=== PATIENT | male | born 1955 | race Caucasian/White ===

== ENCOUNTER 2017-03-03 14:55 | Inpatient (IN) | payer OTHER ==
[~2017-03-03] VITALS: Ht 170.2 cm; Wt 62.1 kg
[2017-03-03 16:30] VITALS: BP 135/85; PULSE 73; TEMP 37.5; BMI 21.8
[2017-03-03] MEDS ORDERED: DEXTROSE 50% 50 ML SYR IV PRN (17:30)
[2017-03-03] MEDS ORDERED: GLUCOSE 40% GEL 15 GM TUBE PO PRN (17:30)
[2017-03-03] MEDS ORDERED: GLUCAGON FOR INJ 1 MG VIAL SQ PRN (17:30)
[2017-03-03] MEDS ORDERED: GLUCOSE 10 TABS/TUBE PO PRN (17:30)
[2017-03-03] MEDS ORDERED: NVLG PO (17:34)
[2017-03-03] MEDS ORDERED: ALL100 PO (17:34)
[2017-03-03] MEDS ORDERED: ENTE1TAB2 PO (17:34)
[2017-03-03] MEDS ORDERED: SODI650T8 PO (17:34)
[2017-03-03] MEDS ORDERED: INSDGI SC (17:34)
[2017-03-03] MEDS ORDERED: PANT40TA PO (17:34)
[2017-03-03] MEDS ORDERED: AMIT150T PO (17:34)
[2017-03-03] MEDS ORDERED: PRAV20TA PO (17:34)
[2017-03-03] MEDS ORDERED: CHOL1TAB79 PO (17:34)
[2017-03-03] MEDS ORDERED: FRRS300 PO (17:34)
[2017-03-03] MEDS ORDERED: NVLGIPEN PO (17:34)
[2017-03-03] MEDS ORDERED: NVLGIPEN SUBD (17:34)
[2017-03-03] MEDS ORDERED: ASCO500T16 PO (17:34)
[2017-03-03] MEDS ORDERED: CLOP1TAB15 PO (17:34)
[2017-03-03] MEDS ORDERED: TACR1CAP PO (17:34)
[2017-03-03] MEDS ORDERED: CRG3125 PO (17:34)
[2017-03-03 18:22] LABS: HEMATOCRIT 27.2 % (42-52); MEAN CELL VOLUME 96.1 fL (80-100); MEAN CORPUSCULAR HEMOGLOBIN 33.2 pg (25-34); MEAN CORPUSCULAR HGB CONC 34.6 g/dl (32-36); MEAN PLATELET VOLUME 9.2 fL (7.4-10.4); PLATELET COUNT 204 K/uL (130-400); RED BLOOD COUNT 2.83 M/uL (4.7-6.1); WHITE BLOOD COUNT 6.74 K/uL (4.8-10.8)
[2017-03-03 18:35] LABS: INR 1.1 (0.9-1.1); PROTHROMBIN TIME (PATIENT) 11.2 SECONDS (9.0-12.0)
[2017-03-03 18:56] LABS: ALB/GLOB RATIO 0.8 (0.9-2); BUN/CREATININE RATIO 12.2 (10-20); CALCIUM 6.4 mg/dl (8.5-10.1); CREATININE 5.77 mg/dl (0.60-1.40); PHOSPHORUS 5.9 mg/dl (2.5-4.9); POTASSIUM 4.7 mmol/L (3.5-5.1)
[2017-03-03 19:07] LABS: BETA-HYDROXYBUTYRATE 1.69 mg/dL (0.2-2.81)
[2017-03-03] MEDS ORDERED: PHARMACY GLYCEMIC MGMT CONSULT PRN (19:11)
[2017-03-03 19:28] LABS: BASO % 0.3 %; BASO ABS # 0.02 K/uL (0-0.2); COMPLETE YES; EOS % 1.6 %; IG% 0.6 %; LYMPH % 21.5 %; LYMPH ABS # 1.45 K/uL (1.2-3.4); MONO % 7.9 %; NEUT % 68.1 %
--- NOTE | 2017-03-03 19:28 | Pharmacy Progress Note ---
Glycemic Control Intl Consult Date of Service Mar 03, 2017. Scope Glycemic Pharmacist consulted by Dr Whitfield on 03/03/17 for glycemic control and to write orders per [facility] inpatient glycemic control protocol Objective Weight (Kilograms): 63.100 Accuchecks BSG (last 24hrs): Test 03/03/17 18:08 Random Glucose 496 mg/dl (70-99) Laboratory Data (last 24hrs) Test 03/03/17 18:08 Anion Gap 9.0 mmol/L BUN/Creatinine Ratio 12.2 Blood Urea Nitrogen 71 mg/dl Creatinine 5.77 mg/dl Potassium Level 4.7 mmol/L Sodium Level 134 mmol/L White Blood Count 6.74 K/uL Red Blood Count 2.83 M/uL Hemoglobin 9.4 g/dL Hematocrit 27.2 % Mean Corpuscular Volume 96.1 fL Mean Corpuscular Hemoglobin 33.2 pg Mean Corpuscular Hemoglobin Concent 34.6 g/dl Platelet Count 204 K/uL Mean Platelet Volume 9.2 fL Recent Pertinent Medications Outpatient Anti-diabetic Regimen: * Lantus 30 units HS * Novolog 10/23/11 units with meals * A1c = 9.6 % 10/2016 per MD Assessment & Plan ASSESSMENT: * 61 yo M admitted with CKD 5 - per MD going to be new to HD starting tomorrow * Insulin sensitivity likely changing with initiation of dialysis - would be more comfortable with insulin drip and BSG on admission ~500 mg/dL * Spoke with MD, GERARDO to start drip and hold IV fluids given renal disease * Would be beneficial to speak with patient about outpatient glycemic control in the AM PLAN FOR INPATIENT GLYCEMIC CONTROL: * Start IV insulin infusion per moderate stress protocol * Goal Range 100 - 180 mg/dl * In the critical care setting, continuous IV insulin infusion has been shown to be the best method for achieving glycemic targets. * Hold off on Lantus has patient may be made NPO at midnight and receive HD for first time tomorrow * Order updated A1c tomorrow * Please note that the plan above was derived based on current level of insulin resistance and hospital stress. These recommendations are appropriate for inpatient admission only. Plan of care upon discharge will need to be reassessed to avoid potential outpatient hypo/hyperglycemia. Thank you.
[2017-03-03 19:30] VITALS: BP 142/82; PULSE 71; TEMP 37.7; O2SAT 100
[2017-03-03] MEDS ORDERED: INSULIN IV INFUSION PROTOCOL SCH (19:30)
[2017-03-03] MEDS ORDERED: INSULIN HUMAN REGULAR IV BOLUS 1.5 UNIT in SYRINGE 0 ML IV SCH (20:30)
[2017-03-03] MEDS: INSULIN REGULAR 250 UNITS in SODIUM CHLORIDE 0.9% 250ML 250 ML IV SCH ×2 (20:36→22:14)
[2017-03-03] MEDS ORDERED: SODIUM BICARBONATE 650 MG TAB PO SCH (21:00)
[2017-03-03] MEDS: INSULIN ASPART 100 UNITS/ML 3 ML PEN SC SCH (21:00)
[2017-03-03] MEDS: TACROLIMUS 1 MG CAP PO SCH (21:12)
[2017-03-03] MEDS: CARVEDILOL 3.125 MG TAB PO SCH (21:12)
[2017-03-03] MEDS: AMITRIPTYLINE HCL 50 MG TAB PO SCH (21:12)
--- NOTE | 2017-03-03 21:15 | Progress Note ---
Internal Med Progress Note Date of Service: Mar 03, 2017. Provider Documentation: SUBJECTIVE: Patient is a 61 yr male with PMH of DM II, End Stage Renal Disease, Cerebral Palsy, S/P Liver transplant and other problems was a direct admit on referral from his Tal[employer] Operations Manager for an elective Tunneled catheter placement and initiation of dialysis. Patient is a poor historian. Denies any history of chest pain, SOB, dizziness, cough, fever, chills, nausea, vomiting, abdominal pain, diarrhea, dysuria. Please refer to H&P for complete details. OBJECTIVE: Vital Signs-as noted below Physical Exam: General Appearance:Moderately built and nourished, no apparent distress Head: normocephalic, Atraumatic Eyes: normal inspection, EOMI, PERRL Neck: supple, Trachea midline Respiratory/Chest: Normal breath sounds, CTA Cardiovascular: S1, S2, No murmur Abdomen/GI:Soft, Non tender, Bowel sounds present Extremities/Musculoskelatal:normal inspection, no edema Neurologic/Psych:AAOX3, grossly no focal neurological deficits Skin: normal color, warm Lab data as noted below. ASSESSMENT & PLAN: End stage Renal Disease: Cr:5.7 Vascular surgery consulted for Tunneled Catheter placement Nephrology consulted for management of Hemodialysis Monitor renal function Uncontrolled DM II: Last A1C:9.6 in Feb, 2017 Blood glucose levels in 400s Will start on Insulin drip Pharmacy Glycemic control consulted Pharmacy to manage Insulin Anemia of Chronic Disease: No acute bleeding issues Monitor Hb Please review H&P for further details and management Vital Signs: Date Time Temp Pulse Resp B/P (MAP) Pulse Ox O2 Delivery O2 Flow Rate FiO2 03/03/17 19:30 37.7 71 20 142/82 (102) 100 Room Air 03/03/17 16:30 37.5 73 22 135/85 Room Air Lab Results: Results Past 24 Hours Test 03/03/17 18:08 03/03/17 19:31 Range/Units White Blood Count 6.74 4.8-10.8 K/uL Red Blood Count 2.83 4.7-6.1 M/uL Hemoglobin 9.4 14.0-18.0 g/dL Hematocrit 27.2 42-52 % Mean Corpuscular Volume 96.1 80-100 fL Mean Corpuscular Hemoglobin 33.2 25-34 pg Mean Corpuscular Hemoglobin Concent 34.6 32-36 g/dl Platelet Count 204 130-400 K/uL Mean Platelet Volume 9.2 7.4-10.4 fL Neutrophils (%) (Auto) 68.1 % Lymphocytes (%) (Auto) 21.5 % Monocytes (%) (Auto) 7.9 % Eosinophils (%) (Auto) 1.6 % Basophils (%) (Auto) 0.3 % Neutrophils # (Auto) 4.59 1.4-6.5 K/uL Lymphocytes # (Auto) 1.45 1.2-3.4 K/uL Monocytes # (Auto) 0.53 0.11-0.59 K/uL Eosinophils # (Auto) 0.11 0-0.5 K/uL Basophils # (Auto) 0.02 0-0.2 K/uL RDW Standard Deviation 46.3 36.4-46.3 fL RDW Coefficient of Variation 13.3 11.5-14.5 % Immature Granulocyte % (Auto) 0.6 % Immature Granulocyte # (Auto) 0.04 0.00-0.02 K/uL Red Blood Cell Morphology Unremarkable Prothrombin Time 11.2 9.0-12.0 SECONDS Prothromb Time International Ratio 1.1 0.9-1.1 Activated Partial Thromboplast Time 26.1 21.0-31.0 SECONDS Partial Thromboplastin Ratio 1.0 Sodium Level 134 136-145 mmol/L Potassium Level 4.7 3.5-5.1 mmol/L Chloride Level 107 98-107 mmol/L Carbon Dioxide Level 18 21-32 mmol/L Anion Gap 9.0 3-11 mmol/L Blood Urea Nitrogen 71 7-18 mg/dl Creatinine 5.77 0.60-1.40 mg/dl Est Creatinine Clear Calc Drug Dose 11.7 ml/min Estimated GFR () 11.1 Estimated GFR (Non- 9.6 BUN/Creatinine Ratio 12.2 10-20 Random Glucose 496 70-99 mg/dl Calcium Level 6.4 8.5-10.1 mg/dl Phosphorus Level 5.9 2.5-4.9 mg/dl Total Bilirubin 0.3 0.2-1 mg/dl Aspartate Amino Transf (AST/SGOT) 22 15-37 U/L Alanine Aminotransferase (ALT/SGPT) 41 12-78 U/L Alkaline Phosphatase 100 45-117 U/L Total Protein 6.6 6.4-8.2 gm/dl Albumin 2.9 3.4-5.0 gm/dl Globulin 3.7 2.5-4.0 gm/dl Albumin/Globulin Ratio 0.8 0.9-2 Beta-Hydroxybutyric Acid 1.69 0.2-2.81 mg/dL Bedside Glucose 478 70-99 mg/dl
[2017-03-03 23:29] VITALS: BP 108/72; PULSE 72; TEMP 37; O2SAT 97
--- NOTE | 2017-03-03 23:40 | History and Physical ---
History & Physical Date & Time of Service: Mar 03, 2017 at 17:00 Chief Complaint: Hypocalcemia, Urimea, Ckd Stage 5 Primary Care Physician: Carlton Lee D.O. History of Present Illness Source: patient, hospital records This is a 61yo M with a PMH of end stage renal disease, poorly controlled DM II , cerebral palsy, CAD (s/p stents in 2010) and s/p liver transplant (1997) who was admitted directly from Dr. Landon's nephrology clinic. Per patient, he has been in discussion with Dr. Landon about the initiation of dialysis for awhile but has opted to continue monitoring labwork. Patient is a poor historian, but per chart review, he was admitted at [facility] in [facility] for uncontrolled diabetes from 02/17-02/23. During this time, his creatinine was >5. Followed up with after hospitalization for repeat labwork. Based on abnormal labs, unintentional weight loss and decreased ability to make urine, the decision was made to initiate dialysis. Initially presented to [facility] yesterday but for unclear reasons, patient left. Was then directly admitted to [facility]. Has agreed to the elective tunnel catheter placement dialysis access by vascular surgery. Endorses decreased urinary output. Denies fever, chills, confusion, CP, SOB, abd pain, nausea, vomiting, constipation, fatigue. Has cerebral palsy and ambulates with a walker. Is more symptomatic on R side. Past Medical/Surgical History Medical Problems: (1) Cerebral palsy Status: Chronic (2) Diabetes mellitus type II, uncontrolled Status: Chronic (3) End stage chronic kidney disease Status: Chronic (4) Hepatitis B Status: Chronic (5) Presence of stent in coronary artery in patient with coronary artery disease Status: Chronic Surgical Problems: (1) S/P liver transplant Status: Chronic Family History Patient is adopted and unaware of biological family history. Social History Smoking Status: Former Smoker (Quit in ) Alcohol Use: none Marital Status: single Housing status: lives alone Allergies Coded Allergies: No Known Allergies (Unverified , 03/03/17) Home Medications Scheduled Allopurinol (Allopurinol), 1 TAB PO DAILY Amitriptyline Hcl (Amitriptyline Hcl), 1 TAB PO HS Ascorbic Acid (Ascorbic Acid), 500 MG PO TIDM Carvedilol (Carvedilol), 1 TAB PO BID Cholecalciferol (D3 2000), 1 TAB PO DAILY Clopidogrel (Plavix), 75 MG PO DAILY Entecavir (Entecavir), 1 TAB PO DAILY Ferrous Sulfate (Ferrous Sulfate), 1 TAB PO TIDM Insulin Aspart (Novolog Flexpen), 10 UNITS PO with lunch Insulin Aspart (Novolog), 12 PO with dinner Insulin Aspart (Novolog Flexpen), 8 UNITS SUBD with breakfast Insulin Glargine (Lantus), 30 SC QPM Pantoprazole (Protonix), 40 MG PO DAILY Pravastatin (Pravachol ), 20 MG PO DAILY Sodium Bicarbonate (Antacid) (Sodium Bicarbonate), 1 TAB PO TID Tacrolimus (Prograf), 4 CAP PO BID Review of Systems Ten systems reviewed and negative except as noted in the HPI. Physical Exam Vital Signs Date Time Temp Pulse Resp B/P (MAP) Pulse Ox O2 Delivery O2 Flow Rate FiO2 03/03/17 20:00 Room Air 03/03/17 19:30 37.7 71 20 142/82 (102) 100 Room Air 03/03/17 16:30 37.5 73 22 135/85 Room Air General Appearance: WD/WN, no apparent distress Head: normocephalic, atraumatic Eyes: normal inspection, PERRL, sclerae normal ENT: normal ENT inspection, hearing grossly normal, pharynx normal (moist mucous membranes) Neck: supple, no JVD, trachea midline Respiratory/Chest: chest non-tender, lungs clear, normal breath sounds, no respiratory distress, no accessory muscle use Cardiovascular: regular rate, rhythm, no murmur, normal peripheral pulses Abdomen/GI: non tender, soft, no organomegaly Extremities/Musculoskelatal: no calf tenderness, no pedal edema, non-tender Neurologic/Psych: alert, normal mood/affect, oriented x 3, + pertinent finding (Chronic gait abnormality 2/2 cerebral palsy ) Skin: normal color, warm/dry, no rash Diagnostics Laboratory Results Results Past 24 Hours Test 03/03/17 18:08 03/03/17 19:31 03/03/17 21:30 Range/Units White Blood Count 6.74 4.8-10.8 K/uL Red Blood Count 2.83 4.7-6.1 M/uL Hemoglobin 9.4 14.0-18.0 g/dL Hematocrit 27.2 42-52 % Mean Corpuscular Volume 96.1 80-100 fL Mean Corpuscular Hemoglobin 33.2 25-34 pg Mean Corpuscular Hemoglobin Concent 34.6 32-36 g/dl Platelet Count 204 130-400 K/uL Mean Platelet Volume 9.2 7.4-10.4 fL Neutrophils (%) (Auto) 68.1 % Lymphocytes (%) (Auto) 21.5 % Monocytes (%) (Auto) 7.9 % Eosinophils (%) (Auto) 1.6 % Basophils (%) (Auto) 0.3 % Neutrophils # (Auto) 4.59 1.4-6.5 K/uL Lymphocytes # (Auto) 1.45 1.2-3.4 K/uL Monocytes # (Auto) 0.53 0.11-0.59 K/uL Eosinophils # (Auto) 0.11 0-0.5 K/uL Basophils # (Auto) 0.02 0-0.2 K/uL RDW Standard Deviation 46.3 36.4-46.3 fL RDW Coefficient of Variation 13.3 11.5-14.5 % Immature Granulocyte % (Auto) 0.6 % Immature Granulocyte # (Auto) 0.04 0.00-0.02 K/uL Red Blood Cell Morphology Unremarkable Prothrombin Time 11.2 9.0-12.0 SECONDS Prothromb Time International Ratio 1.1 0.9-1.1 Activated Partial Thromboplast Time 26.1 21.0-31.0 SECONDS Partial Thromboplastin Ratio 1.0 Sodium Level 134 136-145 mmol/L Potassium Level 4.7 3.5-5.1 mmol/L Chloride Level 107 98-107 mmol/L Carbon Dioxide Level 18 21-32 mmol/L Anion Gap 9.0 3-11 mmol/L Blood Urea Nitrogen 71 7-18 mg/dl Creatinine 5.77 0.60-1.40 mg/dl Est Creatinine Clear Calc Drug Dose 11.7 ml/min Estimated GFR () 11.1 Estimated GFR (Non- 9.6 BUN/Creatinine Ratio 12.2 10-20 Random Glucose 496 70-99 mg/dl Calcium Level 6.4 8.5-10.1 mg/dl Phosphorus Level 5.9 2.5-4.9 mg/dl Total Bilirubin 0.3 0.2-1 mg/dl Aspartate Amino Transf (AST/SGOT) 22 15-37 U/L Alanine Aminotransferase (ALT/SGPT) 41 12-78 U/L Alkaline Phosphatase 100 45-117 U/L Total Protein 6.6 6.4-8.2 gm/dl Albumin 2.9 3.4-5.0 gm/dl Globulin 3.7 2.5-4.0 gm/dl Albumin/Globulin Ratio 0.8 0.9-2 Beta-Hydroxybutyric Acid 1.69 0.2-2.81 mg/dL Bedside Glucose 478 382 70-99 mg/dl EKG Sinus rhythm with occasional Premature ventricular complexes Impression Assessment and Plan This is a 61yo M with a PMH of end stage renal disease, poorly controlled DM II , cerebral palsy, CAD (s/p stents in 2010) and s/p liver transplant (1997) who was admitted directly from 's nephrology clinic for initiation of dialysis. End stage renal disease: -Cr elevated to 5.7 since 02/17 hospital admission -Cr 2.7 previously -Nephrology consulted -Vascular consulted -Tunnel catheter placement scheduled for tomorrow -NPO afrer midnight -Monitor CMP DM II: uncontrolled -Last hgb a1c of 9.6 in October 2016 -Recheck hgb a1c -BG in 400s when admitted -Glycemic consult placed -Insulin drip initiated CAD (s/p stents): -H/o MIs in 2008 and 2010 -No CP, EKG without ischemia -Cont home dose coreg, statin -Plavix held until after procedure S/p liver transplant: -H/o Hepatitic B -Continue Prograf, Entecavir Anemia: -2/2 chronic disease -No acute bleeding -Monitor CBC DVT Ppx: SCDs Code status: FULL PCP: Rosa Dispo: Admitted to telemetry. Discharge planning ordered. Patient seen in collaboration with Dr. Whitfield. Please see addendum. Level of Care Telemetry Advanced Directives Existing Living Will: No Existing Power of Glove Stitcher: No Resuscitation Status FULL RESUSCITATION VTE Prophylaxis VTE Risk Assessment Done? Y/N: Yes Risk Level: Moderate Given or contraindicated: SCD's Social Service Consult Receiving Home Health
[2017-03-04] VITALS (19 sets, daily range): BP systolic 107–168; BP diastolic 65–95; PULSE 60–83; TEMP 36.1–37.2; O2SAT 97–100; Ht 170.2 cm; Wt 62.1 kg
[2017-03-04] MEDS ORDERED: CALCIUM GLUCONATE 10% 2,000 MG in SODIUM CHLORIDE 0.9% 50ML 50 ML IV STA (06:05)
[2017-03-04 06:21] LABS: HEMATOCRIT 25.2 % (42-52); MEAN CELL VOLUME 96.2 fL (80-100); MEAN CORPUSCULAR HEMOGLOBIN 33.2 pg (25-34); MEAN CORPUSCULAR HGB CONC 34.5 g/dl (32-36); MEAN PLATELET VOLUME 9.3 fL (7.4-10.4); PLATELET COUNT 181 K/uL (130-400); RED BLOOD COUNT 2.62 M/uL (4.7-6.1); WHITE BLOOD COUNT 7.11 K/uL (4.8-10.8)
[2017-03-04 07:11] LABS: BUN/CREATININE RATIO 12.4 (10-20); CALCIUM 6.3 mg/dl (8.5-10.1); CREATININE 5.62 mg/dl (0.60-1.40); ESTIMATED AVERAGE GLUCOSE 209 mg/dl; HA1C FLAG Normal (Normal); MAGNESIUM 1.7 mg/dl (1.8-2.4); PHOSPHORUS 6.6 mg/dl (2.5-4.9)
[2017-03-04] MEDS ORDERED: FERROUS SULFATE 325 MG TAB PO SCH (07:30)
[2017-03-04] MEDS: ASCORBIC ACID 500 MG TAB PO SCH ×3 (07:30→17:11)
[2017-03-04] MEDS: CALCIUM ACETATE 667MG GELCAP PO SCH ×3 (07:30→17:11)
[2017-03-04] MEDS: INSULIN ASPART 100 UNITS/ML 3 ML PEN SC SCH ×3 (08:00→18:00)
[2017-03-04] MEDS: CARVEDILOL 3.125 MG TAB PO SCH ×2 (09:00→21:15)
[2017-03-04] MEDS: PRAVASTATIN SOD 20 MG TAB PO SCH (09:00)
[2017-03-04] MEDS: ALLOPURINOL 100 MG TAB PO SCH (09:00)
[2017-03-04] MEDS: TACROLIMUS 1 MG CAP PO SCH ×2 (09:00→21:15)
[2017-03-04] MEDS: CHOLECALCIFEROL 1000 INTER.UNIT TAB PO SCH (09:00)
--- NOTE | 2017-03-04 09:09 | Clinical Documentation Query ---
Dr. OMER, [facility] : CLINICAL DOCUMENTATION QUERY As able, please specify the type of CP in your patient as this affects severity of illness and risk of mortality. Thank you. In your clinical opinion is this patient being managed for: ( x ) other cerebral palsy ( ) Not Agree ( ) Other explanation of clinical findings (Please Explain) ( ) Unable to determine (Please Define) ( ) Need to Discuss The medical record reflects the following clinical findings, treatment, and risk factors. Clinical Indicators: Ambulates with walker, more symptomatic on right side Treatment: Walker Risk Factors: Idiopathic Please clarify and document your clinical opinion in the progress notes and discharge summary. Terms such as "probable", "suspected", "likely", "questionable", "possible", or "still to be ruled out" are acceptable. IF IN AGREEMENT, YOU MUST DOCUMENT ABOVE DIAGNOSTIC STATEMENT IN DAILY PROGRESS NOTES AND DISCHARGE SUMMARY. This document is not part of the patient's record. Thank You, Ramon Mack, RN [phone]
--- NOTE | 2017-03-04 10:30 | Progress Note ---
Internal Med Progress Note Date of Service: Mar 04, 2017. Provider Documentation: SUBJECTIVE: Seen and examined at bedside Feels well No complaints Planned for Tunneled Catheter placement and dialysis today OBJECTIVE: Vital Signs-as noted below Physical Exam: General Appearance:Moderately built and nourished, no apparent distress Head: normocephalic, Atraumatic Eyes: normal inspection, EOMI, PERRL Neck: supple, Trachea midline Respiratory/Chest: Normal breath sounds, CTA Cardiovascular: S1, S2, No murmur Abdomen/GI:Soft, Non tender, Bowel sounds present Extremities/Musculoskelatal:normal inspection, no edema Neurologic/Psych:AAOX3, grossly no focal neurological deficits Skin: normal color, warm Lab data as noted below. ASSESSMENT & PLAN: Patient is a 61yr male with PMH of ESRD, poorly controlled DM II, cerebral palsy , CAD (s/p stents in 2010) and s/p liver transplant (1997) who was admitted directly from 's nephrology clinic for initiation of dialysis. End stage Renal Disease: Cr:5.62 Vascular surgery consulted for Tunneled Catheter placement today Nephrology consulted for management of Hemodialysis Monitor renal function Uncontrolled DM II: Last A1C:9.6 in Feb, 2017 A1C:8.9 Blood glucose levels in 400s on presentation Blood sugar levels improved DC Insulin drip Start [facility] Pharm[facility] Glycemic control consulted Pharmacy to manage Insulin Anemia of Chronic Disease: No acute bleeding issues Monitor Hb Hb:8.7 today CAD S/P stents H/o MIs in 2008 and 2010 No acute issues Continue coreg, statin Plavix held for procedure S/p liver transplant: H/o Hepatitic B Continue Prograf, Entecavir DVT Px: SCDs Code status: FULL PCP: Rosa Disposition: Plan to discharge home when stable Vital Signs: Date Time Temp Pulse Resp B/P (MAP) Pulse Ox O2 Delivery O2 Flow Rate FiO2 03/04/17 08:22 36.7 65 16 107/65 (79) 99 Room Air 03/04/17 08:00 Room Air 03/04/17 04:00 Room Air 03/04/17 03:49 36.5 66 16 109/68 (82) 99 Room Air 03/03/17 23:59 Room Air 03/03/17 23:29 37.0 72 20 108/72 (84) 97 Room Air 03/03/17 20:00 Room Air 03/03/17 19:30 37.7 71 20 142/82 (102) 100 Room Air 03/03/17 16:30 37.5 73 22 135/85 Room Air Lab Results: Results Past 24 Hours Test 03/03/17 18:08 03/03/17 19:31 03/03/17 21:30 03/03/17 23:28 Range/Units White Blood Count 6.74 4.8-10.8 K/uL Red Blood Count 2.83 4.7-6.1 M/uL Hemoglobin 9.4 14.0-18.0 g/dL Hematocrit 27.2 42-52 % Mean Corpuscular Volume 96.1 80-100 fL Mean Corpuscular Hemoglobin 33.2 25-34 pg Mean Corpuscular Hemoglobin Concent 34.6 32-36 g/dl Platelet Count 204 130-400 K/uL Mean Platelet Volume 9.2 7.4-10.4 fL Neutrophils (%) (Auto) 68.1 % Lymphocytes (%) (Auto) 21.5 % Monocytes (%) (Auto) 7.9 % Eosinophils (%) (Auto) 1.6 % Basophils (%) (Auto) 0.3 % Neutrophils # (Auto) 4.59 1.4-6.5 K/uL Lymphocytes # (Auto) 1.45 1.2-3.4 K/uL Monocytes # (Auto) 0.53 0.11-0.59 K/uL Eosinophils # (Auto) 0.11 0-0.5 K/uL Basophils # (Auto) 0.02 0-0.2 K/uL RDW Standard Deviation 46.3 36.4-46.3 fL RDW Coefficient of Variation 13.3 11.5-14.5 % Immature Granulocyte % (Auto) 0.6 % Immature Granulocyte # (Auto) 0.04 0.00-0.02 K/uL Red Blood Cell Morphology Unremarkable Prothrombin Time 11.2 9.0-12.0 SECONDS Prothromb Time International Ratio 1.1 0.9-1.1 Activated Partial Thromboplast Time 26.1 21.0-31.0 SECONDS Partial Thromboplastin Ratio 1.0 Sodium Level 134 136-145 mmol/L Potassium Level 4.7 3.5-5.1 mmol/L Chloride Level 107 98-107 mmol/L Carbon Dioxide Level 18 21-32 mmol/L Anion Gap 9.0 3-11 mmol/L Blood Urea Nitrogen 71 7-18 mg/dl Creatinine 5.77 0.60-1.40 mg/dl Est Creatinine Clear Calc Drug Dose 11.7 ml/min Estimated GFR () 11.1 Estimated GFR (Non- 9.6 BUN/Creatinine Ratio 12.2 10-20 Random Glucose 496 70-99 mg/dl Calcium Level 6.4 8.5-10.1 mg/dl Phosphorus Level 5.9 2.5-4.9 mg/dl Total Bilirubin 0.3 0.2-1 mg/dl Aspartate Amino Transf (AST/SGOT) 22 15-37 U/L Alanine Aminotransferase (ALT/SGPT) 41 12-78 U/L Alkaline Phosphatase 100 45-117 U/L Total Protein 6.6 6.4-8.2 gm/dl Albumin 2.9 3.4-5.0 gm/dl Globulin 3.7 2.5-4.0 gm/dl Albumin/Globulin Ratio 0.8 0.9-2 Beta-Hydroxybutyric Acid 1.69 0.2-2.81 mg/dL Bedside Glucose 478 382 352 70-99 mg/dl Test 03/04/17 00:31 03/04/17 01:31 03/04/17 02:30 03/04/17 04:34 Range/Units Bedside Glucose 230 181 164 101 70-99 mg/dl Test 03/04/17 05:36 03/04/17 06:31 03/04/17 06:57 03/04/17 08:12 Range/Units White Blood Count 7.11 4.8-10.8 K/uL Red Blood Count 2.62 4.7-6.1 M/uL Hemoglobin 8.7 14.0-18.0 g/dL Hematocrit 25.2 42-52 % Mean Corpuscular Volume 96.2 80-100 fL Mean Corpuscular Hemoglobin 33.2 25-34 pg Mean Corpuscular Hemoglobin Concent 34.5 32-36 g/dl RDW Standard Deviation 45.9 36.4-46.3 fL RDW Coefficient of Variation 13.3 11.5-14.5 % Platelet Count 181 130-400 K/uL Mean Platelet Volume 9.3 7.4-10.4 fL Sodium Level 141 136-145 mmol/L Potassium Level 4.0 3.5-5.1 mmol/L Chloride Level 115 98-107 mmol/L Carbon Dioxide Level 17 21-32 mmol/L Anion Gap 9.0 3-11 mmol/L Blood Urea Nitrogen 69 7-18 mg/dl Creatinine 5.62 0.60-1.40 mg/dl Est Creatinine Clear Calc Drug Dose 11.9 ml/min Estimated GFR () 11.5 Estimated GFR (Non- 9.9 BUN/Creatinine Ratio 12.4 10-20 Random Glucose 85 70-99 mg/dl Estimated Average Glucose 209 mg/dl Hemoglobin A1c 8.9 4.5-5.6 % Calcium Level 6.3 8.5-10.1 mg/dl Phosphorus Level 6.6 2.5-4.9 mg/dl Magnesium Level 1.7 1.8-2.4 mg/dl Bedside Glucose 74 133 86 70-99 mg/dl
--- NOTE | 2017-03-04 11:28 | NEPHROLOGY CONSULTATION ---
DATE OF CONSULTATION: 03/04/2017 ATTENDING OF RECORD: Jacoby Whitfield MD REASON FOR CONSULTATION: End-stage renal disease. HISTORY OF PRESENT ILLNESS: This is a 61-year-old male who follows with me in the outpatient clinic, who at a previous visit over this summer had CKD stage IV with no proteinuria with creatinine of about 3 with the right kidney of 10.5 cm and the left kidney of 10.6 cm with echogenicity consistent with medical renal disease from underlying diabetes and chronic allograft nephropathy. The patient has been a diabetic since 1997 after liver transplant. Hemoglobin A1c is consistently in the 9-10 range and he has difficult time in controlling his blood sugars. 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 b.i.d. The patient also has underlying heart disease with MO in 2009 and 2010 with 2 stents, has underlying sleep apnea as well as cerebral palsy, which affects his right side. The patient was doing well and then since giving started to lose weight, had decreased appetite and went in to [facility] from February 17 to February 23 with hyperglycemia and creatinine was up to 5.15. I saw him in followup and creatinine was not improving and was having poor urinary flow with just small dribbles out and sent to [facility] who decided labs were stable and did not warrant admission. So, I decided to subsequently directly admit the patient to [facility] [address] [facility] for a tunneled dialysis catheter placement, insulin drip to help control blood sugars and IV calcium to help raise the calcium levels, which were dropping in the setting of elevated phosphorus levels. The patient has noticed more itching of his skin, likely a consequence of the hyperphosphatemia. PAST MEDICAL HISTORY: As above with diabetes, liver transplant, hep B cirrhosis, heart disease with MO x2 with 2 stents, sleep apnea, cerebral palsy, and hypertension. PAST SURGICAL HISTORY: Two stents, liver transplant, and total hip replacement. SOCIAL HISTORY: No alcohol. No drugs. Former smoker, quit in 1996. FAMILY HISTORY: no renal disease in family CURRENT MEDICATIONS: Allopurinol 100 mg a day, Plavix 75 mg a day, Protonix 40 mg a day, Pravachol 20 mg daily, vitamin D 2000 units daily, vitamin C 500 mg p.o. t.i.d. with meals, iron 325 p.o. t.i.d. with meals, Coreg 3.125 p.o. b.i.d., sodium bicarbonate 650 mg p.o. t.i.d., Prograf 4 mg p.o. b.i.d., Elavil 150 mg at night, and sliding scale insulin with an insulin drip. REVIEW OF SYSTEMS: Positive fatigue. Positive decreased appetite. No nausea or vomiting. No chest pain. Positive shortness of breath with overexertion. Positive decreased urination. Positive pruritus. No fevers or chills. No blurry vision. Positive ambulatory dysfunction secondary to cerebral palsy. All other review of systems otherwise negative. PHYSICAL EXAMINATION: VITAL SIGNS: Temperature 36.5, pulse 66, respiratory rate 16, blood pressure 109/68, and satting 99% on room air. GENERAL: Awake, alert, and oriented x3. EYES: No scleral icterus. ENT: Moist mucous membranes. NECK: Supple. PULMONARY: Clear to auscultation. CARDIAC: Regular rate and rhythm. ABDOMEN: Bowel sounds positive. Soft, nontender, and nondistended. EXTREMITIES: No significant clubbing, cyanosis or edema. NEUROLOGICALLY: Right-sided weakness with underlying cerebral palsy. DERMATOLOGIC: No rash or ulcers noted. LABORATORY DATA: Sodium level is 134, potassium 4.7, chloride is 107, bicarb is 18, BUN is 71, creatinine is 5.77, glucose was 496, calcium 6.4, and phosphorus 5.9. Albumin 2.9. White count 6, H&H 9 and 27, and platelet count is 204. INR is 1.1. IMPRESSION AND PLAN: 1. Chronic kidney disease stage V with progression of chronic kidney disease to the point now that the patient requires dialysis, currently n.p.o. for a tunneled dialysis catheter today, which will be subsequently followed by 2 hours of dialysis treatment to help with clearance of toxins. 2. Anemia. Hemoglobin level 9.4. We will check iron sats and ferritin levels, may benefit from initiation of Procrit. 3. Renal osteodystrophy. Phosphorus levels are quite elevated. We will start the patient on PhosLo 1 p.o. t.i.d. with meals. Calcium levels are low at 6.4 and appear to be dropping in the setting of chronic hyperphosphatemia and I have given the patient 2 grams of calcium gluconate. Calcium levels should start to improve as phosphorus levels improve. 4. Metabolic acidosis. The patient is on sodium bicarbonate, which will be stopped secondary to initiation of dialysis. 5. Case management. The patient needs set up at the [facility] and we will touch base with case management to help have the patient get approved to that unit. I appreciate the consultation. JOS
[2017-03-04] MEDS: PANTOprazole SOD 40 MG TAB PO SCH (12:04)
--- NOTE | 2017-03-04 13:11 | Surgery Consultation ---
Consultation Date of Service Mar 04, 2017. Chief Complaint Acute renal failure History of Present Illness The patient is a 61 year old male with acute renal failure. Recommended permcath for dialysis at this time. Vitals Vital Signs Past 12 Hours Date Time Temp Pulse Resp B/P (MAP) Pulse Ox O2 Delivery O2 Flow Rate FiO2 03/04/17 12:08 Room Air 03/04/17 12:01 36.5 68 16 127/81 (96) 100 03/04/17 08:22 36.7 65 16 107/65 (79) 99 Room Air 03/04/17 08:00 Room Air 03/04/17 04:00 Room Air 03/04/17 03:49 36.5 66 16 109/68 (82) 99 Room Air Allergies Coded Allergies: No Known Allergies (Unverified , 03/03/17) Home Medications Scheduled Allopurinol (Allopurinol), 1 TAB PO DAILY Amitriptyline Hcl (Amitriptyline Hcl), 1 TAB PO HS Ascorbic Acid (Ascorbic Acid), 500 MG PO TIDM Carvedilol (Carvedilol), 1 TAB PO BID Cholecalciferol (D3 2000), 1 TAB PO DAILY Clopidogrel (Plavix), 75 MG PO DAILY Entecavir (Entecavir), 1 TAB PO DAILY Ferrous Sulfate (Ferrous Sulfate), 1 TAB PO TIDM Insulin Aspart (Novolog Flexpen), 10 UNITS PO with lunch Insulin Aspart (Novolog), 12 PO with dinner Insulin Aspart (Novolog Flexpen), 8 UNITS SUBD with breakfast Insulin Glargine (Lantus), 30 SC QPM Pantoprazole (Protonix), 40 MG PO DAILY Pravastatin (Pravachol ), 20 MG PO DAILY Sodium Bicarbonate (Antacid) (Sodium Bicarbonate), 1 TAB PO TID Tacrolimus (Prograf), 4 CAP PO BID Problem List Medical Problems: (1) Cerebral palsy (2) Diabetes mellitus type II, uncontrolled (3) End stage chronic kidney disease (4) Hepatitis B (5) Presence of stent in coronary artery in patient with coronary artery disease Surgical Problems: (1) S/P liver transplant Surgical / Medical History Past Medical/Surgical History: Diabetes, Kidney Disease Social History Smoking Status: Former Smoker (Quit in ) Review of Systems Constitutional: No chills, No diaphoresis, No fever, No malaise, No weakness, No weight gain, No weight loss, No sweats, No fatigue, No problem reported Respiratory: No cough, No cyanosis, No CLARKE, No hemoptysis, No orthopnea, No PND , No short of breath, No sputum production, No stridor, No wheezing, No dyspnea , No problem reported Cardiovascular: No chest pain, No chest tightness, No chest pressure, No palpitations, No syncope, No diaphoresis, No edema, No intermittent claudication , No orthopnea, No cyanosis, No mumur, No lightheadedness, No paroxysmal nocturnal dyspnea, No problem reported Gastrointestinal: No abdominal pain, No constipation, No diarrhea, No nausea, No vomiting, No anorexia, No appetite changes, No belching, No flatulence, No food intolerance, No hematemesis, No hemorrhoids, No hematochezia, No stool changes, No heartburn, No indigestion, No dysphagia, No rectal bleeding, No problem reported Neurologic: No dizziness, No weakness, No headache, No lethargy, No numbness, No paresthesia, No pre-existing deficit, No seizures, No tics, No tingling, No tremors, No vertigo, No memory loss, No LOC, No problem reported Physical Exam Constitutional: General Apperance: heathly-appearing, well-nourished, well-developed Level of Distress: NAD Ambulation: ambulating normally Psychiatric: Mental Status: active & alert, normal mood, normal affect Orientation: oriented except where noted Memory: recent memory normal, remote memory normal Head: normocephalic Lungs: Auscultation: breath sounds normal, CTA except as noted, no wheezing, no rales/crackles, no rhonchi Cardiovascular: Heart Auscultation: RRR Peripheral Pulses: Radial Pulse: normal on the left, normal on the right Femoral Pulse: normal on the left, normal on the right Abdomen: Inspection & Palpation: soft Musculoskeletal: normal Extremities: Upper Right: no cyanosis, no edema, no varicosities, no palpable cord, no clubbing, no ulcers, no mottling Upper Left: no cyanosis, no edema, no palpable cord, no clubbing, no ulcers , no mottling Lower Right: no cyanosis, no edema, no varicosities, no palpable cord, no clubbing, no ulcers, no mottling Lower Left: no cyanosis, no edema, no varicosities, no palpable cord, no clubbing, no ulcers, no mottling Assessment and Plan Imp: Acute renal failure Plan: Recommend insertion of permcath I have discussed the risks options and benefits of the procedure with the patient. The patient understands the risks options and benefits and agrees to the procedure.
[2017-03-04] MEDS ORDERED: ATROPINE SULFATE 0.1 MG/ML 5ML SYR IV PRN (14:15)
[2017-03-04] MEDS ORDERED: FENTANYL CITRATE INJ 50 MCG/1 ML 2 ML VIAL IV PRN (14:15)
[2017-03-04] MEDS ORDERED: ONDANSETRON INJ 2 MG/ML 2 ML VIAL IV PRN (14:15)
[2017-03-04] MEDS ORDERED: EpHEDrine SULFATE INJ 50 MG/ML AMP IV PRN (14:15)
[2017-03-04] MEDS ORDERED: FENTANYL CITRATE INJ 50 MCG/1 ML 2 ML VIAL ONE (14:29)
[2017-03-04] MEDS ORDERED: MIDAZOLAM HCL 1 MG/ML 2ML VIAL ONE (14:29)
[2017-03-04] MEDS ORDERED: HEPARIN SOD (PORCINE) 5000 UNIT/ML 1 ML VIAL ONE (14:30)
[2017-03-04] MEDS ORDERED: CEFAZOLIN SOD 1000MG/5 ML IV PUSH IV ONE (14:45)
[2017-03-04] MEDS ORDERED: NURSING VERBAL MED ORDER ONE (14:45)
[2017-03-04] MEDS ORDERED: LIDOCAINE HCL 1% 20 ML VIAL SQ ONE (15:15)
[2017-03-04] MEDS ORDERED: HEPARIN SOD (PORCINE) 5000 UNIT/ML 1 ML VIAL IV ONE (15:15)
--- NOTE | 2017-03-04 15:22 | [facility] Operative Report ---
Operative Report Operative Date Mar 04, 2017. Pre-Operative Diagnosis Acute Renal Failure Post-Operative Diagnosis None Procedure(s) Performed Insertion of Perm Catheter, Right Internal Jugular Approach, Ultrasound Localization of Right Internal Jugular Vein, Fluoroscopy for positioning. Surgeon Dr. Petty Inventory Manager Surgeon(s) None Estimated Blood Loss 5 Findings Tip in distal SVC Specimens None Anesthesia Local with sedation Complication(s) None Disposition Recovery Room / PACU Indications Patient is a 61 yo white male with acute renal failure in need of dialysis. Permcath insertion was recommended. I have discussed the risks options and benefits of the procedure with the patient. The patient understands the risks options and benefits and agrees to the procedure. Description of Procedure Patient was takent to the angio suite and placed in the supine position. The right side of the neck and chest wall were prepped and draped in a sterile manner. Local anesthesia was then administered to the appropriate areas of the neck and chest wall. Ultrasound was then used to locate the right internal jugular vein. The vein compressed easily, had no filing defects, and was patent. The vein was then punctured under direct ultrasound imaging. A guidewire was then passed centrally under fluoroscopic imaging. A stab wound was then made in the anterior chest wall and a 19 cm permcath was passed from the stab wound on the chest wall to the puncture site on the neck. The puncture site was then dilated till the 14Fr peel away sheath was inserted. The permcath was then inserted through the sheath to a central position in the distal superior vena cava. The peel away sheath was then removed. The catheter was then sutured in place using nylon sutures. The puncture was then closed using a 4-0 Vicryl subcuticular suture. Dermabond was used for a dressing on the puncture site. Both ports aspirated and flushed easily and were then packed with heparin. A sterile dressing was applied to the catheter. The patient left the angio suite in good condition and tolerated the procedure well. I attest to the content of the Intraoperative Record and any orders documented therein. Any exceptions are noted below.
[2017-03-04] MEDS ORDERED: INSULIN GLARGINE SOLOSTAR 100 UNITS/ML 3 ML PEN SC ONE (15:30)
--- NOTE | 2017-03-04 15:42 | Anesthesiology Progress Note ---
Anesthesia Post Op Note Date & Time Mar 04, 2017 at 15:42 Vital Signs Pain Intensity: 0 Vital Signs Past 12 Hours Date Time Temp Pulse Resp B/P (MAP) Pulse Ox O2 Delivery O2 Flow Rate FiO2 03/04/17 15:28 36.8 70 18 118/78 100 Room Air 03/04/17 12:08 Room Air 03/04/17 12:01 36.5 68 16 127/81 (96) 100 03/04/17 08:22 36.7 65 16 107/65 (79) 99 Room Air 03/04/17 08:00 Room Air 03/04/17 04:00 Room Air 03/04/17 03:49 36.5 66 16 109/68 (82) 99 Room Air Notes Mental Status: alert / awake / arousable, participated in evaluation Pt Amnestic to Procedure: Yes Nausea / Vomiting: adequately controlled Pain: adequately controlled Airway Patency, RR, SpO2: stable & adequate BP & HR: stable & adequate Hydration State: stable & adequate Anesthetic Complications: no major complications apparent
[2017-03-04] MEDS: AMITRIPTYLINE HCL 50 MG TAB PO SCH (21:15)
[2017-03-05] VITALS (18 sets, daily range): BP systolic 100–159; BP diastolic 64–95; PULSE 66–86; TEMP 36.5–37.6; O2SAT 95–100
[2017-03-05] MEDS: INSULIN ASPART 100 UNITS/ML 3 ML PEN SC SCH ×6 (00:51→21:03)
[2017-03-05 05:52] LABS: HEMATOCRIT 26.3 % (42-52); MEAN CELL VOLUME 95.3 fL (80-100); MEAN CORPUSCULAR HGB CONC 34.6 g/dl (32-36); MEAN PLATELET VOLUME 9.3 fL (7.4-10.4); PLATELET COUNT 185 K/uL (130-400); RED BLOOD COUNT 2.76 M/uL (4.7-6.1); WHITE BLOOD COUNT 7.08 K/uL (4.8-10.8)
[2017-03-05 06:27] LABS: CALCIUM 7.2 mg/dl (8.5-10.1); CREATININE 4.15 mg/dl (0.60-1.40); MAGNESIUM 1.7 mg/dl (1.8-2.4); POTASSIUM 3.8 mmol/L (3.5-5.1)
[2017-03-05 06:32] LABS: FERRITIN 136.8 ng/ml (8.0-388.0); PHOSPHORUS 4.8 mg/dl (2.5-4.9)
--- NOTE | 2017-03-05 07:58 | Anesthesiology Progress Note ---
Anesthesia Post Op Note Date & Time Mar 05, 2017 at 07:58 Vital Signs Pain Intensity: 0 Vital Signs Past 12 Hours Date Time Temp Pulse Resp B/P (MAP) Pulse Ox O2 Delivery O2 Flow Rate FiO2 03/05/17 07:55 36.9 76 20 146/82 (103) 100 Room Air 03/05/17 04:00 Room Air 03/05/17 03:36 36.6 70 18 108/67 (81) 99 Room Air 03/04/17 23:59 Room Air 03/04/17 23:48 37.2 72 16 129/77 (94) 97 Room Air 03/04/17 20:43 36.2 64 152/84 (106) 03/04/17 20:30 65 140/89 03/04/17 20:15 67 140/94 03/04/17 20:00 Room Air 03/04/17 20:00 60 132/84 Notes Mental Status: alert / awake / arousable, participated in evaluation Pt Amnestic to Procedure: Yes Nausea / Vomiting: adequately controlled Pain: adequately controlled Airway Patency, RR, SpO2: stable & adequate BP & HR: stable & adequate Hydration State: stable & adequate Anesthetic Complications: no major complications apparent
[2017-03-05] MEDS ORDERED: EPOETIN ALFA 10,000 UNITS/ML VIAL IV. ONE (08:00)
[2017-03-05] MEDS ORDERED: IRON SUCROSE INJ 100 MG in SYRINGE 0 ML IV SCH (08:00)
[2017-03-05] MEDS ORDERED: EPOETIN ALFA INJ 4,000 UNITS in SYRINGE 0 ML IV. SCH (08:00)
[2017-03-05] MEDS ORDERED: CALCIUM GLUCONATE 10% 1,000 MG in SODIUM CHLORIDE 0.9% 50ML 50 ML IV ONE (08:00)
[2017-03-05] MEDS: CARVEDILOL 3.125 MG TAB PO SCH ×2 (08:12→21:01)
[2017-03-05] MEDS: CHOLECALCIFEROL 1000 INTER.UNIT TAB PO SCH (08:26)
[2017-03-05] MEDS: PANTOprazole SOD 40 MG TAB PO SCH (08:26)
[2017-03-05] MEDS: CALCIUM ACETATE 667MG GELCAP PO SCH ×3 (08:26→17:06)
[2017-03-05] MEDS: ALLOPURINOL 100 MG TAB PO SCH (08:26)
[2017-03-05] MEDS: ASCORBIC ACID 500 MG TAB PO SCH ×3 (08:27→17:07)
[2017-03-05] MEDS: PRAVASTATIN SOD 20 MG TAB PO SCH (08:27)
[2017-03-05] MEDS: TACROLIMUS 1 MG CAP PO SCH ×2 (08:27→21:01)
[2017-03-05] MEDS: INSULIN GLARGINE SOLOSTAR 100 UNITS/ML 3 ML PEN SC SCH ×2 (09:00→21:03)
--- NOTE | 2017-03-05 09:32 | Dialysis Progress Note ---
Nephrology Dialysis Note Date of Service: Mar 05, 2017. Subjective 61 yo male seen on dialysis. tolerated short dialysis treatment yesterday. had tunneled line placed yesterday. pts appetite already improving. urination has also improved. was previously just dribbling out. no sob. Objective Date Time Temp Pulse Resp B/P (MAP) Pulse Ox O2 Delivery O2 Flow Rate FiO2 03/05/17 08:43 36.5 71 127/92 (104) 03/05/17 07:55 36.9 76 20 146/82 (103) 100 Room Air 03/05/17 04:00 Room Air 03/05/17 03:36 36.6 70 18 108/67 (81) 99 Room Air 03/04/17 23:59 Room Air 03/04/17 23:48 37.2 72 16 129/77 (94) 97 Room Air 03/04/17 20:43 36.2 64 152/84 (106) 03/04/17 20:30 65 140/89 03/04/17 20:15 67 140/94 03/04/17 20:00 Room Air 03/04/17 20:00 60 132/84 03/04/17 19:45 67 141/91 03/04/17 19:30 64 151/82 03/04/17 19:15 65 162/94 03/04/17 19:00 67 150/91 03/04/17 19:00 36.1 67 18 146/95 (112) 100 Room Air 03/04/17 18:45 60 148/78 03/04/17 18:30 64 157/91 03/04/17 18:15 36.1 62 168/92 (117) 03/04/17 17:14 83 20 158/90 (112) 100 Room Air 03/04/17 16:43 73 20 153/81 (105) 100 Room Air 03/04/17 16:28 78 16 126/83 (97) 100 Room Air 03/04/17 16:15 Room Air 03/04/17 16:15 37.0 69 16 140/90 (107) 100 Room Air 03/04/17 15:52 68 16 03/04/17 15:52 68 16 98 03/04/17 15:51 127/80 03/04/17 15:47 66 14 03/04/17 15:47 66 14 99 03/04/17 15:46 123/77 03/04/17 15:44 67 16 99 03/04/17 15:44 64 16 03/04/17 15:41 127/77 03/04/17 15:39 64 16 03/04/17 15:39 68 16 99 03/04/17 15:38 66 16 03/04/17 15:38 68 16 100 03/04/17 15:36 129/79 03/04/17 15:33 70 16 100 03/04/17 15:33 67 16 03/04/17 15:31 122/78 03/04/17 15:29 118/78 03/04/17 15:28 71 100 03/04/17 15:28 71 03/04/17 15:28 36.8 70 18 118/78 100 Room Air 03/04/17 12:08 Room Air 03/04/17 12:01 36.5 68 16 127/81 (96) 100 Physical Exam: General-aaox3 Eyes-no scleral icterus ENT-mmm Neck-supple Lungs-cta Heart-rrr Abdomen-bs+ s/nt/nd Extremities-no c/c/e Neuro-hx of cp Current Inpatient Medications Medications (Trade) Dose Ordered Sig/Jon Route Start Time Stop Time Status Last Admin Dose Admin Glucose (Glucose 40% Gel) 15-30 GRAMS 15 GRAMS... UD PRN PO 03/03/17 17:30 04/02/17 17:29 Glucose (Glucose Chew Tab) 4-8 Tablets 4 Tabl... UD PRN PO 03/03/17 17:30 04/02/17 17:29 Dextrose (Dextrose 50% 50ML Syringe) 25-50ML OF 50% DW IV FOR... UD PRN IV 03/03/17 17:30 04/02/17 17:29 03/04/17 06:43 25 ML Glucagon (Glucagon Inj) 1 mg UD PRN SQ 03/03/17 17:30 04/02/17 17:29 Allopurinol (Zyloprim Tab) 100 mg DAILY PO 03/04/17 09:00 04/03/17 08:59 03/05/17 08:26 100 MG Ascorbic Acid (Vitamin C Tab) 500 mg TIDM PO 03/04/17 07:30 04/03/17 07:29 03/05/17 08:27 500 MG Carvedilol (Coreg Tab) 3.125 mg BID PO 03/03/17 21:00 04/02/17 20:59 03/04/17 21:15 3.125 MG Clopidogrel Bisulfate (plAVix TAB) 75 mg DAILY PO 03/04/17 09:00 04/03/17 08:59 Future hold Pantoprazole Sodium (Protonix Tab) 40 mg DAILY PO 03/04/17 09:00 04/03/17 08:59 03/05/17 08:26 40 MG Pravastatin Sodium (Pravachol Tab) 20 mg DAILY PO 03/04/17 09:00 04/03/17 08:59 03/05/17 08:27 20 MG Tacrolimus (Prograf Cap) 4 mg BID PO 03/03/17 21:00 04/02/17 20:59 03/05/17 08:27 4 MG Amitriptyline HCl (Elavil Tab) 150 mg HS PO 03/03/17 21:00 04/02/17 20:59 03/04/17 21:15 150 MG Cholecalciferol (Vitamin D Tab) 2,000 inter.unit DAILY PO 03/04/17 09:00 04/03/17 08:59 03/05/17 08:26 2,000 INTER.UNIT Miscellaneous Information (Order Awaiting Action) 1 ea QS N/A 03/04/17 00:00 04/03/17 00:00 Miscellaneous Information (Consult Glycemic Management Pharmacy) 1 ea UD PRN N/A 03/03/17 19:11 04/02/17 19:10 Calcium Acetate (Phoslo Cap) 1,334 mg TIDM PO 03/04/17 07:30 04/03/17 07:29 03/05/17 08:26 1,334 MG Insulin Aspart (novoLOG ASPART) SLIDING SCALE ACHS SC 03/05/17 03:00 04/04/17 02:59 03/05/17 08:32 2 UNITS Iron Sucrose 100 mg/Syringe 5 ml @ 0 mls/min TODAY@0800 IV 03/05/17 08:00 03/05/17 18:00 03/05/17 09:05 2.5 MLS/MIN Epoetin Jc 4000 units/Syringe 0.2 ml @ 1 mls/min TODAY@0800 IV. 03/05/17 08:00 03/05/17 18:00 03/05/17 09:05 1 MLS/MIN Insulin Glargine (Lantus Solostar Pen) 10 units BID SC 03/05/17 09:00 04/04/17 08:59 Last 24 Hours Test 03/04/17 09:31 03/04/17 10:35 03/04/17 15:37 03/04/17 16:23 Bedside Glucose 124 mg/dl 158 mg/dl 176 mg/dl 163 mg/dl Test 03/04/17 16:39 03/04/17 20:22 03/05/17 00:25 03/05/17 03:36 Hepatitis B Surface Antigen NEG Hepatitis C Antibody NEG Bedside Glucose 198 mg/dl 265 mg/dl 222 mg/dl Test 03/05/17 05:19 White Blood Count 7.08 K/uL Red Blood Count 2.76 M/uL Hemoglobin 9.1 g/dL Hematocrit 26.3 % Mean Corpuscular Volume 95.3 fL Mean Corpuscular Hemoglobin 33.0 pg Mean Corpuscular Hemoglobin Concent 34.6 g/dl RDW Standard Deviation 45.0 fL RDW Coefficient of Variation 13.1 % Platelet Count 185 K/uL Mean Platelet Volume 9.3 fL Sodium Level 139 mmol/L Potassium Level 3.8 mmol/L Chloride Level 109 mmol/L Carbon Dioxide Level 20 mmol/L Anion Gap 10.0 mmol/L Blood Urea Nitrogen 42 mg/dl Creatinine 4.15 mg/dl Est Creatinine Clear Calc Drug Dose 16.1 ml/min Estimated GFR () 16.5 Estimated GFR (Non- 14.3 BUN/Creatinine Ratio 10.0 Random Glucose 199 mg/dl Calcium Level 7.2 mg/dl Phosphorus Level 4.8 mg/dl Magnesium Level 1.7 mg/dl Iron Level 45 mcg/dl Total Iron Binding Capacity 204 mcg/dl Transferrin 179 mg/dl Transferrin % Saturation 18 % Ferritin 136.8 ng/ml Assessment & Plan ESRD-doing 4k bath, 2.5 hours, 250/500, no fluid removal. seen on dialysis. anemia of renal failure-giving venofer and procrit today for goal hg of 10 to 11 BRANDI-started on phoslo. calcium levels are trending back up. giving additional gram of calcium gluconate Dialysis unit-needs accepted at the [facility] dialysis [phone], preferably m-[id number]. test case developer aware.
--- NOTE | 2017-03-05 12:17 | Progress Note ---
Internal Med Progress Note Date of Service: Mar 05, 2017. Provider Documentation: SUBJECTIVE: Seen and examined at bedside Got dialysis today Also got IV Venofer States Itchiness resolved No other complaints OBJECTIVE: Vital Signs-as noted below Physical Exam: General Appearance:Moderately built and nourished, no apparent distress Head: normocephalic, Atraumatic Eyes: normal inspection, EOMI, PERRL Neck: supple, Trachea midline Respiratory/Chest: Normal breath sounds, CTA Cardiovascular: S1, S2, No murmur Abdomen/GI:Soft, Non tender, Bowel sounds present Extremities/Musculoskelatal:normal inspection, no edema Neurologic/Psych:AAOX3, grossly no focal neurological deficits Skin: normal color, warm Lab data as noted below. ASSESSMENT & PLAN: Patient is a 61yr male with PMH of ESRD, poorly controlled DM II, cerebral palsy , CAD (s/p stents in 2010) and s/p liver transplant (1997) who was admitted directly from 's nephrology clinic for initiation of dialysis. End stage Renal Disease: Started on Dialysis Cr Improved Got Tunneled Catheter placement on 03/04/17 Appreciate Nephrology help Monitor renal function Uncontrolled DM II: Last A1C:9.6 in Feb, 2017 A1C:8.9 Blood glucose levels in 400s on presentation Blood sugar levels improved DC Insulin drip [facility] Glycemic control consulted Pharmacy to manage Insulin Anemia of Chronic Disease: No acute bleeding issues Monitor Hb Hb:9.1 today Got IV Venofer CAD S/P stents H/o MIs in 2008 and 2010 No acute issues Continue coreg, statin, Plavix S/p liver transplant: H/o Hepatitic B Continue Prograf, Entecavir DVT Px: SCDs Code status: FULL PCP: Rosa Disposition: Plan to discharge home when stable Needs outpatient dialysis setup prior to discharge Vital Signs: Date Time Temp Pulse Resp B/P (MAP) Pulse Ox O2 Delivery O2 Flow Rate FiO2 03/05/17 11:15 78 107/83 03/05/17 11:00 77 124/67 03/05/17 10:45 72 127/88 03/05/17 10:30 67 125/76 03/05/17 10:15 68 139/85 03/05/17 10:00 67 134/85 03/05/17 09:45 67 125/84 03/05/17 09:30 70 141/90 03/05/17 09:15 66 159/94 03/05/17 09:00 72 130/92 03/05/17 08:43 36.5 71 127/92 (104) 03/05/17 07:55 36.9 76 20 146/82 (103) 100 Room Air 03/05/17 04:00 Room Air 03/05/17 03:36 36.6 70 18 108/67 (81) 99 Room Air 03/04/17 23:59 Room Air 03/04/17 23:48 37.2 72 16 129/77 (94) 97 Room Air 03/04/17 20:43 36.2 64 152/84 (106) 03/04/17 20:30 65 140/89 03/04/17 20:15 67 140/94 03/04/17 20:00 Room Air 03/04/17 20:00 60 132/84 03/04/17 19:45 67 141/91 03/04/17 19:30 64 151/82 03/04/17 19:15 65 162/94 03/04/17 19:00 67 150/91 03/04/17 19:00 36.1 67 18 146/95 (112) 100 Room Air 03/04/17 18:45 60 148/78 03/04/17 18:30 64 157/91 03/04/17 18:15 36.1 62 168/92 (117) 03/04/17 17:14 83 20 158/90 (112) 100 Room Air 03/04/17 16:43 73 20 153/81 (105) 100 Room Air 03/04/17 16:28 78 16 126/83 (97) 100 Room Air 03/04/17 16:15 Room Air 03/04/17 16:15 37.0 69 16 140/90 (107) 100 Room Air 03/04/17 15:52 68 16 03/04/17 15:52 68 16 98 03/04/17 15:51 127/80 03/04/17 15:47 66 14 03/04/17 15:47 66 14 99 03/04/17 15:46 123/77 03/04/17 15:44 67 16 99 03/04/17 15:44 64 16 03/04/17 15:41 127/77 03/04/17 15:39 64 16 03/04/17 15:39 68 16 99 03/04/17 15:38 66 16 03/04/17 15:38 68 16 100 03/04/17 15:36 129/79 03/04/17 15:33 70 16 100 03/04/17 15:33 67 16 03/04/17 15:31 122/78 03/04/17 15:29 118/78 03/04/17 15:28 71 100 03/04/17 15:28 71 03/04/17 15:28 36.8 70 18 118/78 100 Room Air Lab Results: Results Past 24 Hours Test 03/04/17 15:37 03/04/17 16:23 03/04/17 16:39 03/04/17 20:22 Range/Units Bedside Glucose 176 163 198 70-99 mg/dl Hepatitis B Surface Antigen NEG NEG Hepatitis C Antibody NEG NEG Test 03/05/17 00:25 03/05/17 03:36 03/05/17 05:19 03/05/17 06:43 Range/Units Bedside Glucose 265 222 175 70-99 mg/dl White Blood Count 7.08 4.8-10.8 K/uL Red Blood Count 2.76 4.7-6.1 M/uL Hemoglobin 9.1 14.0-18.0 g/dL Hematocrit 26.3 42-52 % Mean Corpuscular Volume 95.3 80-100 fL Mean Corpuscular Hemoglobin 33.0 25-34 pg Mean Corpuscular Hemoglobin Concent 34.6 32-36 g/dl RDW Standard Deviation 45.0 36.4-46.3 fL RDW Coefficient of Variation 13.1 11.5-14.5 % Platelet Count 185 130-400 K/uL Mean Platelet Volume 9.3 7.4-10.4 fL Sodium Level 139 136-145 mmol/L Potassium Level 3.8 3.5-5.1 mmol/L Chloride Level 109 98-107 mmol/L Carbon Dioxide Level 20 21-32 mmol/L Anion Gap 10.0 3-11 mmol/L Blood Urea Nitrogen 42 7-18 mg/dl Creatinine 4.15 0.60-1.40 mg/dl Est Creatinine Clear Calc Drug Dose 16.1 ml/min Estimated GFR () 16.5 Estimated GFR (Non- 14.3 BUN/Creatinine Ratio 10.0 10-20 Random Glucose 199 70-99 mg/dl Calcium Level 7.2 8.5-10.1 mg/dl Phosphorus Level 4.8 2.5-4.9 mg/dl Magnesium Level 1.7 1.8-2.4 mg/dl Iron Level 45 35-175 mcg/dl Total Iron Binding Capacity 204 250-450 mcg/dl Transferrin 179 200-360 mg/dl Transferrin % Saturation 18 20-50 % Ferritin 136.8 8.0-388.0 ng/ml Test 03/05/17 10:22 Range/Units Hepatitis B Surface Antibody NEG
[2017-03-05] MEDS: CLOPIDOGREL BISULFATE 75 MG TAB PO SCH (12:52)
--- NOTE | 2017-03-05 13:56 | Pharmacy Progress Note ---
Pharmacy Glycemic Short Note 2 Date of Service Mar 05, 2017. OUTPATIENT ANTIDIABETIC REGIMEN: * Lantus 30 units SQ qPM * Novolog TID with meals * 8 units with breakfast * 10 units with lunch * 12 units with supper ASSESSMENT: * Mr Nicole is a 61yo diabetic male admitted with CKD stage 5, to initiate dialysis. * Patient is POD #1 s/p dialysis cath placement. * Patient was transitioned from IV to SQ insulin yesterday. BSGs have been somewhat elevated, but hesitate to be too aggressive with his regimen, as he is starting dialysis for the first time. * Pt is ordered a Type 2 diabetic/Renal diet. PLAN FOR INPATIENT GLYCEMIC CONTROL: * Basal insulin * Lantus 10 units SQ BID * Bolus insulin * NovoLog per scale ACHS or Q6hrs while NPO * Goal Range: Low 140 mg/dL - High 180 mg/dL * Correction Factor: 20 mg/dL/unit * Nutritional / Prandial insulin per carb ratio of 1 unit per 10 grams CHO consumed PLAN FOR DISCHARGE: * It's possible that patient's regimen will require adjustment once they are receiving regular dialysis. * Will follow-up closer to discharge.
[2017-03-05] MEDS: AMITRIPTYLINE HCL 50 MG TAB PO SCH (21:01)
[2017-03-06] VITALS (20 sets, daily range): BP systolic 96–146; BP diastolic 60–86; PULSE 50–80; TEMP 36.6–36.7; O2SAT 95–99
[2017-03-06] MEDS ORDERED: TRAMADOL HCL 50 MG TAB PO PRN (00:30)
[2017-03-06 06:22] LABS: HEMATOCRIT 27.1 % (42-52)
[2017-03-06 06:56] LABS: BUN/CREATININE RATIO 7.6 (10-20); CALCIUM 7.7 mg/dl (8.5-10.1); CREATININE 4.02 mg/dl (0.60-1.40)
[2017-03-06 06:57] LABS: MAGNESIUM 1.8 mg/dl (1.8-2.4)
[2017-03-06 06:59] LABS: PHOSPHORUS 3.3 mg/dl (2.5-4.9)
[2017-03-06] MEDS: ASCORBIC ACID 500 MG TAB PO SCH ×4 (07:50→17:58)
[2017-03-06] MEDS: PRAVASTATIN SOD 20 MG TAB PO SCH (07:50)
[2017-03-06] MEDS: ALLOPURINOL 100 MG TAB PO SCH (07:50)
[2017-03-06] MEDS: TACROLIMUS 1 MG CAP PO SCH ×2 (07:50→20:43)
[2017-03-06] MEDS: CALCIUM ACETATE 667MG GELCAP PO SCH ×4 (07:51→17:59)
[2017-03-06] MEDS: PANTOprazole SOD 40 MG TAB PO SCH (07:51)
[2017-03-06] MEDS: CHOLECALCIFEROL 1000 INTER.UNIT TAB PO SCH (07:51)
[2017-03-06] MEDS: INSULIN ASPART 100 UNITS/ML 3 ML PEN SC SCH ×5 (07:55→21:00)
[2017-03-06] MEDS: INSULIN GLARGINE SOLOSTAR 100 UNITS/ML 3 ML PEN SC SCH ×2 (07:56→21:04)
[2017-03-06] MEDS: CLOPIDOGREL BISULFATE 75 MG TAB PO SCH ×2 (09:00→17:55)
[2017-03-06] MEDS: CARVEDILOL 3.125 MG TAB PO SCH ×2 (09:00→20:45)
--- NOTE | 2017-03-06 10:02 | Progress Note ---
Internal Med Progress Note Date of Service: Mar 06, 2017. Provider Documentation: SUBJECTIVE: Seen and examined at bedside Planned for dialysis today got IV Venofer yesterday Feels well Denies chest pain, SOB Mild soreness at site of catheter improving No other complaints OBJECTIVE: Vital Signs-as noted below Physical Exam: General Appearance:Moderately built and nourished, no apparent distress Head: normocephalic, Atraumatic Eyes: normal inspection, EOMI, PERRL Neck: supple, Trachea midline Respiratory/Chest: Normal breath sounds, CTA Cardiovascular: S1, S2, No murmur Abdomen/GI:Soft, Non tender, Bowel sounds present Extremities/Musculoskelatal:normal inspection, no edema Neurologic/Psych:AAOX3, grossly no focal neurological deficits Skin: normal color, warm Lab data as noted below. ASSESSMENT & PLAN: Patient is a 61yr male with PMH of ESRD, poorly controlled DM II, cerebral palsy , CAD (s/p stents in 2010) and s/p liver transplant (1997) who was admitted directly from 's nephrology clinic for initiation of dialysis. End stage Renal Disease: Continue Dialysis per Nephrology Cr levels Improved Got Tunneled Catheter placement on 03/04/17 Appreciate Nephrology help Monitor renal function Plan to be discharged once outpatient dialysis is set up Uncontrolled DM II: Last A1C:9.6 in Feb, 2017 A1C:8.9 Blood glucose levels in 400s on presentation Blood sugar levels improved DC Insulin drip ISS, lantus Pharmacy Glycemic control consulted Pharmacy to manage Insulin Anemia of Chronic Disease: No acute bleeding issues Monitor Hb Hb stable Procrit and Venofer per Nephrology CAD S/P stents H/o MIs in 2008 and 2010 No acute issues Continue coreg, statin, Plavix S/p liver transplant: H/o Hepatitic B Continue Prograf, Entecavir DVT Px: SCDs Code status: FULL PCP: Rosa Disposition: Plan to discharge home when Outpatient dialysis is set up. Vital Signs: Date Time Temp Pulse Resp B/P (MAP) Pulse Ox O2 Delivery O2 Flow Rate FiO2 03/06/17 07:27 36.7 78 18 111/65 (80) 98 Room Air 03/06/17 04:00 Room Air 03/06/17 03:58 36.6 71 16 96/60 (72) 95 Room Air 03/06/17 00:00 Room Air 03/05/17 23:56 36.9 80 18 100/64 (76) 95 Room Air 03/05/17 20:00 Room Air 03/05/17 19:06 37.6 78 16 114/86 (95) 96 Room Air 03/05/17 16:08 36.9 68 18 139/84 (102) 97 Room Air 03/05/17 16:00 Room Air 03/05/17 12:30 37.0 86 20 128/75 (92) 96 Room Air 03/05/17 12:00 Room Air 03/05/17 11:33 36.5 67 152/95 (114) 03/05/17 11:15 78 107/83 03/05/17 11:00 77 124/67 03/05/17 10:45 72 127/88 03/05/17 10:30 67 125/76 03/05/17 10:15 68 139/85 03/05/17 10:00 67 134/85 Lab Results: Results Past 24 Hours Test 03/05/17 10:22 03/05/17 16:32 03/05/17 20:27 03/06/17 05:44 Range/Units Hepatitis B Surface Antibody NEG Bedside Glucose 343 189 70-99 mg/dl Hemoglobin 9.2 14.0-18.0 g/dL Hematocrit 27.1 42-52 % Sodium Level 137 136-145 mmol/L Potassium Level 4.0 3.5-5.1 mmol/L Chloride Level 106 98-107 mmol/L Carbon Dioxide Level 23 21-32 mmol/L Anion Gap 8.0 3-11 mmol/L Blood Urea Nitrogen 30 7-18 mg/dl Creatinine 4.02 0.60-1.40 mg/dl Est Creatinine Clear Calc Drug Dose 17.0 ml/min Estimated GFR () 17.2 Estimated GFR (Non- 14.8 BUN/Creatinine Ratio 7.6 10-20 Random Glucose 176 70-99 mg/dl Calcium Level 7.7 8.5-10.1 mg/dl Phosphorus Level 3.3 2.5-4.9 mg/dl Magnesium Level 1.8 1.8-2.4 mg/dl Test 03/06/17 06:42 Range/Units Bedside Glucose 176 70-99 mg/dl
--- NOTE | 2017-03-06 10:26 | Pharmacy Progress Note ---
Glycemic Control Progress Note Date of Service Mar 06, 2017. Scope Glycemic Pharmacist consulted for glycemic control to write orders per [facility] inpatient glycemic control protocol. Objective Accuchecks BSG (last 24hrs): Test 03/05/17 16:32 03/05/17 20:27 03/06/17 05:44 03/06/17 06:42 Bedside Glucose 343 mg/dl (70-99) 189 mg/dl (70-99) 176 mg/dl (70-99) Random Glucose 176 mg/dl (70-99) HbA1c: Test 03/04/17 05:36 Hemoglobin A1c 8.9 % (4.5-5.6) H Recent Pertinent Medications The patient is currently receiving: * Basal insulin: Lantus 10 units every 12 hours * Correctional Insulin: Novolog Correction per scale ACHS Goal Range: Low 140 mg/dL - High 180 mg/dL Correction Factor: 20 mg/dL/unit * Prandial insulin: Per carb ratio of 1 unit per 10 grams CHO consumed * Oral Agents: None currently Outpatient Anti-Diabetic Meds * Lantus 30 units SQ qPM * Novolog TID with meals * 8 units with breakfast * 10 units with lunch * 12 units with supper Assessment & Plan ASSESSMENT: 03/06/17 * Glycemic control was less than ideal yesterday, however patient's insulin was not administered as prescribed * BSGs ranged 176-343 over the last 24 hours * Fasting BSG 176 this AM with only 10 units of Lantus on board, he was not given the AM 10 unit dose of Lantus yesterday AM because he was at HD * Pre-dinner BSG climbed to 373 yesterday likely due to missing his AM Lantus + not being given Novolog with his Lunch yesterday * Would like to trial the current insulin orders another day as they really have not been given according to schedule. * He is ordered HD again today, which typically leads to improved insulin sensitivity. PLAN FOR INPATIENT GLYCEMIC CONTROL: * Continuing Lantus 10 units SQ BID * Continuing correction factor of 20 mg/dl/unit * Continuing carb ratio of 1 unit per 10 grams CHO consumed * Changing goal range Low 120 mg/dL - High 160 mg/dL * Please note that the plan above was derived based on current level of insulin resistance and hospital stress. These recommendations are appropriate for inpatient admission only. Plan of care upon discharge will need to be reassessed to avoid potential outpatient hypo/hyperglycemia. Thank you.
--- NOTE | 2017-03-06 16:32 | Nephrology Progress Note ---
Nephrology Progress Note Date of Service: Mar 06, 2017. Subjective tolerted HD ttodayy; no n/v/d/sob/conffusion Objective Date Time Temp Pulse Resp B/P (MAP) Pulse Ox O2 Delivery O2 Flow Rate FiO2 03/06/17 15:30 66 112/76 03/06/17 15:15 67 125/78 03/06/17 15:00 69 129/84 03/06/17 14:45 67 125/83 03/06/17 14:30 72 134/82 03/06/17 14:18 36.7 71 126/77 (93) 03/06/17 12:00 99 Room Air 03/06/17 11:58 36.7 80 20 105/62 (76) 99 Room Air 03/06/17 11:16 36.7 78 18 98 03/06/17 08:05 Room Air 03/06/17 07:27 36.7 78 18 111/65 (80) 98 Room Air 03/06/17 04:00 Room Air 03/06/17 03:58 36.6 71 16 96/60 (72) 95 Room Air 03/06/17 00:00 Room Air 03/05/17 23:56 36.9 80 18 100/64 (76) 95 Room Air 03/05/17 20:00 Room Air 03/05/17 19:06 37.6 78 16 114/86 (95) 96 Room Air Physical Exam: General-aaox3, cachectic, lying flat in bed on ra Eyes-no scleral icterus ENT-mmm Neck-supple Lungs-cta Heart-rrr Abdomen-bs+ s/nt/nd Extremities-no c/c/e Neuro-hx of cp Current Inpatient Medications Medications (Trade) Dose Ordered Sig/Jon Route Start Time Stop Time Status Last Admin Dose Admin Glucose (Glucose 40% Gel) 15-30 GRAMS 15 GRAMS... UD PRN PO 03/03/17 17:30 04/02/17 17:29 Glucose (Glucose Chew Tab) 4-8 Tablets 4 Tabl... UD PRN PO 03/03/17 17:30 04/02/17 17:29 Dextrose (Dextrose 50% 50ML Syringe) 25-50ML OF 50% DW IV FOR... UD PRN IV 03/03/17 17:30 04/02/17 17:29 03/04/17 06:43 25 ML Glucagon (Glucagon Inj) 1 mg UD PRN SQ 03/03/17 17:30 04/02/17 17:29 Allopurinol (Zyloprim Tab) 100 mg DAILY PO 03/04/17 09:00 04/03/17 08:59 03/06/17 07:50 100 MG Ascorbic Acid (Vitamin C Tab) 500 mg TIDM PO 03/04/17 07:30 04/03/17 07:29 03/06/17 11:47 500 MG Carvedilol (Coreg Tab) 3.125 mg BID PO 03/03/17 21:00 04/02/17 20:59 03/05/17 21:01 3.125 MG Clopidogrel Bisulfate (plAVix TAB) 75 mg DAILY PO 03/04/17 09:00 04/03/17 08:59 Future hold 03/05/17 12:52 75 MG Pantoprazole Sodium (Protonix Tab) 40 mg DAILY PO 03/04/17 09:00 04/03/17 08:59 03/06/17 07:51 40 MG Pravastatin Sodium (Pravachol Tab) 20 mg DAILY PO 03/04/17 09:00 04/03/17 08:59 03/06/17 07:50 20 MG Tacrolimus (Prograf Cap) 4 mg BID PO 03/03/17 21:00 04/02/17 20:59 03/06/17 07:50 4 MG Amitriptyline HCl (Elavil Tab) 150 mg HS PO 03/03/17 21:00 04/02/17 20:59 03/05/17 21:01 150 MG Cholecalciferol (Vitamin D Tab) 2,000 inter.unit DAILY PO 03/04/17 09:00 04/03/17 08:59 03/06/17 07:51 2,000 INTER.UNIT Miscellaneous Information (Order Awaiting Action) 1 ea QS N/A 03/04/17 00:00 04/03/17 00:00 Miscellaneous Information (Consult Glycemic Management Pharmacy) 1 ea UD PRN N/A 03/03/17 19:11 04/02/17 19:10 Calcium Acetate (Phoslo Cap) 1,334 mg TIDM PO 03/04/17 07:30 04/03/17 07:29 03/06/17 11:47 1,334 MG Insulin Aspart (novoLOG ASPART) SLIDING SCALE ACHS SC 03/05/17 03:00 04/04/17 02:59 03/06/17 11:49 10 UNITS Insulin Glargine (Lantus Solostar Pen) 10 units BID SC 03/05/17 09:00 04/04/17 08:59 03/06/17 07:56 10 UNITS Tramadol HCl (Ultram Tab) 50 mg Q6H PRN PO 03/06/17 00:30 04/05/17 00:29 03/06/17 00:45 50 MG Last 24 Hours Test 03/05/17 16:32 03/05/17 20:27 03/06/17 05:44 03/06/17 06:42 Bedside Glucose 343 mg/dl 189 mg/dl 176 mg/dl Hemoglobin 9.2 g/dL Hematocrit 27.1 % Sodium Level 137 mmol/L Potassium Level 4.0 mmol/L Chloride Level 106 mmol/L Carbon Dioxide Level 23 mmol/L Anion Gap 8.0 mmol/L Blood Urea Nitrogen 30 mg/dl Creatinine 4.02 mg/dl Est Creatinine Clear Calc Drug Dose 17.0 ml/min Estimated GFR () 17.2 Estimated GFR (Non- 14.8 BUN/Creatinine Ratio 7.6 Random Glucose 176 mg/dl Calcium Level 7.7 mg/dl Phosphorus Level 3.3 mg/dl Magnesium Level 1.8 mg/dl Test 03/06/17 11:31 Bedside Glucose 231 mg/dl Assessment & Plan 61 yo male who had tdc 03/04 along w/ first HD tx same date has improved clinical status; awaiting final acceptance at Dialysis unit; acceptance already in process; 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 anemia of renal failure-giving venofer and procrit for goal hg of 10 to 11 BRANDI- cont current phoslo. calcium levels are trending back up. has needed supplemental calcium gluconate this admission but none needed today Dialysis unit-needs to be finalized as accepted at the [facility] dialysis unit- [phone], preferably m-w-f. 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 Care coordinated w/ Dr. Whitfield.
[2017-03-06] MEDS: AMITRIPTYLINE HCL 50 MG TAB PO SCH (20:49)
[2017-03-07 01:40] VITALS: BP 106/71; PULSE 83; TEMP 36.8; O2SAT 95
[2017-03-07 06:46] LABS: BUN/CREATININE RATIO 6.7 (10-20); CALCIUM 8.1 mg/dl (8.5-10.1); CREATININE 3.05 mg/dl (0.60-1.40); MAGNESIUM 1.8 mg/dl (1.8-2.4); POTASSIUM 4.1 mmol/L (3.5-5.1)
[2017-03-07 06:49] LABS: PHOSPHORUS 2.6 mg/dl (2.5-4.9)
[2017-03-07 07:45] VITALS: BP 117/76; PULSE 64; TEMP 36.7; O2SAT 95
[2017-03-07 08:15] VITALS: O2SAT 95
[2017-03-07] MEDS: CARVEDILOL 3.125 MG TAB PO SCH ×2 (08:43→20:58)
[2017-03-07] MEDS: CALCIUM ACETATE 667MG GELCAP PO SCH ×3 (08:44→17:39)
[2017-03-07] MEDS: PRAVASTATIN SOD 20 MG TAB PO SCH (08:46)
[2017-03-07] MEDS: TACROLIMUS 1 MG CAP PO SCH ×2 (08:47→20:59)
[2017-03-07] MEDS: PANTOprazole SOD 40 MG TAB PO SCH (08:47)
[2017-03-07] MEDS: CHOLECALCIFEROL 1000 INTER.UNIT TAB PO SCH (08:48)
[2017-03-07] MEDS: ASCORBIC ACID 500 MG TAB PO SCH ×3 (08:48→17:40)
[2017-03-07] MEDS: ALLOPURINOL 100 MG TAB PO SCH (08:49)
[2017-03-07] MEDS: CLOPIDOGREL BISULFATE 75 MG TAB PO SCH (08:51)
[2017-03-07] MEDS: INSULIN ASPART 100 UNITS/ML 3 ML PEN SC SCH ×4 (08:54→21:05)
[2017-03-07] MEDS: INSULIN GLARGINE SOLOSTAR 100 UNITS/ML 3 ML PEN SC SCH ×2 (08:55→21:06)
--- NOTE | 2017-03-07 10:48 | Pharmacy Progress Note ---
Glycemic Control Progress Note Date of Service Mar 07, 2017. Scope Glycemic Pharmacist consulted for glycemic control to write orders per [facility] inpatient glycemic control protocol. Objective Accuchecks BSG (last 24hrs): Test 03/06/17 11:31 03/06/17 16:45 03/06/17 21:01 03/07/17 06:00 Bedside Glucose 231 mg/dl (70-99) 125 mg/dl (70-99) 140 mg/dl (70-99) Random Glucose 149 mg/dl (70-99) Test 03/07/17 07:53 Bedside Glucose 140 mg/dl (70-99) HbA1c: Test 03/04/17 05:36 Hemoglobin A1c 8.9 % (4.5-5.6) H Recent Pertinent Medications The patient is currently receiving: * Basal insulin: Lantus 10 units every 12 hours * Correctional Insulin: Novolog Correction per scale ACHS Goal Range: Low 120 mg/dL - High 160 mg/dL Correction Factor: 20 mg/dL/unit * Prandial insulin: Per carb ratio of 1 unit per 10 grams CHO consumed * Oral Agents: None currently Outpatient Anti-Diabetic Meds * Lantus 30 units SQ qPM * Novolog TID with meals * 8 units with breakfast * 10 units with lunch * 12 units with supper Assessment & Plan ASSESSMENT: 03/06/17 * Glycemic control was less than ideal yesterday, however patient's insulin was not administered as prescribed * BSGs ranged 176-343 over the last 24 hours * Fasting BSG 176 this AM with only 10 units of Lantus on board, he was not given the AM 10 unit dose of Lantus yesterday AM because he was at HD * Pre-dinner BSG climbed to 373 yesterday likely due to missing his AM Lantus + not being given Novolog with his Lunch yesterday * Would like to trial the current insulin orders another day as they really have not been given according to schedule. * He is ordered HD again today, which typically leads to improved insulin sensitivity. 03/07/17 * Glycemic control was much improved yesterday * All insulin doses had been administered per schedule * BSGs have ranged 125-231 over the last 24 hrs, only 1 BSG above 180 * Fasting BSG at goal this AM, FBS 140, w/ 20 units of Lantus on board -will continue the same * 2 of 3 post-prandial BSGs controlled using current CR. Pre-lunch BSG was elevated yesterday, if this trend continues he may require a larger prandial insulin dose w/ breakfast. * No HD is ordered for today as of yet. PLAN FOR INPATIENT GLYCEMIC CONTROL: * Continuing Lantus 10 units SQ BID * Continuing correction factor of 20 mg/dl/unit * Continuing carb ratio of 1 unit per 10 grams CHO consumed * Change goal range to Low 110 mg/dL - High 140 mg/dL * Please note that the plan above was derived based on current level of insulin resistance and hospital stress. These recommendations are appropriate for inpatient admission only. Plan of care upon discharge will need to be reassessed to avoid potential outpatient hypo/hyperglycemia. Thank you.
--- NOTE | 2017-03-07 13:19 | Progress Note ---
Internal Med Progress Note Date of Service: Mar 07, 2017. Provider Documentation: SUBJECTIVE: Seen and examined at bedside Feels tired Got dialysis yesterday Denies chest pain, SOB Mild soreness at site of catheter improving No other complaints Awaiting for Outpatient HD setup OBJECTIVE: Vital Signs-as noted below Physical Exam: General Appearance:Moderately built and nourished, no apparent distress Head: normocephalic, Atraumatic Eyes: normal inspection, EOMI, PERRL Neck: supple, Trachea midline Respiratory/Chest: Normal breath sounds, CTA Cardiovascular: S1, S2, No murmur Abdomen/GI:Soft, Non tender, Bowel sounds present Extremities/Musculoskelatal:normal inspection, no edema Neurologic/Psych:AAOX3, grossly no focal neurological deficits Skin: normal color, warm Lab data as noted below. ASSESSMENT & PLAN: Patient is a 61yr male with PMH of ESRD, poorly controlled DM II, cerebral palsy , CAD (s/p stents in 2010) and s/p liver transplant (1997) who was admitted directly from 's nephrology clinic for initiation of dialysis. End stage Renal Disease: Continue Dialysis per Nephrology Cr levels Improved Got Tunneled Catheter placement on 03/04/17 Appreciate Nephrology help Awaiting for outpatient dialysis set up Monitor renal function, electrolytes Uncontrolled DM II: Last A1C:9.6 in Feb, 2017 A1C:8.9 Blood glucose levels in 400s on presentation Blood sugar levels improved DC Insulin drip ISS, lantus Pharmacy Glycemic control consulted Pharmacy to manage Insulin Anemia of Chronic Disease: No acute bleeding issues Monitor Hb Hb stable Procrit and Venofer per Nephrology CAD S/P stents H/o MIs in 2008 and 2010 No acute issues Continue coreg, statin, Plavix S/p liver transplant: H/o Hepatitic B Continue Prograf, Entecavir DVT Px: SCDs Code status: FULL PCP: Rosa Disposition: Plan to discharge home when Outpatient dialysis is set up. Vital Signs: Date Time Temp Pulse Resp B/P (MAP) Pulse Ox O2 Delivery O2 Flow Rate FiO2 03/07/17 08:15 95 Room Air 03/07/17 07:45 36.7 64 18 117/76 (90) 95 Room Air 03/07/17 01:40 36.8 83 18 106/71 (83) 95 Room Air 03/07/17 00:00 Room Air 03/06/17 20:00 Room Air 03/06/17 18:02 36.7 73 146/86 (106) 03/06/17 18:00 99 Room Air 03/06/17 17:15 76 126/82 03/06/17 17:00 50 118/74 03/06/17 16:45 68 125/83 03/06/17 16:30 72 117/72 03/06/17 16:15 71 124/79 03/06/17 16:00 74 115/76 03/06/17 15:45 69 119/77 03/06/17 15:30 66 112/76 03/06/17 15:15 67 125/78 03/06/17 15:00 69 129/84 03/06/17 14:45 67 125/83 03/06/17 14:30 72 134/82 03/06/17 14:18 36.7 71 126/77 (93) Lab Results: Results Past 24 Hours Test 03/06/17 16:45 03/06/17 21:01 03/07/17 06:00 03/07/17 07:53 Range/Units Bedside Glucose 125 140 140 70-99 mg/dl Sodium Level 137 136-145 mmol/L Potassium Level 4.1 3.5-5.1 mmol/L Chloride Level 105 98-107 mmol/L Carbon Dioxide Level 27 21-32 mmol/L Anion Gap 5.0 3-11 mmol/L Blood Urea Nitrogen 20 7-18 mg/dl Creatinine 3.05 0.60-1.40 mg/dl Est Creatinine Clear Calc Drug Dose 21.2 ml/min Estimated GFR () 24.0 Estimated GFR (Non- 20.7 BUN/Creatinine Ratio 6.7 10-20 Random Glucose 149 70-99 mg/dl Calcium Level 8.1 8.5-10.1 mg/dl Phosphorus Level 2.6 2.5-4.9 mg/dl Magnesium Level 1.8 1.8-2.4 mg/dl Test 03/07/17 11:49 Range/Units Bedside Glucose 247 70-99 mg/dl
[2017-03-07 16:14] VITALS: BP 117/74; PULSE 66; TEMP 36.8; O2SAT 97
[2017-03-07] MEDS: AMITRIPTYLINE HCL 50 MG TAB PO SCH (21:00)
[2017-03-08] VITALS (9 sets, daily range): BP systolic 102–144; BP diastolic 65–88; PULSE 59–90; TEMP 36.5–36.7; O2SAT 95–100
[2017-03-08 06:44] LABS: BUN/CREATININE RATIO 6.8 (10-20); CALCIUM 8.4 mg/dl (8.5-10.1); CREATININE 4.98 mg/dl (0.60-1.40)
[2017-03-08] MEDS: CARVEDILOL 3.125 MG TAB PO SCH ×2 (08:08→19:42)
[2017-03-08] MEDS: CALCIUM ACETATE 667MG GELCAP PO SCH ×3 (08:09→16:59)
[2017-03-08] MEDS: CLOPIDOGREL BISULFATE 75 MG TAB PO SCH (08:09)
[2017-03-08] MEDS: TACROLIMUS 1 MG CAP PO SCH ×2 (08:10→19:43)
[2017-03-08] MEDS: PRAVASTATIN SOD 20 MG TAB PO SCH (08:10)
[2017-03-08] MEDS: ASCORBIC ACID 500 MG TAB PO SCH ×3 (08:11→16:59)
[2017-03-08] MEDS: PANTOprazole SOD 40 MG TAB PO SCH (08:11)
[2017-03-08] MEDS: CHOLECALCIFEROL 1000 INTER.UNIT TAB PO SCH (08:12)
[2017-03-08] MEDS: ALLOPURINOL 100 MG TAB PO SCH (08:12)
[2017-03-08] MEDS: INSULIN ASPART 100 UNITS/ML 3 ML PEN SC SCH ×4 (09:12→20:52)
[2017-03-08] MEDS: INSULIN GLARGINE SOLOSTAR 100 UNITS/ML 3 ML PEN SC SCH ×2 (09:13→20:51)
--- NOTE | 2017-03-08 12:29 | Progress Note ---
Internal Med Progress Note Date of Service: Mar 08, 2017. Provider Documentation: SUBJECTIVE: Seen and examined at bedside Feels well Denies chest pain, SOB No other complaints Awaiting for Outpatient dialysis setup OBJECTIVE: Vital Signs-as noted below Physical Exam: General Appearance:Moderately built and nourished, no apparent distress Head: normocephalic, Atraumatic Eyes: normal inspection, EOMI, PERRL Neck: supple, Trachea midline Respiratory/Chest: Normal breath sounds, CTA Cardiovascular: S1, S2, No murmur Abdomen/GI:Soft, Non tender, Bowel sounds present Extremities/Musculoskelatal:normal inspection, no edema Neurologic/Psych:AAOX3, grossly no focal neurological deficits Skin: normal color, warm Lab data as noted below. ASSESSMENT & PLAN: Patient is a 61yr male with PMH of ESRD, poorly controlled DM II, cerebral palsy , CAD (s/p stents in 2010) and s/p liver transplant (1997) who was admitted directly from 's nephrology clinic for initiation of dialysis. End stage Renal Disease: Continue Dialysis per Nephrology Got Tunneled Catheter placement on 03/04/17 Appreciate Nephrology help Awaiting for outpatient dialysis set up Monitor renal function, electrolytes continue current management Uncontrolled DM II: Last A1C:9.6 in Feb, 2017 A1C:8.9 Blood glucose levels in 400s on presentation Blood sugar levels improved DC Insulin drip [facility] Glycemic control consulted Pharmacy to manage Insulin Anemia of Chronic Disease: No acute bleeding issues Monitor Hb Hb stable Procrit and Venofer per Nephrology CAD S/P stents H/o MIs in 2008 and 2010 No acute issues Continue coreg, statin, Plavix S/p liver transplant: H/o Hepatitic B Continue Prograf, Entecavir DVT Px: SCDs Code status: FULL PCP: Rosa Disposition: Plan to discharge home when Outpatient dialysis is set up, likely tomorrow. Vital Signs: Date Time Temp Pulse Resp B/P (MAP) Pulse Ox O2 Delivery O2 Flow Rate FiO2 03/08/17 09:51 100 Room Air 03/08/17 08:04 60 144/87 (106) 03/08/17 07:24 36.6 59 16 126/84 (98) 100 Room Air 03/08/17 00:46 36.7 70 18 125/75 (92) 95 Room Air 03/08/17 00:00 Room Air 03/07/17 20:00 Room Air 03/07/17 18:07 Room Air 03/07/17 16:14 36.8 66 18 117/74 (88) 97 Room Air Lab Results: Results Past 24 Hours Test 03/07/17 16:42 03/07/17 20:19 03/08/17 05:32 03/08/17 08:00 Range/Units Bedside Glucose 170 211 157 70-99 mg/dl Sodium Level 138 136-145 mmol/L Potassium Level 4.0 3.5-5.1 mmol/L Chloride Level 106 98-107 mmol/L Carbon Dioxide Level 25 21-32 mmol/L Anion Gap 7.0 3-11 mmol/L Blood Urea Nitrogen 34 7-18 mg/dl Creatinine 4.98 0.60-1.40 mg/dl Est Creatinine Clear Calc Drug Dose 13.0 ml/min Estimated GFR () 13.3 Estimated GFR (Non- 11.4 BUN/Creatinine Ratio 6.8 10-20 Random Glucose 123 70-99 mg/dl Calcium Level 8.4 8.5-10.1 mg/dl Magnesium Level 2.0 1.8-2.4 mg/dl Test 03/08/17 11:13 Range/Units Bedside Glucose 195 70-99 mg/dl
[2017-03-08] MEDS: AMITRIPTYLINE HCL 50 MG TAB PO SCH (20:47)
[2017-03-09] VITALS (18 sets, daily range): BP systolic 94–145; BP diastolic 67–95; PULSE 47–72; TEMP 36.6–36.8; O2SAT 100
[2017-03-09 06:33] LABS: HEMATOCRIT 29.3 % (42-52)
[2017-03-09 07:15] LABS: BUN/CREATININE RATIO 8.6 (10-20); CALCIUM 8.5 mg/dl (8.5-10.1); CREATININE 5.64 mg/dl (0.60-1.40); POTASSIUM 4.2 mmol/L (3.5-5.1)
[2017-03-09] MEDS: ASCORBIC ACID 500 MG TAB PO SCH ×2 (08:00→13:45)
[2017-03-09] MEDS: TACROLIMUS 1 MG CAP PO SCH (08:26)
[2017-03-09] MEDS: CALCIUM ACETATE 667MG GELCAP PO SCH ×2 (08:27→13:41)
[2017-03-09] MEDS: INSULIN ASPART 100 UNITS/ML 3 ML PEN SC SCH ×2 (08:30→13:40)
[2017-03-09] MEDS: INSULIN GLARGINE SOLOSTAR 100 UNITS/ML 3 ML PEN SC SCH (08:32)
[2017-03-09] MEDS ORDERED: EPOETIN ALFA 10,000 UNITS/ML VIAL IV. SCH (09:00)
[2017-03-09] MEDS ORDERED: IRON SUCROSE INJ 100 MG in SYRINGE 0 ML IV SCH (09:00)
[2017-03-09] MEDS ORDERED: HEPARIN SOD (PORCINE) 1000 UNIT/ML 10 ML VIAL IV SCH (09:00)
--- NOTE | 2017-03-09 09:47 | Progress Note ---
Internal Med Progress Note Date of Service: Mar 09, 2017. Provider Documentation: SUBJECTIVE: Seen and examined at bedside Currently getting dialysis Doing well. Denies chest pain, SOB No other complaints Awaiting for Outpatient dialysis setup Discussed with Nephrology today OBJECTIVE: Vital Signs-as noted below Physical Exam: General Appearance:Moderately built and nourished, no apparent distress Head: normocephalic, Atraumatic Eyes: normal inspection, EOMI, PERRL Neck: supple, Trachea midline Respiratory/Chest: Normal breath sounds, CTA Cardiovascular: S1, S2, No murmur Abdomen/GI:Soft, Non tender, Bowel sounds present Extremities/Musculoskelatal:normal inspection, no edema Neurologic/Psych:AAOX3, grossly no focal neurological deficits Skin: normal color, warm Lab data as noted below. ASSESSMENT & PLAN: Patient is a 61yr male with PMH of ESRD, poorly controlled DM II, cerebral palsy , CAD (s/p stents in 2010) and s/p liver transplant (1997) who was admitted directly from 's nephrology clinic for initiation of dialysis. End stage Renal Disease: Continue Dialysis per Nephrology Got Tunneled Catheter placement on 03/04/17 Appreciate Nephrology help Awaiting for outpatient dialysis set up Monitor renal function, electrolytes continue current management Can be discharged once outpatient dialysis is set up Uncontrolled DM II: Last A1C:9.6 in Feb, 2017 A1C:8.9 Blood glucose levels in 400s on presentation Blood sugar levels improved DC Insulin drip ISS, lantus Pharmacy Glycemic control consulted Pharmacy to manage Insulin Anemia of Chronic Disease: No acute bleeding issues Monitor Hb Hb stable Procrit and Venofer per Nephrology CAD S/P stents H/o MIs in 2008 and 2010 No acute issues Continue coreg, statin, Plavix S/p liver transplant: H/o Hepatitic B Continue Prograf, Entecavir DVT Px: SCDs Code status: FULL Disposition: Medically stable for discharge. Plan to DC once outpatient dialysis is set up. Follow up with on Mar 11, 2017 at 11:45am Follow up with your [employer] in 2-4 weeks as advised Get dialysis as per the recommendations from your [employer] Administrator Seek immediate medical attention if your symptoms reoccur or worsen Vital Signs: Date Time Temp Pulse Resp B/P (MAP) Pulse Ox O2 Delivery O2 Flow Rate FiO2 03/09/17 09:09 36.6 64 139/95 (110) 03/09/17 07:15 36.8 67 18 115/83 (94) 100 Room Air 03/08/17 23:00 Room Air 03/08/17 22:59 36.7 68 15 113/65 (81) 98 Room Air 03/08/17 19:44 80 109/72 (84) 03/08/17 19:16 36.6 90 18 102/67 (79) 99 Room Air 03/08/17 16:00 98 Room Air 03/08/17 15:44 36.5 61 16 143/88 (106) 98 Room Air 03/08/17 09:51 100 Room Air Lab Results: Results Past 24 Hours Test 03/08/17 11:13 03/08/17 16:25 03/08/17 19:43 03/09/17 06:03 Range/Units Bedside Glucose 195 167 153 70-99 mg/dl Hemoglobin 9.9 14.0-18.0 g/dL Hematocrit 29.3 42-52 % Sodium Level 139 136-145 mmol/L Potassium Level 4.2 3.5-5.1 mmol/L Chloride Level 106 98-107 mmol/L Carbon Dioxide Level 24 21-32 mmol/L Anion Gap 9.0 3-11 mmol/L Blood Urea Nitrogen 49 7-18 mg/dl Creatinine 5.64 0.60-1.40 mg/dl Est Creatinine Clear Calc Drug Dose 11.5 ml/min Estimated GFR () 11.4 Estimated GFR (Non- 9.8 BUN/Creatinine Ratio 8.6 10-20 Random Glucose 134 70-99 mg/dl Calcium Level 8.5 8.5-10.1 mg/dl Magnesium Level 2.0 1.8-2.4 mg/dl Test 03/09/17 07:23 Range/Units Bedside Glucose 203 70-99 mg/dl
--- NOTE | 2017-03-09 09:57 | Discharge Instructions ---
Discharge Instructions Date of Service Mar 09, 2017. Admission Reason for Admission: Hypocalcemia, Urimea, Ckd Stage 5 Discharge Discharge Diagnosis / Problem: ESRD Discharge Goals Goal(s): Decrease discomfort, Improve function Activity Recommendations Activity Limitations: resume your previous activity Exercise/Sports Limitations: as tolerated . Instructions / Follow-Up Instructions / Follow-Up Follow up with on Mar 11, 2017 at 11:45am Follow up with your Doubling Machine Operator in 2-4 weeks as advised Get dialysis as per the recommendations from your Doubling Machine Operator Seek immediate medical attention if your symptoms reoccur or worsen Current Hospital Diet Patient's current hospital diet: Renal Diet, Diabetes Type 2 Diet Discharge Diet Recommended Diet: Diabetes Type 2 Diet, Renal Diet Procedures Procedures Performed: Insertion of Perm Catheter, Right Internal Jugular Approach, Ultrasound Localization of Right Internal Jugular Vein, Fluoroscopy for positioning. Pending Studies Studies pending at discharge: no Laboratory Results Hemoglobin A1c Test 03/04/17 05:36 Range/Units Estimated Average Glucose 209 mg/dl Hemoglobin A1c 8.9 H 4.5-5.6 % Medical Emergencies . Who to Call and When: Medical Emergencies: If at any time you feel your situation is an emergency, please call 911 immediately. . Non-Emergent Contact Non-Emergency issues call your: Primary Care Provider, Doubling Machine Operator Call Non-Emergent contact if: you have a fever, your pain is not controlled, your pain is worsening, your pain is unusual for you, your pain is concerning you, you have any medication questions Seek immediate medical attention if your symptoms reoccur or worsen . . "Provider Documentation" section prepared by Jacoby Whitfield. . VTE Core Measure Inpt VTE Proph given/why not?: SCD's
[2017-03-09] MEDS ORDERED: PHS667 PO (10:00)
--- NOTE | 2017-03-09 10:01 | Discharge Summary ---
Discharge Summary Date of Service Mar 09, 2017. Discharge Summary Admission Date: Mar 03, 2017 at 16:01 Discharge Date: Mar 09, 2017 Discharge Disposition: Home Principal Diagnosis: ESRD, Hypocalcemia Procedures: Insertion of Perm Catheter, Right Internal Jugular Approach, Ultrasound Localization of Right Internal Jugular Vein, Fluoroscopy for positioning. Dialysis Consultations: Vascular surgery, Nephrology Pending Studies/Follow-Up: Follow up with on Mar 11, 2017 at 11:45am Follow up with your Leather Worker in 2-4 weeks as advised Get dialysis as per the recommendations from your Leather Worker Seek immediate medical attention if your symptoms reoccur or worsen Medication Reconciliation New Medications: Calcium Acetate (Phoslo 667 Mg) 667 Mg Cap 667 MG PO TIDM for 30 Days, #90 CAP Continued Medications: Allopurinol (Allopurinol) 100 Mg Tab 1 TAB PO DAILY Amitriptyline Hcl (Amitriptyline Hcl) 150 Mg Tab 1 TAB PO HS for 30 Days, #30 TAB 1 Refill Ascorbic Acid (Ascorbic Acid) 500 Mg Tab 500 MG PO TIDM, TAB Carvedilol (Carvedilol) 3.125 Mg Tab 1 TAB PO BID Cholecalciferol (D3 2000) 2,000 Unit Tab 1 TAB PO DAILY Clopidogrel (Plavix) 75 Mg Tab 75 MG PO DAILY, TAB Entecavir (Entecavir) 0.5 Mg Tab 1 TAB PO DAILY Ferrous Sulfate (Ferrous Sulfate) 325 Mg Tab 1 TAB PO TIDM Insulin Aspart (Novolog Flexpen) 100 Units/Ml Inj 10 UNITS PO with lunch Insulin Aspart (Novolog) 100 Units/Ml Inj 12 PO with dinner Insulin Aspart (Novolog Flexpen) 100 Units/Ml Inj 8 UNITS SUBD with breakfast Insulin Glargine (Lantus) 100 Unit/Ml Inj 30 SC QPM, VIAL Pantoprazole (Protonix) 40 Mg Tab 40 MG PO DAILY, #30 TAB Pravastatin (Pravachol ) 20 Mg Tab 20 MG PO DAILY, TAB Sodium Bicarbonate (Antacid) (Sodium Bicarbonate) 650 Mg Tab 1 TAB PO TID for 30 Days, #90 TAB 5 Refills Tacrolimus (Prograf) 1 Mg Cap 4 CAP PO BID for 30 Days, #240 CAP 11 Refills Admission Information HPI (per Admitting provider): This is a 61yo M with a PMH of end stage renal disease, poorly controlled DM II , cerebral palsy, CAD (s/p stents in 2010) and s/p liver transplant (1997) who was admitted directly from Dr. Landon's nephrology clinic. Per patient, he has been in discussion with Dr. Landon about the initiation of dialysis for awhile but has opted to continue monitoring labwork. Patient is a poor historian, but per chart review, he was admitted at [facility] in [facility] for uncontrolled diabetes from 02/17-02/23. During this time, his creatinine was >5. Followed up with after hospitalization for repeat labwork. Based on abnormal labs, unintentional weight loss and decreased ability to make urine, the decision was made to initiate dialysis. Initially presented to [facility] yesterday but for unclear reasons, patient left. Was then directly admitted to [facility]. Has agreed to the elective tunnel catheter placement dialysis access by vascular surgery. Endorses decreased urinary output. Denies fever, chills, confusion, CP, SOB, abd pain, nausea, vomiting, constipation, fatigue. Has cerebral palsy and ambulates with a walker. Is more symptomatic on R side. Physical Exam (per Admitting): General Appearance: WD/WN, no apparent distress Head: normocephalic, atraumatic Eyes: normal inspection, PERRL, sclerae normal ENT: normal ENT inspection, hearing grossly normal, pharynx normal (moist mucous membranes) Neck: supple, no JVD, trachea midline Respiratory/Chest: chest non-tender, lungs clear, normal breath sounds, no respiratory distress, no accessory muscle use Cardiovascular: regular rate, rhythm, no murmur, normal peripheral pulses Abdomen/GI: non tender, soft, no organomegaly Extremities/Musculoskelatal: no calf tenderness, no pedal edema, non-tender Neurologic/Psych: alert, normal mood/affect, oriented x 3, + pertinent finding (Chronic gait abnormality 2/2 cerebral palsy ) Skin: normal color, warm/dry, no rash Hospital Course Patient is a 61yr male with PMH of ESRD, poorly controlled DM II, cerebral palsy , CAD (s/p stents in 2010) and s/p liver transplant (1997) who was admitted directly from 's nephrology clinic for initiation of dialysis. End stage Renal Disease: Continue Dialysis per Nephrology Got Tunneled Catheter placement on 03/04/17 Appreciate Nephrology help Awaiting for outpatient dialysis set up Monitor renal function, electrolytes continue current management Can be discharged once outpatient dialysis is set up Uncontrolled DM II: Last A1C:9.6 in Feb, 2017 A1C:8.9 Blood glucose levels in 400s on presentation Blood sugar levels improved DC Insulin drip ISS, lantus Pharmacy Glycemic control consulted Pharmacy to manage Insulin Anemia of Chronic Disease: No acute bleeding issues Monitor Hb Hb stable Procrit and Venofer per Nephrology CAD S/P stents H/o MIs in 2008 and 2010 No acute issues Continue coreg, statin, Plavix S/p liver transplant: H/o Hepatitic B Continue Prograf, Entecavir DVT Px: SCDs Code status: FULL Disposition: Medically stable for discharge. Plan to DC once outpatient dialysis is set up. Follow up with on Mar 11, 2017 at 11:45am Follow up with your Leather Worker in 2-4 weeks as advised Get dialysis as per the recommendations from your Leather Worker Seek immediate medical attention if your symptoms reoccur or worsen Total time spent on discharge = 35 minutes This includes examination of the patient, discharge planning, medication reconciliation, and communication with other providers. Discharge Instructions Discharge Instructions Date of Service Mar 09, 2017. Admission Reason for Admission: Hypocalcemia, Urimea, Ckd Stage 5 Discharge Discharge Diagnosis / Problem: ESRD, Hypocalcemia Discharge Goals Goal(s): Decrease discomfort, Improve function Activity Recommendations Activity Limitations: resume your previous activity Exercise/Sports Limitations: as tolerated . Instructions / Follow-Up Instructions / Follow-Up Follow up with on Mar 11, 2017 at 11:45am Follow up with your Leather Worker in 2-4 weeks as advised Get dialysis as per the recommendations from your Leather Worker Seek immediate medical attention if your symptoms reoccur or worsen Current Hospital Diet Patient's current hospital diet: Renal Diet, Diabetes Type 2 Diet Discharge Diet Recommended Diet: Diabetes Type 2 Diet, Renal Diet Procedures Procedures Performed: Insertion of Perm Catheter, Right Internal Jugular Approach, Ultrasound Localization of Right Internal Jugular Vein, Fluoroscopy for positioning. Pending Studies Studies pending at discharge: no Laboratory Results Hemoglobin A1c Test 03/04/17 05:36 Range/Units Estimated Average Glucose 209 mg/dl Hemoglobin A1c 8.9 H 4.5-5.6 % Medical Emergencies . Who to Call and When: Medical Emergencies: If at any time you feel your situation is an emergency, please call 911 immediately. . Non-Emergent Contact Non-Emergency issues call your: Primary Care Provider, Leather Worker Call Non-Emergent contact if: you have a fever, your pain is not controlled, your pain is worsening, your pain is unusual for you, your pain is concerning you, you have any medication questions Seek immediate medical attention if your symptoms reoccur or worsen . . "Provider Documentation" section prepared by Jacoby Whitfield. . VTE Core Measure Inpt VTE Proph given/why not?: SCD's <Electronically signed by Jacoby Whitfield MD> Signed: 03/09/17 0957 Signed: The status of this report is Signed * If report status is Draft, the document has not been finalized by the responsible provider.
[2017-03-09] MEDS: HEPARIN SOD (PORCINE) 1000 UNIT/ML 10 ML VIAL IV SCH ×2 (10:30→11:30)
--- NOTE | 2017-03-09 10:40 | Dialysis Progress Note ---
Nephrology Dialysis Note Date of Service: Mar 09, 2017. Subjective seen on HD; waiting for outpt HD unit formal acceptance; no n/v/d/sob/confusion Objective Date Time Temp Pulse Resp B/P (MAP) Pulse Ox O2 Delivery O2 Flow Rate FiO2 03/09/17 10:00 70 117/86 03/09/17 09:45 71 120/82 03/09/17 09:30 68 125/87 03/09/17 09:09 36.6 64 139/95 (110) 03/09/17 07:15 36.8 67 18 115/83 (94) 100 Room Air 03/08/17 23:00 Room Air 03/08/17 22:59 36.7 68 15 113/65 (81) 98 Room Air 03/08/17 19:44 80 109/72 (84) 03/08/17 19:16 36.6 90 18 102/67 (79) 99 Room Air 03/08/17 16:00 98 Room Air 03/08/17 15:44 36.5 61 16 143/88 (106) 98 Room Air Physical Exam: General-aaox3, cachectic, lying flat in bed on ra Eyes-no scleral icterus ENT-mmm Neck-supple Lungs-cta Heart-rrr Abdomen-bs+ s/nt/nd Extremities-no c/c/e Neuro-hx of cp Current Inpatient Medications Medications (Trade) Dose Ordered Sig/Jon Route Start Time Stop Time Status Last Admin Dose Admin Glucose (Glucose 40% Gel) 15-30 GRAMS 15 GRAMS... UD PRN PO 03/03/17 17:30 04/02/17 17:29 Glucose (Glucose Chew Tab) 4-8 Tablets 4 Tabl... UD PRN PO 03/03/17 17:30 04/02/17 17:29 Dextrose (Dextrose 50% 50ML Syringe) 25-50ML OF 50% DW IV FOR... UD PRN IV 03/03/17 17:30 04/02/17 17:29 03/04/17 06:43 25 ML Glucagon (Glucagon Inj) 1 mg UD PRN SQ 03/03/17 17:30 04/02/17 17:29 Allopurinol (Zyloprim Tab) 100 mg DAILY PO 03/04/17 09:00 04/03/17 08:59 03/08/17 08:12 100 MG Ascorbic Acid (Vitamin C Tab) 500 mg TIDM PO 03/04/17 07:30 04/03/17 07:29 03/08/17 16:59 500 MG Carvedilol (Coreg Tab) 3.125 mg BID PO 03/03/17 21:00 04/02/17 20:59 03/08/17 19:42 3.125 MG Clopidogrel Bisulfate (plAVix TAB) 75 mg DAILY PO 03/04/17 09:00 04/03/17 08:59 Future hold 03/08/17 08:09 75 MG Pantoprazole Sodium (Protonix Tab) 40 mg DAILY PO 03/04/17 09:00 04/03/17 08:59 03/08/17 08:11 40 MG Pravastatin Sodium (Pravachol Tab) 20 mg DAILY PO 03/04/17 09:00 04/03/17 08:59 03/08/17 08:10 20 MG Tacrolimus (Prograf Cap) 4 mg BID PO 03/03/17 21:00 04/02/17 20:59 03/09/17 08:26 4 MG Amitriptyline HCl (Elavil Tab) 150 mg HS PO 03/03/17 21:00 04/02/17 20:59 03/08/17 20:47 150 MG Cholecalciferol (Vitamin D Tab) 2,000 inter.unit DAILY PO 03/04/17 09:00 04/03/17 08:59 03/08/17 08:12 2,000 INTER.UNIT Miscellaneous Information (Order Awaiting Action) 1 ea QS N/A 03/04/17 00:00 04/03/17 00:00 Miscellaneous Information (Consult Glycemic Management Pharmacy) 1 ea UD PRN N/A 03/03/17 19:11 04/02/17 19:10 Calcium Acetate (Phoslo Cap) 1,334 mg TIDM PO 03/04/17 07:30 04/03/17 07:29 03/09/17 08:27 1,334 MG Insulin Glargine (Lantus Solostar Pen) 10 units BID SC 03/05/17 09:00 04/04/17 08:59 03/09/17 08:32 10 UNITS Tramadol HCl (Ultram Tab) 50 mg Q6H PRN PO 03/06/17 00:30 04/05/17 00:29 03/06/17 00:45 50 MG Insulin Aspart (novoLOG ASPART) SLIDING SCALE ACHS@1100,1630,2100 MT 03/08/17 11:00 04/07/17 10:59 03/08/17 20:52 2 UNITS Insulin Aspart (novoLOG ASPART) SLIDING SCALE AC@0630 MT 03/08/17 06:30 04/07/17 06:29 03/09/17 08:30 10 UNITS Heparin Sodium (Porcine) (Heparin Iv Bolus) 1,000 unit TODAY@0900 IV 03/09/17 09:00 03/09/17 23:59 Heparin Sodium (Porcine) (Heparin Iv Bolus) 400 unit TODAY@0900,1000,1100 IV 03/09/17 09:00 03/09/17 23:59 Epoetin Jc (Procrit Inj) 10,000 units TODAY@0900 IV. 03/09/17 09:00 03/09/17 23:59 03/09/17 09:46 10,000 UNITS Iron Sucrose 100 mg/Syringe 5 ml @ 1 mls/min TODAY@0900 IV 03/09/17 09:00 03/09/17 23:59 03/09/17 09:44 1 MLS/MIN Last 24 Hours Test 03/08/17 11:13 03/08/17 16:25 03/08/17 19:43 03/09/17 06:03 Bedside Glucose 195 mg/dl 167 mg/dl 153 mg/dl Hemoglobin 9.9 g/dL Hematocrit 29.3 % Sodium Level 139 mmol/L Potassium Level 4.2 mmol/L Chloride Level 106 mmol/L Carbon Dioxide Level 24 mmol/L Anion Gap 9.0 mmol/L Blood Urea Nitrogen 49 mg/dl Creatinine 5.64 mg/dl Est Creatinine Clear Calc Drug Dose 11.5 ml/min Estimated GFR () 11.4 Estimated GFR (Non- 9.8 BUN/Creatinine Ratio 8.6 Random Glucose 134 mg/dl Calcium Level 8.5 mg/dl Magnesium Level 2.0 mg/dl Test 03/09/17 07:23 Bedside Glucose 203 mg/dl Assessment & Plan 61 yo male who had tdc 03/04 along w/ first HD tx same date has improved clinical status; awaiting final acceptance at Dialysis unit; acceptance already in process; Dr Landon will continue as 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 anemia of renal failure-giving venofer and procrit for goal hg of 10 to 11 BRANDI- cont current phoslo. calcium levels are trending back up. has not needed further supplemental calcium gluconate Dialysis unit-needs to be finalized as accepted at the [facility] dialysis unit- [phone], preferably m-w-f. caser up aware/application in process Appreciate consult; will follow with you. Care coordinated w/ Dr. Whitfield.
[2017-03-09] MEDS: CLOPIDOGREL BISULFATE 75 MG TAB PO SCH (13:41)
[2017-03-09] MEDS: CHOLECALCIFEROL 1000 INTER.UNIT TAB PO SCH (13:41)
[2017-03-09] MEDS: PRAVASTATIN SOD 20 MG TAB PO SCH (13:44)
[2017-03-09] MEDS: ALLOPURINOL 100 MG TAB PO SCH (13:44)
[2017-03-09] MEDS: CARVEDILOL 3.125 MG TAB PO SCH (13:45)
[2017-03-09] MEDS: PANTOprazole SOD 40 MG TAB PO SCH (13:45)
== END 2017-03-09 15:06 | disposition home or self-care (01) | DRG 683 ==
LOC: C.2E 16:01 → ENRESERV 03-06 10:53 → C.4E 03-06 11:34
PROVIDERS: ADMIT Family Medicine; ATTEND Internal Medicine
PROC: 05HM33Z Insertion of Infusion Device into Right Internal Jugular Vein, Percutaneous Approach (ICD-10-PCS; principal; 2017-03-04 08:00)
DX: N18.6 End stage renal disease (principal); E87.2 Acidosis; B19.10 Unspecified viral hepatitis B without hepatic coma; Z94.4 Liver transplant status; E83.51 Hypocalcemia; G80.9 Cerebral palsy, unspecified; E11.9 Type 2 diabetes mellitus without complications; D63.8 Anemia in other chronic diseases classified elsewhere; Z96.643 Presence of artificial hip joint, bilateral; N25.0 Renal osteodystrophy; N17.9 Acute kidney failure, unspecified; Z79.4 Long term (current) use of insulin; I25.2 Old myocardial infarction; Z87.891 Personal history of nicotine dependence

== ENCOUNTER 2017-06-07 11:40 | Inpatient (IN) | payer OTHER ==
[~2017-06-07] VITALS: Ht 170.2 cm; Wt 61.3 kg
[~2017-06-07 11:40] MED LIST: ALL100 PO; AMIT150T PO; ASCO500T16 PO; CHOL1TAB79 PO; CLOP1TAB15 PO; CRG3125 PO; ENTE1TAB2 PO; FRRS300 PO; INSDGI SC; NVLG SQ; NVLGIPEN SQ; PANT40TA PO; PHS667 PO; PRAV20TA PO; SODI650T8 PO; TACR1CAP PO
--- NOTE | 2017-06-07 12:35 | DIAGNOSTIC IMAGING REPORT ---
CHEST ONE VIEW PORTABLE CLINICAL HISTORY: Sepsis COMPARISON STUDY: No previous studies for comparison. FINDINGS: A dual lumen right internal jugular central venous catheter is in place. There is no pneumothorax or pleural effusion. There are old left rib fractures. There is no consolidation or evidence for pulmonary edema. Cardiomediastinal silhouette is unremarkable. IMPRESSION: No acute cardiopulmonary findings. Electronically signed by: Anuel Robertson M.D. 06/07/2017 12:33 PM Dictated Date/Time: 06/07/2017 12:33 PM
[2017-06-07 13:08] LABS: HEMATOCRIT 42.3 % (42-52); HEMOGLOBIN 13.5 g/dL (14.0-18.0); INR 1.1 (0.9-1.1); MEAN CELL VOLUME 99.1 fL (80-100); MEAN CORPUSCULAR HEMOGLOBIN 31.6 pg (25-34); MEAN CORPUSCULAR HGB CONC 31.9 g/dl (32-36); RED CELL DISTRIBUTION WIDTH CV 13.4 % (11.5-14.5); RED CELL DISTRIBUTION WIDTH SD 48.1 fL (36.4-46.3); WHITE BLOOD COUNT 10.47 K/uL (4.8-10.8)
[2017-06-07 13:26] LABS: PLATELET COUNT 67 K/uL (130-400)
[2017-06-07 13:27] LABS: BASO % 0.2 %; BASO ABS # 0.02 K/uL (0-0.2); EOS % 0.8 %; EOS ABS # 0.08 K/uL (0-0.5); IG# 0.06 K/uL (0.00-0.02); LYMPH % 14.7 %; LYMPH ABS # 1.54 K/uL (1.2-3.4); MONO ABS # 0.63 K/uL (0.11-0.59); NEUT % 77.7 %; NEUT ABS # 8.14 K/uL (1.4-6.5)
[2017-06-07 13:33] LABS: ALBUMIN 2.5 gm/dl (3.4-5.0); CALCIUM 7.5 mg/dl (8.5-10.1); CREATININE 6.99 mg/dl (0.60-1.40); TOTAL PROTEIN 6.8 gm/dl (6.4-8.2)
[2017-06-07] MEDS ORDERED: VANCOMYCIN 1GM ED/ASU OMNICELL IV STA (13:48)
--- NOTE | 2017-06-07 14:27 | EMERGENCY ROOM VISIT NOTE ---
History Report prepared by David: Sherly Tang Under the Supervision of: Dr. Gm Worley M.D. First contact with patient: 12:13 Chief Complaint: INFECTION Stated Complaint: BLOOD INFECTION Nursing Triage Summary: had blood work done wednesday was called from dialysis and they told me I had a blood infection. We just got the phone call to bring him here to the er. "I am a liver transplant patient and I need certian meds." patient has fistula in right arm gets dialysis [id number] was to have dialysis today at 1130 History of Present Illness The patient is a 62 year old male who presents to the Emergency Room with complaints of persistent blood infection starting 3 days ago. The patient receives dialysis on Wednesday, Wednesday, and Wednesday. He had blood work 3 days ago that found that he has a blood fungus. He was told to come to the ED. He does make urine. He has been feeling weak. Source of History: patient, family Onset: 3 days ago Position: other (blood) Quality: other (infection) Timing: other (persistent) Associated Symptoms: + weakness Review of Systems See HPI for pertinent positives & negatives. A total of 10 systems reviewed and were otherwise negative. Past Medical & Surgical Medical Problems: (1) Bacteremia (2) Cerebral palsy (3) Diabetes mellitus type II, uncontrolled (4) End stage chronic kidney disease (5) Hepatitis B (6) Presence of stent in coronary artery in patient with coronary artery disease Surgical Problems: (1) S/P liver transplant Family History No pertinent family history stated. Social History Smoking Status: Never Smoker Marital Status: single Occupation Status: unemployed Current/Historical Medications Scheduled Allopurinol (Allopurinol), 1 TAB PO DAILY Amitriptyline Hcl (Amitriptyline Hcl), 1 TAB PO HS Calcium Acetate (Phoslo 667 Mg), 667 MG PO TIDM Cholecalciferol (D3 2000), 1 TAB PO DAILY Clopidogrel (Plavix), 75 MG PO DAILY Entecavir (Entecavir), 1 TAB PO DAILY Ferrous Sulfate (Ferrous Sulfate), 1 TAB PO TIDM Insulin Aspart (Novolog Flexpen), 14 UNITS SQ lunch Insulin Aspart (Novolog), 12 UNITS SQ breakfast Insulin Aspart (Novolog Flexpen), 16 UNITS SQ dinner Insulin Glargine (Lantus), 35 SC QPM Pantoprazole (Protonix), 40 MG PO DAILY Pravastatin (Pravachol ), 20 MG PO DAILY Tacrolimus (Prograf), 4 CAP PO BID Allergies Coded Allergies: No Known Allergies (Unverified , 06/07/17) Physical Exam Vital Signs Date Time Temp Pulse Resp B/P (MAP) Pulse Ox O2 Delivery O2 Flow Rate FiO2 06/07/17 13:55 79 20 91/64 94 Room Air 06/07/17 12:36 82 06/07/17 12:35 97 Room Air 06/07/17 11:56 36.5 92 18 91/61 97 Room Air Physical Exam GENERAL: Awake, alert, well-appearing, in no acute distress HENT: Normocephalic, atraumatic. Oropharynx unremarkable. EYES: Normal conjunctiva. Sclera non-icteric. NECK: Supple. No nuchal rigidity. FROM. No JVD. RESPIRATORY: Clear to auscultation. CARDIAC: Regular rate, normal rhythm. Extremities warm and well perfused. Pulses equal. ABDOMEN: Soft, non-distended. No tenderness to palpation. No rebound or guarding. No masses. RECTAL: Deferred. MUSCULOSKELETAL: Chest examination reveals no tenderness. Port in place in chest wall. The back is symmetrical on inspection without obvious abnormality. There is no CVA tenderness to palpation. No joint edema. LOWER EXTREMITIES: Calves are equal size bilaterally and non-tender. No edema. No discoloration. NEURO: Normal sensorium. No sensory or motor deficits noted. SKIN: No rash or jaundice noted. Medical Decision & Procedures ER Provider Diagnostic Interpretation: X-ray results as stated below per interpretation by me and the radiologist: CHEST ONE VIEW PORTABLE CLINICAL HISTORY: Sepsis COMPARISON STUDY: No previous studies for comparison. FINDINGS: A dual lumen right internal jugular central venous catheter is in place. There is no pneumothorax or pleural effusion. There are old left rib fractures. There is no consolidation or evidence for pulmonary edema. Cardiomediastinal silhouette is unremarkable. IMPRESSION: No acute cardiopulmonary findings. Electronically signed by: Anuel Robertson M.D. 06/07/2017 12:33 PM Dictated Date/Time: 06/07/2017 12:33 PM Laboratory Results 06/07/17 12:32 Red Blood Count 4.27, Mean Corpuscular Volume 99.1, Mean Corpuscular Hemoglobin 31.6, Mean Corpuscular Hemoglobin Concent 31.9, Mean Platelet Volume 10.0, Neutrophils (%) (Auto) 77.7, Lymphocytes (%) (Auto) 14.7, Monocytes (%) (Auto) 6.0, Eosinophils (%) (Auto) 0.8, Basophils (%) (Auto) 0.2, Neutrophils # (Auto) 8.14, Lymphocytes # (Auto) 1.54, Monocytes # (Auto) 0.63, Eosinophils # (Auto) 0.08, Basophils # (Auto) 0.02 06/07/17 12:32 Test 06/07/17 12:32 06/07/17 12:35 White Blood Count 10.47 K/uL (4.8-10.8) Red Blood Count 4.27 M/uL (4.7-6.1) Hemoglobin 13.5 g/dL (14.0-18.0) Hematocrit 42.3 % (42-52) Mean Corpuscular Volume 99.1 fL (80-100) Mean Corpuscular Hemoglobin 31.6 pg (25-34) Mean Corpuscular Hemoglobin Concent 31.9 g/dl (32-36) Platelet Count 67 K/uL (130-400) Mean Platelet Volume 10.0 fL (7.4-10.4) Neutrophils (%) (Auto) 77.7 % Lymphocytes (%) (Auto) 14.7 % Monocytes (%) (Auto) 6.0 % Eosinophils (%) (Auto) 0.8 % Basophils (%) (Auto) 0.2 % Neutrophils # (Auto) 8.14 K/uL (1.4-6.5) Lymphocytes # (Auto) 1.54 K/uL (1.2-3.4) Monocytes # (Auto) 0.63 K/uL (0.11-0.59) Eosinophils # (Auto) 0.08 K/uL (0-0.5) Basophils # (Auto) 0.02 K/uL (0-0.2) RDW Standard Deviation 48.1 fL (36.4-46.3) RDW Coefficient of Variation 13.4 % (11.5-14.5) Immature Granulocyte % (Auto) 0.6 % Immature Granulocyte # (Auto) 0.06 K/uL (0.00-0.02) Platelet Estimate DECREASED Prothrombin Time 12.0 SECONDS (9.0-12.0) Prothromb Time International Ratio 1.1 (0.9-1.1) Activated Partial Thromboplast Time 30.0 SECONDS (21.0-31.0) Partial Thromboplastin Ratio 1.2 Anion Gap 10.0 mmol/L (3-11) Est Creatinine Clear Calc Drug Dose 9.5 ml/min Estimated GFR () 8.7 Estimated GFR (Non- 7.5 BUN/Creatinine Ratio 8.5 (10-20) Calcium Level 7.5 mg/dl (8.5-10.1) Total Bilirubin 0.5 mg/dl (0.2-1) Aspartate Amino Transf (AST/SGOT) 19 U/L (15-37) Alanine Aminotransferase (ALT/SGPT) 28 U/L (12-78) Alkaline Phosphatase 125 U/L (45-117) Total Protein 6.8 gm/dl (6.4-8.2) Albumin 2.5 gm/dl (3.4-5.0) Globulin 4.3 gm/dl (2.5-4.0) Albumin/Globulin Ratio 0.6 (0.9-2) Bedside Lactic Acid Venous 0.71 mmol/L (0.90-1.70) Labs reviewed by ED physician. Medications Administered Medications (Trade) Dose Ordered Sig/Jon Route Start Time Stop Time Status Last Admin Dose Admin Vancomycin HCl (Vancomycin 1gm/ 270ml Nss) 1 gm NOW STAT IV 06/07/17 13:48 06/07/17 13:49 DC 06/07/17 13:57 1 GM ECG Per My Interpretation Indication: weakness Rate (beats per minute): 83 Rhythm: other (accelerated junctional rhythm) Findings: prolonged QT, other (no ST elevation or depression) ED Course 1214: Past medical records reviewed. The patient was evaluated in room A10. A complete history and physical examination was performed. 1345: I discussed the patient's case with Curtis Pagan internal medicine for Dr. Landon. She is in agreement with the plan. 1348: Vancomycin HCl 1 gm IV. 1349: Upon reexamination the patient is stable. I discussed results and treatment plan with the patient. He verbalizes agreement and understanding. The patient will be evaluated for further management. 1352: I discussed the patient's case with Kamini SÁNCHEZ Anand hospitalist, she has agreed to evaluate the patient for further management and care. Medical Decision Differential diagnosis: Etiologies such as metabolic, infection, hypo/hyperglycemia, electrolyte abnormalities, cardiac sources, intracerebral event, toxicologic, neurologic, as well as others were entertained. This is a 62-year-old male who presents the emergency department over concerns the patient blew grew out strep out of his blood cultures. The patient has no other complaints. He does not have an elevation in his white blood cell count. He has not had his dialysis today. I did discuss his case with his welding estimator who asked that the patient be admitted. I did discuss the case with the patient's hospitalist group who also admitted the patient. Patient was in agreement with the treatment plan. Medication Reconcilliation Current Medication List: was personally reviewed by me Blood Pressure Screening Patient's blood pressure: Normal blood pressure Blood pressure disposition: Did not require urgent referral Consults Time Called: [phone] Consulting Physician: [facility] Returned Call: 1345 I discussed the patient's case with her for Dr. Landon. She is in agreement with the plan. Additional Consults: Time Called: 1350 Consulted Physician: SÁNCHEZ Green hospitalist Returned Call: 1352 Additional Comments: I discussed the patient's case with her, she has agreed to evaluate the patient for further management and care. Impression Primary Impression: Weakness Scribe Attestation The scribe's documentation has been prepared under my direction and personally reviewed by me in its entirety. I confirm that the note above accurately reflects all work, treatment, procedures, and medical decision making performed by me. Departure Information Dispostion Being Evaluated By Hospitalist Referrals Carlton Lee D.O. (PCP) Patient Instructions My [facility]
[2017-06-07] MEDS ORDERED: ACETAMINOPHEN 325 MG TAB PO PRN (14:30)
[2017-06-07] MEDS ORDERED: DEXTROSE 50% 50 ML SYR IV PRN (15:15)
[2017-06-07] MEDS ORDERED: GLUCOSE 40% GEL 15 GM TUBE PO PRN (15:15)
[2017-06-07] MEDS ORDERED: GLUCAGON FOR INJ 1 MG VIAL SQ PRN (15:15)
[2017-06-07] MEDS ORDERED: PHARMACY GLYCEMIC MGMT CONSULT PRN (15:22)
--- NOTE | 2017-06-07 15:29 | Pharmacy Progress Note ---
Glycemic Control Intl Consult Date of Service Jun 07, 2017. Scope Glycemic Pharmacist consulted by SÁNCHEZ Green on 06/07/17 for glycemic control and to write orders per [facility] inpatient glycemic control protocol Objective Weight (Kilograms): 62.800 Accuchecks BSG (last 24hrs): Test 06/07/17 12:32 Random Glucose 103 mg/dl (70-99) Laboratory Data (last 24hrs) Test 06/07/17 12:32 Anion Gap 10.0 mmol/L BUN/Creatinine Ratio 8.5 Blood Urea Nitrogen 60 mg/dl Creatinine 6.99 mg/dl Potassium Level 4.0 mmol/L Sodium Level 139 mmol/L White Blood Count 10.47 K/uL Red Blood Count 4.27 M/uL Hemoglobin 13.5 g/dL Hematocrit 42.3 % Mean Corpuscular Volume 99.1 fL Mean Corpuscular Hemoglobin 31.6 pg Mean Corpuscular Hemoglobin Concent 31.9 g/dl Platelet Count 67 K/uL Mean Platelet Volume 10.0 fL Neutrophils (%) (Auto) 77.7 % Lymphocytes (%) (Auto) 14.7 % Monocytes (%) (Auto) 6.0 % Eosinophils (%) (Auto) 0.8 % Basophils (%) (Auto) 0.2 % Neutrophils # (Auto) 8.14 K/uL Lymphocytes # (Auto) 1.54 K/uL Monocytes # (Auto) 0.63 K/uL Eosinophils # (Auto) 0.08 K/uL Basophils # (Auto) 0.02 K/uL Recent Pertinent Medications Outpatient Anti-diabetic Regimen: * Lantus 35 units qPM plus Novolog 12 units with breakfast, 14 units with lunch , and 16 units with supper Risk Factors for Insulin Resistance: * Diet: AHA/Renal diet * Infection: GP bacteremia on vancomycin Assessment & Plan ASSESSMENT: * Mr Nicole is a 62 y/o M with a PMH of liver transplant, hepatitis B, hemodialysis MWF, and unknown control of type 2 diabetes (HbA1C is not reliable in this patient as he undergoes hemodialysis which can effect the results). He presented after a phone call from his dialysis center indicating that he has bacteremia of fungemia. * During a previous hospitalization in February of last year, the patient consistently required 10 units of Lantus BID plus around 20-27 units of correctional insulin. In order to create an easier transition to outpatient therapy, will start Lantus 20 units tonight. Will mimic similar Novolog dosing as previously utilizing. That hospitalization is very similar to today's with the exception that the patient currently has an infection. This indicates that he may require more insulin, most likely not less. Blood sugar at lunch was 103 mg/dL which is reasonable. PLAN FOR INPATIENT GLYCEMIC CONTROL: * Basal insulin with LANTUS 20 units SQ HS * Correctional Insulin with NOVOLOG per scale ACHS or Q6hrs while NPO * Goal Range: Low 110 mg/dL - High 140 mg/dL * Correction Factor: 20 mg/dL/unit * Nutritional / Prandial insulin per carb ratio of 1 unit per 8 grams CHO consumed with breakfast and 10 units with all other meals * Please note that the plan above was derived based on current level of insulin resistance and hospital stress. These recommendations are appropriate for inpatient admission only. Plan of care upon discharge will need to be reassessed to avoid potential outpatient hypo/hyperglycemia. Thank you.
[2017-06-07] MEDS ORDERED: VANCOMYCIN CONSULT ACTIVE PRN (15:30)
[2017-06-07 16:28] VITALS: BP 115/72; PULSE 70; TEMP 36.7; O2SAT 95
[2017-06-07] MEDS: INSULIN ASPART 100 UNITS/ML 3 ML PEN SC SCH ×2 (16:30→21:30)
--- NOTE | 2017-06-07 16:56 | History and Physical ---
History & Physical Date & Time of Service: Jun 07, 2017 ~ 14:00 Chief Complaint: Referred by nephrology for positive blood cultures Primary Care Physician: Carlton Lee D.O. History of Present Illness 62-year-old male who presents to the ER by referral of nephrology after outpatient blood cultures were noted to be positive. Patient is currently on dialysis Wednesday and have blood cultures drawn on 06/04/17. Patient reports he had been feeling chilled and more fatigued than normal so therefore blood cultures were drawn. Patient currently has a tunneled catheter in place to his right chest. Patient did undergo fistula placement at the beginning of April however has not been cleared by vascular surgery to use the fistula yet. Patient denies any drainage or surrounding redness from the tunnel catheter site. He has a wound on his right heel that he is currently following with wound care for. There is some mild surrounding erythema however he reports this is chronic. He has not noted any drainage from the wound. Patient reports chills however did not take his temperature at home. He reports he did not have a fever at dialysis on Wednesday. He denies chest pain and shortness of breath. No lightheadedness, dizziness, diaphoresis, or syncopal events. He denies abdominal pain, nausea, vomiting, diarrhea. Patient does continue to make urine despite being on dialysis. He denies any urinary symptoms. Of note, patient reports he was instructed to stop his carvedilol about 1 week ago due to hypotension noted at dialysis. In the ED, patient is hemodynamically stable. Labs unremarkable. Patient was given a dose of vancomycin. Past Medical/Surgical History Medical Problems: (1) Cerebral palsy Status: Chronic (2) Diabetes mellitus type II, uncontrolled Status: Chronic (3) End stage chronic kidney disease Status: Chronic (4) ESRD (end stage renal disease) on dialysis Status: Chronic (5) Hepatitis B Status: Chronic (6) Presence of stent in coronary artery in patient with coronary artery disease Status: Chronic Surgical Problems: (1) History of right hip replacement Status: Chronic (2) S/P liver transplant Status: Chronic Family History Patient reports unknown family history Social History Smoking Status: Former Smoker Alcohol Use: none Immunizations History of Influenza Vaccine: Yes Influenza Vaccine Date: Oct 30, 2016 History of Tetanus Vaccine?: Yes Tetanus Immunization Date: July 22, 2015 History of Pneumococcal: Yes Pneumococcal Date: Jan 20, 2016 Allergies Coded Allergies: No Known Allergies (Unverified , 06/07/17) Home Medications Scheduled Allopurinol (Allopurinol), 1 TAB PO DAILY Amitriptyline Hcl (Amitriptyline Hcl), 1 TAB PO HS Calcium Acetate (Phoslo 667 Mg), 667 MG PO TIDM Cholecalciferol (D3 2000), 1 TAB PO DAILY Clopidogrel (Plavix), 75 MG PO DAILY Entecavir (Entecavir), 1 TAB PO DAILY Ferrous Sulfate (Ferrous Sulfate), 1 TAB PO TIDM Insulin Aspart (Novolog Flexpen), 14 UNITS SQ lunch Insulin Aspart (Novolog), 12 UNITS SQ breakfast Insulin Aspart (Novolog Flexpen), 16 UNITS SQ dinner Insulin Glargine (Lantus), 35 SC QPM Pantoprazole (Protonix), 40 MG PO DAILY Pravastatin (Pravachol ), 20 MG PO DAILY Tacrolimus (Prograf), 4 CAP PO BID Review of Systems ROS per HPI, all other systems reviewed and negative Physical Exam Vital Signs Date Time Temp Pulse Resp B/P (MAP) Pulse Ox O2 Delivery O2 Flow Rate FiO2 06/07/17 16:28 36.7 70 20 115/72 (86) 95 Room Air 06/07/17 15:42 76 18 94/65 94 06/07/17 13:55 79 20 91/64 94 Room Air 06/07/17 12:36 82 06/07/17 12:35 97 Room Air 06/07/17 11:56 36.5 92 18 91/61 97 Room Air General Appearance: WD/WN, no apparent distress Head: normocephalic, atraumatic Eyes: normal inspection, EOMI, sclerae normal ENT: hearing grossly normal, + pertinent finding (Mucous membranes moist) Neck: supple, no JVD, trachea midline Respiratory/Chest: lungs clear, normal breath sounds, no respiratory distress, + pertinent finding (Tunnel catheter in place to right chest, no surrounding erythema or drainage) Cardiovascular: regular rate, rhythm, normal peripheral pulses, + pertinent finding (+1 ankle edema) Abdomen/GI: normal bowel sounds, non tender, soft, no organomegaly Extremities/Musculoskelatal: no calf tenderness, normal capillary refill, + pertinent finding (BLLE atrophied, right foot drop) Neurologic/Psych: no motor/sensory deficits, alert, normal mood/affect, oriented x 3 Skin: normal color, warm/dry Diagnostics Laboratory Results Results Past 24 Hours Test 06/07/17 12:32 06/07/17 12:35 Range/Units White Blood Count 10.47 4.8-10.8 K/uL Red Blood Count 4.27 4.7-6.1 M/uL Hemoglobin 13.5 14.0-18.0 g/dL Hematocrit 42.3 42-52 % Mean Corpuscular Volume 99.1 80-100 fL Mean Corpuscular Hemoglobin 31.6 25-34 pg Mean Corpuscular Hemoglobin Concent 31.9 32-36 g/dl Platelet Count 67 130-400 K/uL Mean Platelet Volume 10.0 7.4-10.4 fL Neutrophils (%) (Auto) 77.7 % Lymphocytes (%) (Auto) 14.7 % Monocytes (%) (Auto) 6.0 % Eosinophils (%) (Auto) 0.8 % Basophils (%) (Auto) 0.2 % Neutrophils # (Auto) 8.14 1.4-6.5 K/uL Lymphocytes # (Auto) 1.54 1.2-3.4 K/uL Monocytes # (Auto) 0.63 0.11-0.59 K/uL Eosinophils # (Auto) 0.08 0-0.5 K/uL Basophils # (Auto) 0.02 0-0.2 K/uL RDW Standard Deviation 48.1 36.4-46.3 fL RDW Coefficient of Variation 13.4 11.5-14.5 % Immature Granulocyte % (Auto) 0.6 % Immature Granulocyte # (Auto) 0.06 0.00-0.02 K/uL Platelet Estimate DECREASED Prothrombin Time 12.0 9.0-12.0 SECONDS Prothromb Time International Ratio 1.1 0.9-1.1 Activated Partial Thromboplast Time 30.0 21.0-31.0 SECONDS Partial Thromboplastin Ratio 1.2 Sodium Level 139 136-145 mmol/L Potassium Level 4.0 3.5-5.1 mmol/L Chloride Level 103 98-107 mmol/L Carbon Dioxide Level 26 21-32 mmol/L Anion Gap 10.0 3-11 mmol/L Blood Urea Nitrogen 60 7-18 mg/dl Creatinine 6.99 0.60-1.40 mg/dl Est Creatinine Clear Calc Drug Dose 9.5 ml/min Estimated GFR () 8.7 Estimated GFR (Non- 7.5 BUN/Creatinine Ratio 8.5 10-20 Random Glucose 103 70-99 mg/dl Calcium Level 7.5 8.5-10.1 mg/dl Total Bilirubin 0.5 0.2-1 mg/dl Aspartate Amino Transf (AST/SGOT) 19 15-37 U/L Alanine Aminotransferase (ALT/SGPT) 28 12-78 U/L Alkaline Phosphatase 125 45-117 U/L Total Protein 6.8 6.4-8.2 gm/dl Albumin 2.5 3.4-5.0 gm/dl Globulin 4.3 2.5-4.0 gm/dl Albumin/Globulin Ratio 0.6 0.9-2 Bedside Lactic Acid Venous 0.71 0.90-1.70 mmol/L Microbiology Results 06/07/17 Fungal Smear, Received Pending 06/07/17 Fungal Culture, Received Pending 06/07/17 Blood Culture, Received Pending 06/07/17 Blood Culture, Received Pending Diagnostic Radiology CXR IMPRESSION: No acute cardiopulmonary findings. Impression Assessment and Plan GRAM-POSITIVE BACTEREMIA -Admit to telemetry -Patient referred to the ED by nephrology after outpatient blood cultures that were drawn at dialysis on 06/04/17 became positive for gram-positive cocci in pairs and chains -Patient reports feeling chilled and fatigued, however is afebrile, hemodynamically stable, no leukocytosis -Does have right chest tunneled catheter in place for dialysis, currently without erythema or drainage -Has healing ulcer on right heel, does not appear to be actively infected -Had fistula placed to right upper extremity by vascular surgery at [facility] , however has not been seen in follow-up for evaluation of maturity -Preliminary culture report obtained from send out lab and placed on chart, they report that final sensitivities should be available by 06/09/17 -S/P vancomycin in the ED, will continue with -Check echocardiogram R/O endocarditis -Consult ID ESRD ON DIALYSIS -Potassium stable -Case discussed with Dr. Moss -Will evaluate fistula for maturity -Continue routine renal medications HISTORY OF CAD -Stable, no reports of chest pain -Beta-alex recently stopped due to hypotension at dialysis -Continue clopidogrel DIABETES MELLITUS -Hgb A1c 8.9 02/2017 -Continue Lantus and NovoLog DVT PROPHYLAXIS -SQ heparin DISPOSITION -In my clinical judgment this beneficiary meets acute admission criteria, established by [facility], that includes being hospitalized through two midnights. ADDENDUM: This is a 62 year old male with a recent initiation of dialysis, AV fistula on R arm, not yet fully matured; insulin dependent DM, CAD, cerebral palsy - presents with positive blood cultures as an outpatient; growing gram positive cocci x4. Was sent over by nephrology. Patient states he has no symptoms. Noted to have dialysis catheter on the R chest wall. The blood cultures were obtained from the catheter. On exam: noted to have the tunneled catheter on the R chest wall he has a healing wound ulceration on the R lateral ankle and L jett Plan: for the gram positive bacteremia - will order IV Vanco repeat blood cultures pending echo ordered ID consulted vascular surgery consulted regarding the tunneled line - culture of the cath tip ordered noted to have EKG changes; so serial troponins ordered, echo pending - denies any symptoms at this time - monitor in tele nephrology consulted for dialysis management pharmacy consulted for glycemic control - patient noted to have hypoglycemia episodes; given glucose tabs with good response Resuscitation Status VTE Prophylaxis Will order VTE Prophylaxis: Yes
[2017-06-07] MEDS: GLUCOSE 10 TABS/TUBE PO PRN ×2 (17:06→17:31)
[2017-06-07] MEDS: CALCIUM ACETATE 667MG GELCAP PO SCH (17:23)
[2017-06-07] MEDS: FERROUS SULFATE 325 MG TAB PO SCH (17:23)
--- NOTE | 2017-06-07 17:37 | Nephrology Consultation ---
Nephrology Consultation Date of Consultation: Jun 07, 2017. Attending Physician: Dr Jesus Requesting Physician: Dr Jesus Reason for Consultation: bacteremia History of Present Illness 62 year old male who had chills at his [facility] dialysis unit on 06/04 w/o F or hypotension and had blood cultures drawn which came back 48 hrs later + for GPC in pairs/ chains. I was online services manager for that unit over the weekend and tried to reach him by phone yesterday w/o success. PMH includes liver txplt, in center HD via TDC, longstanding dm, JACQUE, cerebral plasy affecting R, CAD s/p setnt x 2. He dialyzes under Dr Landon's care. He had no antibiotics after cxs drawn as he had no F. He has not had his treatment today. He is afebrile and on RA. HE has no c/o chills, f, sob or other concerning sx today. He is having low BG and is getting repeated therapy for that. Past Medical/Surgical History -liver transplant for hep B cirrhosis 1997 follows at [facility] [place] -diabetes since 1997 -ESRD on HD only in 2018 -CAD s/p stent x 2 -sleep apnea -cerebral palsy w/ R sided weakness -s/p hip replacement Family History no ckd/esrd Social History Smoking Status: Former Smoker (quit 1996) Alcohol Use: none Drug Use: none Marital Status: single Occupation Status: unemployed Allergies Coded Allergies: No Known Allergies (Unverified , 06/07/17) Medications Current Inpatient Medications Medications (Trade) Dose Ordered Sig/Jon Route Start Time Stop Time Status Last Admin Dose Admin Heparin Sodium (Porcine) (Heparin Sq 5000 Unit/0.5ml) 5,000 unit Q8 SQ 06/07/17 22:00 07/07/17 21:59 Acetaminophen (Tylenol Tab) 650 mg Q4H PRN PO 06/07/17 14:30 07/07/17 14:29 Insulin Glargine (Lantus Solostar Pen) 20 units HS SC 06/07/17 21:00 07/07/17 20:59 Insulin Aspart (novoLOG ASPART) SLIDING SCALE If C... TID@1100,1630,2100 SC 06/07/17 16:30 07/07/17 16:29 Glucose (Glucose 40% Gel) 15-30 GRAMS 15 GRAMS... UD PRN PO 06/07/17 15:15 07/07/17 15:14 Glucose (Glucose Chew Tab) 4-8 Tablets 4 Tabl... UD PRN PO 06/07/17 15:15 07/07/17 15:14 Dextrose (Dextrose 50% 50ML Syringe) 25-50ML OF 50% DW IV FOR... UD PRN IV 06/07/17 15:15 07/07/17 15:14 Glucagon (Glucagon Inj) 1 mg UD PRN SQ 06/07/17 15:15 07/07/17 15:14 Miscellaneous Information (Consult Glycemic Management Pharmacy) 1 ea UD PRN N/A 06/07/17 15:22 07/07/17 15:21 Miscellaneous Information (Consult) 1 ea UD PRN N/A 06/07/17 15:30 07/07/17 15:29 Allopurinol (Zyloprim Tab) 100 mg DAILY PO 06/08/17 09:00 07/08/17 08:59 Calcium Acetate (Phoslo Cap) 667 mg TIDM PO 06/07/17 17:00 07/07/17 17:59 Clopidogrel Bisulfate (plAVix TAB) 75 mg DAILY PO 06/08/17 09:00 07/08/17 08:59 Ferrous Sulfate (Feosol Tab) 325 mg TIDM PO 06/07/17 17:00 07/07/17 17:59 Pantoprazole Sodium (Protonix Tab) 40 mg DAILY PO 06/08/17 09:00 07/08/17 08:59 Pravastatin Sodium (Pravachol Tab) 20 mg DAILY PO 06/08/17 09:00 07/08/17 08:59 Tacrolimus (Prograf Cap) 4 mg BID PO 06/07/17 21:00 07/07/17 20:59 Amitriptyline HCl (Elavil Tab) 150 mg HS PO 06/07/17 21:00 07/07/17 20:59 Cholecalciferol (Vitamin D Tab) 2,000 inter.unit DAILY PO 06/08/17 09:00 07/08/17 08:59 Miscellaneous Information (Order Awaiting Action) 1 ea QS N/A 06/07/17 16:00 07/07/17 15:59 Insulin Aspart (novoLOG ASPART) SLIDING SCALE If C... QDB SC 06/08/17 08:00 07/08/17 07:59 Home Meds and Scripts Medications Dose Route/Sig Max Daily Dose Days Date Category Phoslo 667 Mg (Calcium Acetate) 667 Mg Cap 667 Mg PO TIDM 30 03/09/17 Rx Ferrous Sulfate 325 Mg Tab 1 Tab PO TIDM 03/03/17 Reported Lantus (Insulin Glargine) 100 Unit/Ml Inj 35 SC QPM 03/03/17 Reported Novolog Flexpen (Insulin Aspart) 100 Units/Ml Inj 16 Units SQ DINNER 03/03/17 Reported Novolog (Insulin Aspart) 100 Units/Ml Inj 12 Units SQ BREAKFAST 03/03/17 Reported Novolog Flexpen (Insulin Aspart) 100 Units/Ml Inj 14 Units SQ LUNCH 03/03/17 Reported Allopurinol 100 Mg Tab 1 Tab PO DAILY 03/03/17 Reported Entecavir 0.5 Mg Tab 1 Tab PO DAILY 03/03/17 Reported Plavix (Clopidogrel Bisulfate) 75 Mg Tab 75 Mg PO DAILY 03/03/17 Reported Prograf (Tacrolimus) 1 Mg Cap 4 Cap PO BID 30 03/03/17 Reported Pravachol (Pravastatin Sodium) 20 Mg Tab 20 Mg PO DAILY 03/03/17 Reported Protonix (Pantoprazole Sodium) 40 Mg Tab 40 Mg PO DAILY 03/03/17 Reported D3 2000 (Cholecalciferol) 2,000 Unit Tab 1 Tab PO DAILY 03/03/17 Reported Amitriptyline Hcl 150 Mg Tab 1 Tab PO HS 30 03/03/17 Reported Review of Systems Constitutional: + see HPI, + chills, No fever, No weakness Eyes: No worsening of vision ENT: No hearing loss Respiratory: No shortness of breath Cardiac: No chest pain, No edema Abdomen: No pain, No nausea, No vomiting, No diarrhea, No constipation Musculoskeletal: No joint pain, No muscle pain Male : + problem reported (no change in chronic voiding habits) Neuro: No memory loss, No weakness Psych: No depression symptoms, No anxiety Heme: No abnormal bleeding/bruising Endo: + fatigue Skin: No rash, No itch Physical Exam Date Time Temp Pulse Resp B/P (MAP) Pulse Ox O2 Delivery O2 Flow Rate FiO2 06/07/17 16:28 36.7 70 20 115/72 (86) 95 Room Air 06/07/17 15:42 76 18 94/65 94 06/07/17 13:55 79 20 91/64 94 Room Air 06/07/17 12:36 82 06/07/17 12:35 97 Room Air 06/07/17 11:56 36.5 92 18 91/61 97 Room Air 24-Hour Column 06/08/17 08:00 Intake Total 270 ml Balance 270 ml General Appearance: no apparent distress, + cachetic (on ra eating supper) Eyes: EOMI ENT: hearing grossly normal, + nasal congestion Respiratory/Chest: no respiratory distress, + decreased breath sounds Cardiovascular: regular rate, rhythm, no edema Abdomen: normal bowel sounds, non tender, soft, + pertinent finding (no padilla) Extremities: no pedal edema, + pertinent finding (avf + t/b) Neurologic/Psych: alert, normal mood/affect, oriented x 3 (but some limits w/ history details >> thinks has fungal infection, states avf placed 06/13/17) Skin: no jaundice, warm/dry, no rash Diagnostics Last 24 Hours Test 06/07/17 12:32 06/07/17 12:35 White Blood Count 10.47 K/uL Red Blood Count 4.27 M/uL Hemoglobin 13.5 g/dL Hematocrit 42.3 % Mean Corpuscular Volume 99.1 fL Mean Corpuscular Hemoglobin 31.6 pg Mean Corpuscular Hemoglobin Concent 31.9 g/dl Platelet Count 67 K/uL Mean Platelet Volume 10.0 fL Neutrophils (%) (Auto) 77.7 % Lymphocytes (%) (Auto) 14.7 % Monocytes (%) (Auto) 6.0 % Eosinophils (%) (Auto) 0.8 % Basophils (%) (Auto) 0.2 % Neutrophils # (Auto) 8.14 K/uL Lymphocytes # (Auto) 1.54 K/uL Monocytes # (Auto) 0.63 K/uL Eosinophils # (Auto) 0.08 K/uL Basophils # (Auto) 0.02 K/uL RDW Standard Deviation 48.1 fL RDW Coefficient of Variation 13.4 % Immature Granulocyte % (Auto) 0.6 % Immature Granulocyte # (Auto) 0.06 K/uL Platelet Estimate DECREASED Prothrombin Time 12.0 SECONDS Prothromb Time International Ratio 1.1 Activated Partial Thromboplast Time 30.0 SECONDS Partial Thromboplastin Ratio 1.2 Sodium Level 139 mmol/L Potassium Level 4.0 mmol/L Chloride Level 103 mmol/L Carbon Dioxide Level 26 mmol/L Anion Gap 10.0 mmol/L Blood Urea Nitrogen 60 mg/dl Creatinine 6.99 mg/dl Est Creatinine Clear Calc Drug Dose 9.5 ml/min Estimated GFR () 8.7 Estimated GFR (Non- 7.5 BUN/Creatinine Ratio 8.5 Random Glucose 103 mg/dl Calcium Level 7.5 mg/dl Total Bilirubin 0.5 mg/dl Aspartate Amino Transf (AST/SGOT) 19 U/L Alanine Aminotransferase (ALT/SGPT) 28 U/L Alkaline Phosphatase 125 U/L Total Protein 6.8 gm/dl Albumin 2.5 gm/dl Globulin 4.3 gm/dl Albumin/Globulin Ratio 0.6 Bedside Lactic Acid Venous 0.71 mmol/L Diagnostic Radiology: cxr > no acute CP findings EKG: prolonged QT, junctional rhythm which is new; ? inf infarct per confirmed reading Assessment & Plan 62 y/o M w/ ESRD on MWF HD via tunnelled line and hx of liver txplt, new onset diabetes after txplt, htn sent to ER d/t bacteremia w/ 06/16 blood culture bottles from 06/04 w/ GPC in chains and pairs. Also w/ heel wound. ESRD on HD volume ly he is on RA w/ acceptable blood pressures. chemistries, hgb are also acceptable -have renal nurse evaluate for possible use of avf -repeat cultures have been drawn; had a dose of vancomycin in ER -given liver txplt hx/ immunosuppressed status, lower threshold than usual to remove tdc > consult vascular to get it pulled, culture tip (though he has already had abtx) Bacteremia -remove tdc as above <> consult placed -NPO at [facility] -f/u pending cxs including those from outside system -vanco acceptable for now S/p Liver txplt -continue routine tacro -states he needs to be set up w/ liver txplt at d/c again; will facilitate ECG changes -d/w hospitalist and admitting team; pt w/o sx Appreciate consultation; will follow with you.
[2017-06-07 19:00] VITALS: BP 115/72; PULSE 70; TEMP 36.7; O2SAT 95; BMI 22.2
[2017-06-07 19:55] VITALS: BP 110/68; PULSE 68; TEMP 36.6; O2SAT 94
[2017-06-07] MEDS ORDERED: INSULIN GLARGINE SOLOSTAR 100 UNITS/ML 3 ML PEN SC SCH (21:00)
[2017-06-07] MEDS: AMITRIPTYLINE HCL 50 MG TAB PO SCH (21:28)
[2017-06-07] MEDS: TACROLIMUS 1 MG CAP PO SCH (21:29)
[2017-06-07] MEDS: HEPARIN SOD 5000 UNIT/0.5 ML CARP SQ SCH (21:31)
[2017-06-08] VITALS (13 sets, daily range): BP systolic 91–125; BP diastolic 52–74; PULSE 60–73; TEMP 36.3–36.9; O2SAT 91–95; Ht 170.2 cm; Wt 61.3 kg
[2017-06-08] MEDS: HEPARIN SOD 5000 UNIT/0.5 ML CARP SQ SCH ×3 (06:01→22:06)
[2017-06-08 06:12] LABS: HEMATOCRIT 37.1 % (42-52); HEMOGLOBIN 11.9 g/dL (14.0-18.0); MEAN CELL VOLUME 97.9 fL (80-100); MEAN CORPUSCULAR HEMOGLOBIN 31.4 pg (25-34); MEAN CORPUSCULAR HGB CONC 32.1 g/dl (32-36); RED CELL DISTRIBUTION WIDTH CV 13.5 % (11.5-14.5); RED CELL DISTRIBUTION WIDTH SD 48.6 fL (36.4-46.3)
[2017-06-08 06:22] LABS: MEAN PLATELET VOLUME 9.5 fL (7.4-10.4); PLATELET COUNT 70 K/uL (130-400)
[2017-06-08 07:06] LABS: BLOOD UREA NITROGEN 63 mg/dl (7-18); CALCIUM 7.3 mg/dl (8.5-10.1); CARBON DIOXIDE 23 mmol/L (21-32); CREATININE 7.09 mg/dl (0.60-1.40); GLUCOSE 54 mg/dl (70-99); POTASSIUM 4.4 mmol/L (3.5-5.1); SODIUM 140 mmol/L (136-145)
[2017-06-08] MEDS: INSULIN ASPART 100 UNITS/ML 3 ML PEN SC SCH ×4 (08:41→22:06)
[2017-06-08] MEDS ORDERED: LIDOCAINE HCL 1% 20 ML VIAL ONE (08:42)
[2017-06-08] MEDS: FERROUS SULFATE 325 MG TAB PO SCH ×3 (08:44→17:27)
[2017-06-08] MEDS: CALCIUM ACETATE 667MG GELCAP PO SCH ×3 (08:44→17:27)
--- NOTE | 2017-06-08 08:48 | Medical Consult ---
Consultation Note Date of Service Jun 08, 2017. (Jacy Abdul, JOE) Consultation Note Chief Complaint bacteremia, ESRD History of Present Illness The patient is a 62 YO M with multiple medical problems, including ESRD on HD, admitted for bacteremia, seen in consultation today for removal of TDC d/t likely source of infection. Pt states he was told by HD unit that he had bacteria in his blood and to come to [facility] for eval. Denies fever, chills, chest pain, SOB, abd pain, N/V, rest pain, claudication, other complaints. Had R wrist AVF created at [facility] approx 2 months ago per pt. States he was to see them today at [place] to determine whether his AVF was ready to use for HD. Blood cx + for gram positive cocci Allergies Coded Allergies: No Known Allergies (Unverified , 03/03/17) Home Medications Scheduled Allopurinol (Allopurinol), 1 TAB PO DAILY Amitriptyline Hcl (Amitriptyline Hcl), 1 TAB PO HS Ascorbic Acid (Ascorbic Acid), 500 MG PO TIDM Carvedilol (Carvedilol), 1 TAB PO BID Cholecalciferol (D3 2000), 1 TAB PO DAILY Clopidogrel (Plavix), 75 MG PO DAILY Entecavir (Entecavir), 1 TAB PO DAILY Ferrous Sulfate (Ferrous Sulfate), 1 TAB PO TIDM Insulin Aspart (Novolog Flexpen), 10 UNITS PO with lunch Insulin Aspart (Novolog), 12 PO with dinner Insulin Aspart (Novolog Flexpen), 8 UNITS SUBD with breakfast Insulin Glargine (Lantus), 30 SC QPM Pantoprazole (Protonix), 40 MG PO DAILY Pravastatin (Pravachol ), 20 MG PO DAILY Sodium Bicarbonate (Antacid) (Sodium Bicarbonate), 1 TAB PO TID Tacrolimus (Prograf), 4 CAP PO BID Problem List Medical Problems: (1) Cerebral palsy (2) Diabetes mellitus type II, uncontrolled (3) End stage chronic kidney disease (4) Hepatitis B (5) Presence of stent in coronary artery in patient with coronary artery disease Surgical Problems: (1) S/P liver transplant Surgical / Medical History Past Medical/Surgical History: Diabetes, Kidney Disease Social History Smoking Status: Former Smoker (Quit in ) ROS: Vascular Con v2 Review of Systems Constitutional: No chills, No diaphoresis, No fever, No malaise, No weakness, No weight gain, No weight loss, No sweats, No fatigue, No problem reported Respiratory: No cough, No cyanosis, No CLARKE, No hemoptysis, No orthopnea, No PND , No short of breath, No sputum production, No stridor, No wheezing, No dyspnea , No problem reported Cardiovascular: No chest pain, No chest tightness, No chest pressure, No palpitations, No syncope, No diaphoresis, No edema, No intermittent claudication , No orthopnea, No cyanosis, No mumur, No lightheadedness, No paroxysmal nocturnal dyspnea, No problem reported Gastrointestinal: No abdominal pain, No constipation, No diarrhea, No nausea, No vomiting, No anorexia, No appetite changes, No belching, No flatulence, No food intolerance, No hematemesis, No hemorrhoids, No hematochezia, No stool changes, No heartburn, No indigestion, No dysphagia, No rectal bleeding, No problem reported Neurologic: No dizziness, No weakness, No headache, No lethargy, No numbness, No paresthesia, No pre-existing deficit, No seizures, No tics, No tingling, No tremors, No vertigo, No memory loss, No LOC, No problem reported Exam: Vascular Con v2 Physical Exam Constitutional: General Apperance: mildly chronically ill appearing male. well-nourished, well-developed Level of Distress: NAD Ambulation: ambulating normally Psychiatric: Mental Status: active & alert, normal mood, normal affect Orientation: oriented except where noted Memory: recent memory normal, remote memory normal Head: normocephalic Lungs: Auscultation: breath sounds normal, CTA except as noted, no wheezing, no rales/crackles, no rhonchi Cardiovascular: Heart Auscultation: RRR CHEST: permcath site nontender. No erythema or edema or discharge noted. Peripheral Pulses: Radial Pulse: normal on the left, normal on the right. R wrist AVF with excellent, uniform thrill/bruit extending to shoulder Femoral Pulse: normal on the left, normal on the right Abdomen: Inspection & Palpation: soft Musculoskeletal: normal Extremities: Upper Right: no cyanosis, no edema, no varicosities, no palpable cord, no clubbing, no ulcers, no mottling Upper Left: no cyanosis, no edema, no palpable cord, no clubbing, no ulcers , no mottling Lower Right: no cyanosis, no edema, no varicosities, no palpable cord, no clubbing, no ulcers, no mottling Lower Left: no cyanosis, no edema, no varicosities, no palpable cord, no clubbing, no ulcers, no mottling A&P: Vascular Con v2 Assessment and Plan Imp: bacteremia ESRD on HD Matured RUE AVF Plan: Recommend removal of permcath d/t likely source of infection. May use AVF for HD. If unable to use AVF, please call and we can place temporary catheter if needed. (Jacy Abdul, PA-C) Patient was seen, examined, and chart reviewed. Agree with exam and treatment plan of the Vascular PA. Patient for removal of permcath. I have discussed the risks options and benefits of the procedure with the patient. The patient understands the risks options and benefits and agrees to the procedure. (Doyle Petty M.D.)
--- NOTE | 2017-06-08 09:27 | Medical Consult ---
Consultation Date of Consultation: Jun 08, 2017. Attending Physician: Devika Jesus M.D. Reason for Consultation: Bacteremia History of Present Illness 62-year-old male with end-stage renal disease on hemodialysis, with tunneled catheter in right chest, who was in usual state of health until 1 day prior to admission when he felt somewhat more fatigued with occasional chills. Denies any significant fever. He had dialysis the next day and blood cultures were drawn, and I have now returned positive for gram-positive cocci in pairs and chains. Patient was called and admitted to the hospital for further management he was started empirically on vancomycin. Repeat blood cultures are also growing gram-positive cocci. Patient states that he is feeling somewhat better , less fatigue, no fever. Has plans for removal of his tunneled catheter later today. Denies any cough, gastrointestinal complaints, or other symptoms. Past Medical/Surgical History Medical Problems: (1) Cerebral palsy (2) Diabetes mellitus type II, uncontrolled (3) End stage chronic kidney disease (4) ESRD (end stage renal disease) on dialysis (5) Hepatitis B (6) Presence of stent in coronary artery in patient with coronary artery disease Surgical Problems: (1) History of right hip replacement (2) S/P liver transplant Social History Smoking Status: Former Smoker Alcohol Use: none Drug Use: none Marital Status: single Occupation Status: unemployed Allergies Coded Allergies: No Known Allergies (Unverified , 06/07/17) Current Inpatient Medications Current Inpatient Medications Medications (Trade) Dose Ordered Sig/Jon Route Start Time Stop Time Status Last Admin Dose Admin Heparin Sodium (Porcine) (Heparin Sq 5000 Unit/0.5ml) 5,000 unit Q8 SQ 06/07/17 22:00 07/07/17 21:59 06/08/17 06:01 5,000 UNIT Acetaminophen (Tylenol Tab) 650 mg Q4H PRN PO 06/07/17 14:30 07/07/17 14:29 Insulin Aspart (novoLOG ASPART) SLIDING SCALE If C... TID@1100,1630,2100 SC 06/07/17 16:30 07/07/17 16:29 06/07/17 21:30 6 UNITS Glucose (Glucose 40% Gel) 15-30 GRAMS 15 GRAMS... UD PRN PO 06/07/17 15:15 07/07/17 15:14 Glucose (Glucose Chew Tab) 4-8 Tablets 4 Tabl... UD PRN PO 06/07/17 15:15 07/07/17 15:14 06/07/17 17:31 4 TABS Dextrose (Dextrose 50% 50ML Syringe) 25-50ML OF 50% DW IV FOR... UD PRN IV 06/07/17 15:15 07/07/17 15:14 06/08/17 07:57 50 ML Glucagon (Glucagon Inj) 1 mg UD PRN SQ 06/07/17 15:15 07/07/17 15:14 Miscellaneous Information (Consult Glycemic Management Pharmacy) 1 ea UD PRN N/A 06/07/17 15:22 07/07/17 15:21 Miscellaneous Information (Consult) 1 ea UD PRN N/A 06/07/17 15:30 07/07/17 15:29 Allopurinol (Zyloprim Tab) 100 mg DAILY PO 06/08/17 09:00 07/08/17 08:59 Calcium Acetate (Phoslo Cap) 667 mg TIDM PO 06/07/17 17:00 07/07/17 17:59 06/07/17 17:23 667 MG Clopidogrel Bisulfate (plAVix TAB) 75 mg DAILY PO 06/08/17 09:00 07/08/17 08:59 Ferrous Sulfate (Feosol Tab) 325 mg TIDM PO 06/07/17 17:00 07/07/17 17:59 06/07/17 17:23 325 MG Pantoprazole Sodium (Protonix Tab) 40 mg DAILY PO 06/08/17 09:00 07/08/17 08:59 Pravastatin Sodium (Pravachol Tab) 20 mg DAILY PO 06/08/17 09:00 07/08/17 08:59 Tacrolimus (Prograf Cap) 4 mg BID PO 06/07/17 21:00 07/07/17 20:59 06/07/17 21:29 4 MG Amitriptyline HCl (Elavil Tab) 150 mg HS PO 06/07/17 21:00 07/07/17 20:59 06/07/17 21:28 150 MG Cholecalciferol (Vitamin D Tab) 2,000 inter.unit DAILY PO 06/08/17 09:00 07/08/17 08:59 Insulin Aspart (novoLOG ASPART) SLIDING SCALE If C... QDB SC 06/08/17 08:00 07/08/17 07:59 Non-Formulary Medication (Non-Formulary Patient'S Own Med) 1 ea DAILY PO 06/08/17 09:00 07/08/17 08:59 Insulin Glargine (Lantus Solostar Pen) 15 units HS SC 06/08/17 21:00 07/08/17 20:59 Review of Systems All systems were reviewed and are negative except as per HPI Physical Exam Date Time Temp Pulse Resp B/P (MAP) Pulse Ox O2 Delivery O2 Flow Rate FiO2 06/08/17 09:24 36.5 64 18 110/68 (82) 93 Room Air 06/08/17 08:04 36.3 65 16 104/66 (79) 93 Room Air 06/08/17 04:00 Room Air 06/08/17 04:00 36.3 60 18 91/52 (65) 95 Room Air 06/08/17 00:00 36.7 61 20 102/68 (79) 91 Room Air 06/08/17 00:00 Room Air 06/07/17 20:00 Room Air 06/07/17 19:55 36.6 68 16 110/68 (82) 94 Room Air 06/07/17 19:00 95 Room Air 06/07/17 19:00 36.7 70 20 115/72 06/07/17 16:28 36.7 70 20 115/72 (86) 95 Room Air 06/07/17 15:42 76 18 94/65 94 06/07/17 13:55 79 20 91/64 94 Room Air 06/07/17 12:36 82 06/07/17 12:35 97 Room Air 06/07/17 11:56 36.5 92 18 91/61 97 Room Air General Appearance: WD/WN, no apparent distress Head: normocephalic, atraumatic Eyes: normal inspection, EOMI, sclerae normal ENT: normal ENT inspection, hearing grossly normal, pharynx normal Neck: supple, no adenopathy, thyroid normal, trachea midline Respiratory/Chest: chest non-tender, lungs clear, normal breath sounds, no respiratory distress Cardiovascular: regular rate, rhythm, no gallop, no murmur Abdomen/GI: normal bowel sounds, non tender, soft, no organomegaly Back: normal inspection, no CVA tenderness Extremities/Musculoskelatal: no calf tenderness, non-tender Neurologic/Psych: alert, normal mood/affect, oriented x 3 Skin: normal color, warm/dry, no rash, + pertinent finding (Right chest catheter site without evidence of infection) Lymphatic: no adenopathy Laboratory Results Date/Time Source Procedure Growth Status 06/07/17 13:52 Blood Fungal Smear Pending Received 06/07/17 13:52 Blood Fungal Culture Pending Received 06/07/17 12:45 Blood Blood Culture - Preliminary Gram Positive Cocci Resulted 06/07/17 12:32 Blood Blood Culture - Preliminary Gram Positive Cocci Resulted 06/07/17 20:20 Nasal MRSA DNA Surveillance Screen - Final Specimen Negative for MRSA by DNA Probe Complete Last 24 Hours Test 06/07/17 12:32 06/07/17 12:35 06/07/17 16:58 06/07/17 17:24 White Blood Count 10.47 K/uL Red Blood Count 4.27 M/uL Hemoglobin 13.5 g/dL Hematocrit 42.3 % Mean Corpuscular Volume 99.1 fL Mean Corpuscular Hemoglobin 31.6 pg Mean Corpuscular Hemoglobin Concent 31.9 g/dl Platelet Count 67 K/uL Mean Platelet Volume 10.0 fL Neutrophils (%) (Auto) 77.7 % Lymphocytes (%) (Auto) 14.7 % Monocytes (%) (Auto) 6.0 % Eosinophils (%) (Auto) 0.8 % Basophils (%) (Auto) 0.2 % Neutrophils # (Auto) 8.14 K/uL Lymphocytes # (Auto) 1.54 K/uL Monocytes # (Auto) 0.63 K/uL Eosinophils # (Auto) 0.08 K/uL Basophils # (Auto) 0.02 K/uL RDW Standard Deviation 48.1 fL RDW Coefficient of Variation 13.4 % Immature Granulocyte % (Auto) 0.6 % Immature Granulocyte # (Auto) 0.06 K/uL Platelet Estimate DECREASED Prothrombin Time 12.0 SECONDS Prothromb Time International Ratio 1.1 Activated Partial Thromboplast Time 30.0 SECONDS Partial Thromboplastin Ratio 1.2 Sodium Level 139 mmol/L Potassium Level 4.0 mmol/L Chloride Level 103 mmol/L Carbon Dioxide Level 26 mmol/L Anion Gap 10.0 mmol/L Blood Urea Nitrogen 60 mg/dl Creatinine 6.99 mg/dl Est Creatinine Clear Calc Drug Dose 9.5 ml/min Estimated GFR () 8.7 Estimated GFR (Non- 7.5 BUN/Creatinine Ratio 8.5 Random Glucose 103 mg/dl Calcium Level 7.5 mg/dl Total Bilirubin 0.5 mg/dl Aspartate Amino Transf (AST/SGOT) 19 U/L Alanine Aminotransferase (ALT/SGPT) 28 U/L Alkaline Phosphatase 125 U/L Total Protein 6.8 gm/dl Albumin 2.5 gm/dl Globulin 4.3 gm/dl Albumin/Globulin Ratio 0.6 Bedside Lactic Acid Venous 0.71 mmol/L Bedside Glucose 53 mg/dl 56 mg/dl Test 06/07/17 17:43 06/07/17 18:02 06/07/17 20:28 06/07/17 23:30 Bedside Glucose 91 mg/dl 244 mg/dl Magnesium Level 2.1 mg/dl Troponin I < 0.015 ng/ml < 0.015 ng/ml Test 06/08/17 05:55 06/08/17 08:13 White Blood Count 8.00 K/uL Red Blood Count 3.79 M/uL Hemoglobin 11.9 g/dL Hematocrit 37.1 % Mean Corpuscular Volume 97.9 fL Mean Corpuscular Hemoglobin 31.4 pg Mean Corpuscular Hemoglobin Concent 32.1 g/dl RDW Standard Deviation 48.6 fL RDW Coefficient of Variation 13.5 % Platelet Count 70 K/uL Mean Platelet Volume 9.5 fL Sodium Level 140 mmol/L Potassium Level 4.4 mmol/L Chloride Level 105 mmol/L Carbon Dioxide Level 23 mmol/L Anion Gap 12.0 mmol/L Blood Urea Nitrogen 63 mg/dl Creatinine 7.09 mg/dl Est Creatinine Clear Calc Drug Dose 9.6 ml/min Estimated GFR () 8.6 Estimated GFR (Non- 7.4 BUN/Creatinine Ratio 8.9 Random Glucose 54 mg/dl Calcium Level 7.3 mg/dl Troponin I < 0.015 ng/ml Random Vancomycin Level 15.0 mcg/ml Bedside Glucose 122 mg/dl Patient Name: ISABEL REYES Unit Number: [id number] Dictated: 06/07/17 1233 Transcribed: 06/07/17 1233 JA Printed Date/Time: [~ rep prt dt]/[~ rep prt tm] [~ rep ct labl] - [~ rep ct ivnm] [facility] [place] [address] Dictated: 06/07/171232 Transcribed: 06/07/171232 JA Printed Date/Time: [~ rep prt dt]/[~ rep prt tm] [~ rep ct labl] - [~ rep ct ivnm] [~ rep ct add3]] CHEST ONE VIEW PORTABLE CLINICAL HISTORY: Sepsis COMPARISON STUDY: No previous studies for comparison. FINDINGS: A dual lumen right internal jugular central venous catheter is in place. There is no pneumothorax or pleural effusion. There are old left rib fractures. There is no consolidation or evidence for pulmonary edema. Cardiomediastinal silhouette is unremarkable. IMPRESSION: No acute cardiopulmonary findings. Electronically signed by: Anuel Robertson M.D. 06/07/2017 12:33 PM Dictated Date/Time: 06/07/2017 12:33 PM The status of this report is Signed. Draft = Not yet reviewed or approved by Radiologist. Signed = Reviewed and approved by Radiologist. <AttendingPhy></AttendingPhy> <FamilyPhy>Carlton Lee D.O.</FamilyPhy> < PrimaryPhy>Carlton Lee D.O.</PrimaryPhy> <UnitNumber>[id number]</ UnitNumber> <VisitNumber>[id number]</VisitNumber> <PatientName>ISABEL REYES</ PatientName> <DateOfBirth>1955</DateOfBirth> <Location>[facility]</Location> < ServiceDate>06/07/17</ServiceDate> <MNE>ESINDI</MNE> <OrderingPhy>Gm Worley MD</OrderingPhy> <OrderingPhyMNE>f rep ord dr brown</OrderingPhyMNE> < DictatingPhyMNE>f rep dict dr brown</DictatingPhyMNE> <CCListMNE>f rep ct mne</ CCListMNE> <AdmittingPhyMNE>f pt admit dr brown</AdmittingPhyMNE> <AttendingPhyMNE >f pt attend dr brown</AttendingPhyMNE> <ConsultingPhyMNE>f pt consult dr brown</ConsultingPhyMNE> <FamilyPhyMNE>f pt fam dr brown</FamilyPhyMNE> <OtherPhyMNE>f pt other dr brown</OtherPhyMNE> < PrimaryPhyMNE>f pt prim care dr brown</PrimaryPhyMNE> <ReferringPhyMNE>f pt referring dr brown</ReferringPhyMNE> Assessment & Plan 62-year-old male with end-stage renal disease on dialysis now with Gram- positive bacteremia likely from infected dialysis catheter. Patient to have catheter removed later today. Would continue patient on vancomycin pending final identification and sensitivities. Will contact [facility] to see if final culture results available. Will follow.
[2017-06-08] MEDS ORDERED: MIDAZOLAM HCL 1 MG/ML 2ML VIAL ONE (09:49)
[2017-06-08] MEDS ORDERED: FENTANYL CITRATE INJ 50 MCG/1 ML 2 ML VIAL ONE (09:49)
--- NOTE | 2017-06-08 10:22 | Pre Sedation Assessment ---
Pre Sedation Assessment General Date of Sedation: Jun 08, 2017. Vital Signs Past 12 Hours Date Time Temp Pulse Resp B/P (MAP) Pulse Ox O2 Delivery O2 Flow Rate FiO2 06/08/17 09:24 36.5 64 18 110/68 (82) 93 Room Air 06/08/17 08:04 36.3 65 16 104/66 (79) 93 Room Air 06/08/17 08:00 95 Room Air 06/08/17 04:00 Room Air 06/08/17 04:00 36.3 60 18 91/52 (65) 95 Room Air 06/08/17 00:00 36.7 61 20 102/68 (79) 91 Room Air 06/08/17 00:00 Room Air Review Cardiovascular: regular rate, rhythm Lungs: lungs clear Pre-Sedation Airway Assessment Smoking Status: Former Smoker Hx of Sleep Apnea: No Short Thick Neck: No Thyro-mental Distance: > 3 Finger Breadths Oral Cavity: Dentures Mallampati Classification: Class III ASA Classification: Class III NPO Status Date of Last Intake of Fluids: Jun 07, 2017 Time of Last Intake of Fluids: 0000 Date of Last Intake of Solids: Jun 07, 2017 Time of Last Intake of Solids: 0000 Procedure Planning Contraindications for Sedation: None Current Medications Reviewed: Yes Notes The planned sedation has been discussed with the patient. Informed Consent was obtained. I have identified the patient, determined the appropriateness of sedation and have assessed the patient immediately prior to the procedure. All medicine(s) and interventions are by my order.
--- NOTE | 2017-06-08 10:26 | ECHOCARDIOGRAM REPORT ---
*NOTICE TO RECEIVING DEMOCRAT AGENCY This information is strictly Confidential and protected under [place] law. [place] law prohibits you from making any further disclosure of this information unless further disclosure is expressly permitted by the written consent of the person to whom it pertains or is authorized by law. A general authorization for the release of medical or other information is not sufficient for this purpose. Hospital accepts no responsibility if the information is made available to any other person, INCLUDING THE PATIENT. Interpretation Summary * Name: ISABEL REYES Study Date: 06/08/2017 07:04 AM BP: 110/68 mmHg * Patient Location: [facility]\S\N277\S\2 HR: 67 * : 1955 (M/d/yyyy) Gender: Male Height: 68 in * Age: 62 yrs Ethnicity: CA Weight: 138 lb * Ordering Physician: Kamini Anand * Referring Physician: Flor Landon I. * Performed By: Sheri Hadley RCS * * Reason For Study: ENDOCARDITIS * BSA: 1.7 m2 * -- Conclusions -- * Normal LV chamber size and wall thickness. * Normal LV systolic function, EF 55-60%. * No segmental left ventricular wall motion abnormalities are noted. * Mild aortic valve sclerosis without stenosis. * Focal thickening with slight calcification of the anterior mitral valve leaflet. Cannot exclude healed vegetation. * Mild left atrial enlargement. * No valvular lesions diagnostic for endocarditis identified within the scope of this imaging modality. Procedure Details * A complete two-dimensional transthoracic echocardiogram was performed (2D, M-mode, Doppler and color flow Doppler). Left Ventricle * The left ventricle is normal in size. * There is normal left ventricular wall thickness. * Left ventricular systolic function is normal. * No segmental left ventricular wall motion abnormalities are noted. * Ejection Fraction = 55-60%. * The left ventricular wall motion is normal. Right Ventricle * The right ventricular cavity size is normal (basal dimension <4.2 cm in right ventricular apical 4-chamber view). * The right ventricular systolic function is normal as assessed by tricuspid annular plane systolic excursion (TAPSE) (normal >1.5 cm). Atria * The left atrium is mildly dilated. * Right atrial size is normal. * No ASD detected; PFO is not assessed. Mitral Valve * Focal thickening with slight calcification of the anterior mitral valve leaflet. Cannot exclude healed vegetation. * There is no mitral valve stenosis. * There is moderate mitral regurgitation. Tricuspid Valve * The tricuspid valve is normal in structure and function. Aortic Valve * The aortic valve is trileaflet. * Aortic valve sclerosis mild, without significant aortic valvular stenosis. * Mild aortic regurgitation. Pulmonic Valve * The pulmonary valve is not well seen, but the Doppler examination is normal without significant regurgitation or stenosis. Great Vessels * The aortic root is normal size. Pericardium/Pleural * There is no pericardial effusion. MMode 2D Measurements and Calculations IVSd 1.1 cm IVSs 1.4 cm LVIDd 4.0 cm LVIDs 2.5 cm LVPWd 0.95 cm LVPWs 1.0 cm IVS/LVPW 1.2 FS 38.2 % EDV(Teich) 71.2 ml ESV(Teich) 22.1 ml EF(Teich) 68.9 % EDV(cubed) 65.3 ml ESV(cubed) 15.4 ml EF(cubed) 76.4 % % IVS thick 20.3 % % LVPW thick 8.0 % LV mass(C)d 136.0 grams LV mass(C)dI 77.9 grams/m\S\2 LV mass(C)s 84.4 grams LV mass(C)sI 48.3 grams/m\S\2 SV(Teich) 49.1 ml SI(Teich) 28.1 ml/m\S\2 SV(cubed) 49.9 ml SI(cubed) 28.6 ml/m\S\2 Ao root diam 3.8 cm Ao root area 11.3 cm\S\2 ACS 2.2 cm LA dimension 4.4 cm LA/Ao 1.2 LVOT diam 1.9 cm LVOT area 3.0 cm\S\2 LVAd ap4 36.2 cm\S\2 LVLd ap4 9.3 cm EDV(MOD-sp4) 113.4 ml EDV(sp4-el) 120.3 ml LVAs ap4 23.8 cm\S\2 LVLs ap4 8.0 cm ESV(MOD-sp4) 57.0 ml ESV(sp4-el) 60.1 ml EF(MOD-sp4) 49.8 % EF(sp4-el) 50.0 % LVAd ap2 28.0 cm\S\2 LVLd ap2 7.4 cm EDV(MOD-sp2) 84.1 ml EDV(sp2-el) 89.3 ml LVAs ap2 19.7 cm\S\2 LVLs ap2 6.8 cm ESV(MOD-sp2) 46.6 ml ESV(sp2-el) 48.4 ml EF(MOD-sp2) 44.6 % EF(sp2-el) 45.8 % LVLd %diff -24.49 % EDV(MOD-bp) 109.4 ml LVLs %diff -17.65 % ESV(MOD-bp) 56.1 ml EF(MOD-bp) 48.7 % SV(MOD-sp4) 56.5 ml SI(MOD-sp4) 32.4 ml/m\S\2 SV(MOD-sp2) 37.5 ml SI(MOD-sp2) 21.5 ml/m\S\2 SV(MOD-bp) 53.3 ml SI(MOD-bp) 30.6 ml/m\S\2 SV(sp4-el) 60.2 ml SI(sp4-el) 34.5 ml/m\S\2 SV(sp2-el) 40.9 ml SI(sp2-el) 23.4 ml/m\S\2 Doppler Measurements and Calculations MV E max lili 119.2 cm/sec MV A max lili 41.5 cm/sec MV E/A 2.9 MV P1/2t max lili 112.2 cm/sec MV P1/2t 99.8 msec MVA(P1/2t) 2.2 cm\S\2 MV dec slope 329.3 cm/sec\S\2 MV dec time 0.23 sec Ao V2 max 124.2 cm/sec Ao max PG 6.2 mmHg Ao max PG (full) 1.9 mmHg LOLITA(V,A) 2.5 cm\S\2 LOLITA(V,D) 2.5 cm\S\2 AI max lili 350.7 cm/sec AI max PG 49.2 mmHg AI dec slope 176.9 cm/sec\S\2 AI P1/2t 580.8 msec LV V1 max PG 4.3 mmHg LV V1 max 103.3 cm/sec MR max lili 433.5 cm/sec MR max PG 75.6 mmHg PA V2 max 63.0 cm/sec PA max PG 1.6 mmHg TR max lili 265.9 cm/sec
--- NOTE | 2017-06-08 10:53 | [facility] Post Operative Brief Note ---
Immediate Operative Summary Operative Date Jun 08, 2017. Pre-Operative Diagnosis Bacteremia Post-Operative Diagnosis Bacteremia Procedure(s) Performed Removal Of Perm Catheter. Surgeon Dr. Petty [employer] Surgeon(s) Dr. Sands Estimated Blood Loss 3 Findings Consistent with Post-Op Diagnosis Specimens a: Tip of perm catheter for culture b: Explant perm cath Drains None Anesthesia Type None Complication(s) none Disposition Accompanied Pt To Recover: no Disposition:
--- NOTE | 2017-06-08 10:56 | [facility] Operative Report ---
Operative Report Operative Date Jun 08, 2017. Pre-Operative Diagnosis Bacteremia Post-Operative Diagnosis Bacteremia Procedure(s) Performed Removal Of Perm Catheter. Surgeon Dr. Petty [facility] Surgeon(s) Dr. Sands Estimated Blood Loss 3 Specimens a: Tip of perm catheter for culture b: Explant perm cath Drains None Anesthesia Type None Complication(s) none Disposition no Indications 62 y/o male with ESRD on HD who presented to hospital with bacteremia. He white recommended to have his tunnelled hemodialysis line removed. HE agreed to the above procedure Description of Procedure The patient was taken to the angio suite and placed in the supine position. The right side of the neck, chest wall and catheter were prepped and draped in a sterile manner. Local anesthesia was then accomplished. Using sharp and blunt dissection, the cuff of the permcath was freed up from the surrounding fibrous tissue. The permcath and cuff were completely removed. Pressure was then applied and adequate hemostasis was obtained. The tip of the catheter was sent for culture. A sterile dressing was then applied. The patient left the angio suite in good condition and tolerated the procedure well. I, Dr. Petty was present and scrubbed for the entire procedure. I attest to the content of the Intraoperative Record and any orders documented therein. Any exceptions are noted below.
[2017-06-08] MEDS ORDERED: LIDOCAINE HCL 1% 20 ML VIAL SQ ONE (10:57)
[2017-06-08] MEDS: ENTECAVIR 0.5 MG PO SCH (12:48)
[2017-06-08] MEDS: ALLOPURINOL 100 MG TAB PO SCH (13:37)
[2017-06-08] MEDS: CHOLECALCIFEROL 1000 INTER.UNIT TAB PO SCH (13:38)
[2017-06-08] MEDS: PRAVASTATIN SOD 20 MG TAB PO SCH (13:38)
[2017-06-08] MEDS: TACROLIMUS 1 MG CAP PO SCH ×2 (13:39→22:07)
[2017-06-08] MEDS: CLOPIDOGREL BISULFATE 75 MG TAB PO SCH (13:40)
[2017-06-08] MEDS: PANTOprazole SOD 40 MG TAB PO SCH (13:40)
--- NOTE | 2017-06-08 15:08 | Pharmacy Progress Note ---
Pharmacy Glycemic Short Note 2 Date of Service Jun 08, 2017. OUTPATIENT ANTIDIABETIC REGIMEN: * Lantus 35 units in the evening plus Novolog 12 with breakfast, 14 with lunch, and 16 with dinner ASSESSMENT: * Mr Nicole is a 62 y/o M with a PMH of liver transplant, hepatitis B, hemodialysis MWF, and unknown control of type 2 diabetes (HbA1C is not reliable in this patient as he undergoes hemodialysis which can effect the results). He currently has 2 of 2 blood cultures positive for Gram positive cocci. * During a previous hospitalization in February of last year, the patient consistently required 10 units of Lantus BID plus around 20-27 units of correctional insulin. In order to create an easier transition to outpatient therapy, started Lantus 20 units last night with similar Novolog dosing. The patient was 53 before dinner then 244 mg/dL at bedtime. Unfortunately, the patient's blood sugar was 54 mg/dL this morning. He is NPO for removal of catheter. * Reduced Lantus to 15 units tonight (25% reduction) secondary to low blood sugar this morning with the caveat that a higher blood sugar could give her 18 units. This low blood sugar was not due to the patient's NPO status (NPO started after low blood sugar) and was odd considering that the patient stabilized on 10 units BID during his previous hospitalization. Loosened Novolog for today secondary to NPO status. PLAN FOR INPATIENT GLYCEMIC CONTROL: * Basal insulin * Lantus 15 units SQ qHS (18 units if blood sugar greater than 180 mg/dL) * Bolus insulin * NovoLog per scale ACHS or Q6hrs while NPO * Goal Range: Low 110 mg/dL - High 140 mg/dL * Correction Factor: 35 mg/dL/unit * Nutritional / Prandial insulin per carb ratio of 1 unit per 15 grams CHO consumed PLAN FOR DISCHARGE: * The patient is a dialysis patient and therefore HbA1C is not an adequate indicator of glycemic control. Recommend checking blood sugars and making a log for outpatient adjustment of insulin.
[2017-06-08] MEDS ORDERED: VANCOMYCIN IV 500 MG in SODIUM CHLORIDE 0.9% 100ML 100 ML IV SCH (15:15)
--- NOTE | 2017-06-08 16:12 | Pharmacy Progress Note ---
Pharmacy Abx Initial Consult Date of Service Jun 08, 2017. Pharmacy Dosing Scope Date of Consult: 06/07/17 Consultation requested by: Kamini POZO Pharmacy is consulted to initiate IV Vancomycin dosing therapy, order appropriate labs and adjust drug dose/frequency. Subjective The patient is a 62 year old male admitted on Jun 07, 2017 at 14:33 with blood infection. He is a dialysis patient (M-W-F) Blood cultures both resulted positive with GPC. It was/is suspected that the source is his dialysis catheter. He was taken to the OR to replace this today and will then re-start his dialysis tomorrow. In the meantime pharmacy was consulted to dose Vancomycin going forward. Objective Height (Feet): 5 Height (Inches): 7.00 Weight (Kilograms): 64.700 Vital Signs (Past 12Hrs) Vital Signs Past 12 Hours Date Time Temp Pulse Resp B/P (MAP) Pulse Ox O2 Delivery O2 Flow Rate FiO2 06/08/17 15:59 36.3 65 18 111/71 (84) 92 Room Air 06/08/17 14:00 36.4 71 18 109/69 (82) 93 Room Air 06/08/17 12:00 Room Air 06/08/17 12:00 36.6 73 18 110/73 (85) 93 Room Air 06/08/17 11:45 36.6 63 18 104/63 (77) 94 Room Air 06/08/17 11:30 36.5 64 18 112/72 (85) 95 Room Air 06/08/17 11:15 36.3 65 16 110/69 (83) 95 Room Air 06/08/17 10:53 64 18 98 Room Air 06/08/17 10:48 64 18 98 Room Air 06/08/17 10:43 64 18 101/72 98 Room Air 06/08/17 09:24 36.5 64 18 110/68 (82) 93 Room Air 06/08/17 08:04 36.3 65 16 104/66 (79) 93 Room Air 06/08/17 08:00 95 Room Air Lab Results (24Hrs) Laboratory Tests (24 Hours) Test 06/08/17 05:55 White Blood Count 8.00 K/uL (4.8-10.8) Micro Results Date/Time Source Procedure Growth Status 06/07/17 13:52 Blood Fungal Smear - Final Resulted 06/07/17 13:52 Blood Fungal Culture Pending Resulted 06/07/17 12:45 Blood Blood Culture - Preliminary Gram Positive Cocci Resulted 06/07/17 12:32 Blood Blood Culture - Preliminary Gram Positive Cocci Resulted 06/07/17 20:20 Nasal MRSA DNA Surveillance Screen - Final Specimen Negative for MRSA by DNA Probe Complete 06/08/17 15:06 Catheter Tip Perm. Catheter Catheter Tip Culture Pending Ordered 06/08/17 10:50 Catheter Tip Perm. Catheter Catheter Tip Culture Pending Received Risk Factors for Resistance * Chronic dialysis within the past 30 days Assessment & Plan Assessment 62 year old male with confirmed bacteremia Plan Vancomycin IV * Loading dose: 1000mg (16 mg/kg) * Maintenance dose: dosed supplementally per levels * Goal trough level 15-20 mcg/mL * after dialysis was cancelled for 06/08/17 due to OR replacement of dialysis catheter, I gave him a supplemental 500mg dose at around 1500 today. His random with am labs had returned at 15mcg/ml. Pharmacy will continue to follow and will adjust dose/frequency as necessary. Thank you.
--- NOTE | 2017-06-08 18:13 | Progress Note ---
Subjective Date of Service: Jun 08, 2017. Subjective Pt evaluation today including: conversation w/ patient, physical exam, lab review, review of studies, review of inpatient medication list Saw/examined the patient in room 277 perm cath removed earlier He is doing well No problems/issues to note at this time Review of Systems Constitutional: No fever, No chills Respiratory: No shortness of breath Cardiac: No chest pain Abdomen: No pain, No nausea, No vomiting, No diarrhea Medications Current Inpatient Medications Medications (Trade) Dose Ordered Sig/Jon Route Start Time Stop Time Status Last Admin Dose Admin Heparin Sodium (Porcine) (Heparin Sq 5000 Unit/0.5ml) 5,000 unit Q8 SQ 06/07/17 22:00 07/07/17 21:59 06/08/17 06:01 5,000 UNIT Acetaminophen (Tylenol Tab) 650 mg Q4H PRN PO 06/07/17 14:30 07/07/17 14:29 Insulin Aspart (novoLOG ASPART) SLIDING SCALE If C... TID@1100,1630,2100 SC 06/07/17 16:30 07/07/17 16:29 06/08/17 17:29 4 UNITS Glucose (Glucose 40% Gel) 15-30 GRAMS 15 GRAMS... UD PRN PO 06/07/17 15:15 07/07/17 15:14 Glucose (Glucose Chew Tab) 4-8 Tablets 4 Tabl... UD PRN PO 06/07/17 15:15 07/07/17 15:14 06/07/17 17:31 4 TABS Dextrose (Dextrose 50% 50ML Syringe) 25-50ML OF 50% DW IV FOR... UD PRN IV 06/07/17 15:15 07/07/17 15:14 06/08/17 07:57 50 ML Glucagon (Glucagon Inj) 1 mg UD PRN SQ 06/07/17 15:15 07/07/17 15:14 Miscellaneous Information (Consult Glycemic Management Pharmacy) 1 ea UD PRN N/A 06/07/17 15:22 07/07/17 15:21 Miscellaneous Information (Consult) 1 ea UD PRN N/A 06/07/17 15:30 07/07/17 15:29 Allopurinol (Zyloprim Tab) 100 mg DAILY PO 06/08/17 09:00 07/08/17 08:59 06/08/17 13:37 100 MG Calcium Acetate (Phoslo Cap) 667 mg TIDM PO 06/07/17 17:00 07/07/17 17:59 06/08/17 17:27 667 MG Clopidogrel Bisulfate (plAVix TAB) 75 mg DAILY PO 06/08/17 09:00 07/08/17 08:59 06/08/17 13:40 75 MG Ferrous Sulfate (Feosol Tab) 325 mg TIDM PO 06/07/17 17:00 07/07/17 17:59 06/08/17 17:27 325 MG Pantoprazole Sodium (Protonix Tab) 40 mg DAILY PO 06/08/17 09:00 07/08/17 08:59 06/08/17 13:40 40 MG Pravastatin Sodium (Pravachol Tab) 20 mg DAILY PO 06/08/17 09:00 07/08/17 08:59 06/08/17 13:38 20 MG Tacrolimus (Prograf Cap) 4 mg BID PO 06/07/17 21:00 07/07/17 20:59 06/08/17 13:39 4 MG Amitriptyline HCl (Elavil Tab) 150 mg HS PO 06/07/17 21:00 07/07/17 20:59 06/07/17 21:28 150 MG Cholecalciferol (Vitamin D Tab) 2,000 inter.unit DAILY PO 06/08/17 09:00 07/08/17 08:59 06/08/17 13:38 2,000 INTER.UNIT Insulin Aspart (novoLOG ASPART) SLIDING SCALE If C... QDB SC 06/08/17 08:00 07/08/17 07:59 Non-Formulary Medication (Non-Formulary Patient'S Own Med) 1 ea DAILY PO 06/08/17 09:00 07/08/17 08:59 06/08/17 12:48 1 EA Insulin Glargine (Lantus Solostar Pen) SEE PROTOCOL HS SC 06/08/17 21:00 07/08/17 20:59 Objective Vital Signs Date Time Temp Pulse Resp B/P (MAP) Pulse Ox O2 Delivery O2 Flow Rate FiO2 06/08/17 15:59 36.3 65 18 111/71 (84) 92 Room Air 3/27/18 14:00 36.4 71 18 109/69 (82) 93 Room Air 06/08/17 12:00 Room Air 06/08/17 12:00 36.6 73 18 110/73 (85) 93 Room Air 06/08/17 11:45 36.6 63 18 104/63 (77) 94 Room Air 06/08/17 11:30 36.5 64 18 112/72 (85) 95 Room Air 06/08/17 11:15 36.3 65 16 110/69 (83) 95 Room Air 06/08/17 10:53 64 18 98 Room Air 06/08/17 10:48 64 18 98 Room Air 06/08/17 10:43 64 18 101/72 98 Room Air 06/08/17 09:24 36.5 64 18 110/68 (82) 93 Room Air 06/08/17 08:04 36.3 65 16 104/66 (79) 93 Room Air 06/08/17 08:00 95 Room Air 06/08/17 04:00 Room Air 06/08/17 04:00 36.3 60 18 91/52 (65) 95 Room Air 06/08/17 00:00 36.7 61 20 102/68 (79) 91 Room Air 06/08/17 00:00 Room Air 06/07/17 20:00 Room Air 06/07/17 19:55 36.6 68 16 110/68 (82) 94 Room Air 06/07/17 19:00 95 Room Air 06/07/17 19:00 36.7 70 20 115/72 Physical Exam General Appearance: no apparent distress Respiratory/Chest: lungs clear, normal breath sounds, no respiratory distress, no accessory muscle use Cardiovascular: regular rate, rhythm, no edema, no murmur Abdomen: normal bowel sounds, non tender, soft Laboratory Results Last 24 Hours Test 06/07/17 20:28 06/07/17 23:30 06/08/17 05:55 06/08/17 07:47 Bedside Glucose 244 mg/dl 51 mg/dl Troponin I < 0.015 ng/ml < 0.015 ng/ml White Blood Count 8.00 K/uL Red Blood Count 3.79 M/uL Hemoglobin 11.9 g/dL Hematocrit 37.1 % Mean Corpuscular Volume 97.9 fL Mean Corpuscular Hemoglobin 31.4 pg Mean Corpuscular Hemoglobin Concent 32.1 g/dl RDW Standard Deviation 48.6 fL RDW Coefficient of Variation 13.5 % Platelet Count 70 K/uL Mean Platelet Volume 9.5 fL Sodium Level 140 mmol/L Potassium Level 4.4 mmol/L Chloride Level 105 mmol/L Carbon Dioxide Level 23 mmol/L Anion Gap 12.0 mmol/L Blood Urea Nitrogen 63 mg/dl Creatinine 7.09 mg/dl Est Creatinine Clear Calc Drug Dose 9.6 ml/min Estimated GFR () 8.6 Estimated GFR (Non- 7.4 BUN/Creatinine Ratio 8.9 Random Glucose 54 mg/dl Calcium Level 7.3 mg/dl Random Vancomycin Level 15.0 mcg/ml Test 06/08/17 08:13 06/08/17 09:37 06/08/17 11:49 06/08/17 16:30 Bedside Glucose 122 mg/dl 121 mg/dl 82 mg/dl 137 mg/dl Troponin I < 0.015 ng/ml Test 06/08/17 17:48 Assessment and Plan This is a 62 year old male with a recent initiation of dialysis, AV fistula on R arm, not yet fully matured; insulin dependent DM, CAD, cerebral palsy Gram Positive Bacteremia - patient admitted due to outpatient blood cultures being positive - given IV Vanco - tunneled dialysis catheter removed - blood cultures here are also positive x2 - echo with no evidence of endocarditis - further input as per ID ESRD on HD - appreciate vascular surgery input - catheter removed, tip cultured - can use mature AV fistula - dialysis as per nephrology Hx. of CAD - troponins negative x3 - unlikely acute issue - continue home medications Uncontrolled DM2 - continue insulin - appreciate pharmacy glycemic control DVT ppx - subq heparin FULL CODE
--- NOTE | 2017-06-08 20:40 | Nephrology Progress Note ---
Nephrology Progress Note Date of Service: Jun 08, 2017. Subjective seen on rounds this am 0800; still w/ hypoglycemia issues; no pain; no f; bld cxs already + Objective Date Time Temp Pulse Resp B/P (MAP) Pulse Ox O2 Delivery O2 Flow Rate FiO2 06/08/17 04:00 Room Air 06/08/17 04:00 36.3 60 18 91/52 (65) 95 Room Air 06/08/17 00:00 36.7 61 20 102/68 (79) 91 Room Air 06/08/17 00:00 Room Air 06/07/17 20:00 Room Air 06/07/17 19:55 36.6 68 16 110/68 (82) 94 Room Air 06/07/17 19:00 95 Room Air 06/07/17 19:00 36.7 70 20 115/72 06/07/17 16:28 36.7 70 20 115/72 (86) 95 Room Air 06/07/17 15:42 76 18 94/65 94 06/07/17 13:55 79 20 91/64 94 Room Air 06/07/17 12:36 82 06/07/17 12:35 97 Room Air 06/07/17 11:56 36.5 92 18 91/61 97 Room Air Physical Exam: General Appearance: no apparent distress, + cachetic (on ra lying flat) Eyes: EOMI ENT: hearing grossly normal, + nasal congestion Respiratory/Chest: no respiratory distress, + decreased breath sounds Cardiovascular: regular rate, rhythm, no edema Abdomen: normal bowel sounds, non tender, soft, + pertinent finding (no padilla) Extremities: no pedal edema, + pertinent finding (avf + t/b) Neurologic/Psych: alert, normal mood/affect, oriented x 3 (but some limits w/ history details) Skin: no jaundice, warm/dry, no rash Current Inpatient Medications Medications (Trade) Dose Ordered Sig/Jon Route Start Time Stop Time Status Last Admin Dose Admin Heparin Sodium (Porcine) (Heparin Sq 5000 Unit/0.5ml) 5,000 unit Q8 SQ 06/07/17 22:00 07/07/17 21:59 06/08/17 06:01 5,000 UNIT Acetaminophen (Tylenol Tab) 650 mg Q4H PRN PO 06/07/17 14:30 07/07/17 14:29 Insulin Glargine (Lantus Solostar Pen) 20 units HS SC 06/07/17 21:00 07/07/17 20:59 06/07/17 21:31 20 UNITS Insulin Aspart (novoLOG ASPART) SLIDING SCALE If C... TID@1100,1630,2100 SC 06/07/17 16:30 07/07/17 16:29 06/07/17 21:30 6 UNITS Glucose (Glucose 40% Gel) 15-30 GRAMS 15 GRAMS... UD PRN PO 06/07/17 15:15 07/07/17 15:14 Glucose (Glucose Chew Tab) 4-8 Tablets 4 Tabl... UD PRN PO 06/07/17 15:15 07/07/17 15:14 06/07/17 17:31 4 TABS Dextrose (Dextrose 50% 50ML Syringe) 25-50ML OF 50% DW IV FOR... UD PRN IV 06/07/17 15:15 07/07/17 15:14 Glucagon (Glucagon Inj) 1 mg UD PRN SQ 06/07/17 15:15 07/07/17 15:14 Miscellaneous Information (Consult Glycemic Management Pharmacy) 1 ea UD PRN N/A 06/07/17 15:22 07/07/17 15:21 Miscellaneous Information (Consult) 1 ea UD PRN N/A 06/07/17 15:30 07/07/17 15:29 Allopurinol (Zyloprim Tab) 100 mg DAILY PO 06/08/17 09:00 07/08/17 08:59 Calcium Acetate (Phoslo Cap) 667 mg TIDM PO 06/07/17 17:00 07/07/17 17:59 06/07/17 17:23 667 MG Clopidogrel Bisulfate (plAVix TAB) 75 mg DAILY PO 06/08/17 09:00 07/08/17 08:59 Ferrous Sulfate (Feosol Tab) 325 mg TIDM PO 06/07/17 17:00 07/07/17 17:59 06/07/17 17:23 325 MG Pantoprazole Sodium (Protonix Tab) 40 mg DAILY PO 06/08/17 09:00 07/08/17 08:59 Pravastatin Sodium (Pravachol Tab) 20 mg DAILY PO 06/08/17 09:00 07/08/17 08:59 Tacrolimus (Prograf Cap) 4 mg BID PO 06/07/17 21:00 07/07/17 20:59 06/07/17 21:29 4 MG Amitriptyline HCl (Elavil Tab) 150 mg HS PO 06/07/17 21:00 07/07/17 20:59 06/07/17 21:28 150 MG Cholecalciferol (Vitamin D Tab) 2,000 inter.unit DAILY PO 06/08/17 09:00 07/08/17 08:59 Insulin Aspart (novoLOG ASPART) SLIDING SCALE If C... QDB SC 06/08/17 08:00 07/08/17 07:59 Non-Formulary Medication (Non-Formulary Patient'S Own Med) 1 ea DAILY PO 06/08/17 09:00 07/08/17 08:59 Last 24 Hours Test 06/07/17 12:32 06/07/17 12:35 06/07/17 16:58 06/07/17 17:24 White Blood Count 10.47 K/uL Red Blood Count 4.27 M/uL Hemoglobin 13.5 g/dL Hematocrit 42.3 % Mean Corpuscular Volume 99.1 fL Mean Corpuscular Hemoglobin 31.6 pg Mean Corpuscular Hemoglobin Concent 31.9 g/dl Platelet Count 67 K/uL Mean Platelet Volume 10.0 fL Neutrophils (%) (Auto) 77.7 % Lymphocytes (%) (Auto) 14.7 % Monocytes (%) (Auto) 6.0 % Eosinophils (%) (Auto) 0.8 % Basophils (%) (Auto) 0.2 % Neutrophils # (Auto) 8.14 K/uL Lymphocytes # (Auto) 1.54 K/uL Monocytes # (Auto) 0.63 K/uL Eosinophils # (Auto) 0.08 K/uL Basophils # (Auto) 0.02 K/uL RDW Standard Deviation 48.1 fL RDW Coefficient of Variation 13.4 % Immature Granulocyte % (Auto) 0.6 % Immature Granulocyte # (Auto) 0.06 K/uL Platelet Estimate DECREASED Prothrombin Time 12.0 SECONDS Prothromb Time International Ratio 1.1 Activated Partial Thromboplast Time 30.0 SECONDS Partial Thromboplastin Ratio 1.2 Sodium Level 139 mmol/L Potassium Level 4.0 mmol/L Chloride Level 103 mmol/L Carbon Dioxide Level 26 mmol/L Anion Gap 10.0 mmol/L Blood Urea Nitrogen 60 mg/dl Creatinine 6.99 mg/dl Est Creatinine Clear Calc Drug Dose 9.5 ml/min Estimated GFR () 8.7 Estimated GFR (Non- 7.5 BUN/Creatinine Ratio 8.5 Random Glucose 103 mg/dl Calcium Level 7.5 mg/dl Total Bilirubin 0.5 mg/dl Aspartate Amino Transf (AST/SGOT) 19 U/L Alanine Aminotransferase (ALT/SGPT) 28 U/L Alkaline Phosphatase 125 U/L Total Protein 6.8 gm/dl Albumin 2.5 gm/dl Globulin 4.3 gm/dl Albumin/Globulin Ratio 0.6 Bedside Lactic Acid Venous 0.71 mmol/L Bedside Glucose 53 mg/dl 56 mg/dl Test 06/07/17 17:43 06/07/17 18:02 06/07/17 20:28 06/07/17 23:30 Bedside Glucose 91 mg/dl 244 mg/dl Magnesium Level 2.1 mg/dl Troponin I < 0.015 ng/ml < 0.015 ng/ml Test 06/08/17 05:55 White Blood Count 8.00 K/uL Red Blood Count 3.79 M/uL Hemoglobin 11.9 g/dL Hematocrit 37.1 % Mean Corpuscular Volume 97.9 fL Mean Corpuscular Hemoglobin 31.4 pg Mean Corpuscular Hemoglobin Concent 32.1 g/dl RDW Standard Deviation 48.6 fL RDW Coefficient of Variation 13.5 % Platelet Count 70 K/uL Mean Platelet Volume 9.5 fL Sodium Level 140 mmol/L Potassium Level 4.4 mmol/L Chloride Level 105 mmol/L Carbon Dioxide Level 23 mmol/L Anion Gap 12.0 mmol/L Blood Urea Nitrogen 63 mg/dl Creatinine 7.09 mg/dl Est Creatinine Clear Calc Drug Dose 9.6 ml/min Estimated GFR () 8.6 Estimated GFR (Non- 7.4 BUN/Creatinine Ratio 8.9 Random Glucose 54 mg/dl Calcium Level 7.3 mg/dl Troponin I < 0.015 ng/ml Random Vancomycin Level 15.0 mcg/ml Date/Time Source Procedure Growth Status 06/07/17 13:52 Blood Fungal Smear Pending Received 06/07/17 13:52 Blood Fungal Culture Pending Received 06/07/17 12:45 Blood Blood Culture - Preliminary Gram Positive Cocci Resulted 06/07/17 12:32 Blood Blood Culture - Preliminary Gram Positive Cocci Resulted 06/07/17 20:20 Nasal MRSA DNA Surveillance Screen - Final Specimen Negative for MRSA by DNA Probe Complete Assessment & Plan 62 y/o M w/ ESRD on MWF HD via tunnelled line and hx of liver txplt, new onset diabetes after txplt, htn sent to ER d/t bacteremia w/ 06/16 blood culture bottles from 06/04 w/ GPC in chains and pairs. Also w/ heel wound. ESRD on HD volume ly he is on RA w/ acceptable blood pressures. chemistries, hgb are also acceptable -will attempt gentle dialysis today using avf << this had been the plan but the pt was bumped to tomorrow d/t urgent case -repeat cultures have been drawn and are in less than 24 hrs positive; had a dose of vancomycin in ER -given liver txplt hx/ immunosuppressed status, lower threshold than usual to remove tdc > consult vascular pending , culture tip of cath ordered (though he has already had abtx) Bacteremia -remove tdc as above <> consult placed; d/w vascular; removed today -NPO for procedure -f/u pending cxs including those from outside system -vanco acceptable for now S/p Liver txplt -continue routine tacro -states he needs to be set up w/ liver txplt at d/c again; will facilitate ECG changes -d/w hospitalist and admitting team; pt w/o sx; f/u TTE Appreciate consultation; will follow with you.
[2017-06-08] MEDS ORDERED: INSULIN GLARGINE SOLOSTAR 100 UNITS/ML 3 ML PEN SC SCH ×2 (21:00)
[2017-06-08] MEDS: AMITRIPTYLINE HCL 50 MG TAB PO SCH (22:07)
[2017-06-09] VITALS (21 sets, daily range): BP systolic 108–121; BP diastolic 66–73; PULSE 62–73; TEMP 36.3–36.6; O2SAT 92–93
[2017-06-09 05:52] LABS: HEMATOCRIT 37.1 % (42-52); HEMOGLOBIN 12.1 g/dL (14.0-18.0); MEAN CELL VOLUME 96.9 fL (80-100); MEAN CORPUSCULAR HEMOGLOBIN 31.6 pg (25-34); MEAN CORPUSCULAR HGB CONC 32.6 g/dl (32-36); MEAN PLATELET VOLUME 9.5 fL (7.4-10.4); PLATELET COUNT 81 K/uL (130-400); RED CELL DISTRIBUTION WIDTH CV 13.5 % (11.5-14.5); RED CELL DISTRIBUTION WIDTH SD 47.6 fL (36.4-46.3); WHITE BLOOD COUNT 7.46 K/uL (4.8-10.8)
[2017-06-09] MEDS: HEPARIN SOD 5000 UNIT/0.5 ML CARP SQ SCH ×3 (06:00→22:39)
[2017-06-09 06:37] LABS: CALCIUM 7.7 mg/dl (8.5-10.1); CREATININE 7.4 mg/dl (0.60-1.40); POTASSIUM 4.7 mmol/L (3.5-5.1)
[2017-06-09] MEDS: INSULIN ASPART 100 UNITS/ML 3 ML PEN SC SCH ×4 (07:59→22:39)
[2017-06-09] MEDS: CHOLECALCIFEROL 1000 INTER.UNIT TAB PO SCH (08:27)
[2017-06-09] MEDS: FERROUS SULFATE 325 MG TAB PO SCH ×3 (08:28→17:14)
[2017-06-09] MEDS: ALLOPURINOL 100 MG TAB PO SCH (08:28)
[2017-06-09] MEDS: CALCIUM ACETATE 667MG GELCAP PO SCH ×3 (08:28→17:14)
[2017-06-09] MEDS: TACROLIMUS 1 MG CAP PO SCH ×2 (08:28→22:35)
[2017-06-09] MEDS: PANTOprazole SOD 40 MG TAB PO SCH (08:30)
[2017-06-09] MEDS: ENTECAVIR 0.5 MG PO SCH (08:30)
[2017-06-09] MEDS: PRAVASTATIN SOD 20 MG TAB PO SCH (08:30)
--- NOTE | 2017-06-09 09:12 | Pharmacy Progress Note ---
Pharmacy Glycemic Short Note 2 Date of Service Jun 09, 2017. OUTPATIENT ANTIDIABETIC REGIMEN: * Lantus 35 units in the evening plus Novolog 12 with breakfast, 14 with lunch, and 16 with dinner ASSESSMENT: * Mr Nicole is a 62 y/o M with a PMH of liver transplant, hepatitis B, hemodialysis MWF, and unknown control of type 2 diabetes (HbA1C is not reliable in this patient as he undergoes hemodialysis which can effect the results). He currently has 2 of 2 blood cultures positive for Gram positive cocci. * During a previous hospitalization in February of last year, the patient consistently required 10 units of Lantus BID plus around 20-27 units of correctional insulin. * The patient's blood sugar yesterday was [phone]. He received 27 units of insulin (18 units of Lantus) ... the patient's fasting blood sugar was 65 mg/dL. Loosened Lantus again for tonight to 15 units. Tightened Novolog today as carbohydrates were clearly not covered well yesterday. PLAN FOR INPATIENT GLYCEMIC CONTROL: * Basal insulin * Lantus 15 units SQ qHS * Bolus insulin * NovoLog per scale ACHS or Q6hrs while NPO * Goal Range: Low 110 mg/dL - High 140 mg/dL * Correction Factor: 20 mg/dL/unit * Nutritional / Prandial insulin per carb ratio of 1 unit per 10 grams CHO consumed PLAN FOR DISCHARGE: * The patient is a dialysis patient and therefore HbA1C is not an adequate indicator of glycemic control. Recommend checking blood sugars and making a log for outpatient adjustment of insulin.
--- NOTE | 2017-06-09 13:00 | Dialysis Progress Note ---
Nephrology Dialysis Note Date of Service: Jun 09, 2017. Subjective seen on dialysis about 1020; no f/c; bg better. no pain or sob; cxs w/ e faecalis; id following Objective Date Time Temp Pulse Resp B/P (MAP) Pulse Ox O2 Delivery O2 Flow Rate FiO2 06/09/17 12:15 73 112/71 06/09/17 12:00 71 114/67 06/09/17 11:45 67 112/73 06/09/17 11:30 65 114/72 06/09/17 11:15 66 115/73 06/09/17 11:00 66 113/73 06/09/17 10:45 36.6 66 117/73 (88) 06/09/17 08:00 92 Room Air 06/09/17 07:19 36.3 68 16 111/67 (82) 92 Room Air 06/09/17 04:51 Room Air 06/09/17 04:01 36.5 64 18 111/70 (84) 93 Room Air 06/09/17 00:00 Room Air 06/08/17 23:50 36.9 68 18 108/62 (77) 92 Room Air 06/08/17 20:00 Room Air 06/08/17 19:41 36.7 70 18 125/74 (91) 93 Room Air 06/08/17 16:00 Room Air 06/08/17 15:59 36.3 65 18 111/71 (84) 92 Room Air 06/08/17 14:00 36.4 71 18 109/69 (82) 93 Room Air Physical Exam: General Appearance: no apparent distress, + cachetic (on ra lying flat) Eyes: EOMI ENT: hearing grossly normal, + nasal congestion Respiratory/Chest: no respiratory distress, + decreased breath sounds Cardiovascular: regular rate, rhythm, no edema Abdomen: normal bowel sounds, non tender, soft, + pertinent finding (no padilla) Extremities: no pedal edema, + pertinent finding (avf + t/b) Neurologic/Psych: alert, normal mood/affect, oriented x 3 (but some limits w/ history details) Skin: no jaundice, warm/dry, no rash Current Inpatient Medications Medications (Trade) Dose Ordered Sig/Jon Route Start Time Stop Time Status Last Admin Dose Admin Heparin Sodium (Porcine) (Heparin Sq 5000 Unit/0.5ml) 5,000 unit Q8 SQ 06/07/17 22:00 07/07/17 21:59 06/08/17 22:06 5,000 UNIT Acetaminophen (Tylenol Tab) 650 mg Q4H PRN PO 06/07/17 14:30 07/07/17 14:29 Insulin Aspart (novoLOG ASPART) SLIDING SCALE If C... TID@1100,1630,2100 SC 06/07/17 16:30 07/07/17 16:29 06/08/17 22:06 3 UNITS Glucose (Glucose 40% Gel) 15-30 GRAMS 15 GRAMS... UD PRN PO 06/07/17 15:15 07/07/17 15:14 Glucose (Glucose Chew Tab) 4-8 Tablets 4 Tabl... UD PRN PO 06/07/17 15:15 07/07/17 15:14 06/07/17 17:31 4 TABS Dextrose (Dextrose 50% 50ML Syringe) 25-50ML OF 50% DW IV FOR... UD PRN IV 06/07/17 15:15 07/07/17 15:14 06/08/17 07:57 50 ML Glucagon (Glucagon Inj) 1 mg UD PRN SQ 06/07/17 15:15 07/07/17 15:14 Miscellaneous Information (Consult Glycemic Management Pharmacy) 1 ea UD PRN N/A 06/07/17 15:22 07/07/17 15:21 Miscellaneous Information (Consult) 1 ea UD PRN N/A 06/07/17 15:30 07/07/17 15:29 Allopurinol (Zyloprim Tab) 100 mg DAILY PO 06/08/17 09:00 07/08/17 08:59 06/09/17 08:28 100 MG Calcium Acetate (Phoslo Cap) 667 mg TIDM PO 06/07/17 17:00 07/07/17 17:59 06/09/17 08:28 667 MG Clopidogrel Bisulfate (plAVix TAB) 75 mg DAILY PO 06/08/17 09:00 07/08/17 08:59 06/08/17 13:40 75 MG Ferrous Sulfate (Feosol Tab) 325 mg TIDM PO 06/07/17 17:00 07/07/17 17:59 06/09/17 08:28 325 MG Pantoprazole Sodium (Protonix Tab) 40 mg DAILY PO 06/08/17 09:00 07/08/17 08:59 06/09/17 08:30 40 MG Pravastatin Sodium (Pravachol Tab) 20 mg DAILY PO 06/08/17 09:00 07/08/17 08:59 06/09/17 08:30 20 MG Tacrolimus (Prograf Cap) 4 mg BID PO 06/07/17 21:00 07/07/17 20:59 06/09/17 08:28 4 MG Amitriptyline HCl (Elavil Tab) 150 mg HS PO 06/07/17 21:00 07/07/17 20:59 06/08/17 22:07 150 MG Cholecalciferol (Vitamin D Tab) 2,000 inter.unit DAILY PO 06/08/17 09:00 07/08/17 08:59 06/09/17 08:27 2,000 INTER.UNIT Insulin Aspart (novoLOG ASPART) SLIDING SCALE If C... QDB SC 06/08/17 08:00 07/08/17 07:59 Non-Formulary Medication (Non-Formulary Patient'S Own Med) 1 ea DAILY PO 06/08/17 09:00 07/08/17 08:59 06/09/17 08:30 1 EA Insulin Glargine (Lantus Solostar Pen) 15 units HS NH 06/09/17 21:00 07/09/17 20:59 Last 24 Hours Test 06/08/17 16:30 06/08/17 17:48 06/08/17 20:13 06/09/17 05:24 Bedside Glucose 137 mg/dl 216 mg/dl Troponin I < 0.015 ng/ml White Blood Count 7.46 K/uL Red Blood Count 3.83 M/uL Hemoglobin 12.1 g/dL Hematocrit 37.1 % Mean Corpuscular Volume 96.9 fL Mean Corpuscular Hemoglobin 31.6 pg Mean Corpuscular Hemoglobin Concent 32.6 g/dl RDW Standard Deviation 47.6 fL RDW Coefficient of Variation 13.5 % Platelet Count 81 K/uL Mean Platelet Volume 9.5 fL Sodium Level 140 mmol/L Potassium Level 4.7 mmol/L Chloride Level 107 mmol/L Carbon Dioxide Level 21 mmol/L Anion Gap 11.0 mmol/L Blood Urea Nitrogen 73 mg/dl Creatinine 7.40 mg/dl Est Creatinine Clear Calc Drug Dose 9.2 ml/min Estimated GFR () 8.2 Estimated GFR (Non- 7.0 BUN/Creatinine Ratio 9.8 Random Glucose 65 mg/dl Calcium Level 7.7 mg/dl Test 06/09/17 07:34 06/09/17 07:58 06/09/17 09:40 06/09/17 10:49 Bedside Glucose 60 mg/dl 141 mg/dl 225 mg/dl Urine Color YELLOW Urine Appearance CLEAR Urine pH 8.0 Urine Specific [place] 1.015 Urine Protein 2+ Urine Glucose (UA) 2+ Urine Ketones NEG Urine Occult Blood NEG Urine Nitrite NEG Urine Bilirubin NEG Urine Urobilinogen NEG Urine Leukocyte Esterase NEG Urine WBC (Auto) 1-5 /hpf Urine RBC (Auto) 0-4 /hpf Urine Hyaline Casts (Auto) 1-5 /lpf Urine Epithelial Cells (Auto) 5-10 /lpf Urine Bacteria (Auto) NEG Assessment & Plan 62 y/o M w/ ESRD on MWF HD via tunnelled line and hx of liver txplt, new onset diabetes after txplt, htn sent to ER d/t bacteremia w/ 06/16 blood culture bottles from 06/04 w/ e fecalis. Also w/ heel wound. ESRD on HD volume ly he is on RA w/ acceptable blood pressures. chemistries, hgb are also acceptable -will attempt gentle dialysis today using avf (first use of that access) -given liver txplt hx/ immunosuppressed status, lower threshold than usual to remove tdc > culture tip of cath ordered (though he has already had abtx) E faecalis bacteremia -TDC out; using AVF for now (running ok so far but early in tx/use) -inf dzs following >> sensis from outside cultures and cx results on paper chart -on vanco currently S/p Liver txplt -continue routine tacro -states he needs to be set up w/ liver txplt at d/c again; will facilitate ECG changes -d/w hospitalist and admitting team; pt w/o sx; f/u TTE Appreciate consultation; will follow with you.
--- NOTE | 2017-06-09 14:33 | Pharmacy Progress Note ---
Pharmacy Abx Dose Short Note Date of Service Jun 09, 2017. Assessment & Plan 06/10/17 Last nights post-HD random lvl came back at 13.1 mcg/mL. An appropriate one time dose of Vanco 750mg (~12mg/kg) was given at 2100. Resulting in an estimated peak of 30mcg/mL and slowly trending down from there. Given his low UO I expect him to not require a dose until 06/11/17. Will order a random pre-HD lvl for 06/11/17, I recommend ordering a post-HD lvl going into the weekend. 06/09/17 Mr. Nicole's pre-HD lvl resulted at 15mcg/mL. I spoke with his nurse today and confirmed that HD was scheduled for this AM. Post HD lvl ordered for 1929. I surmise that he's currently sitting around 26mcg/mL. I suspect his post- HD lvl to be around 14mcg/mL; however, this is predicated on dialysis membrane/ length of HD. He is growing GPC in 2/2 blood cx. Further, enterococcus sp found growing on perm cath. Hopefully can de-escalate to an amino-pcn in the future. If lvl: * <15 recommend 750mg IV X1 * 15.1-20 recommend 500mg IV x1 * >20 No Vanco Pharmacy will continue to follow and will adjust dose/frequency as necessary. Thank you.
[2017-06-09] MEDS: CLOPIDOGREL BISULFATE 75 MG TAB PO SCH (16:31)
--- NOTE | 2017-06-09 17:00 | Progress Note ---
Subjective Date of Service: Jun 09, 2017. Subjective Pt evaluation today including: conversation w/ patient, physical exam, lab review, review of studies, review of inpatient medication list Saw/examined the patient in room 277 No problems with dialysis Used the AV fistula, states that it felt different, but he had no issues with it Denies chest pain/shortness of breath Review of Systems Respiratory: No cough, No sputum, No shortness of breath Cardiac: No chest pain, No palpitations Abdomen: No pain, No nausea, No vomiting, No diarrhea Heme: No abnormal bleeding/bruising Medications Current Inpatient Medications Medications (Trade) Dose Ordered Sig/Jon Route Start Time Stop Time Status Last Admin Dose Admin Heparin Sodium (Porcine) (Heparin Sq 5000 Unit/0.5ml) 5,000 unit Q8 SQ 06/07/17 22:00 07/07/17 21:59 06/08/17 22:06 5,000 UNIT Acetaminophen (Tylenol Tab) 650 mg Q4H PRN PO 06/07/17 14:30 07/07/17 14:29 Insulin Aspart (novoLOG ASPART) SLIDING SCALE If C... TID@1100,1630,2100 SC 06/07/17 16:30 07/07/17 16:29 06/08/17 22:06 3 UNITS Glucose (Glucose 40% Gel) 15-30 GRAMS 15 GRAMS... UD PRN PO 06/07/17 15:15 07/07/17 15:14 Glucose (Glucose Chew Tab) 4-8 Tablets 4 Tabl... UD PRN PO 06/07/17 15:15 07/07/17 15:14 06/07/17 17:31 4 TABS Dextrose (Dextrose 50% 50ML Syringe) 25-50ML OF 50% DW IV FOR... UD PRN IV 06/07/17 15:15 07/07/17 15:14 06/08/17 07:57 50 ML Glucagon (Glucagon Inj) 1 mg UD PRN SQ 06/07/17 15:15 07/07/17 15:14 Miscellaneous Information (Consult Glycemic Management Pharmacy) 1 ea UD PRN N/A 06/07/17 15:22 07/07/17 15:21 Miscellaneous Information (Consult) 1 ea UD PRN N/A 06/07/17 15:30 07/07/17 15:29 Allopurinol (Zyloprim Tab) 100 mg DAILY PO 06/08/17 09:00 07/08/17 08:59 06/09/17 08:28 100 MG Calcium Acetate (Phoslo Cap) 667 mg TIDM PO 06/07/17 17:00 07/07/17 17:59 06/09/17 08:28 667 MG Clopidogrel Bisulfate (plAVix TAB) 75 mg DAILY PO 06/08/17 09:00 07/08/17 08:59 06/09/17 16:31 75 MG Ferrous Sulfate (Feosol Tab) 325 mg TIDM PO 06/07/17 17:00 07/07/17 17:59 06/09/17 08:28 325 MG Pantoprazole Sodium (Protonix Tab) 40 mg DAILY PO 06/08/17 09:00 07/08/17 08:59 06/09/17 08:30 40 MG Pravastatin Sodium (Pravachol Tab) 20 mg DAILY PO 06/08/17 09:00 07/08/17 08:59 06/09/17 08:30 20 MG Tacrolimus (Prograf Cap) 4 mg BID PO 06/07/17 21:00 07/07/17 20:59 06/09/17 08:28 4 MG Amitriptyline HCl (Elavil Tab) 150 mg HS PO 06/07/17 21:00 07/07/17 20:59 06/08/17 22:07 150 MG Cholecalciferol (Vitamin D Tab) 2,000 inter.unit DAILY PO 06/08/17 09:00 07/08/17 08:59 06/09/17 08:27 2,000 INTER.UNIT Insulin Aspart (novoLOG ASPART) SLIDING SCALE If C... QDB SC 06/08/17 08:00 07/08/17 07:59 Non-Formulary Medication (Non-Formulary Patient'S Own Med) 1 ea DAILY PO 06/08/17 09:00 07/08/17 08:59 06/09/17 08:30 1 EA Insulin Glargine (Lantus Solostar Pen) 15 units HS SC 06/09/17 21:00 07/09/17 20:59 Objective Vital Signs Date Time Temp Pulse Resp B/P (MAP) Pulse Ox O2 Delivery O2 Flow Rate FiO2 3/28/18 14:34 36.6 69 121/66 (84) 06/09/17 14:30 68 116/68 06/09/17 14:15 64 118/70 06/09/17 14:00 63 113/70 06/09/17 13:45 62 116/69 06/09/17 13:30 71 112/70 06/09/17 13:15 71 112/72 06/09/17 13:00 67 108/68 06/09/17 12:45 71 116/68 06/09/17 12:30 69 119/72 06/09/17 12:15 73 112/71 06/09/17 12:00 71 114/67 06/09/17 11:45 67 112/73 06/09/17 11:30 65 114/72 06/09/17 11:15 66 115/73 06/09/17 11:00 66 113/73 06/09/17 10:45 36.6 66 117/73 (88) 06/09/17 08:00 92 Room Air 06/09/17 07:19 36.3 68 16 111/67 (82) 92 Room Air 06/09/17 04:51 Room Air 06/09/17 04:01 36.5 64 18 111/70 (84) 93 Room Air 06/09/17 00:00 Room Air 06/08/17 23:50 36.9 68 18 108/62 (77) 92 Room Air 06/08/17 20:00 Room Air 06/08/17 19:41 36.7 70 18 125/74 (91) 93 Room Air Physical Exam General Appearance: no apparent distress, + thin Respiratory/Chest: no respiratory distress, no accessory muscle use Cardiovascular: regular rate, rhythm, no edema, no murmur Laboratory Results Last 24 Hours Test 06/08/17 17:48 06/08/17 20:13 06/09/17 05:24 06/09/17 07:34 Troponin I < 0.015 ng/ml Bedside Glucose 216 mg/dl 60 mg/dl White Blood Count 7.46 K/uL Red Blood Count 3.83 M/uL Hemoglobin 12.1 g/dL Hematocrit 37.1 % Mean Corpuscular Volume 96.9 fL Mean Corpuscular Hemoglobin 31.6 pg Mean Corpuscular Hemoglobin Concent 32.6 g/dl RDW Standard Deviation 47.6 fL RDW Coefficient of Variation 13.5 % Platelet Count 81 K/uL Mean Platelet Volume 9.5 fL Sodium Level 140 mmol/L Potassium Level 4.7 mmol/L Chloride Level 107 mmol/L Carbon Dioxide Level 21 mmol/L Anion Gap 11.0 mmol/L Blood Urea Nitrogen 73 mg/dl Creatinine 7.40 mg/dl Est Creatinine Clear Calc Drug Dose 9.2 ml/min Estimated GFR () 8.2 Estimated GFR (Non- 7.0 BUN/Creatinine Ratio 9.8 Random Glucose 65 mg/dl Calcium Level 7.7 mg/dl Test 06/09/17 07:58 06/09/17 09:40 06/09/17 10:49 06/09/17 16:22 Bedside Glucose 141 mg/dl 225 mg/dl 121 mg/dl Urine Color YELLOW Urine Appearance CLEAR Urine pH 8.0 Urine Specific [place] 1.015 Urine Protein 2+ Urine Glucose (UA) 2+ Urine Ketones NEG Urine Occult Blood NEG Urine Nitrite NEG Urine Bilirubin NEG Urine Urobilinogen NEG Urine Leukocyte Esterase NEG Urine WBC (Auto) 1-5 /hpf Urine RBC (Auto) 0-4 /hpf Urine Hyaline Casts (Auto) 1-5 /lpf Urine Epithelial Cells (Auto) 5-10 /lpf Urine Bacteria (Auto) NEG Assessment and Plan This is a 62 year old male with a recent initiation of dialysis, AV fistula on R arm, not yet fully matured; insulin dependent DM, CAD, cerebral palsy Gram Positive Bacteremia 06/09 - streptococcal species on blood cultures x2 - enterococcus species growing on the tip of the catheter; sensitivities pending - continue Vanco for now 06/08 - patient admitted due to outpatient blood cultures being positive - given IV Vanco - tunneled dialysis catheter removed - blood cultures here are also positive x2 - echo with no evidence of endocarditis - further input as per ID ESRD on HD 06/09 - s/p dialysis today - AV fistula functioning 06/08 - appreciate vascular surgery input - catheter removed, tip cultured - can use mature AV fistula - dialysis as per nephrology Hx. of CAD - troponins negative x3 - unlikely acute issue - continue home medications Uncontrolled DM2 - continue insulin - appreciate pharmacy glycemic control DVT ppx - subq heparin FULL CODE
[2017-06-09] MEDS ORDERED: INSULIN GLARGINE SOLOSTAR 100 UNITS/ML 3 ML PEN SC SCH (21:00)
[2017-06-09] MEDS ORDERED: VANCOMYCIN IV 750 MG in SODIUM CHLORIDE 0.9% 250ML 250 ML IV SCH (21:00)
[2017-06-09] MEDS: AMITRIPTYLINE HCL 50 MG TAB PO SCH (22:35)
[2017-06-10 04:09] VITALS: BP 117/68; PULSE 65; TEMP 36.6; O2SAT 96
[2017-06-10] MEDS: HEPARIN SOD 5000 UNIT/0.5 ML CARP SQ SCH ×3 (06:01→21:40)
[2017-06-10 07:01] LABS: HEMOGLOBIN 12.8 g/dL (14.0-18.0); MEAN CELL VOLUME 96.8 fL (80-100); MEAN CORPUSCULAR HEMOGLOBIN 31.8 pg (25-34); MEAN CORPUSCULAR HGB CONC 32.8 g/dl (32-36); RED CELL DISTRIBUTION WIDTH CV 13.2 % (11.5-14.5); RED CELL DISTRIBUTION WIDTH SD 45.9 fL (36.4-46.3)
[2017-06-10 07:23] VITALS: BP 130/77; PULSE 68; TEMP 36.5; O2SAT 96
[2017-06-10 07:27] LABS: MEAN PLATELET VOLUME 9.4 fL (7.4-10.4); PLATELET COUNT 66 K/uL (130-400)
[2017-06-10 07:41] LABS: CREATININE 5.33 mg/dl (0.60-1.40); POTASSIUM 4.6 mmol/L (3.5-5.1)
[2017-06-10] MEDS: FERROUS SULFATE 325 MG TAB PO SCH ×3 (07:53→17:44)
[2017-06-10] MEDS: CALCIUM ACETATE 667MG GELCAP PO SCH ×3 (07:53→17:44)
[2017-06-10] MEDS: ENTECAVIR 0.5 MG PO SCH (07:53)
[2017-06-10] MEDS: CHOLECALCIFEROL 1000 INTER.UNIT TAB PO SCH (07:53)
[2017-06-10] MEDS: TACROLIMUS 1 MG CAP PO SCH ×2 (07:54→21:37)
[2017-06-10] MEDS: ALLOPURINOL 100 MG TAB PO SCH (07:54)
[2017-06-10] MEDS: CLOPIDOGREL BISULFATE 75 MG TAB PO SCH (07:54)
[2017-06-10] MEDS: PANTOprazole SOD 40 MG TAB PO SCH (07:54)
[2017-06-10] MEDS: PRAVASTATIN SOD 20 MG TAB PO SCH (07:54)
[2017-06-10] MEDS: INSULIN ASPART 100 UNITS/ML 3 ML PEN SC SCH ×4 (08:02→21:00)
[2017-06-10 11:40] VITALS: BP 139/83; PULSE 66; TEMP 36.4; O2SAT 95
--- NOTE | 2017-06-10 14:36 | Progress Note ---
Subjective Date of Service: Jun 10, 2017. Subjective Pt evaluation today including: conversation w/ patient, physical exam, lab review, review of studies, conversation w/ strategic sourcing consultant, review of inpatient medication list Saw/examined the patient in room 277 He's doing fine, no complaints at this time Review of Systems Constitutional: No fever, No chills Respiratory: No cough, No shortness of breath Cardiac: No chest pain, No edema, No palpitations Medications Current Inpatient Medications Medications (Trade) Dose Ordered Sig/Jon Route Start Time Stop Time Status Last Admin Dose Admin Heparin Sodium (Porcine) (Heparin Sq 5000 Unit/0.5ml) 5,000 unit Q8 SQ 06/07/17 22:00 07/07/17 21:59 06/10/17 14:10 5,000 UNIT Acetaminophen (Tylenol Tab) 650 mg Q4H PRN PO 06/07/17 14:30 07/07/17 14:29 Insulin Aspart (novoLOG ASPART) SLIDING SCALE If C... TID@1100,1630,2100 SC 06/07/17 16:30 07/07/17 16:29 06/10/17 12:32 6 UNITS Glucose (Glucose 40% Gel) 15-30 GRAMS 15 GRAMS... UD PRN PO 06/07/17 15:15 07/07/17 15:14 Glucose (Glucose Chew Tab) 4-8 Tablets 4 Tabl... UD PRN PO 06/07/17 15:15 07/07/17 15:14 06/07/17 17:31 4 TABS Dextrose (Dextrose 50% 50ML Syringe) 25-50ML OF 50% DW IV FOR... UD PRN IV 06/07/17 15:15 07/07/17 15:14 06/08/17 07:57 50 ML Glucagon (Glucagon Inj) 1 mg UD PRN SQ 06/07/17 15:15 07/07/17 15:14 Miscellaneous Information (Consult Glycemic Management Pharmacy) 1 ea UD PRN N/A 06/07/17 15:22 07/07/17 15:21 Miscellaneous Information (Consult) 1 ea UD PRN N/A 06/07/17 15:30 07/07/17 15:29 Allopurinol (Zyloprim Tab) 100 mg DAILY PO 06/08/17 09:00 07/08/17 08:59 06/10/17 07:54 100 MG Calcium Acetate (Phoslo Cap) 667 mg TIDM PO 06/07/17 17:00 07/07/17 17:59 06/10/17 12:24 667 MG Clopidogrel Bisulfate (plAVix TAB) 75 mg DAILY PO 06/08/17 09:00 07/08/17 08:59 06/10/17 07:54 75 MG Ferrous Sulfate (Feosol Tab) 325 mg TIDM PO 06/07/17 17:00 07/07/17 17:59 06/10/17 12:24 325 MG Pantoprazole Sodium (Protonix Tab) 40 mg DAILY PO 06/08/17 09:00 07/08/17 08:59 06/10/17 07:54 40 MG Pravastatin Sodium (Pravachol Tab) 20 mg DAILY PO 06/08/17 09:00 07/08/17 08:59 06/10/17 07:54 20 MG Tacrolimus (Prograf Cap) 4 mg BID PO 06/07/17 21:00 07/07/17 20:59 06/10/17 07:54 4 MG Amitriptyline HCl (Elavil Tab) 150 mg HS PO 06/07/17 21:00 07/07/17 20:59 06/09/17 22:35 150 MG Cholecalciferol (Vitamin D Tab) 2,000 inter.unit DAILY PO 06/08/17 09:00 07/08/17 08:59 06/10/17 07:53 2,000 INTER.UNIT Insulin Aspart (novoLOG ASPART) SLIDING SCALE If C... QDB SC 06/08/17 08:00 07/08/17 07:59 06/10/17 08:02 3 UNITS Non-Formulary Medication (Non-Formulary Patient'S Own Med) 1 ea DAILY PO 06/08/17 09:00 07/08/17 08:59 06/10/17 07:53 1 EA Insulin Glargine (Lantus Solostar Pen) 12 units HS SC 06/10/17 21:00 07/10/17 20:59 Objective Vital Signs Date Time Temp Pulse Resp B/P (MAP) Pulse Ox O2 Delivery O2 Flow Rate FiO2 06/10/17 12:00 Room Air 06/10/17 11:40 36.4 66 16 139/83 (101) 95 06/10/17 08:00 Room Air 06/10/17 07:23 36.5 68 16 130/77 (94) 96 06/10/17 04:09 36.6 65 18 117/68 (84) 96 Room Air 06/10/17 04:00 Room Air 06/09/17 23:44 Room Air 06/09/17 23:20 36.5 67 18 118/67 (84) 93 Room Air 06/09/17 20:00 Room Air 06/09/17 16:00 Room Air 06/09/17 14:34 36.6 69 121/66 (84) Physical Exam General Appearance: no apparent distress, + thin Respiratory/Chest: lungs clear, normal breath sounds, no respiratory distress, no accessory muscle use Cardiovascular: regular rate, rhythm, no edema, no murmur Extremities: + pertinent finding (AV fistula on the R arm) Neurologic/Psychiatric: no motor/sensory deficits, alert, normal mood/affect Laboratory Results Last 24 Hours Test 06/09/17 16:22 06/09/17 19:25 06/09/17 20:16 06/10/17 06:35 Bedside Glucose 121 mg/dl 194 mg/dl Random Vancomycin Level 13.1 mcg/ml White Blood Count 6.70 K/uL Red Blood Count 4.03 M/uL Hemoglobin 12.8 g/dL Hematocrit 39.0 % Mean Corpuscular Volume 96.8 fL Mean Corpuscular Hemoglobin 31.8 pg Mean Corpuscular Hemoglobin Concent 32.8 g/dl RDW Standard Deviation 45.9 fL RDW Coefficient of Variation 13.2 % Platelet Count 66 K/uL Mean Platelet Volume 9.4 fL Sodium Level 138 mmol/L Potassium Level 4.6 mmol/L Chloride Level 108 mmol/L Carbon Dioxide Level 21 mmol/L Anion Gap 10.0 mmol/L Blood Urea Nitrogen 41 mg/dl Creatinine 5.33 mg/dl Est Creatinine Clear Calc Drug Dose 12.6 ml/min Estimated GFR () 12.1 Estimated GFR (Non- 10.5 BUN/Creatinine Ratio 7.7 Random Glucose 98 mg/dl Calcium Level 8.0 mg/dl Test 06/10/17 07:32 06/10/17 11:33 Bedside Glucose 81 mg/dl 114 mg/dl Assessment and Plan This is a 62 year old male with a recent initiation of dialysis, AV fistula on R arm, not yet fully matured; insulin dependent DM, CAD, cerebral palsy Enterococcal Bacteremia 06/10 - blood cultures positive x2 for streptococcal species and tip culture positive for enterococcus - spoke with ID, vanco with dialysis x2 weeks - repeat blood cultures ordered and pending, once negative, can d/c home 06/09 - streptococcal species on blood cultures x2 - enterococcus species growing on the tip of the catheter; sensitivities pending - continue Vanco for now 06/08 - patient admitted due to outpatient blood cultures being positive - given IV Vanco - tunneled dialysis catheter removed - blood cultures here are also positive x2 - echo with no evidence of endocarditis - further input as per ID ESRD on HD 06/10 - dialysis on 06/11 06/09 - s/p dialysis today - AV fistula functioning 06/08 - appreciate vascular surgery input - catheter removed, tip cultured - can use mature AV fistula - dialysis as per nephrology Hx. of CAD - troponins negative x3 - unlikely acute issue - continue home medications Uncontrolled DM2 - continue insulin - appreciate pharmacy glycemic control DVT ppx - subq heparin FULL CODE
[2017-06-10 15:20] VITALS: BP 133/83; PULSE 66; TEMP 36.7; O2SAT 97
--- NOTE | 2017-06-10 17:15 | Nephrology Progress Note ---
Nephrology Progress Note Date of Service: Jun 10, 2017. Subjective no f/c; bg better. no pain or sob; cxs w/ e faecalis; id following Objective Date Time Temp Pulse Resp B/P (MAP) Pulse Ox O2 Delivery O2 Flow Rate FiO2 06/10/17 08:00 Room Air 06/10/17 07:23 36.5 68 16 130/77 (94) 96 06/10/17 04:09 36.6 65 18 117/68 (84) 96 Room Air 06/10/17 04:00 Room Air 06/09/17 23:44 Room Air 06/09/17 23:20 36.5 67 18 118/67 (84) 93 Room Air 06/09/17 20:00 Room Air 06/09/17 16:00 Room Air 06/09/17 14:34 36.6 69 121/66 (84) 06/09/17 14:30 68 116/68 06/09/17 14:15 64 118/70 06/09/17 14:00 63 113/70 06/09/17 13:45 62 116/69 06/09/17 13:30 71 112/70 06/09/17 13:15 71 112/72 06/09/17 13:00 67 108/68 06/09/17 12:45 71 116/68 06/09/17 12:30 69 119/72 06/09/17 12:15 73 112/71 06/09/17 12:00 71 114/67 06/09/17 11:45 67 112/73 06/09/17 11:30 65 114/72 06/09/17 11:15 66 115/73 06/09/17 11:00 66 113/73 06/09/17 10:45 36.6 66 117/73 (88) Physical Exam: General Appearance: no apparent distress, + cachetic (on ra lying flat) Eyes: EOMI ENT: hearing grossly normal, + nasal congestion Respiratory/Chest: no respiratory distress, + decreased breath sounds Cardiovascular: regular rate, rhythm, no edema Abdomen: normal bowel sounds, non tender, soft, + pertinent finding (no padilla) Extremities: no pedal edema, + pertinent finding (avf + t/b) Neurologic/Psych: alert, normal mood/affect, oriented x 3 Skin: no jaundice, warm/dry, no rash Current Inpatient Medications Medications (Trade) Dose Ordered Sig/Jon Route Start Time Stop Time Status Last Admin Dose Admin Heparin Sodium (Porcine) (Heparin Sq 5000 Unit/0.5ml) 5,000 unit Q8 SQ 06/07/17 22:00 07/07/17 21:59 06/10/17 06:01 5,000 UNIT Acetaminophen (Tylenol Tab) 650 mg Q4H PRN PO 06/07/17 14:30 07/07/17 14:29 Insulin Aspart (novoLOG ASPART) SLIDING SCALE If C... TID@1100,1630,2100 SC 06/07/17 16:30 07/07/17 16:29 06/09/17 22:39 4 UNITS Glucose (Glucose 40% Gel) 15-30 GRAMS 15 GRAMS... UD PRN PO 06/07/17 15:15 07/07/17 15:14 Glucose (Glucose Chew Tab) 4-8 Tablets 4 Tabl... UD PRN PO 06/07/17 15:15 07/07/17 15:14 06/07/17 17:31 4 TABS Dextrose (Dextrose 50% 50ML Syringe) 25-50ML OF 50% DW IV FOR... UD PRN IV 06/07/17 15:15 07/07/17 15:14 06/08/17 07:57 50 ML Glucagon (Glucagon Inj) 1 mg UD PRN SQ 06/07/17 15:15 07/07/17 15:14 Miscellaneous Information (Consult Glycemic Management Pharmacy) 1 ea UD PRN N/A 06/07/17 15:22 07/07/17 15:21 Miscellaneous Information (Consult) 1 ea UD PRN N/A 06/07/17 15:30 07/07/17 15:29 Allopurinol (Zyloprim Tab) 100 mg DAILY PO 06/08/17 09:00 07/08/17 08:59 06/10/17 07:54 100 MG Calcium Acetate (Phoslo Cap) 667 mg TIDM PO 06/07/17 17:00 07/07/17 17:59 06/10/17 07:53 667 MG Clopidogrel Bisulfate (plAVix TAB) 75 mg DAILY PO 06/08/17 09:00 07/08/17 08:59 3/29/18 07:54 75 MG Ferrous Sulfate (Feosol Tab) 325 mg TIDM PO 06/07/17 17:00 07/07/17 17:59 06/10/17 07:53 325 MG Pantoprazole Sodium (Protonix Tab) 40 mg DAILY PO 06/08/17 09:00 07/08/17 08:59 06/10/17 07:54 40 MG Pravastatin Sodium (Pravachol Tab) 20 mg DAILY PO 06/08/17 09:00 07/08/17 08:59 06/10/17 07:54 20 MG Tacrolimus (Prograf Cap) 4 mg BID PO 06/07/17 21:00 07/07/17 20:59 06/10/17 07:54 4 MG Amitriptyline HCl (Elavil Tab) 150 mg HS PO 06/07/17 21:00 07/07/17 20:59 06/09/17 22:35 150 MG Cholecalciferol (Vitamin D Tab) 2,000 inter.unit DAILY PO 06/08/17 09:00 07/08/17 08:59 06/10/17 07:53 2,000 INTER.UNIT Insulin Aspart (novoLOG ASPART) SLIDING SCALE If C... QDB SC 06/08/17 08:00 07/08/17 07:59 06/10/17 08:02 3 UNITS Non-Formulary Medication (Non-Formulary Patient'S Own Med) 1 ea DAILY PO 06/08/17 09:00 07/08/17 08:59 06/10/17 07:53 1 EA Insulin Glargine (Lantus Solostar Pen) 15 units HS SC 06/09/17 21:00 07/09/17 20:59 06/09/17 22:38 15 UNITS Last 24 Hours Test 06/09/17 09:40 06/09/17 10:49 06/09/17 16:22 06/09/17 19:25 Urine Color YELLOW Urine Appearance CLEAR Urine pH 8.0 Urine Specific [place] 1.015 Urine Protein 2+ Urine Glucose (UA) 2+ Urine Ketones NEG Urine Occult Blood NEG Urine Nitrite NEG Urine Bilirubin NEG Urine Urobilinogen NEG Urine Leukocyte Esterase NEG Urine WBC (Auto) 1-5 /hpf Urine RBC (Auto) 0-4 /hpf Urine Hyaline Casts (Auto) 1-5 /lpf Urine Epithelial Cells (Auto) 5-10 /lpf Urine Bacteria (Auto) NEG Bedside Glucose 225 mg/dl 121 mg/dl Random Vancomycin Level 13.1 mcg/ml Test 06/09/17 20:16 06/10/17 06:35 06/10/17 07:32 Bedside Glucose 194 mg/dl 81 mg/dl White Blood Count 6.70 K/uL Red Blood Count 4.03 M/uL Hemoglobin 12.8 g/dL Hematocrit 39.0 % Mean Corpuscular Volume 96.8 fL Mean Corpuscular Hemoglobin 31.8 pg Mean Corpuscular Hemoglobin Concent 32.8 g/dl RDW Standard Deviation 45.9 fL RDW Coefficient of Variation 13.2 % Platelet Count 66 K/uL Mean Platelet Volume 9.4 fL Sodium Level 138 mmol/L Potassium Level 4.6 mmol/L Chloride Level 108 mmol/L Carbon Dioxide Level 21 mmol/L Anion Gap 10.0 mmol/L Blood Urea Nitrogen 41 mg/dl Creatinine 5.33 mg/dl Est Creatinine Clear Calc Drug Dose 12.6 ml/min Estimated GFR () 12.1 Estimated GFR (Non- 10.5 BUN/Creatinine Ratio 7.7 Random Glucose 98 mg/dl Calcium Level 8.0 mg/dl Date/Time Source Procedure Growth Status 06/10/17 08:24 Blood Blood Culture Pending Received 06/10/17 08:15 Blood Blood Culture Pending Received Assessment & Plan 62 y/o M w/ ESRD on MWF HD via tunnelled line and hx of liver txplt, new onset diabetes after txplt, htn sent to ER d/t bacteremia w/ 06/16 blood culture bottles from 06/04 w/ e fecalis. Also w/ heel wound. ESRD on HD volume ly he is on RA w/ acceptable blood pressures. chemistries, hgb are also acceptable -will attempt gentle dialysis tomorrow using avf -given liver txplt hx/ immunosuppressed status, lower threshold than usual to remove tdc > culture tip of cath ordered and + for E faecalis E faecalis bacteremia -TDC out; using AVF for now and ran well for first tx -ordered repeat cxs today to document whether we're clearing bacteria -inf dzs following >> sensis from outside cultures and cx results on paper chart -on vanco currently> level on low side today S/p Liver txplt -continue routine tacro -states he needs to be set up w/ liver txplt at d/c again; will facilitate ECG changes > resolved on f/u ecg from junctional > NSR -d/w hospitalist and admitting team; pt w/o sx; TTE reassuring as is f/u ECG Appreciate consultation; will follow with you. care coordinated w/ dr padgett
[2017-06-10 19:37] VITALS: BP 153/66; PULSE 62; TEMP 36.8; O2SAT 94
--- NOTE | 2017-06-10 20:03 | Infectious Disease Progress Nt ---
Progress Note Date of Service Jun 10, 2017. Subjective Pt evaluation today including: conversation w/ patient, physical exam, chart review, lab review, review of studies, conversation w/ education consultant, review of inpatient medication list Patient offers no new complaints today. Remains afebrile. Cultures growing Enterococcus. Tolerating vancomycin without apparent difficulty. All Other Systems: Reviewed and Negative Medications Current Inpatient Medications Medications (Trade) Dose Ordered Sig/Jon Route Start Time Stop Time Status Last Admin Dose Admin Heparin Sodium (Porcine) (Heparin Sq 5000 Unit/0.5ml) 5,000 unit Q8 SQ 06/07/17 22:00 07/07/17 21:59 06/10/17 14:10 5,000 UNIT Acetaminophen (Tylenol Tab) 650 mg Q4H PRN PO 06/07/17 14:30 07/07/17 14:29 Insulin Aspart (novoLOG ASPART) SLIDING SCALE If C... TID@1100,1630,2100 SC 06/07/17 16:30 07/07/17 16:29 06/10/17 17:46 2 UNITS Glucose (Glucose 40% Gel) 15-30 GRAMS 15 GRAMS... UD PRN PO 06/07/17 15:15 07/07/17 15:14 Glucose (Glucose Chew Tab) 4-8 Tablets 4 Tabl... UD PRN PO 06/07/17 15:15 07/07/17 15:14 06/07/17 17:31 4 TABS Dextrose (Dextrose 50% 50ML Syringe) 25-50ML OF 50% DW IV FOR... UD PRN IV 06/07/17 15:15 07/07/17 15:14 06/08/17 07:57 50 ML Glucagon (Glucagon Inj) 1 mg UD PRN SQ 06/07/17 15:15 07/07/17 15:14 Miscellaneous Information (Consult Glycemic Management Pharmacy) 1 ea UD PRN N/A 06/07/17 15:22 07/07/17 15:21 Miscellaneous Information (Consult) 1 ea UD PRN N/A 06/07/17 15:30 07/07/17 15:29 Allopurinol (Zyloprim Tab) 100 mg DAILY PO 06/08/17 09:00 07/08/17 08:59 06/10/17 07:54 100 MG Calcium Acetate (Phoslo Cap) 667 mg TIDM PO 06/07/17 17:00 07/07/17 17:59 06/10/17 17:44 667 MG Clopidogrel Bisulfate (plAVix TAB) 75 mg DAILY PO 06/08/17 09:00 07/08/17 08:59 06/10/17 07:54 75 MG Ferrous Sulfate (Feosol Tab) 325 mg TIDM PO 06/07/17 17:00 07/07/17 17:59 06/10/17 17:44 325 MG Pantoprazole Sodium (Protonix Tab) 40 mg DAILY PO 06/08/17 09:00 07/08/17 08:59 06/10/17 07:54 40 MG Pravastatin Sodium (Pravachol Tab) 20 mg DAILY PO 06/08/17 09:00 07/08/17 08:59 06/10/17 07:54 20 MG Tacrolimus (Prograf Cap) 4 mg BID PO 06/07/17 21:00 07/07/17 20:59 06/10/17 07:54 4 MG Amitriptyline HCl (Elavil Tab) 150 mg HS PO 06/07/17 21:00 07/07/17 20:59 06/09/17 22:35 150 MG Cholecalciferol (Vitamin D Tab) 2,000 inter.unit DAILY PO 06/08/17 09:00 07/08/17 08:59 06/10/17 07:53 2,000 INTER.UNIT Insulin Aspart (novoLOG ASPART) SLIDING SCALE If C... QDB SC 06/08/17 08:00 07/08/17 07:59 06/10/17 08:02 3 UNITS Non-Formulary Medication (Non-Formulary Patient'S Own Med) 1 ea DAILY PO 06/08/17 09:00 07/08/17 08:59 06/10/17 07:53 1 EA Insulin Glargine (Lantus Solostar Pen) 12 units HS SC 06/10/17 21:00 07/10/17 20:59 Heparin Sodium (Porcine) (Heparin Iv Bolus) 1,000 unit 0800 IV 06/11/17 08:00 06/11/17 12:00 Heparin Sodium (Porcine) (Heparin Iv Bolus) 400 unit Q1H IV 06/11/17 08:00 06/11/17 10:01 Objective Vital Signs Date Time Temp Pulse Resp B/P (MAP) Pulse Ox O2 Delivery O2 Flow Rate FiO2 06/10/17 19:37 36.8 62 18 153/66 (95) 94 Room Air 06/10/17 16:00 Room Air 06/10/17 15:20 36.7 66 18 133/83 (100) 97 Room Air 06/10/17 12:00 Room Air 06/10/17 11:40 36.4 66 16 139/83 (101) 95 06/10/17 08:00 Room Air 06/10/17 07:23 36.5 68 16 130/77 (94) 96 06/10/17 04:09 36.6 65 18 117/68 (84) 96 Room Air 06/10/17 04:00 Room Air 06/09/17 23:44 Room Air 06/09/17 23:20 36.5 67 18 118/67 (84) 93 Room Air Physical Exam General Appearance: WD/WN, no apparent distress Eyes: normal inspection, EOMI, sclerae normal ENT: normal ENT inspection, hearing grossly normal, pharynx normal Neck: supple, no adenopathy, thyroid normal, trachea midline Respiratory/Chest: chest non-tender, lungs clear, normal breath sounds, no respiratory distress Cardiovascular: regular rate, rhythm, no gallop, no murmur Abdomen: normal bowel sounds, non tender, soft, no organomegaly Extremities: normal inspection, no calf tenderness, normal capillary refill Neurologic/Psychiatric: alert, normal mood/affect, oriented x 3 Skin: normal color, warm/dry, no rash Lymphatic: no adenopathy Laboratory Results RUN DATE: 06/10/17 [facility] LAB PAGE 1 RUN TIME: 1534 Specimen Inquiry PATIENT: ISABEL REYES LOC: [facility] # : [id number] AGE/SX: 62/M ROOM: 77 REG : 06/07/[address]: Jose Reza DO : 1955 BED: 2 DIS : STATUS: ADM IN TLOC: SPEC #: [id number] CLARISSA: 06/07/17-1232 STATUS: COMP REQ #: [id number] RECD: 06/07/17-[address]: Gm Worley MD SOURCE: BLOOD ENTR: 06/07/17-[address]: Carlton Lee V. D.Sandy SPDESC: ORDERED: BLOOD CULTURE Procedure Result Verified Site BLD CULT Final 06/10/17-1534 Organism 1 ENTEROCOCCUS FAECALIS SENS SENSITIVITY TO FOLLOW Phoned Positive Blood Culture Gram Stain Report to REED MENARD on 06/08/17 At 0157 By NEIL. Results were verbalized back to NEIL. 1. ENTEROCOCCUS FAECALIS Target Route Dose RX AB Cost M.I.C. IQ ------ ----- ------ -- ------ -------- - ------ AMPICILLIN S <=2 GENT SYNERGY S <=500 VANCOMYCIN S 2 PENICILLIN S 2 DAPTOMYCIN S 1 STREP SYNERGY S <=1000 Streptomycin Synergy Screen S Gentamicin Synergy Screen S S = SENSITIVE I = INTERMEDIATE R = RESISTANT END OF REPORT Last 24 Hours Test 06/09/17 20:16 06/10/17 06:35 06/10/17 07:32 06/10/17 11:33 Bedside Glucose 194 mg/dl 81 mg/dl 114 mg/dl White Blood Count 6.70 K/uL Red Blood Count 4.03 M/uL Hemoglobin 12.8 g/dL Hematocrit 39.0 % Mean Corpuscular Volume 96.8 fL Mean Corpuscular Hemoglobin 31.8 pg Mean Corpuscular Hemoglobin Concent 32.8 g/dl RDW Standard Deviation 45.9 fL RDW Coefficient of Variation 13.2 % Platelet Count 66 K/uL Mean Platelet Volume 9.4 fL Sodium Level 138 mmol/L Potassium Level 4.6 mmol/L Chloride Level 108 mmol/L Carbon Dioxide Level 21 mmol/L Anion Gap 10.0 mmol/L Blood Urea Nitrogen 41 mg/dl Creatinine 5.33 mg/dl Est Creatinine Clear Calc Drug Dose 12.6 ml/min Estimated GFR () 12.1 Estimated GFR (Non- 10.5 BUN/Creatinine Ratio 7.7 Random Glucose 98 mg/dl Calcium Level 8.0 mg/dl Test 06/10/17 16:16 Bedside Glucose 105 mg/dl Assessment and Plan 62-year-old male with end-stage renal disease on dialysis now with enterococcal bacteremia from infected dialysis catheter now removed. Patient should be continued on vancomycin which hopefully can be given with dialysis. Would recommend 2 weeks of antibiotic therapy.
[2017-06-10] MEDS ORDERED: INSULIN GLARGINE SOLOSTAR 100 UNITS/ML 3 ML PEN SC SCH (21:00)
[2017-06-10] MEDS: AMITRIPTYLINE HCL 50 MG TAB PO SCH (21:37)
[2017-06-10 23:26] VITALS: BP 141/79; PULSE 62; TEMP 36.8; O2SAT 94
[2017-06-11] VITALS (22 sets, daily range): BP systolic 114–146; BP diastolic 71–87; PULSE 65–76; TEMP 35.8–37.1; O2SAT 93–96
[2017-06-11 05:21] LABS: HEMATOCRIT 37.8 % (42-52); HEMOGLOBIN 12.7 g/dL (14.0-18.0); MEAN CELL VOLUME 96.4 fL (80-100); MEAN CORPUSCULAR HEMOGLOBIN 32.4 pg (25-34); MEAN CORPUSCULAR HGB CONC 33.6 g/dl (32-36); RED CELL DISTRIBUTION WIDTH CV 13.2 % (11.5-14.5); RED CELL DISTRIBUTION WIDTH SD 45.8 fL (36.4-46.3); WHITE BLOOD COUNT 7.28 K/uL (4.8-10.8)
[2017-06-11 05:30] LABS: PLATELET COUNT 65 K/uL (130-400)
[2017-06-11] MEDS: HEPARIN SOD 5000 UNIT/0.5 ML CARP SQ SCH ×3 (05:49→21:05)
[2017-06-11 05:51] LABS: CALCIUM 8.5 mg/dl (8.5-10.1); CREATININE 6.19 mg/dl (0.60-1.40); POTASSIUM 4.7 mmol/L (3.5-5.1)
[2017-06-11] MEDS: PRAVASTATIN SOD 20 MG TAB PO SCH (07:41)
[2017-06-11] MEDS: FERROUS SULFATE 325 MG TAB PO SCH ×3 (07:42→18:17)
[2017-06-11] MEDS: CALCIUM ACETATE 667MG GELCAP PO SCH ×3 (07:43→18:16)
[2017-06-11] MEDS: PANTOprazole SOD 40 MG TAB PO SCH (07:43)
[2017-06-11] MEDS: CLOPIDOGREL BISULFATE 75 MG TAB PO SCH (07:43)
[2017-06-11] MEDS: ALLOPURINOL 100 MG TAB PO SCH (07:44)
[2017-06-11] MEDS: TACROLIMUS 1 MG CAP PO SCH ×2 (07:44→21:07)
[2017-06-11] MEDS: CHOLECALCIFEROL 1000 INTER.UNIT TAB PO SCH (07:44)
[2017-06-11] MEDS: ENTECAVIR 0.5 MG PO SCH (07:46)
[2017-06-11] MEDS: INSULIN ASPART 100 UNITS/ML 3 ML PEN SC SCH ×5 (07:50→21:03)
[2017-06-11] MEDS ORDERED: HEPARIN SOD (PORCINE) 1000 UNIT/ML 10 ML VIAL IV SCH (08:00)
--- NOTE | 2017-06-11 08:59 | Pharmacy Progress Note ---
Pharmacy Abx Dose Short Note Date of Service Jun 11, 2017. Assessment & Plan Assessment 62 year old male receiving Vancomycin for treatment of pansensitive E Faecalis bacteremia per recommendation of ID. Day # 5 of antimicrobial therapy. ID recommends 14 days of total therapy. Blood cultures from 06/10 pending Item Value Date Time Random Vancomycin Level 20.1 mcg/ml 06/11/17 0454 Plan Vancomycin * Pre-HD random level of 20.1 mcg/mL is therapeutic. * Ordered 500mg IV x 1 to be administered post HD today. * Goal trough level for bacteremia : 15 to 20 mcg/mL * Random level ordered for: 06/13 @3497 Pharmacy will continue to follow and will adjust dose/frequency as necessary. Thank you.
--- NOTE | 2017-06-11 09:01 | Pharmacy Progress Note ---
Pharmacy Glycemic Short Note 2 Date of Service Jun 11, 2017. OUTPATIENT ANTIDIABETIC REGIMEN: * Lantus 35 units in the evening plus Novolog 12 with breakfast, 14 with lunch, and 16 with dinner (total = 77 units) ASSESSMENT: * Mr Nicole is a 62 y/o M with a PMH of liver transplant, hepatitis B, hemodialysis MWF, and unknown control of type 2 diabetes (HbA1C is not reliable in this patient as he undergoes hemodialysis which can effect the results). He is currently being treated for an Enterococcus bacteremia with vancomycin. * During a previous hospitalization in February of last year, the patient consistently required 10 units of Lantus BID plus around 20-27 units of correctional insulin. * The patient's blood sugar yesterday was [phone]. He received 23 units of insulin (12 units of Lantus) ... the patient's fasting blood sugar was 81 mg/ dL this morning. Loosened Lantus again for tonight to 10 units. Loosened Novolog with lunch and dinner as patient trended downwards yesterday. Continue same parameters with breakfast as historically the patient has large spikes here. PLAN FOR INPATIENT GLYCEMIC CONTROL: * Basal insulin * Lantus 10 units SQ qHS * Bolus insulin * NovoLog per scale ACHS or Q6hrs while NPO * Goal Range: Low 110 mg/dL - High 140 mg/dL * Correction Factor: 20 mg/dL/unit with breakfast and 25 mg/dL/unit with all other meals * Nutritional / Prandial insulin per carb ratio of 1 unit per 10 grams CHO consumed with breakfast and 1 unit per 12 grams CHO consumed with all other meals PLAN FOR DISCHARGE: * The patient is a dialysis patient and therefore HbA1C is not an adequate indicator of glycemic control. Recommend checking blood sugars and making a log for outpatient adjustment of insulin.
[2017-06-11] MEDS ORDERED: NURSING VERBAL MED ORDER ONE (09:45)
[2017-06-11] MEDS ORDERED: ONDANSETRON INJ 2 MG/ML 2 ML VIAL IV PRN (10:00)
[2017-06-11] MEDS: HEPARIN SOD (PORCINE) 1000 UNIT/ML 10 ML VIAL IV SCH ×3 (10:00→13:30)
--- NOTE | 2017-06-11 12:52 | PROGRESS NOTE ---
DATE: 06/11/2017 DIALYSIS PROGRESS NOTE SUBJECTIVE: The patient was seen during dialysis and so far he is not feeling any harmful effect. No fever, no chills, no cramping. PHYSICAL EXAMINATION: VITAL SIGNS: blood pressure is good at 121/74, pulse of 74 per minute. AV fistula is working good with a smaller needle and a blood flow of 250. Dialysis catheter is out at this time. GENERAL: Awake, alert, oriented x3. HEENT: Mucous membrane is moist. NECK: Supple. No jugular venous distention. CARDIOVASCULAR: Normal speech. Moving all 4 extremities. Regular rate and rhythm, no edema. LUNGS: Clear to auscultation. EXTREMITIES: Shows no edema. SKIN: Warm and dry. LABORATORY TESTS: From this morning was reviewed. Hemoglobin 12.7, WBC count 7.28, and platelet count 65,000 but is stable at that level. BUN 52, creatinine 6.19, sodium 139, potassium 4.7. The blood culture that was done yesterday is still showing positive blood culture which is concerning as the dialysis catheter is already out. ASSESSMENT AND PLAN: The patient with end-stage renal disease and bacteremia, presumably related with the dialysis catheter, but it is concerning that even after the dialysis catheter has been removed, the blood culture from yesterday still positive. Continue to do blood culture daily until we can document that he is negative. Antibiotic treatment as per infectious disease. Fortunately, the dialysis fistula is working pretty good. The patient is immunocompromised. He did have an echocardiogram which did not show any endocarditis. [facility]
--- NOTE | 2017-06-11 15:58 | Progress Note ---
Subjective Date of Service: Jun 11, 2017. Subjective Pt evaluation today including: conversation w/ patient, physical exam, lab review, review of studies, review of inpatient medication list Saw/examined the patient in room 277 He had dialysis this morning, did well with it No problems/issues at this time Review of Systems Constitutional: No fever, No chills Respiratory: No cough, No sputum, No shortness of breath Cardiac: No chest pain Abdomen: + nausea (resolved), No pain, No vomiting, No diarrhea Heme: No abnormal bleeding/bruising Medications Current Inpatient Medications Medications (Trade) Dose Ordered Sig/Jon Route Start Time Stop Time Status Last Admin Dose Admin Heparin Sodium (Porcine) (Heparin Sq 5000 Unit/0.5ml) 5,000 unit Q8 SQ 06/07/17 22:00 07/07/17 21:59 06/11/17 14:08 5,000 UNIT Acetaminophen (Tylenol Tab) 650 mg Q4H PRN PO 06/07/17 14:30 07/07/17 14:29 Insulin Aspart (novoLOG ASPART) SLIDING SCALE If C... TID@1100,1630,2100 SC 06/07/17 16:30 07/07/17 16:29 06/10/17 17:46 2 UNITS Glucose (Glucose 40% Gel) 15-30 GRAMS 15 GRAMS... UD PRN PO 06/07/17 15:15 07/07/17 15:14 Glucose (Glucose Chew Tab) 4-8 Tablets 4 Tabl... UD PRN PO 06/07/17 15:15 07/07/17 15:14 06/07/17 17:31 4 TABS Dextrose (Dextrose 50% 50ML Syringe) 25-50ML OF 50% DW IV FOR... UD PRN IV 06/07/17 15:15 07/07/17 15:14 06/08/17 07:57 50 ML Glucagon (Glucagon Inj) 1 mg UD PRN SQ 06/07/17 15:15 07/07/17 15:14 Miscellaneous Information (Consult Glycemic Management Pharmacy) 1 ea UD PRN N/A 06/07/17 15:22 07/07/17 15:21 Miscellaneous Information (Consult) 1 ea UD PRN N/A 06/07/17 15:30 07/07/17 15:29 Allopurinol (Zyloprim Tab) 100 mg DAILY PO 06/08/17 09:00 07/08/17 08:59 06/11/17 07:44 100 MG Calcium Acetate (Phoslo Cap) 667 mg TIDM PO 06/07/17 17:00 07/07/17 17:59 06/11/17 14:05 667 MG Clopidogrel Bisulfate (plAVix TAB) 75 mg DAILY PO 06/08/17 09:00 07/08/17 08:59 06/11/17 07:43 75 MG Ferrous Sulfate (Feosol Tab) 325 mg TIDM PO 06/07/17 17:00 07/07/17 17:59 06/11/17 14:06 325 MG Pantoprazole Sodium (Protonix Tab) 40 mg DAILY PO 06/08/17 09:00 07/08/17 08:59 06/11/17 07:43 40 MG Pravastatin Sodium (Pravachol Tab) 20 mg DAILY PO 06/08/17 09:00 07/08/17 08:59 06/11/17 07:41 20 MG Tacrolimus (Prograf Cap) 4 mg BID PO 06/07/17 21:00 07/07/17 20:59 06/11/17 07:44 4 MG Amitriptyline HCl (Elavil Tab) 150 mg HS PO 06/07/17 21:00 07/07/17 20:59 06/10/17 21:37 150 MG Cholecalciferol (Vitamin D Tab) 2,000 inter.unit DAILY PO 06/08/17 09:00 07/08/17 08:59 06/11/17 07:44 2,000 INTER.UNIT Insulin Aspart (novoLOG ASPART) SLIDING SCALE If C... QDB SC 06/08/17 08:00 07/08/17 07:59 06/10/17 08:02 3 UNITS Non-Formulary Medication (Non-Formulary Patient'S Own Med) 1 ea DAILY PO 06/08/17 09:00 07/08/17 08:59 06/11/17 07:46 1 EA Insulin Glargine (Lantus Solostar Pen) 10 units HS SC 06/11/17 21:00 07/11/17 20:59 Vancomycin HCl 500 mg/Sodium Chloride 110 ml @ 110 mls/hr TODAY@2000 ONCE IV 06/11/17 20:00 06/11/17 20:59 Ondansetron HCl (Zofran Inj) 4 mg Q6H PRN IV 06/11/17 10:00 07/11/17 09:59 Objective Vital Signs Date Time Temp Pulse Resp B/P (MAP) Pulse Ox O2 Delivery O2 Flow Rate FiO2 06/11/17 15:46 35.8 70 18 130/73 (92) 95 Room Air 06/11/17 13:30 36.7 70 18 146/79 (101) 95 Room Air 06/11/17 12:50 37.1 75 135/82 (99) 06/11/17 12:30 76 121/74 06/11/17 12:15 74 114/71 06/11/17 12:00 75 125/79 06/11/17 11:45 74 129/80 06/11/17 11:30 73 125/81 06/11/17 11:15 72 129/79 06/11/17 11:00 71 125/76 06/11/17 10:45 72 122/77 06/11/17 10:30 71 125/76 06/11/17 10:15 70 133/78 06/11/17 10:00 71 131/84 06/11/17 09:45 74 131/87 06/11/17 09:30 69 130/82 06/11/17 09:00 68 132/83 06/11/17 08:41 36.6 68 123/76 (92) 06/11/17 08:00 Room Air 06/11/17 07:28 36.6 70 17 138/83 (101) 93 Room Air 06/11/17 04:00 Room Air 06/11/17 03:52 36.3 70 16 136/78 (97) 96 Room Air 06/10/17 23:59 Room Air 06/10/17 23:26 36.8 62 18 141/79 (99) 94 Room Air 06/10/17 20:00 Room Air 06/10/17 19:37 36.8 62 18 153/66 (95) 94 Room Air 06/10/17 16:00 Room Air Physical Exam General Appearance: no apparent distress, + thin Respiratory/Chest: lungs clear, normal breath sounds, no respiratory distress, no accessory muscle use Cardiovascular: regular rate, rhythm, no edema, no murmur Abdomen: normal bowel sounds, non tender, soft Extremities: normal range of motion, non-tender, normal inspection, no pedal edema, no calf tenderness Neurologic/Psychiatric: no motor/sensory deficits, alert, normal mood/affect, + motor weakness Laboratory Results Last 24 Hours Test 06/10/17 16:16 06/10/17 20:25 06/11/17 04:54 06/11/17 07:37 Bedside Glucose 105 mg/dl 88 mg/dl 81 mg/dl White Blood Count 7.28 K/uL Red Blood Count 3.92 M/uL Hemoglobin 12.7 g/dL Hematocrit 37.8 % Mean Corpuscular Volume 96.4 fL Mean Corpuscular Hemoglobin 32.4 pg Mean Corpuscular Hemoglobin Concent 33.6 g/dl RDW Standard Deviation 45.8 fL RDW Coefficient of Variation 13.2 % Platelet Count 65 K/uL Mean Platelet Volume 9.0 fL Sodium Level 139 mmol/L Potassium Level 4.7 mmol/L Chloride Level 109 mmol/L Carbon Dioxide Level 21 mmol/L Anion Gap 9.0 mmol/L Blood Urea Nitrogen 52 mg/dl Creatinine 6.19 mg/dl Est Creatinine Clear Calc Drug Dose 10.9 ml/min Estimated GFR () 10.1 Estimated GFR (Non- 8.7 BUN/Creatinine Ratio 8.6 Random Glucose 92 mg/dl Calcium Level 8.5 mg/dl Random Vancomycin Level 20.1 mcg/ml Test 06/11/17 11:38 Bedside Glucose 111 mg/dl Assessment and Plan This is a 62 year old male with a recent initiation of dialysis, AV fistula on R arm, not yet fully matured; insulin dependent DM, CAD, cerebral palsy Enterococcal Bacteremia 06/11 - persistent bacteremia in the setting of immunocompromised patient - catheter tip and blood cultures x3 so far are positive - another set drawn, may need further w/up, defer to ID - for now, continue IV Vancomycin with dialysis as per ID; will need 2 weeks of treatment at minimum 06/10 - blood cultures positive x2 for streptococcal species and tip culture positive for enterococcus - spoke with ID, vanco with dialysis x2 weeks - repeat blood cultures ordered and pending, once negative, can d/c home 06/09 - streptococcal species on blood cultures x2 - enterococcus species growing on the tip of the catheter; sensitivities pending - continue Vanco for now 06/08 - patient admitted due to outpatient blood cultures being positive - given IV Vanco - tunneled dialysis catheter removed - blood cultures here are also positive x2 - echo with no evidence of endocarditis - further input as per ID ESRD on HD 06/10 - dialysis on 06/11 06/09 - s/p dialysis today - AV fistula functioning 06/08 - appreciate vascular surgery input - catheter removed, tip cultured - can use mature AV fistula - dialysis as per nephrology Hx. of CAD - troponins negative x3 - unlikely acute issue - continue home medications Uncontrolled DM2 - continue insulin - appreciate pharmacy glycemic control DVT ppx - subq heparin FULL CODE
--- NOTE | 2017-06-11 17:28 | Infectious Disease Progress Nt ---
Progress Note Date of Service Jun 11, 2017. 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 Remains afebrile. Tolerating vancomycin without apparent difficulty. All Other Systems: Reviewed and Negative Medications Current Inpatient Medications Medications (Trade) Dose Ordered Sig/Jon Route Start Time Stop Time Status Last Admin Dose Admin Heparin Sodium (Porcine) (Heparin Sq 5000 Unit/0.5ml) 5,000 unit Q8 SQ 06/07/17 22:00 07/07/17 21:59 06/11/17 14:08 5,000 UNIT Acetaminophen (Tylenol Tab) 650 mg Q4H PRN PO 06/07/17 14:30 07/07/17 14:29 Insulin Aspart (novoLOG ASPART) SLIDING SCALE If C... TID@1100,1630,2100 SC 06/07/17 16:30 07/07/17 16:29 06/10/17 17:46 2 UNITS Glucose (Glucose 40% Gel) 15-30 GRAMS 15 GRAMS... UD PRN PO 06/07/17 15:15 07/07/17 15:14 Glucose (Glucose Chew Tab) 4-8 Tablets 4 Tabl... UD PRN PO 06/07/17 15:15 07/07/17 15:14 06/07/17 17:31 4 TABS Dextrose (Dextrose 50% 50ML Syringe) 25-50ML OF 50% DW IV FOR... UD PRN IV 06/07/17 15:15 07/07/17 15:14 06/08/17 07:57 50 ML Glucagon (Glucagon Inj) 1 mg UD PRN SQ 06/07/17 15:15 07/07/17 15:14 Miscellaneous Information (Consult Glycemic Management Pharmacy) 1 ea UD PRN N/A 06/07/17 15:22 07/07/17 15:21 Miscellaneous Information (Consult) 1 ea UD PRN N/A 06/07/17 15:30 07/07/17 15:29 Allopurinol (Zyloprim Tab) 100 mg DAILY PO 06/08/17 09:00 07/08/17 08:59 06/11/17 07:44 100 MG Calcium Acetate (Phoslo Cap) 667 mg TIDM PO 06/07/17 17:00 07/07/17 17:59 06/11/17 14:05 667 MG Clopidogrel Bisulfate (plAVix TAB) 75 mg DAILY PO 06/08/17 09:00 07/08/17 08:59 06/11/17 07:43 75 MG Ferrous Sulfate (Feosol Tab) 325 mg TIDM PO 06/07/17 17:00 07/07/17 17:59 06/11/17 14:06 325 MG Pantoprazole Sodium (Protonix Tab) 40 mg DAILY PO 06/08/17 09:00 07/08/17 08:59 06/11/17 07:43 40 MG Pravastatin Sodium (Pravachol Tab) 20 mg DAILY PO 06/08/17 09:00 07/08/17 08:59 06/11/17 07:41 20 MG Tacrolimus (Prograf Cap) 4 mg BID PO 06/07/17 21:00 07/07/17 20:59 06/11/17 07:44 4 MG Amitriptyline HCl (Elavil Tab) 150 mg HS PO 06/07/17 21:00 07/07/17 20:59 06/10/17 21:37 150 MG Cholecalciferol (Vitamin D Tab) 2,000 inter.unit DAILY PO 06/08/17 09:00 07/08/17 08:59 06/11/17 07:44 2,000 INTER.UNIT Insulin Aspart (novoLOG ASPART) SLIDING SCALE If C... QDB SC 06/08/17 08:00 07/08/17 07:59 06/10/17 08:02 3 UNITS Non-Formulary Medication (Non-Formulary Patient'S Own Med) 1 ea DAILY PO 06/08/17 09:00 07/08/17 08:59 06/11/17 07:46 1 EA Insulin Glargine (Lantus Solostar Pen) 10 units HS SC 06/11/17 21:00 07/11/17 20:59 Vancomycin HCl 500 mg/Sodium Chloride 110 ml @ 110 mls/hr TODAY@2000 ONCE IV 06/11/17 20:00 06/11/17 20:59 Ondansetron HCl (Zofran Inj) 4 mg Q6H PRN IV 06/11/17 10:00 4/29/18 09:59 Objective Vital Signs Date Time Temp Pulse Resp B/P (MAP) Pulse Ox O2 Delivery O2 Flow Rate FiO2 06/11/17 16:00 Room Air 06/11/17 15:46 35.8 70 18 130/73 (92) 95 Room Air 06/11/17 13:30 36.7 70 18 146/79 (101) 95 Room Air 06/11/17 12:50 37.1 75 135/82 (99) 06/11/17 12:30 76 121/74 06/11/17 12:15 74 114/71 06/11/17 12:00 75 125/79 06/11/17 11:45 74 129/80 06/11/17 11:30 73 125/81 06/11/17 11:15 72 129/79 06/11/17 11:00 71 125/76 06/11/17 10:45 72 122/77 06/11/17 10:30 71 125/76 06/11/17 10:15 70 133/78 06/11/17 10:00 71 131/84 06/11/17 09:45 74 131/87 06/11/17 09:30 69 130/82 06/11/17 09:00 68 132/83 06/11/17 08:41 36.6 68 123/76 (92) 06/11/17 08:00 Room Air 06/11/17 07:28 36.6 70 17 138/83 (101) 93 Room Air 06/11/17 04:00 Room Air 06/11/17 03:52 36.3 70 16 136/78 (97) 96 Room Air 06/10/17 23:59 Room Air 06/10/17 23:26 36.8 62 18 141/79 (99) 94 Room Air 06/10/17 20:00 Room Air 06/10/17 19:37 36.8 62 18 153/66 (95) 94 Room Air Physical Exam General Appearance: WD/WN, no apparent distress Eyes: normal inspection, EOMI, sclerae normal ENT: normal ENT inspection, pharynx normal Neck: supple, no adenopathy, thyroid normal, trachea midline Respiratory/Chest: chest non-tender, lungs clear, normal breath sounds, no respiratory distress Cardiovascular: regular rate, rhythm, no gallop, no murmur Abdomen: normal bowel sounds, non tender, soft, no organomegaly Extremities: non-tender, no calf tenderness, normal capillary refill Neurologic/Psychiatric: alert, oriented x 3 Skin: normal color, warm/dry, no rash Lymphatic: no adenopathy Laboratory Results RUN DATE: 06/11/17 [facility] PAGE 1 RUN TIME: 924 Specimen Inquiry PATIENT: ISABEL REYES LOC: [facility] # : [id number] AGE/SX: 62/M ROOM: [facility] REG : 06/07/[address]: Jose Reza DO : 1955 BED: 2 DIS : STATUS: ADM IN TLOC: SPEC #: [id number] CLARISSA: 06/10/17 STATUS: RES REQ #: [id number] RECD: 06/10/[address]: Ana Moss MD SOURCE: BLOOD ENTR: 06/10/17-[address]: Carlton Lee D.O. SPDESC: Jose Reza DO Love, Lauren ., Jennifer. [place] D.O. Simoni, Eugene J., M.D. ORDERED: BLOOD CULTURE Procedure Result Verified Site BLD CULT Preliminary 06/11/17-924 Organism 1 GRAM POSITIVE COCCI SENS SENSITIVITIES DEPENDENT ON FURTHER IDENTIFICATION Phoned Positive Blood Culture Gram Stain Report to BENEDICT BURNETT on 06/11/17 At 0923 By [facility]. Results were verbalized back to [facility]. Last 24 Hours Test 06/10/17 20:25 06/11/17 04:54 06/11/17 07:37 06/11/17 11:38 Bedside Glucose 88 mg/dl 81 mg/dl 111 mg/dl White Blood Count 7.28 K/uL Red Blood Count 3.92 M/uL Hemoglobin 12.7 g/dL Hematocrit 37.8 % Mean Corpuscular Volume 96.4 fL Mean Corpuscular Hemoglobin 32.4 pg Mean Corpuscular Hemoglobin Concent 33.6 g/dl RDW Standard Deviation 45.8 fL RDW Coefficient of Variation 13.2 % Platelet Count 65 K/uL Mean Platelet Volume 9.0 fL Sodium Level 139 mmol/L Potassium Level 4.7 mmol/L Chloride Level 109 mmol/L Carbon Dioxide Level 21 mmol/L Anion Gap 9.0 mmol/L Blood Urea Nitrogen 52 mg/dl Creatinine 6.19 mg/dl Est Creatinine Clear Calc Drug Dose 10.9 ml/min Estimated GFR () 10.1 Estimated GFR (Non- 8.7 BUN/Creatinine Ratio 8.6 Random Glucose 92 mg/dl Calcium Level 8.5 mg/dl Random Vancomycin Level 20.1 mcg/ml Test 06/11/17 16:28 Bedside Glucose 169 mg/dl Assessment and Plan 62-year-old male with end-stage renal disease on dialysis now with enterococcal bacteremia from infected dialysis catheter now removed. Patient should be continued on vancomycin pending results of further blood cultures. Likely will need in the range of 2 weeks of IV therapy. Will follow.
[2017-06-11] MEDS ORDERED: VANCOMYCIN IV 500 MG in SODIUM CHLORIDE 0.9% 100ML 100 ML IV ONE (20:00)
[2017-06-11] MEDS: INSULIN GLARGINE SOLOSTAR 100 UNITS/ML 3 ML PEN SC SCH (21:05)
[2017-06-11] MEDS: AMITRIPTYLINE HCL 50 MG TAB PO SCH (21:06)
[2017-06-12] VITALS (7 sets, daily range): BP systolic 125–144; BP diastolic 71–82; PULSE 66–73; TEMP 36.4–36.8; O2SAT 91–96
[2017-06-12] MEDS: HEPARIN SOD 5000 UNIT/0.5 ML CARP SQ SCH ×3 (06:12→21:11)
[2017-06-12 06:24] LABS: HEMATOCRIT 37.9 % (42-52); HEMOGLOBIN 12.4 g/dL (14.0-18.0); MEAN CELL VOLUME 96.4 fL (80-100); MEAN CORPUSCULAR HEMOGLOBIN 31.6 pg (25-34); MEAN CORPUSCULAR HGB CONC 32.7 g/dl (32-36); RED CELL DISTRIBUTION WIDTH CV 13.2 % (11.5-14.5); RED CELL DISTRIBUTION WIDTH SD 46.1 fL (36.4-46.3); WHITE BLOOD COUNT 6.68 K/uL (4.8-10.8)
[2017-06-12 06:28] LABS: MEAN PLATELET VOLUME 8.8 fL (7.4-10.4); PLATELET COUNT 57 K/uL (130-400)
[2017-06-12 07:09] LABS: CALCIUM 8.3 mg/dl (8.5-10.1); CREATININE 5.27 mg/dl (0.60-1.40); POTASSIUM 4.7 mmol/L (3.5-5.1)
[2017-06-12] MEDS: ALLOPURINOL 100 MG TAB PO SCH (09:06)
[2017-06-12] MEDS: CLOPIDOGREL BISULFATE 75 MG TAB PO SCH (09:06)
[2017-06-12] MEDS: CHOLECALCIFEROL 1000 INTER.UNIT TAB PO SCH (09:06)
[2017-06-12] MEDS: FERROUS SULFATE 325 MG TAB PO SCH ×3 (09:07→17:43)
[2017-06-12] MEDS: TACROLIMUS 1 MG CAP PO SCH ×2 (09:07→21:06)
[2017-06-12] MEDS: PANTOprazole SOD 40 MG TAB PO SCH (09:07)
[2017-06-12] MEDS: CALCIUM ACETATE 667MG GELCAP PO SCH ×3 (09:07→17:43)
[2017-06-12] MEDS: INSULIN ASPART 100 UNITS/ML 3 ML PEN SC SCH ×4 (09:08→21:00)
[2017-06-12] MEDS: ENTECAVIR 0.5 MG PO SCH (09:08)
[2017-06-12] MEDS: PRAVASTATIN SOD 20 MG TAB PO SCH (09:09)
--- NOTE | 2017-06-12 12:46 | Pharmacy Progress Note ---
Pharmacy Glycemic Short Note 2 Date of Service Jun 12, 2017. OUTPATIENT ANTIDIABETIC REGIMEN: * Lantus 35 units in the evening plus Novolog 12 with breakfast, 14 with lunch, and 16 with dinner (total = 77 units) ASSESSMENT: * Mr Nicole is a 62 y/o M with a PMH of liver transplant, hepatitis B, hemodialysis MWF, and unknown control of type 2 diabetes (HbA1C is not reliable in this patient as he undergoes hemodialysis which can effect the results). He is currently being treated for an Enterococcus bacteremia with vancomycin. * Pt has been requiring ~20 units of insulin per day with adequate control. * BSGs ranging 81-253 mg/dl * BSG spike today prior to lunch since breakfast CHO (toast) were not covered and patient snacked on a sherbert in between breakfast & lunch which was not covered. * Will not make any changes today. PLAN FOR INPATIENT GLYCEMIC CONTROL: * Basal insulin * Lantus 10 units SQ qHS * Bolus insulin * NovoLog per scale ACHS or Q6hrs while NPO * Goal Range: Low 110 mg/dL - High 140 mg/dL * Correction Factor: 20 mg/dL/unit with breakfast and 25 mg/dL/unit with all other meals * Nutritional / Prandial insulin per carb ratio of 1 unit per 10 grams CHO consumed with breakfast and 1 unit per 12 grams CHO consumed with all other meals PLAN FOR DISCHARGE: * A1c not reliable in HD/ESRD patient * Recommend continuing to titrate outpatient regimen per PCP. Patient has been requiring significantly less insulin in house as compared to outpatient dosing. If patient is experiencing hypoglycemia outpatient insulin doses may need decreased.
--- NOTE | 2017-06-12 13:12 | Progress Note ---
Subjective Date of Service: Jun 12, 2017. Subjective Pt evaluation today including: conversation w/ patient, physical exam, lab review, review of studies, review of inpatient medication list Saw/examined the patient in room 277 He's laying in bed, comfortable; no issues to note today Review of Systems Constitutional: + weakness, No fever, No chills Respiratory: No shortness of breath Cardiac: No chest pain Abdomen: No pain, No nausea, No vomiting, No diarrhea Medications Current Inpatient Medications Medications (Trade) Dose Ordered Sig/Jon Route Start Time Stop Time Status Last Admin Dose Admin Heparin Sodium (Porcine) (Heparin Sq 5000 Unit/0.5ml) 5,000 unit Q8 SQ 06/07/17 22:00 07/07/17 21:59 06/12/17 06:12 5,000 UNIT Acetaminophen (Tylenol Tab) 650 mg Q4H PRN PO 06/07/17 14:30 07/07/17 14:29 Insulin Aspart (novoLOG ASPART) SLIDING SCALE If C... TID@1100,1630,2100 SC 06/07/17 16:30 07/07/17 16:29 06/12/17 12:11 9 UNITS Glucose (Glucose 40% Gel) 15-30 GRAMS 15 GRAMS... UD PRN PO 06/07/17 15:15 07/07/17 15:14 Glucose (Glucose Chew Tab) 4-8 Tablets 4 Tabl... UD PRN PO 06/07/17 15:15 07/07/17 15:14 06/07/17 17:31 4 TABS Dextrose (Dextrose 50% 50ML Syringe) 25-50ML OF 50% DW IV FOR... UD PRN IV 06/07/17 15:15 07/07/17 15:14 06/08/17 07:57 50 ML Glucagon (Glucagon Inj) 1 mg UD PRN SQ 06/07/17 15:15 07/07/17 15:14 Miscellaneous Information (Consult Glycemic Management Pharmacy) 1 ea UD PRN N/A 06/07/17 15:22 07/07/17 15:21 Miscellaneous Information (Consult) 1 ea UD PRN N/A 06/07/17 15:30 07/07/17 15:29 Allopurinol (Zyloprim Tab) 100 mg DAILY PO 06/08/17 09:00 07/08/17 08:59 06/12/17 09:06 100 MG Calcium Acetate (Phoslo Cap) 667 mg TIDM PO 06/07/17 17:00 07/07/17 17:59 06/12/17 12:03 667 MG Clopidogrel Bisulfate (plAVix TAB) 75 mg DAILY PO 06/08/17 09:00 07/08/17 08:59 06/12/17 09:06 75 MG Ferrous Sulfate (Feosol Tab) 325 mg TIDM PO 06/07/17 17:00 07/07/17 17:59 06/12/17 09:07 325 MG Pantoprazole Sodium (Protonix Tab) 40 mg DAILY PO 06/08/17 09:00 07/08/17 08:59 06/12/17 09:07 40 MG Pravastatin Sodium (Pravachol Tab) 20 mg DAILY PO 06/08/17 09:00 07/08/17 08:59 06/12/17 09:09 20 MG Tacrolimus (Prograf Cap) 4 mg BID PO 06/07/17 21:00 07/07/17 20:59 06/12/17 09:07 4 MG Amitriptyline HCl (Elavil Tab) 150 mg HS PO 06/07/17 21:00 07/07/17 20:59 06/11/17 21:06 150 MG Cholecalciferol (Vitamin D Tab) 2,000 inter.unit DAILY PO 06/08/17 09:00 07/08/17 08:59 06/12/17 09:06 2,000 INTER.UNIT Insulin Aspart (novoLOG ASPART) SLIDING SCALE If C... QDB SC 06/08/17 08:00 07/08/17 07:59 06/10/17 08:02 3 UNITS Non-Formulary Medication (Non-Formulary Patient'S Own Med) 1 ea DAILY PO 06/08/17 09:00 07/08/17 08:59 06/12/17 09:08 1 EA Insulin Glargine (Lantus Solostar Pen) 10 units HS SC 06/11/17 21:00 07/11/17 20:59 06/11/17 21:05 10 UNITS Ondansetron HCl (Zofran Inj) 4 mg Q6H PRN IV 06/11/17 10:00 07/11/17 09:59 Objective Vital Signs Date Time Temp Pulse Resp B/P (MAP) Pulse Ox O2 Delivery O2 Flow Rate FiO2 06/12/17 11:28 36.8 71 16 135/74 (94) 96 Room Air 06/12/17 08:00 Room Air 06/12/17 07:02 36.8 69 18 140/82 (101) 94 Room Air 06/12/17 04:42 36.7 71 18 125/71 (89) 96 Room Air 06/12/17 04:28 Room Air 06/12/17 00:25 36.4 72 20 132/76 (94) 93 Room Air 06/12/17 00:12 Room Air 06/11/17 20:15 36.6 65 18 120/75 (90) 94 Room Air 06/11/17 19:45 95 Room Air 06/11/17 16:00 Room Air 06/11/17 15:46 35.8 70 18 130/73 (92) 95 Room Air 06/11/17 13:30 36.7 70 18 146/79 (101) 95 Room Air Physical Exam General Appearance: no apparent distress, + cachetic, + thin Respiratory/Chest: lungs clear, normal breath sounds, no respiratory distress, no accessory muscle use Cardiovascular: regular rate, rhythm, no edema, no murmur Neurologic/Psychiatric: alert, normal mood/affect, + motor weakness Laboratory Results Last 24 Hours Test 06/11/17 16:28 06/11/17 20:35 06/12/17 06:05 06/12/17 07:02 Bedside Glucose 169 mg/dl 142 mg/dl 100 mg/dl White Blood Count 6.68 K/uL Red Blood Count 3.93 M/uL Hemoglobin 12.4 g/dL Hematocrit 37.9 % Mean Corpuscular Volume 96.4 fL Mean Corpuscular Hemoglobin 31.6 pg Mean Corpuscular Hemoglobin Concent 32.7 g/dl RDW Standard Deviation 46.1 fL RDW Coefficient of Variation 13.2 % Platelet Count 57 K/uL Mean Platelet Volume 8.8 fL Sodium Level 138 mmol/L Potassium Level 4.7 mmol/L Chloride Level 106 mmol/L Carbon Dioxide Level 25 mmol/L Anion Gap 8.0 mmol/L Blood Urea Nitrogen 36 mg/dl Creatinine 5.27 mg/dl Est Creatinine Clear Calc Drug Dose 12.6 ml/min Estimated GFR () 12.3 Estimated GFR (Non- 10.6 BUN/Creatinine Ratio 6.9 Random Glucose 122 mg/dl Calcium Level 8.3 mg/dl Test 06/12/17 11:35 Bedside Glucose 253 mg/dl Assessment and Plan This is a 62 year old male with a recent initiation of dialysis, AV fistula on R arm, not yet fully matured; insulin dependent DM, CAD, cerebral palsy Enterococcal Bacteremia 06/12 - repeat blood cultures pending - will continue Vancomycin with dialysis - plan to d/c when blood cultures are negative 06/11 - persistent bacteremia in the setting of immunocompromised patient - catheter tip and blood cultures x3 so far are positive - another set drawn, may need further w/up, defer to ID - for now, continue IV Vancomycin with dialysis as per ID; will need 2 weeks of treatment at minimum 06/10 - blood cultures positive x2 for streptococcal species and tip culture positive for enterococcus - spoke with ID, vanco with dialysis x2 weeks - repeat blood cultures ordered and pending, once negative, can d/c home 06/09 - streptococcal species on blood cultures x2 - enterococcus species growing on the tip of the catheter; sensitivities pending - continue Vanco for now 06/08 - patient admitted due to outpatient blood cultures being positive - given IV Vanco - tunneled dialysis catheter removed - blood cultures here are also positive x2 - echo with no evidence of endocarditis - further input as per ID ESRD on HD 06/10 - dialysis on 06/11 06/09 - s/p dialysis today - AV fistula functioning 06/08 - appreciate vascular surgery input - catheter removed, tip cultured - can use mature AV fistula - dialysis as per nephrology Hx. of CAD - troponins negative x3 - unlikely acute issue - continue home medications Uncontrolled DM2 - continue insulin - appreciate pharmacy glycemic control DVT ppx - subq heparin FULL CODE
[2017-06-12] MEDS: AMITRIPTYLINE HCL 50 MG TAB PO SCH (21:06)
[2017-06-12] MEDS: INSULIN GLARGINE SOLOSTAR 100 UNITS/ML 3 ML PEN SC SCH (21:10)
[2017-06-13 03:58] VITALS: BP 129/77; PULSE 69; TEMP 36.5; O2SAT 94
[2017-06-13] MEDS: HEPARIN SOD 5000 UNIT/0.5 ML CARP SQ SCH ×3 (05:40→20:33)
[2017-06-13 07:07] VITALS: BP 125/82; PULSE 74; TEMP 36.4; O2SAT 93
[2017-06-13] MEDS: TACROLIMUS 1 MG CAP PO SCH ×2 (08:48→20:31)
[2017-06-13] MEDS: CLOPIDOGREL BISULFATE 75 MG TAB PO SCH (08:48)
[2017-06-13] MEDS: CHOLECALCIFEROL 1000 INTER.UNIT TAB PO SCH (08:48)
[2017-06-13] MEDS: PANTOprazole SOD 40 MG TAB PO SCH (08:50)
[2017-06-13] MEDS: FERROUS SULFATE 325 MG TAB PO SCH ×3 (08:50→17:11)
[2017-06-13] MEDS: PRAVASTATIN SOD 20 MG TAB PO SCH (08:51)
[2017-06-13] MEDS: ENTECAVIR 0.5 MG PO SCH (08:52)
[2017-06-13] MEDS: CALCIUM ACETATE 667MG GELCAP PO SCH ×3 (08:53→17:11)
[2017-06-13] MEDS: ALLOPURINOL 100 MG TAB PO SCH (08:55)
[2017-06-13] MEDS: INSULIN ASPART 100 UNITS/ML 3 ML PEN SC SCH ×4 (09:03→20:32)
[2017-06-13 11:35] VITALS: BP 133/75; PULSE 66; TEMP 36.8; O2SAT 94
--- NOTE | 2017-06-13 12:09 | Progress Note ---
Subjective Date of Service: Jun 13, 2017. Subjective Pt evaluation today including: conversation w/ patient, physical exam, lab review, review of studies, review of inpatient medication list Saw/examined the patient in room 277 No issues to note today Review of Systems Constitutional: No fever, No chills, No weakness Respiratory: No cough, No sputum, No shortness of breath Cardiac: No chest pain Abdomen: No pain, No nausea, No vomiting, No diarrhea Medications Current Inpatient Medications Medications (Trade) Dose Ordered Sig/Jon Route Start Time Stop Time Status Last Admin Dose Admin Heparin Sodium (Porcine) (Heparin Sq 5000 Unit/0.5ml) 5,000 unit Q8 SQ 06/07/17 22:00 07/07/17 21:59 06/13/17 05:40 5,000 UNIT Acetaminophen (Tylenol Tab) 650 mg Q4H PRN PO 06/07/17 14:30 07/07/17 14:29 Insulin Aspart (novoLOG ASPART) SLIDING SCALE If C... TID@1100,1630,2100 SC 06/07/17 16:30 07/07/17 16:29 06/12/17 17:48 5 UNITS Glucose (Glucose 40% Gel) 15-30 GRAMS 15 GRAMS... UD PRN PO 06/07/17 15:15 07/07/17 15:14 Glucose (Glucose Chew Tab) 4-8 Tablets 4 Tabl... UD PRN PO 06/07/17 15:15 07/07/17 15:14 06/07/17 17:31 4 TABS Dextrose (Dextrose 50% 50ML Syringe) 25-50ML OF 50% DW IV FOR... UD PRN IV 06/07/17 15:15 07/07/17 15:14 06/08/17 07:57 50 ML Glucagon (Glucagon Inj) 1 mg UD PRN SQ 06/07/17 15:15 07/07/17 15:14 Miscellaneous Information (Consult Glycemic Management Pharmacy) 1 ea UD PRN N/A 06/07/17 15:22 07/07/17 15:21 Miscellaneous Information (Consult) 1 ea UD PRN N/A 06/07/17 15:30 07/07/17 15:29 Allopurinol (Zyloprim Tab) 100 mg DAILY PO 06/08/17 09:00 07/08/17 08:59 06/13/17 08:55 100 MG Calcium Acetate (Phoslo Cap) 667 mg TIDM PO 06/07/17 17:00 07/07/17 17:59 06/13/17 08:53 667 MG Clopidogrel Bisulfate (plAVix TAB) 75 mg DAILY PO 06/08/17 09:00 07/08/17 08:59 06/13/17 08:48 75 MG Ferrous Sulfate (Feosol Tab) 325 mg TIDM PO 06/07/17 17:00 07/07/17 17:59 06/13/17 08:50 325 MG Pantoprazole Sodium (Protonix Tab) 40 mg DAILY PO 06/08/17 09:00 07/08/17 08:59 06/13/17 08:50 40 MG Pravastatin Sodium (Pravachol Tab) 20 mg DAILY PO 06/08/17 09:00 07/08/17 08:59 06/13/17 08:51 20 MG Tacrolimus (Prograf Cap) 4 mg BID PO 06/07/17 21:00 07/07/17 20:59 06/13/17 08:48 4 MG Amitriptyline HCl (Elavil Tab) 150 mg HS PO 06/07/17 21:00 07/07/17 20:59 06/12/17 21:06 150 MG Cholecalciferol (Vitamin D Tab) 2,000 inter.unit DAILY PO 06/08/17 09:00 07/08/17 08:59 06/13/17 08:48 2,000 INTER.UNIT Insulin Aspart (novoLOG ASPART) SLIDING SCALE If C... QDB SC 06/08/17 08:00 07/08/17 07:59 06/13/17 09:03 5 UNITS Non-Formulary Medication (Non-Formulary Patient'S Own Med) 1 ea DAILY PO 06/08/17 09:00 07/08/17 08:59 06/13/17 08:52 1 EA Insulin Glargine (Lantus Solostar Pen) 10 units HS SC 06/11/17 21:00 07/11/17 20:59 06/12/17 21:10 10 UNITS Ondansetron HCl (Zofran Inj) 4 mg Q6H PRN IV 06/11/17 10:00 07/11/17 09:59 Objective Vital Signs Date Time Temp Pulse Resp B/P (MAP) Pulse Ox O2 Delivery O2 Flow Rate FiO2 06/13/17 11:35 36.8 66 16 133/75 (94) 94 Room Air 06/13/17 08:00 Room Air 06/13/17 07:07 36.4 74 20 125/82 (96) 93 06/13/17 04:00 Room Air 06/13/17 03:58 36.5 69 18 129/77 (94) 94 Room Air 06/13/17 00:00 Room Air 06/12/17 23:17 36.6 73 20 142/82 (102) 93 Room Air 06/12/17 20:00 Room Air 06/12/17 18:44 36.7 67 20 144/82 (102) 93 06/12/17 16:00 Room Air 06/12/17 15:32 36.7 66 20 137/77 (97) 91 Physical Exam General Appearance: no apparent distress, + cachetic, + thin Respiratory/Chest: lungs clear, normal breath sounds, no respiratory distress, no accessory muscle use Cardiovascular: regular rate, rhythm, no edema, no murmur Laboratory Results Last 24 Hours Test 06/12/17 16:12 06/12/17 20:05 06/13/17 06:40 06/13/17 07:16 Bedside Glucose 195 mg/dl 108 mg/dl 147 mg/dl Random Vancomycin Level 17.7 mcg/ml Test 06/13/17 11:39 Bedside Glucose 228 mg/dl Assessment and Plan This is a 62 year old male with a recent initiation of dialysis, AV fistula on R arm, not yet fully matured; insulin dependent DM, CAD, cerebral palsy Enterococcal Bacteremia 06/13 - can likely discharge in 1-2 days - blood cultures negative thus far - will need Vanco x2 weeks with dialysis on discharge 06/12 - repeat blood cultures pending - will continue Vancomycin with dialysis - plan to d/c when blood cultures are negative 06/11 - persistent bacteremia in the setting of immunocompromised patient - catheter tip and blood cultures x3 so far are positive - another set drawn, may need further w/up, defer to ID - for now, continue IV Vancomycin with dialysis as per ID; will need 2 weeks of treatment at minimum 06/10 - blood cultures positive x2 for streptococcal species and tip culture positive for enterococcus - spoke with ID, vanco with dialysis x2 weeks - repeat blood cultures ordered and pending, once negative, can d/c home 06/09 - streptococcal species on blood cultures x2 - enterococcus species growing on the tip of the catheter; sensitivities pending - continue Vanco for now 06/08 - patient admitted due to outpatient blood cultures being positive - given IV Vanco - tunneled dialysis catheter removed - blood cultures here are also positive x2 - echo with no evidence of endocarditis - further input as per ID ESRD on HD 06/10 - dialysis on 06/11 06/09 - s/p dialysis today - AV fistula functioning 06/08 - appreciate vascular surgery input - catheter removed, tip cultured - can use mature AV fistula - dialysis as per nephrology Hx. of CAD - troponins negative x3 - unlikely acute issue - continue home medications Uncontrolled DM2 - continue insulin - appreciate pharmacy glycemic control DVT ppx - subq heparin FULL CODE
--- NOTE | 2017-06-13 14:10 | NEPHROLOGY PROGRESS NOTE ---
DATE: 06/13/2017 SUBJECTIVE: The patient was doing okay. His last dialysis was yesterday without any problem. Blood culture has finally become negative. No fever, no chills. No cramping. PHYSICAL EXAMINATION: VITAL SIGNS: Blood pressure 133/75, 94% on room air, pulse rate 66, temperature 36.8. HEENT: Mucous membranes moist. NECK: Supple. No jugular venous distention. CARDIOVASCULAR: Regular rate and rhythm, no murmur, rubs or gallop. ABDOMEN: Soft, nontender. CHEST: Bilateral clear to auscultation. NEUROLOGIC: Normal speech. Moving all 4 extremities. EXTREMITIES: No edema. SKIN: Warm and dry. LABORATORY TESTS: Labs from yesterday shows a hemoglobin 12.4, platelet count 57,000, it is low but stable. ASSESSMENT AND PLAN: The patient with end-stage renal disease, also status post liver transplant, admitted with catheter-related bacteremia. The infected catheter is out and was positive for E. faecalis, which is being appropriately treated. Blood culture has returned negative now. As per the infectious disease recommendation, he will get IV vancomycin for 2 weeks. Fortunately, arteriovenous fistula is working good. We used the arteriovenous fistula yesterday without any problem. Will continue to do dialysis through the arteriovenous fistula with a smaller size needle at a smaller blood flow. Next HD tomorrow. [facility]
--- NOTE | 2017-06-13 14:43 | Pharmacy Progress Note ---
Pharmacy Antibiotic Prog Note Date of Service Jun 13, 2017. Subjective The patient is currently receiving VANCOMYCIN IV every empirically based on levels. The patient is currently on day # 7 of VANCOMYCIN IV therapy. Objective Height (Feet): 5 Height (Inches): 7.00 Weight (Kilograms): 62.500 Levels: Item Value Date Time Random Vancomycin Level 17.7 mcg/ml 06/13/17 0640 Lab Results (24hrs): Test 06/13/17 06:40 06/13/17 07:16 06/13/17 11:39 Random Vancomycin Level 17.7 mcg/ml Bedside Glucose 147 mg/dl (70-99) 228 mg/dl (70-99) Assessment & Plan 62yo male on HD M/W/F receiving VANCOMYCIN for bacteremia. VANCOMYCIN: * Last dose of VANCOMYCIN was administered POST-HD on 06/11 (Wednesday) following a PRE-HD level of 20.1mcg/mL. * Random VANCOMYCIN level drawn this am = 17.7 mcg/mL. * This drug level is Therapeutic. * Patient is not scheduled for HD until tomorrow and may be discharged prior to HD. * Will administer VANCOMYCIN tomorrow POST-HD if patient is still admitted. * Goal random level: between 15 - 20 mcg/mL. Pharmacy will continue to follow and will adjust dose/frequency as necessary. Thank you
[2017-06-13 15:46] VITALS: BP 125/76; PULSE 57; TEMP 36.7; O2SAT 93
[2017-06-13 18:56] VITALS: BP 135/82; PULSE 78; TEMP 36.3; O2SAT 96
[2017-06-13] MEDS: AMITRIPTYLINE HCL 50 MG TAB PO SCH (20:30)
[2017-06-13] MEDS: INSULIN GLARGINE SOLOSTAR 100 UNITS/ML 3 ML PEN SC SCH (20:32)
[2017-06-13 22:56] VITALS: BP 133/86; PULSE 69; TEMP 36.8; O2SAT 97
[2017-06-14] VITALS (19 sets, daily range): BP systolic 104–138; BP diastolic 67–95; PULSE 65–80; TEMP 36.5–36.6; O2SAT 95–96
[2017-06-14] MEDS: HEPARIN SOD 5000 UNIT/0.5 ML CARP SQ SCH ×2 (06:00→13:37)
[2017-06-14] MEDS: FERROUS SULFATE 325 MG TAB PO SCH ×2 (08:15→12:00)
[2017-06-14] MEDS: PRAVASTATIN SOD 20 MG TAB PO SCH (08:15)
[2017-06-14] MEDS: CALCIUM ACETATE 667MG GELCAP PO SCH ×2 (08:15→13:36)
[2017-06-14] MEDS: CLOPIDOGREL BISULFATE 75 MG TAB PO SCH (08:15)
[2017-06-14] MEDS: PANTOprazole SOD 40 MG TAB PO SCH (08:16)
[2017-06-14] MEDS: CHOLECALCIFEROL 1000 INTER.UNIT TAB PO SCH (08:16)
[2017-06-14] MEDS: TACROLIMUS 1 MG CAP PO SCH (08:17)
[2017-06-14] MEDS: ENTECAVIR 0.5 MG PO SCH (08:17)
[2017-06-14] MEDS: INSULIN ASPART 100 UNITS/ML 3 ML PEN SC SCH ×2 (08:20→13:35)
[2017-06-14] MEDS: ALLOPURINOL 100 MG TAB PO SCH (08:21)
--- NOTE | 2017-06-14 08:30 | Nephrology Progress Note ---
Nephrology Progress Note Date of Service: Jun 14, 2017. Subjective 62 yo male with bacteremia from tunneled line infection. tunneled line removed. repeat cultures are negative. pt feels good. has very good appetite. would like to go home today if possible. Objective Date Time Temp Pulse Resp B/P (MAP) Pulse Ox O2 Delivery O2 Flow Rate FiO2 06/14/17 07:05 36.5 65 18 119/69 (86) 96 Room Air 06/14/17 04:29 36.6 65 18 138/73 (94) 95 Room Air 06/14/17 04:00 Room Air 06/14/17 00:00 Room Air 06/13/17 22:56 36.8 69 18 133/86 (102) 97 Room Air 06/13/17 20:00 Room Air 06/13/17 18:56 36.3 78 20 135/82 (99) 96 06/13/17 16:00 Room Air 06/13/17 15:46 36.7 57 18 125/76 (92) 93 Room Air 06/13/17 12:00 Room Air 06/13/17 11:35 36.8 66 16 133/75 (94) 94 Room Air Physical Exam: General-aaox3 Eyes-no scleral icterus ENT-mmm Neck-supple Lungs-cta Heart-rrr Abdomen-bs+ s/nt/nd Extremities-no edema, loss of muscle tone Neuro-chronic ambulatory dysfunction Current Inpatient Medications Medications (Trade) Dose Ordered Sig/Jon Route Start Time Stop Time Status Last Admin Dose Admin Heparin Sodium (Porcine) (Heparin Sq 5000 Unit/0.5ml) 5,000 unit Q8 SQ 06/07/17 22:00 07/07/17 21:59 06/13/17 20:33 5,000 UNIT Acetaminophen (Tylenol Tab) 650 mg Q4H PRN PO 06/07/17 14:30 07/07/17 14:29 Insulin Aspart (novoLOG ASPART) SLIDING SCALE If C... TID@1100,1630,2100 SC 06/07/17 16:30 07/07/17 16:29 06/13/17 20:32 4 UNITS Glucose (Glucose 40% Gel) 15-30 GRAMS 15 GRAMS... UD PRN PO 06/07/17 15:15 07/07/17 15:14 Glucose (Glucose Chew Tab) 4-8 Tablets 4 Tabl... UD PRN PO 06/07/17 15:15 07/07/17 15:14 06/07/17 17:31 4 TABS Dextrose (Dextrose 50% 50ML Syringe) 25-50ML OF 50% DW IV FOR... UD PRN IV 06/07/17 15:15 07/07/17 15:14 06/08/17 07:57 50 ML Glucagon (Glucagon Inj) 1 mg UD PRN SQ 06/07/17 15:15 07/07/17 15:14 Miscellaneous Information (Consult Glycemic Management Pharmacy) 1 ea UD PRN N/A 06/07/17 15:22 07/07/17 15:21 Miscellaneous Information (Consult) 1 ea UD PRN N/A 06/07/17 15:30 07/07/17 15:29 Allopurinol (Zyloprim Tab) 100 mg DAILY PO 06/08/17 09:00 07/08/17 08:59 06/14/17 08:21 100 MG Calcium Acetate (Phoslo Cap) 667 mg TIDM PO 06/07/17 17:00 07/07/17 17:59 06/14/17 08:15 667 MG Clopidogrel Bisulfate (plAVix TAB) 75 mg DAILY PO 06/08/17 09:00 07/08/17 08:59 06/14/17 08:15 75 MG Ferrous Sulfate (Feosol Tab) 325 mg TIDM PO 06/07/17 17:00 07/07/17 17:59 06/14/17 08:15 325 MG Pantoprazole Sodium (Protonix Tab) 40 mg DAILY PO 06/08/17 09:00 07/08/17 08:59 06/14/17 08:16 40 MG Pravastatin Sodium (Pravachol Tab) 20 mg DAILY PO 06/08/17 09:00 07/08/17 08:59 06/14/17 08:15 20 MG Tacrolimus (Prograf Cap) 4 mg BID PO 06/07/17 21:00 07/07/17 20:59 06/14/17 08:17 4 MG Amitriptyline HCl (Elavil Tab) 150 mg HS PO 06/07/17 21:00 07/07/17 20:59 06/13/17 20:30 150 MG Cholecalciferol (Vitamin D Tab) 2,000 inter.unit DAILY PO 06/08/17 09:00 07/08/17 08:59 06/14/17 08:16 2,000 INTER.UNIT Insulin Aspart (novoLOG ASPART) SLIDING SCALE If C... QDB SC 06/08/17 08:00 07/08/17 07:59 06/14/17 08:20 7 UNITS Non-Formulary Medication (Non-Formulary Patient'S Own Med) 1 ea DAILY PO 06/08/17 09:00 07/08/17 08:59 06/14/17 08:17 1 EA Insulin Glargine (Lantus Solostar Pen) 10 units HS SC 06/11/17 21:00 07/11/17 20:59 06/13/17 20:32 10 UNITS Ondansetron HCl (Zofran Inj) 4 mg Q6H PRN IV 06/11/17 10:00 07/11/17 09:59 Last 24 Hours Test 06/13/17 11:39 06/13/17 16:11 06/13/17 20:11 06/14/17 07:16 Bedside Glucose 228 mg/dl 172 mg/dl 231 mg/dl 74 mg/dl Assessment & Plan ESRD-for dialysis today. volume status appears appropriate. to use fistula again today. ok from renal perspective to go home today after dialysis and would plan on continuing to give vancomycin at outpt unit for next two weeks.
[2017-06-14] MEDS ORDERED: VANCOMYCIN IV 750 MG in SODIUM CHLORIDE 0.9% 250ML 250 ML IV SCH (12:00)
--- NOTE | 2017-06-14 12:44 | Progress Note ---
Subjective Date of Service: Jun 14, 2017. Subjective Pt evaluation today including: conversation w/ patient, physical exam, lab review, review of studies, review of inpatient medication list Saw/examined the patient in dialysis he's doing well no problems/issues to note eager to go home Review of Systems Constitutional: + weakness, No fever, No chills Respiratory: No shortness of breath Cardiac: No chest pain Medications Current Inpatient Medications Medications (Trade) Dose Ordered Sig/Jon Route Start Time Stop Time Status Last Admin Dose Admin Heparin Sodium (Porcine) (Heparin Sq 5000 Unit/0.5ml) 5,000 unit Q8 SQ 06/07/17 22:00 07/07/17 21:59 06/13/17 20:33 5,000 UNIT Acetaminophen (Tylenol Tab) 650 mg Q4H PRN PO 06/07/17 14:30 07/07/17 14:29 Insulin Aspart (novoLOG ASPART) SLIDING SCALE If C... TID@1100,1630,2100 SC 06/07/17 16:30 07/07/17 16:29 06/13/17 20:32 4 UNITS Glucose (Glucose 40% Gel) 15-30 GRAMS 15 GRAMS... UD PRN PO 06/07/17 15:15 07/07/17 15:14 Glucose (Glucose Chew Tab) 4-8 Tablets 4 Tabl... UD PRN PO 06/07/17 15:15 07/07/17 15:14 06/07/17 17:31 4 TABS Dextrose (Dextrose 50% 50ML Syringe) 25-50ML OF 50% DW IV FOR... UD PRN IV 06/07/17 15:15 07/07/17 15:14 06/08/17 07:57 50 ML Glucagon (Glucagon Inj) 1 mg UD PRN SQ 06/07/17 15:15 07/07/17 15:14 Miscellaneous Information (Consult Glycemic Management Pharmacy) 1 ea UD PRN N/A 06/07/17 15:22 07/07/17 15:21 Miscellaneous Information (Consult) 1 ea UD PRN N/A 06/07/17 15:30 07/07/17 15:29 Allopurinol (Zyloprim Tab) 100 mg DAILY PO 06/08/17 09:00 07/08/17 08:59 06/14/17 08:21 100 MG Calcium Acetate (Phoslo Cap) 667 mg TIDM PO 06/07/17 17:00 07/07/17 17:59 06/14/17 08:15 667 MG Clopidogrel Bisulfate (plAVix TAB) 75 mg DAILY PO 06/08/17 09:00 07/08/17 08:59 06/14/17 08:15 75 MG Ferrous Sulfate (Feosol Tab) 325 mg TIDM PO 06/07/17 17:00 07/07/17 17:59 06/14/17 08:15 325 MG Pantoprazole Sodium (Protonix Tab) 40 mg DAILY PO 06/08/17 09:00 07/08/17 08:59 06/14/17 08:16 40 MG Pravastatin Sodium (Pravachol Tab) 20 mg DAILY PO 06/08/17 09:00 07/08/17 08:59 06/14/17 08:15 20 MG Tacrolimus (Prograf Cap) 4 mg BID PO 06/07/17 21:00 07/07/17 20:59 06/14/17 08:17 4 MG Amitriptyline HCl (Elavil Tab) 150 mg HS PO 06/07/17 21:00 07/07/17 20:59 06/13/17 20:30 150 MG Cholecalciferol (Vitamin D Tab) 2,000 inter.unit DAILY PO 06/08/17 09:00 07/08/17 08:59 06/14/17 08:16 2,000 INTER.UNIT Insulin Aspart (novoLOG ASPART) SLIDING SCALE If C... QDB SC 06/08/17 08:00 07/08/17 07:59 06/14/17 08:20 7 UNITS Non-Formulary Medication (Non-Formulary Patient'S Own Med) 1 ea DAILY PO 06/08/17 09:00 07/08/17 08:59 06/14/17 08:17 1 EA Ondansetron HCl (Zofran Inj) 4 mg Q6H PRN IV 06/11/17 10:00 07/11/17 09:59 Vancomycin HCl 750 mg/Sodium Chloride 265 ml @ 200 mls/hr TODAY@1200 IV 06/14/17 12:00 06/14/17 18:00 Insulin Glargine (Lantus Solostar Pen) 8 units HS SC 06/14/17 21:00 07/14/17 20:59 Objective Vital Signs Date Time Temp Pulse Resp B/P (MAP) Pulse Ox O2 Delivery O2 Flow Rate FiO2 06/14/17 12:15 77 113/95 06/14/17 12:00 76 109/68 06/14/17 11:45 77 110/76 06/14/17 11:30 73 112/70 06/14/17 11:15 73 113/72 06/14/17 11:00 73 114/72 06/14/17 10:45 75 114/74 06/14/17 10:30 74 112/72 06/14/17 10:15 73 105/69 06/14/17 10:00 72 108/68 06/14/17 09:45 72 118/72 06/14/17 09:30 70 117/70 06/14/17 09:15 70 119/79 06/14/17 09:02 70 117/77 06/14/17 08:00 Room Air 06/14/17 07:05 36.5 65 18 119/69 (86) 96 Room Air 06/14/17 04:29 36.6 65 18 138/73 (94) 95 Room Air 06/14/17 04:00 Room Air 06/14/17 00:00 Room Air 06/13/17 22:56 36.8 69 18 133/86 (102) 97 Room Air 06/13/17 20:00 Room Air 06/13/17 18:56 36.3 78 20 135/82 (99) 96 06/13/17 16:00 Room Air 06/13/17 15:46 36.7 57 18 125/76 (92) 93 Room Air Physical Exam General Appearance: no apparent distress Cardiovascular: regular rate, rhythm, no edema, no murmur Neurologic/Psychiatric: alert, + motor weakness (chronic motor weakness) Laboratory Results Last 24 Hours Test 06/13/17 16:11 06/13/17 20:11 06/14/17 07:16 06/14/17 12:08 Bedside Glucose 172 mg/dl 231 mg/dl 74 mg/dl 125 mg/dl Assessment and Plan This is a 62 year old male with a recent initiation of dialysis, AV fistula on R arm, not yet fully matured; insulin dependent DM, CAD, cerebral palsy Enterococcal Bacteremia 06/14 - blood cultures negative - Vancomycin set up to get with dialysis x2 weeks - plan to d/c home today after dialysis 06/13 - can likely discharge in 1-2 days - blood cultures negative thus far - will need Vanco x2 weeks with dialysis on discharge 06/12 - repeat blood cultures pending - will continue Vancomycin with dialysis - plan to d/c when blood cultures are negative 06/11 - persistent bacteremia in the setting of immunocompromised patient - catheter tip and blood cultures x3 so far are positive - another set drawn, may need further w/up, defer to ID - for now, continue IV Vancomycin with dialysis as per ID; will need 2 weeks of treatment at minimum 06/10 - blood cultures positive x2 for streptococcal species and tip culture positive for enterococcus - spoke with ID, vanco with dialysis x2 weeks - repeat blood cultures ordered and pending, once negative, can d/c home 06/09 - streptococcal species on blood cultures x2 - enterococcus species growing on the tip of the catheter; sensitivities pending - continue Vanco for now 06/08 - patient admitted due to outpatient blood cultures being positive - given IV Vanco - tunneled dialysis catheter removed - blood cultures here are also positive x2 - echo with no evidence of endocarditis - further input as per ID ESRD on HD 06/10 - dialysis on 06/11 06/09 - s/p dialysis today - AV fistula functioning 06/08 - appreciate vascular surgery input - catheter removed, tip cultured - can use mature AV fistula - dialysis as per nephrology Hx. of CAD - troponins negative x3 - unlikely acute issue - continue home medications Uncontrolled DM2 - continue insulin - appreciate pharmacy glycemic control DVT ppx - subq heparin FULL CODE
[2017-06-14] MEDS ORDERED: VANC1INJ72 IV (12:50)
--- NOTE | 2017-06-14 12:55 | Discharge Instructions ---
Discharge Instructions Date of Service Jun 14, 2017. Admission Reason for Admission: Bacteremia Discharge Discharge Diagnosis / Problem: Enterococcal Bacteremia - dialysis catheter infection Discharge Goals Goal(s): Decrease discomfort, Improve function, Diagnostic testing, Therapeutic intervention Activity Recommendations Activity Limitations: resume your previous activity . Instructions / Follow-Up Instructions / Follow-Up Please follow-up with Fred Botello at [place] on June 18 on 9:15AM * You will be on Vancomycin for two weeks with dialysis on Current Hospital Diet Patient's current hospital diet: AHA Diet (Heart Healthy), Renal Diet, Diabetes Type 2 Diet Discharge Diet Recommended Diet: Diabetes Type 2 Diet, Renal Diet Procedures Procedures Performed: Removal Of Perm Catheter. Pending Studies Studies pending at discharge: no Medical Emergencies . Who to Call and When: Medical Emergencies: If at any time you feel your situation is an emergency, please call 911 immediately. . Non-Emergent Contact Non-Emergency issues call your: Primary Care Provider, [facility] . . "Provider Documentation" section prepared by Jose Reza. .
--- NOTE | 2017-06-14 12:57 | Discharge Summary ---
Discharge Summary Date of Service Jun 14, 2017. Discharge Summary Admission Date: Jun 07, 2017 at 14:33 Discharge Date: Jun 14, 2017 Discharge Disposition: Home Principal Diagnosis: Enterococcal Bacteremia ESRD on HD Hx. of CAD Uncontrolled DM2 Medication Reconciliation New Medications: Vancomycin HCl in Sodium Chlor (Vancomycin 750-0.9 mg/150Ml-%) 1 Inj Inj 750 MG IV MWF for 14 Days, ML Continued Medications: Allopurinol (Allopurinol) 100 Mg Tab 1 TAB PO DAILY Amitriptyline Hcl (Amitriptyline Hcl) 150 Mg Tab 1 TAB PO HS for 30 Days, #30 TAB 1 Refill Calcium Acetate (Phoslo 667 Mg) 667 Mg Cap 667 MG PO TIDM for 30 Days, #90 CAP Cholecalciferol (D3 2000) 2,000 Unit Tab 1 TAB PO DAILY Clopidogrel (Plavix) 75 Mg Tab 75 MG PO DAILY, TAB Entecavir (Entecavir) 0.5 Mg Tab 1 TAB PO DAILY Ferrous Sulfate (Ferrous Sulfate) 325 Mg Tab 1 TAB PO TIDM Insulin Aspart (Novolog Flexpen) 100 Units/Ml Inj 14 UNITS SQ lunch Insulin Aspart (Novolog) 100 Units/Ml Inj 12 UNITS SQ breakfast Insulin Aspart (Novolog Flexpen) 100 Units/Ml Inj 16 UNITS SQ dinner Insulin Glargine (Lantus) 100 Unit/Ml Inj 35 SC QPM, VIAL Pantoprazole (Protonix) 40 Mg Tab 40 MG PO DAILY, #30 TAB Pravastatin (Pravachol ) 20 Mg Tab 20 MG PO DAILY, TAB Tacrolimus (Prograf) 1 Mg Cap 4 CAP PO BID for 30 Days, #240 CAP 11 Refills Admission Information HPI (per Admitting provider): 62-year-old male who presents to the ER by referral of nephrology after outpatient blood cultures were noted to be positive. Patient is currently on dialysis Wednesday and have blood cultures drawn on 06/04/17. Patient reports he had been feeling chilled and more fatigued than normal so therefore blood cultures were drawn. Patient currently has a tunneled catheter in place to his right chest. Patient did undergo fistula placement at the beginning of April however has not been cleared by vascular surgery to use the fistula yet. Patient denies any drainage or surrounding redness from the tunnel catheter site. He has a wound on his right heel that he is currently following with wound care for. There is some mild surrounding erythema however he reports this is chronic. He has not noted any drainage from the wound. Patient reports chills however did not take his temperature at home. He reports he did not have a fever at dialysis on Wednesday. He denies chest pain and shortness of breath. No lightheadedness, dizziness, diaphoresis, or syncopal events. He denies abdominal pain, nausea, vomiting, diarrhea. Patient does continue to make urine despite being on dialysis. He denies any urinary symptoms. Of note, patient reports he was instructed to stop his carvedilol about 1 week ago due to hypotension noted at dialysis. In the ED, patient is hemodynamically stable. Labs unremarkable. Patient was given a dose of vancomycin. Physical Exam (per Admitting): General Appearance: WD/WN, no apparent distress Head: normocephalic, atraumatic Eyes: normal inspection, EOMI, sclerae normal ENT: hearing grossly normal, + pertinent finding (Mucous membranes moist) Neck: supple, no JVD, trachea midline Respiratory/Chest: lungs clear, normal breath sounds, no respiratory distress, + pertinent finding (Tunnel catheter in place to right chest, no surrounding erythema or drainage) Cardiovascular: regular rate, rhythm, normal peripheral pulses, + pertinent finding (+1 ankle edema) Abdomen/GI: normal bowel sounds, non tender, soft, no organomegaly Extremities/Musculoskelatal: no calf tenderness, normal capillary refill, + pertinent finding (BLLE atrophied, right foot drop) Neurologic/Psych: no motor/sensory deficits, alert, normal mood/affect, oriented x 3 Skin: normal color, warm/dry Hospital Course This is a 62 year old male with a recent initiation of dialysis, AV fistula on R arm, not yet fully matured; insulin dependent DM, CAD, cerebral palsy Enterococcal Bacteremia 4/2 - blood cultures negative - Vancomycin set up to get with dialysis x2 weeks - plan to d/c home today after dialysis 06/13 - can likely discharge in 1-2 days - blood cultures negative thus far - will need Vanco x2 weeks with dialysis on discharge 06/12 - repeat blood cultures pending - will continue Vancomycin with dialysis - plan to d/c when blood cultures are negative 06/11 - persistent bacteremia in the setting of immunocompromised patient - catheter tip and blood cultures x3 so far are positive - another set drawn, may need further w/up, defer to ID - for now, continue IV Vancomycin with dialysis as per ID; will need 2 weeks of treatment at minimum 06/10 - blood cultures positive x2 for streptococcal species and tip culture positive for enterococcus - spoke with ID, vanco with dialysis x2 weeks - repeat blood cultures ordered and pending, once negative, can d/c home 06/09 - streptococcal species on blood cultures x2 - enterococcus species growing on the tip of the catheter; sensitivities pending - continue Vanco for now 06/08 - patient admitted due to outpatient blood cultures being positive - given IV Vanco - tunneled dialysis catheter removed - blood cultures here are also positive x2 - echo with no evidence of endocarditis - further input as per ID ESRD on HD 06/10 - dialysis on 06/11 06/09 - s/p dialysis today - AV fistula functioning 06/08 - appreciate vascular surgery input - catheter removed, tip cultured - can use mature AV fistula - dialysis as per nephrology Hx. of CAD - troponins negative x3 - unlikely acute issue - continue home medications Uncontrolled DM2 - continue insulin - appreciate pharmacy glycemic control DVT ppx - subq heparin FULL CODE Total time spent on discharge = 40 minutes This includes examination of the patient, discharge planning, medication reconciliation, and communication with other providers. Discharge Instructions Please follow-up with Fred Botello at [place] on June 18 on 9:15AM * You will be on Vancomycin for two weeks with dialysis on
[2017-06-14] MEDS ORDERED: INSULIN GLARGINE SOLOSTAR 100 UNITS/ML 3 ML PEN SC SCH (21:00)
== END 2017-06-14 15:35 | disposition home or self-care (01) | DRG 314 ==
LOC: C.EDB 11:42 → C.MED 14:33 → ENRESERV 15:32
PROVIDERS: ADMIT Family Medicine; ATTEND Family Medicine
PROC: 0JPT3XZ Removal of Tunneled Vascular Access Device from Trunk Subcutaneous Tissue and Fascia, Percutaneous Approach (ICD-10-PCS; principal; 2017-06-08 08:45)
PROC: 02PAX3Z Removal of Infusion Device from Heart, External Approach (ICD-10-PCS; principal; 2017-06-08 08:45)
DX: T82.7XXA Infection and inflammatory reaction due to other cardiac and vascular devices, implants and grafts, initial encounter (principal); N18.6 End stage renal disease; Z94.4 Liver transplant status; B95.2 Enterococcus as the cause of diseases classified elsewhere; E11.649 Type 2 diabetes mellitus with hypoglycemia without coma; G80.9 Cerebral palsy, unspecified; E11.22 Type 2 diabetes mellitus with diabetic chronic kidney disease; I25.10 Atherosclerotic heart disease of native coronary artery without angina pectoris; Z51.81 Encounter for therapeutic drug level monitoring; Z79.899 Other long term (current) drug therapy; Z79.4 Long term (current) use of insulin; Z79.02 Long term (current) use of antithrombotics/antiplatelets; Z99.2 Dependence on renal dialysis; Z95.5 Presence of coronary angioplasty implant and graft; Z87.891 Personal history of nicotine dependence; Y83.8 Other surgical procedures as the cause of abnormal reaction of the patient, or of later complication, without mention of misadventure at the time of the procedure

== ENCOUNTER 2020-09-09 12:38 | Inpatient (IN) ==
[2020-09-09] MEDS ORDERED: MoRPHine SULFATE 2 MG/ML CARP IV STA (13:15)
[2020-09-09] MEDS ORDERED: ONDANSETRON INJ 2 MG/ML 2 ML VIAL IV STA (13:15)
--- NOTE | 2020-09-09 13:25 | Emergency Department Note ---
History of Present Illness General Chief complaint: Fall Time Seen by Provider: 09/09/20 13:04 History of Present Illness Maximum Pain Intensity: 6 This is a 65-year-old male with a history of CP, ESRD on dialysis x3.5 years, status post liver transplant in 1997 that presents to the emergency department via ambulance with complaints of "fell on Wednesday, need dialysis". The patient states that he fell this past Wednesday at [place] laundry [place] area where he lives. He notes that he slipped because he was wearing new diabetic shoes and believes that the soles were quite slippery. He notes that he injured his left leg during the fall. He denies striking the head or loss of consciousness. No headache. He notes that he then presented today to his dialysis clinic in [facility] but had trouble transferring from his scooter to the chair and at that point decision was made to send him via EMS to ED for evaluation of left leg injury but also noting that he did not receive dialysis today. Patient typically receives dialysis on Wednesday, Wednesday, Wednesday. Last dialysis was on Wednesday. He rates his current pain at this time in his leg as a 6/10. No numbness or tingling. Home Medications Medication Instructions Recorded Confirmed Type allopurinol 100 mg PO QAM 09/09/20 09/09/20 History amitriptyline 150 mg PO QPM 09/09/20 09/09/20 History carvedilol 3.125 mg PO QPM 09/09/20 09/09/20 History clopidogrel 75 mg PO QAM 09/09/20 09/09/20 History entecavir 0.5 mg PO QAM 09/09/20 09/09/20 History pantoprazole 40 mg PO QAM 09/09/20 09/09/20 History pravastatin 20 mg PO QAM 09/09/20 09/09/20 History sevelamer carbonate 800 mg PO DAILY 09/09/20 09/09/20 History tacrolimus 4 mg PO BID 09/09/20 09/09/20 History Allergies Allergy/AdvReac Type Severity Reaction Status Date / Time No Known Allergies Allergy Unverified 09/09/20 15:06 Past Med/Surg History Medical History Cerebral palsy Diabetes mellitus type II, uncontrolled ESRD (end stage renal disease) on dialysis Surgical History S/P liver transplant Social History Smoking Status: Never smoker Feels Safe at Home: Yes Review of Systems A total of 10 systems reviewed and were otherwise negative Physical Exam Vital Signs Vital Signs - 24 hr 09/09/20 12:40 09/09/20 15:29 Temperature 37.1 C Temperature Source Oral Pulse Rate 78 Pulse Rate [Left] 88 Respiratory Rate 20 18 Respiratory Effort / Characteristics Non-Labored Non-Labored Respiratory Depth Normal Normal Respiratory Pattern Regular Blood Pressure 172/87 H Blood Pressure [Left Arm] 148/77 H Blood Pressure Mean 115 Blood Pressure Mean [Left Arm] 100 Pulse Oximetry 100 99 Oxygen Delivery Method Room Air Room Air Sepsis Recent Fever Within 48 Hours No Sepsis New/Unexplained Change in Mental Status N/A Sepsis Action Taken by Nursing No Action Required VITAL SIGNS - Vital signs and nursing notes were reviewed. Stable and afebrile. GENERAL -65-year-old male appearing his stated age who is in no acute distress. Communicates well with provider and answers questions appropriately. SKIN - Without rashes. There is bruising noted overlying the left medial thigh region. No deformity. No step-off. HEAD - NC/AT. EYES -sclera anicteric. EARS - No deformities of external structures noted on gross examination bilaterally. No blood from the ear canals. NOSE - Midline and without cyanosis. No epistaxis or purulent drainage noted. MOUTH/OROPHARYNX - Without perioral cyanosis. NECK -no nuchal rigidity. LUNGS - Chest wall symmetric without accessory muscle use, intercostals retractions, or central cyanosis. Normal vesicular breath sounds CTA B/L. No wheezes, rales, or rhonchi appreciated. CARDIAC - RRR with S1/S2. No murmur, rubs, or gallops appreciated. ABDOMEN - Abdominal contour normal without pulsations or visible masses. BS normoactive all four quadrants. No tenderness, palpable masses, hepatosplenomegaly, or ascites noted. EXTREMITIES - No clubbing or peripheral cyanosis. Tender overlying the left anterior thigh region. No step-off. There is no tenderness distal to the left knee. No left greater trochanter tenderness. NEUROLOGIC - Cranial nerves II through XII grossly intact. Sensory intact to light touch throughout. PSYCH - A&Ox3 and cooperates fully with examiner. Pt is very pleasant and interacts well with examiner. Course Administered Medications Morphine Sulfate (Morphine Sulfate 2 Mg/Ml Carp) 2 mg IV Q30M PRN PRN Reason: pain Stop: 09/23/20 14:53 Last Admin: 09/09/20 15:20 Dose: 2 mg Documented by: [id number] Discontinued Medications Sodium Chloride (Nss 1000ml) 500 mls @ 999 mls/hr IV .Q31M ONE Stop: 09/09/20 15:16 Last Admin: 09/09/20 16:18 Dose: Not Given Documented by: [id number] Insulin Human Regular (Novolin-R Insulin Per Unit Charge) 4 units IV NOW STA Stop: 09/09/20 14:47 Last Admin: 09/09/20 15:21 Dose: 4 units Documented by: [id number] Cosigned by: [id number] Morphine Sulfate (Morphine Sulfate 2 Mg/Ml Carp) 2 mg IV NOW STA Stop: 09/09/20 13:16 Last Admin: 09/09/20 14:10 Dose: 2 mg Documented by: [id number] Ondansetron HCl (Ondansetron Inj 2 Mg/Ml 2 Ml Vial) 4 mg IV NOW STA Stop: 09/09/20 13:16 Last Admin: 09/09/20 14:10 Dose: 4 mg Documented by: [id number] Medical Decision Making Laboratory Data Result diagrams: 09/09/20 13:59 09/09/20 13:59 Lab Results 09/09/20 09/09/20 09/09/20 Range/Units 13:59 13:59 13:59 WBC 11.45 H (4.8-10.8) K/uL RBC 3.20 L (4.7-6.1) M/uL Hgb 10.7 L (14.0-18.0) g/dL Hct 32.0 L (42-52) % MCV 100.0 (80-100) fL MCH 33.4 (25-34) pg MCHC 33.4 (32-36) g/dL RDW Std Deviation 55.1 H (36.4-46.3) fL RDW Coeff of Dean 15.1 H (11.5-14.5) % Plt Count 130 (130-400) K/uL MPV 9.3 (7.4-10.4) fL Immature Gran % (Auto) 0.3 % Neut % (Auto) 85.2 % Lymph % (Auto) 5.7 % [place] % (Auto) 8.8 % Eos % (Auto) 0.0 % Baso % (Auto) 0.0 % Neut # (Auto) 9.76 H (1.4-6.5) K/uL Lymph # (Auto) 0.65 L (1.2-3.4) K/uL [place] # (Auto) 1.01 H (0.11-0.59) K/uL Eos # (Auto) 0.00 (0-0.5) K/uL Baso # (Auto) 0.00 (0-0.2) K/uL Immature Gran # (Auto) 0.03 H (0.00-0.02) K/uL PT 11.2 (9.0-12.0) Seconds INR 1.1 (0.9-1.1) APTT 26.6 (21.0-31.0) Seconds PTT Ratio 1.0 Sodium 125 L (136-145) mmol/L Potassium 6.3 H* (3.5-5.1) mmol/L Chloride 89 L (98-107) mmol/L Carbon Dioxide 26 (21-32) mmol/L Anion Gap 10.0 (3-11) BUN 57 H (7-18) mg/dl Creatinine 8.51 H* (0.6-1.4) mg/dl Est Cr Clr Drug Dosing 7.5 ml/min Est GFR ( Amer) 6.7 ml/min Est GFR (Non-Af Amer) 5.8 ml/min BUN/Creatinine Ratio 6.7 L (10-20) Glucose 508 H* (70-99) mg/dl POC Glucose (70-99) mg/dl Calcium 9.2 (8.5-10.1) mg/dl Magnesium 2.4 (1.8-2.4) mg/dl Total Bilirubin 0.5 (0.2-1) mg/dl AST 15 (15-37) U/L ALT 90 H (12-78) U/L Alkaline Phosphatase 160 H (45-117) U/L Total Protein 7.2 (6.4-8.2) gm/dl Albumin 2.9 L (3.4-5.0) gm/dl Globulin 4.3 H (2.5-4.0) gm/dl Albumin/Globulin Ratio 0.7 L (0.9-2) Beta-Hydroxybutyric Acd 5.14 H (0.2-2.81) mg/dl COVID-19 Eval Order SARS-CoV-2 (PCR) (Negative) 09/09/20 09/09/20 09/09/20 Range/Units 15:09 15:09 16:14 WBC (4.8-10.8) K/uL RBC (4.7-6.1) M/uL Hgb (14.0-18.0) g/dL Hct (42-52) % MCV (80-100) fL MCH (25-34) pg MCHC (32-36) g/dL RDW Std Deviation (36.4-46.3) fL RDW Coeff of Dean (11.5-14.5) % Plt Count (130-400) K/uL MPV (7.4-10.4) fL Immature Gran % (Auto) % Neut % (Auto) % Lymph % (Auto) % [place] % (Auto) % Eos % (Auto) % Baso % (Auto) % Neut # (Auto) (1.4-6.5) K/uL Lymph # (Auto) (1.2-3.4) K/uL [place] # (Auto) (0.11-0.59) K/uL Eos # (Auto) (0-0.5) K/uL Baso # (Auto) (0-0.2) K/uL Immature Gran # (Auto) (0.00-0.02) K/uL PT (9.0-12.0) Seconds INR (0.9-1.1) APTT (21.0-31.0) Seconds PTT Ratio Sodium (136-145) mmol/L Potassium (3.5-5.1) mmol/L Chloride (98-107) mmol/L Carbon Dioxide (21-32) mmol/L Anion Gap (3-11) BUN (7-18) mg/dl Creatinine (0.6-1.4) mg/dl Est Cr Clr Drug Dosing ml/min Est GFR ( Amer) ml/min Est GFR (Non-Af Amer) ml/min BUN/Creatinine Ratio (10-20) Glucose (70-99) mg/dl POC Glucose 560 H* (70-99) mg/dl Calcium (8.5-10.1) mg/dl Magnesium (1.8-2.4) mg/dl Total Bilirubin (0.2-1) mg/dl AST (15-37) U/L ALT (12-78) U/L Alkaline Phosphatase (45-117) U/L Total Protein (6.4-8.2) gm/dl Albumin (3.4-5.0) gm/dl Globulin (2.5-4.0) gm/dl Albumin/Globulin Ratio (0.9-2) Beta-Hydroxybutyric Acd (0.2-2.81) mg/dl COVID-19 Eval Order Covid19 at [facility] SARS-CoV-2 (PCR) NEGATIVE (Negative) Imaging Data Radiologist's Impression: Femur X-Ray 09/09/20 13:15 XR femur LT 2V routine CLINICAL HISTORY: Left thigh pain status post trauma COMPARISON: None. DISCUSSION: There is an acute intertrochanteric left hip fracture. There is no dislocation. No additional femoral fractures are visualized. Note is made of vascular calcifications. IMPRESSION: Intertrochanteric left hip fracture. ACT 112: Negative or not required by law. Electronically signed by: Jeffrey Melendez M.D. 09/09/2020 2:54 PM Pelvis X-Ray 09/09/20 13:15 XR pelvis 1-2V routine CLINICAL HISTORY: Left thigh pain status post trauma COMPARISON: None. DISCUSSION: The bones are osteopenic. There is a total right hip arthroplasty. There is a basicervical left hip fracture with trochanteric extension. IMPRESSION: Basicervical left hip fracture with intertrochanteric extension ACT 112: Negative or not required by law. Electronically signed by: Jeffrey Melendez M.D. 09/09/2020 2:56 PM Chest X-Ray 09/09/20 14:43 XR chest 1V portable CLINICAL HISTORY: Hip fracture. Preoperative chest COMPARISON STUDY: The FINDINGS: The right-sided dual-lumen central venous catheter has been removed. The cardiac and mediastinal contours remain stable. There is mild aortic tortuosity/ectasia. No pneumothorax is visualized on the supine study. There is no focal pulmonary consolidation. There are no pleural effusions. There is an old left fourth rib fracture[ IMPRESSION: No active disease in the chest. ACT 112: Negative or not required by law. Electronically signed by: Jeffrey Melendez M.D. 09/09/2020 2:56 PM MDM Narrative Patient was seen and evaluated as above in room A03. Review was performed of nursing notes and vital signs. I did review pertinent previous visits and patient history. After obtaining a thorough history and physical examination the above work up was performed. Patient presents to us today status post mechanical fall that occurred on Wednesday now with persistent left thigh discomfort. He presented today to his dialysis clinic but had trouble transferring from scooter to chair therefore sent here for eval prior to receiving his dialysis treatment. On arrival he is tender overlying the left anterior thigh. No evidence of additional trauma. Vital signs stable. Options of care were discussed with the patient. IV access established. Labs were drawn. I did order the patient IV analgesics and antiemetics. I did discuss the patient's need for dialysis today with the on-call user experience architect, Dr. Newton. She notes that she will help arrange dialysis later today for the patient. His laboratory studies here reveal mild leukocytosis 11.45 with anemia noting hemoglobin of 10.7. There is hyponatremia at 125 with sodium of 6.3. B UN 57 with creatinine of 8.51. Hyperglycemia noted with glucose of 508. Imaging of the left hip reveals hip fracture. Case discussed with the hospitalist. Patient admitted for further evaluation and management. Patient was ordered a small IV insulin dose here as well as a small IV fluid bolus. As needed pain meds were ordered. Please refer to further documentation regarding his stay. GCS: 15 In the evaluation and treatment of this patient, the following differential diagnoses were considered: Hip Fracture, Hip Dislocation, Greater Trochanteric Bursitis, Musculoskeletal Pain, Lumbar Radiculopathy. Impression & Plan Closed fracture of left hip, Acute hyperglycemia Discharge Plan Visit Data Chief Complaint: Fall ED Provider: [facility] Midlevel Provider: Dimitri Hayes Discharge Problem: Closed fracture of left hip, Acute hyperglycemia Patient Disposition: Admitted As Inpatient Condition: Good Forms Stand Alone Forms: [facility] Prescriptions Prescriptions: No Action amitriptyline 150 mg tablet 150 mg PO QPM RF: 0 clopidogrel 75 mg tablet 75 mg PO QAM RF: 0 allopurinol 100 mg tablet 100 mg PO QAM RF: 0 carvedilol 3.125 mg tablet 3.125 mg PO QPM RF: 0 pantoprazole 40 mg tablet,delayed release (DR/EC) 40 mg PO QAM RF: 0 pravastatin 20 mg tablet 20 mg PO QAM RF: 0 tacrolimus 1 mg capsule 4 mg PO BID RF: 0 entecavir 0.5 mg tablet 0.5 mg PO QAM RF: 0 sevelamer carbonate 800 mg tablet 800 mg PO DAILY RF: 0 Referrals Referrals: Carlton Lee V., [Primary Care Provider] -
[2020-09-09 14:08] LABS: Hemoglobin 10.7 g/dL (14.0-18.0); Immature Granulocytes # (auto) 0.03 K/uL (0.00-0.02); Immature Granulocytes % (auto) 0.3 %; Lymphocytes # (auto) 0.65 K/uL (1.2-3.4); Lymphocytes % (auto) 5.7 %; Mean Corpuscular Hemoglobin 33.4 pg (25-34); Mean Corpuscular Hgb Conc 33.4 g/dL (32-36); Mean Platelet Volume 9.3 fL (7.4-10.4); Monocytes # (auto) 1.01 K/uL (0.11-0.59); Monocytes % (auto) 8.8 %; Neutrophils # (auto) 9.76 K/uL (1.4-6.5); Neutrophils % (auto) 85.2 %; Platelet Count 130 K/uL (130-400); RDW Coefficient of Variation 15.1 % (11.5-14.5); RDW Standard Deviation 55.1 fL (36.4-46.3); White Blood Count 11.45 K/uL (4.8-10.8)
[2020-09-09 14:18] LABS: INR 1.1 (0.9-1.1); Partial Thromboplastin Time 26.6 Seconds (21.0-31.0); Prothrombin Time 11.2 Seconds (9.0-12.0)
[2020-09-09 14:42] LABS: Albumin Globulin Ratio 0.7 (0.9-2); Albumin Level 2.9 gm/dl (3.4-5.0); BUN Creatinine Ratio 6.7 (10-20); Bilirubin,Total 0.5 mg/dl (0.2-1); Calcium 9.2 mg/dl (8.5-10.1); Creatinine Clr Calc Pharmacy 7.5 ml/min; Est GFR (African American) 6.7 ml/min; Est GFR (Non-African American) 5.8 ml/min; Globulin 4.3 gm/dl (2.5-4.0); Magnesium 2.4 mg/dl (1.8-2.4); Potassium 6.3 mmol/L (3.5-5.1); Total Protein 7.2 gm/dl (6.4-8.2)
[2020-09-09] MEDS ORDERED: SODIUM CHLORIDE 0.9% 1000ML 500 ML IV ONE (14:46)
[2020-09-09] MEDS ORDERED: NovoLIN-R INSULIN PER UNIT CHARGE IV STA (14:46)
--- NOTE | 2020-09-09 14:56 | XRay Report ---
XR femur LT 2V routine CLINICAL HISTORY: Left thigh pain status post trauma COMPARISON: None. DISCUSSION: There is an acute intertrochanteric left hip fracture. There is no dislocation. No additi onal femoral fractures are visualized. Note is made of vascular calcifications. IMPRESSION: Intertrochanteric left hip fracture. ACT 112: Negative or not required by law. Electronically signed by: Jeffrey Melendez M.D. 09/09/2020 2:54 PM
--- NOTE | 2020-09-09 14:57 | XRay Report ---
XR pelvis 1-2V routine CLINICAL HISTORY: Left thigh pain status post trauma COMPARISON: None. DISCUSSION: The bones are osteopenic. There is a total right hip arthroplasty. There is a basicervica l left hip fracture with trochanteric extension. IMPRESSION: Basicervical left hip fracture with intertrochanteric extension ACT 112: Negative or not required by law. Electronically signed by: Jeffrey Melendez M.D. 09/09/2020 2:56 PM
--- NOTE | 2020-09-09 14:58 | XRay Report ---
XR chest 1V portable CLINICAL HISTORY: Hip fracture. Preoperative chest COMPARISON STUDY: The FINDINGS: The right-sided dual-lumen central venous catheter has been removed. The cardiac and medias tinal contours remain stable. There is mild aortic tortuosity/ectasia. No pneumothorax is visualized on the supine study. There is no focal pulmonary consolidation. There are no pleural effusions. There is an old left fourth rib fracture[ IMPRESSION: No active disease in the chest. ACT 112: Negative or not required by law. Electronically signed by: Jeffrey Melendez M.D. 09/09/2020 2:56 PM
[2020-09-09 15:05] LABS: Beta-Hydroxybutyrate 5.14 mg/dl (0.2-2.81)
[2020-09-09] MEDS: MoRPHine SULFATE 2 MG/ML CARP IV PRN ×2 (15:20→18:22)
[2020-09-09] MEDS ORDERED: PHARMACY GLYCEMIC MGMT CONSULT STA (16:58)
--- NOTE | 2020-09-09 16:58 | History & Physical Report ---
Date of Service September 09, 2020 Assessment & Plan (1) Closed fracture of left hip: Will need to medically optimize pt prior to OR - HD tonight, repeat labs in AM. Will make pt NPO after midnight for potential OR tomorrow - Consult orthopedics - Pain control with IV morphine - SCDs for DVT prophylaxis (2) End stage chronic kidney disease: Due for HD today. - Appreciate nephrology input and assistance - Continue renal diet and medications (3) Diabetes mellitus type II, uncontrolled: Pt has not taken insulin since Wednesday because he felt like his sugar was low over the weekend although he didn't check. Sugars on presentation today >500 - Consult pharm for glycemic management - spoke with pharmacist - Check BSG Q2 hrs until stabilizes (4) CAD (coronary artery disease): ECHO and stress imaging done in June as part of routine pre-transplant work-up. No evidence of ischemia. Pt remains asymptomatic from a cardiac perspective. Pt will be moderate risk for surgical intervention due to complicated medical history. - Continue aspirin but hold Plavix until after OR - Continue statin, beta-alex (5) Anemia in chronic kidney disease, on chronic dialysis: Outpatient labs reviewed - H&H appears stable at baseline of 10-10.5 - Follow labs (6) Hepatitis B: - Continue entecavir as taken outpatient (7) Essential hypertension: - Continue outpatient meds and monitor (8) Cerebral palsy: - Will need PT/OT consults after OR for hip fracture. Discussed with patient that he may need short-term rehab at discharge. Will need eventual case management consult. Pt seen and reviewed with attending physician, Dr. Guajardo. Plan of care discussed and as outlined above. Lary Monroy PA-C History of Present Illness Chief Complaint: Fall, left hip pain Primary Care Provider: Carlton Lee DO This is a 65 y/o male with a complicated PMH including chronic Hep B with cirrhosis, now s/p liver transplant in 1997, insulin-requiring DM, ESRD on HD, cerebral palsy, CAD with hx SC, s/p PCI with stent, diabetic neuropathy, anemia, GERD, dyslipidemia, and osteoporosis who presented to the ED today via EMS from dialysis after he noted left hip pain and difficulty transferring from scooter to chair after a fall two days ago. Pt reports that he was doing his laundry on Wednesday and wearing new diabetic shoes when they caught on the floor and he lost his balance and fell, landing on his left hip. He denies LOC or hitting his head. He noted ongoing pain since the fall but tried to stick it out at home without further evaluation despite his family's urging that he get evaluated. Today, when he went for his usual HD, the staff noted that he was having pain in the left hip area and trouble transferring so they called EMS to transport patient for additional work-up. In the ED, he was found to have a left hip fracture. Nephrology was also contacted by the ED for dialysis treatment today if possible. Last HD on Wednesday (usually schedule is //). Pt reports that he has not been eating well since the fall - poor appetite but no N/V. He also felt like his sugars were "running low" over the weekend so he didn't take his insulin since Wednesday night. However, he did not check his sugars so he is unsure what they were. His pain at present is a 6/10. Allergies Allergy/AdvReac Type Severity Reaction Status Date / Time No Known Allergies Allergy Unverified 09/09/20 15:06 Home Medications Medication Instructions Recorded Confirmed Type B complex with C 20-folic acid 1 cap PO DAILY 09/09/20 09/09/20 History [Triphrocaps] allopurinol 100 mg PO QAM 09/09/20 09/09/20 History amitriptyline 150 mg PO QPM 09/09/20 09/09/20 History aspirin 81 mg PO DAILY 09/09/20 09/09/20 History carvedilol 3.125 mg PO QPM 09/09/20 09/09/20 History clopidogrel 75 mg PO QAM 09/09/20 09/09/20 History entecavir 0.5 mg PO QAM 09/09/20 09/09/20 History insulin aspart U-100 [Novolog See Rx Instructions .ROUTE .COMPLEX 09/09/20 09/09/20 History Flexpen U-100 Insulin] insulin glargine [Lantus Solostar 30 unit SUBCUT HS 09/09/20 09/09/20 History U-100 Insulin] pantoprazole 40 mg PO QAM 09/09/20 09/09/20 History pravastatin 20 mg PO QAM 09/09/20 09/09/20 History sevelamer carbonate 2,400 mg PO DAILY 09/09/20 09/09/20 History tacrolimus 4 mg PO BID 09/09/20 09/09/20 History vitamin E 100 unit PO UD 09/09/20 09/09/20 History Past Med/Surg History Medical History Anemia in chronic kidney disease, on chronic dialysis CAD (coronary artery disease) Cerebral palsy ataxic Diabetes mellitus type II, uncontrolled Diastolic congestive heart failure ESRD (end stage renal disease) on dialysis Essential hypertension Foot deformity, congenital GERD (gastroesophageal reflux disease) Hepatitis B History of SC (myocardial infarction) Liver transplant recipient Osteoporosis Presence of stent in coronary artery in patient with coronary artery disease Secondary hyperparathyroidism of renal origin Surgical History History of right hip replacement S/P liver transplant Family History Other Unknown family medical history Social History Smoking Status: Never smoker Hx Alcohol Use: No Hx Substance Use: No Preferred Language: Thai Communication Ability: Effective 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: No Beliefs That Will Affect Care: None Current Living Situation: Alone Other Information That Helps Us Care for You: No Feels Safe at Home: Yes Safety Concerns: Feels Safe At This Time Assistive Devices: Denture - Upper and Denture - Lower Assistive Devices Comment: scooter Review of Systems Review of Systems: All systems reviewed & are unremarkable except as noted in HPI & below Constitutional: + fatigue; no fever and no chills Eyes: no diplopia and no worsening vision Ear, Nose, Mouth, Throat: no sore throat and no dysphagia Respiratory: no cough, no dyspnea and no wheezing Cardiovascular: + edema; no chest pain, no palpitations and no lightheadedness Gastrointestinal: no abdominal pain, no nausea, no vomiting and no diarrhea/loose stools Musculoskeletal: + joint pain (hip pain); no back pain and no neck pain Integumentary: no rash Neurologic: + falls; no headache(s) and no abnormal speech Psychiatric: no depression and no anxiety Physical Exam Constitutional: WD/WN, vitals as above no acute distress Eyes: + anicteric sclerae; no conjunctival abnormality Neck: trachea midline Respiratory: no respiratory distress and no labored breathing Auscultation: lungs clear to auscultation bilaterally; no rales, no rhonchi and no wheezes Cardiovascular: Rate/Rhythm: regular rate and regular rhythm Heart Sounds: + murmur; no gallop and no cardiac rub Vessels: dorsalis pedis pulses present and radial pulses present bilateral pedal edema Gastrointestinal (Abdomen): Inspection/Auscultation: normal bowel sounds; abdomen not distended Percussion/Palpation: abdomen soft; abdomen nontender Musculoskeletal: Head/Neck/Chest: normocephalic, head atraumatic and neck supple Skin: no rashes Psychiatric: A+Ox3, euthymic affect Results & Data Results & Data ([facility]) Vital Signs (Past 12 Hours) Vital Signs Temp Pulse Pulse Resp BP BP Pulse Ox 09/09/20 15:29 88 18 148/77 H 99 09/09/20 12:40 37.1 C 78 20 172/87 H 100 Laboratory Results Laboratory Results - last 24 hr 09/09/20 09/09/20 09/09/20 13:59 13:59 13:59 WBC 11.45 H RBC 3.20 L Hgb 10.7 L Hct 32.0 L MCV 100.0 MCH 33.4 MCHC 33.4 RDW Std Deviation 55.1 H RDW Coeff of Dean 15.1 H Plt Count 130 MPV 9.3 Immature Gran % (Auto) 0.3 Neut % (Auto) 85.2 Lymph % (Auto) 5.7 [place] % (Auto) 8.8 Eos % (Auto) 0.0 Baso % (Auto) 0.0 Neut # (Auto) 9.76 H Lymph # (Auto) 0.65 L [place] # (Auto) 1.01 H Eos # (Auto) 0.00 Baso # (Auto) 0.00 Immature Gran # (Auto) 0.03 H PT 11.2 INR 1.1 APTT 26.6 PTT Ratio 1.0 Sodium 125 L Potassium 6.3 H* Chloride 89 L Carbon Dioxide 26 Anion Gap 10.0 BUN 57 H Creatinine 8.51 H* Est Cr Clr Drug Dosing 7.5 Est GFR ( Amer) 6.7 Est GFR (Non-Af Amer) 5.8 BUN/Creatinine Ratio 6.7 L Glucose 508 H* POC Glucose Calcium 9.2 Magnesium 2.4 Total Bilirubin 0.5 AST 15 ALT 90 H Alkaline Phosphatase 160 H Total Protein 7.2 Albumin 2.9 L Globulin 4.3 H Albumin/Globulin Ratio 0.7 L Beta-Hydroxybutyric Acd 5.14 H COVID-19 Eval Order SARS-CoV-2 (PCR) 09/09/20 09/09/20 09/09/20 15:09 15:09 16:14 WBC RBC Hgb Hct MCV MCH MCHC RDW Std Deviation RDW Coeff of [place] Plt Count MPV Immature Gran % (Auto) Neut % (Auto) Lymph % (Auto) [place] % (Auto) Eos % (Auto) Baso % (Auto) Neut # (Auto) Lymph # (Auto) [place] # (Auto) Eos # (Auto) Baso # (Auto) Immature Gran # (Auto) PT INR APTT PTT Ratio Sodium Potassium Chloride Carbon Dioxide Anion Gap BUN Creatinine Est Cr Clr Drug Dosing Est GFR ( Amer) Est GFR (Non-Af Amer) BUN/Creatinine Ratio Glucose POC Glucose 560 H* Calcium Magnesium Total Bilirubin AST ALT Alkaline Phosphatase Total Protein Albumin Globulin Albumin/Globulin Ratio Beta-Hydroxybutyric Acd COVID-19 Eval Order Covid19 at [facility] SARS-CoV-2 (PCR) NEGATIVE Medications Administered Morphine Sulfate (Morphine Sulfate 2 Mg/Ml Carp) 2 mg IV Q30M PRN PRN Reason: pain Stop: 09/23/20 14:53 Last Admin: 09/09/20 15:20 Dose: 2 mg Documented by: [id number] Discontinued Medications Sodium Chloride (Nss 1000ml) 500 mls @ 999 mls/hr IV .Q31M ONE Stop: 09/09/20 15:16 Last Admin: 09/09/20 16:18 Dose: Not Given Documented by: [id number] Insulin Human Regular (Novolin-R Insulin Per Unit Charge) 4 units IV NOW STA Stop: 09/09/20 14:47 Last Admin: 09/09/20 15:21 Dose: 4 units Documented by: [id number] Cosigned by: [id number] Morphine Sulfate (Morphine Sulfate 2 Mg/Ml Carp) 2 mg IV NOW STA Stop: 09/09/20 13:16 Last Admin: 09/09/20 14:10 Dose: 2 mg Documented by: [id number] Ondansetron HCl (Ondansetron Inj 2 Mg/Ml 2 Ml Vial) 4 mg IV NOW STA Stop: 09/09/20 13:16 Last Admin: 09/09/20 14:10 Dose: 4 mg Documented by: [id number] Supervising Physician Co-Signing Physician Notes Patient was seen and examined by me, care coordinated with Marycarmen Monroy PA-C, please refer to her note above for further detail. Patient is a 65-year-old male, with history of liver transplant, diabetes mellitus, end-stage renal disease on dialysis, who had a mechanical fall, and now presents with left hip fracture. He was also found hyperglycemic in the ED, as he did not take insulin since his fall. Currently lying in bed in no acute distress, sister at the bedside. He seems extremely tired. He is able to answer most questions appropriately, but per sister his answers are slower and not as correct as usually would be. Lung sounds seems to be clear to auscultation bilaterally without any wheezing rhonchi or crackles. Heart sounds seem regular, positive murmur, abdomen is soft, nontender nondistended. Left lower extremity with positive edema since the fall. Skin is warm dry. Oral mucosa, lips very dry. Patient denies any history of fever chills, sick contacts, abdominal pain, nausea, vomiting or diarrhea prior to his fall. Reports that fall was mechanical, getting weaker due to cerebral palsy. White blood cell count was however found slightly elevated in the ED. We will obtain urine sample, will check procalcitonin. For now we will hold on antibiotics. Patient is in need of dialysis, as he missed it today. Nephrology contacted, plan for dialysis tonight. Hyperglycemia, with glucose over 500, glycemic pharmacy contacted. In the ED he received IV heparin 4 units. Continue closely monitor. Orthopedics consulted for hip fracture. Left lower extremity edematous, will obtain Doppler. Preet Guajardo MD (1) Hepatitis B Hepatic coma status: without hepatic coma Hepatitis delta agent presence: without delta-agent Viral hepatitis chronicity: chronic Qualified Code(s): B18.1 - Chronic viral hepatitis B without delta-agent (2) CAD (coronary artery disease) Associated angina: without angina Coronary Disease-Associated Artery/Lesion type: [place] artery [place] vs. transplanted heart: [place] heart Qualified Code(s): I25.10 - Atherosclerotic heart disease of [place] coronary artery without angina pectoris (3) Cerebral palsy Cerebral palsy type: ataxic Qualified Code(s): G80.4 - Ataxic cerebral palsy (4) Diabetes mellitus type II, uncontrolled Glycemic state: with hyperglycemia Qualified Code(s): E11.65 - Type 2 diabetes mellitus with hyperglycemia (5) Closed fracture of left hip Encounter type: initial encounter Qualified Code(s): S72.002A - Fracture of unspecified part of neck of left femur, initial encounter for closed fracture
[2020-09-09] MEDS ORDERED: NALOXONE HCL 0.4 MG/1 ML VIAL/CARP IV PRN (18:08)
[2020-09-09] MEDS ORDERED: SODIUM CHLORIDE 0.9% 1000ML 1,000 ML IV PRN (18:48)
[2020-09-09] MEDS ORDERED: HEPARIN SOD (PORCINE) 1000 UNIT/ML IV SCH (18:48)
--- NOTE | 2020-09-09 18:58 | Nephrology Consultation ---
Date of Consultation September 09, 2020 Assessment & Plan (1) End stage chronic kidney disease: on MWF HD; for HD today 3 hrs, goal 3L UF - monitor BG and K closely on tx; may need to back down depending on tx plans for BG -stat bmp at start of tx today > he will get that drawn after 10-15 minutes of HD -frequent BG monitoring on dialysis especially -daily bmp, cbc -running him on 3K bath, not 2K, d/t marked hyperglycemia Present on Admission?: Yes (2) Acute hyperglycemia: in ER he had 500 mL NS at 1445 and 4 units IV insulin > may well need insulin gtt to optimize for OR overnight >> did d/w primary serv ice; pharmacy c/s ordered and will be prioritized; pt will have q1hr BSG on HD at least Present on Admission?: Yes (3) Anemia in chronic kidney disease, on chronic dialysis: no indication for anemia meds on tx today; monitor daily w/ elevated BG Present on Admission?: Yes (4) Closed fracture of left hip: for OR at some point pending ortho eval and once medically optimized Present on Admission?: Yes History of Present Illness Reason for Consultation: ESRD with leg injury Requesting Physician: Dr Guajardo Attending Physician: Russ Guajardo MD History of Present Illness 65-year-old male whom I am asked to evaluate for dialysis needs after he was admitted this evening for left hip fracture. He dialyzes at [facility] in [place] under my partner Dr Loya's care on MWF. He tells me he is generally adherent with treatments and that they usually remove "6 or 7 pounds." Medical history includes liver transplant 1997 for hep B with cirrhosis, ins ulin-dependent diabetes, cerebral palsy, very artery disease with history of stenting, neuropathy, GERD, hyperlipidemia, osteoporosis. Still with a history of cerebral palsy and ambulatory dysfunction. The patient fell on September 07 without loss of consciousness or head trauma and noted left hip pain. He tripped on new shoes. He had trouble transferring from scooter to dialysis treatment chair today. He was therefore sent for further evaluation. He did not have treatment today. He also took no insulin since the evening of September 06 since he thought his sugars were running low. He endorses poor p.o. intake since then. Denies shortness of breath or chest pain. He does have ongoing hip discomfort. No nausea vomiting. He makes drops of urine daily and no change in his chronic voiding habits. His sister Gabriela is at bedside during our interview. Allergies Allergy/AdvReac Type Severity Reaction Status Date / Time No Known Allergies Allergy Unverified 09/09/20 15:06 Home Medications Medication Instructions Recorded Confirmed Type B complex with C 20-folic acid 1 cap PO DAILY 09/09/20 09/09/20 History [Triphrocaps] allopurinol 100 mg PO QAM 09/09/20 09/09/20 History amitriptyline 150 mg PO QPM 09/09/20 09/09/20 History aspirin 81 mg PO DAILY 09/09/20 09/09/20 History carvedilol 3.125 mg PO QPM 09/09/20 09/09/20 History clopidogrel 75 mg PO QAM 09/09/20 09/09/20 History entecavir 0.5 mg PO QAM 09/09/20 09/09/20 History insulin aspart U-100 [Novolog See Rx Instructions .ROUTE .COMPLEX 09/09/20 09/09/20 History Flexpen U-100 Insulin] insulin glargine [Lantus Solostar 30 unit SUBCUT HS 09/09/20 09/09/20 History U-100 Insulin] pantoprazole 40 mg PO QAM 09/09/20 09/09/20 History pravastatin 20 mg PO QAM 09/09/20 09/09/20 History sevelamer carbonate 2,400 mg PO DAILY 09/09/20 09/09/20 History tacrolimus 4 mg PO BID 09/09/20 09/09/20 History vitamin E 100 unit PO UD 09/09/20 09/09/20 History Patient History Medical History Anemia in chronic kidney disease, on chronic dialysis CAD (coronary artery disease) Cerebral palsy ataxic Diabetes mellitus type II, uncontrolled Diastolic congestive heart failure ESRD (end stage renal disease) on dialysis Essential hypertension Foot deformity, congenital GERD (gastroesophageal reflux disease) Hepatitis B History of [place] (myocardial infarction) Liver transplant recipient Osteoporosis Presence of stent in coronary artery in patient with coronary artery disease Secondary hyperparathyroidism of renal origin Surgical History History of right hip replacement S/P liver transplant Family History Other Unknown family medical history Social History Smoking Status: Never smoker Hx Alcohol Use: No Hx Substance Use: No Preferred Language: Niuean Communication Ability: Effective Cyber Security Manager Required: No Beliefs That Will Affect Care: None Current Living Situation: Alone Other Information That Helps Us Care for You: No Feels Safe at Home: Yes Safety Concerns: Feels Safe At This Time Assistive Devices: Cane, Denture - Upper, Denture - Lower and Walker Assistive Devices Comment: scooter Review of Systems Review of Systems: All systems reviewed & are unremarkable except as noted in HPI & below Physical Exam Constitutional: well developed, well nourished, + frail appearing and cooperative; no acute distress lying flat on RA Eyes: EOM intact bilaterally ENMT: Ears: no external ear abnormality Nose: no external nose abnormality Mouth: + dry oral mucous membranes (very) Neck: no nuchal rigidity Respiratory: normal respiratory effort; no labored breathing Auscultation: lungs clear to auscultation bilaterally and + diminished lung sounds Cardiovascular: Rate/Rhythm: regular rate and regular rhythm Extremities: + edema (trace LLE) and + AV fistula (RUE + t/b) Gastrointestinal (Abdomen): Inspection/Auscultation: normal bowel sounds Percussion/Palpation: abdomen soft; abdomen nontender Musculoskeletal: Extremities: + limited ROM of extremities and + abnormal strength Skin: no rashes, warm and dry Neurologic: louie, fluent speech, no tremor Psychiatric: Orientation: alert and oriented x 3 Speech: normal rate/rhythm/volume of speech Results & Data ([facility]) Vital Signs (Past 12 Hours) Vital Signs Temp Pulse Pulse Resp BP BP Pulse Ox 09/09/20 18:11 80 09/09/20 18:08 36.7 C 79 20 169/85 H 96 09/09/20 17:58 80 16 156/90 H 96 09/09/20 17:00 86 18 134/94 96 09/09/20 15:29 88 18 148/77 H 99 09/09/20 12:40 37.1 C 78 20 172/87 H 100 Laboratory Results 09/09/20 13:59 06/28/21 13:59 Diagnostic Findings cxr clear/no active/acute CP dz (1) Closed fracture of left hip Encounter type: sequela Qualified Code(s): S72.002S - Fracture of unspecified part of neck of left femur, sequela
[2020-09-09] MEDS ORDERED: MoRPHine SULFATE 2 MG/ML CARP IV PRN (19:07)
[2020-09-09] MEDS ORDERED: INSULIN GLARGINE SOLOSTAR 100 UNITS/ML 3 ML PEN SC STA (19:29)
[2020-09-09] MEDS ORDERED: PHARMACY GLYCEMIC MGMT CONSULT SCH (19:30)
[2020-09-09] MEDS ORDERED: DEXTROSE 50% 50 ML SYRINGE IV PRN (19:45)
[2020-09-09] MEDS ORDERED: CARBOHYDRATES FOR HYPOGLYCEMIA PO PRN (19:45)
[2020-09-09] MEDS ORDERED: GLUCOSE 10 TABS/TUBE PO PRN (19:45)
[2020-09-09] MEDS ORDERED: GLUCAGON FOR INJ 1 MG VIAL IM PRN (19:45)
[2020-09-09] MEDS ORDERED: GLUCOSE 40% GEL 15 GM TUBE PO PRN (19:45)
[2020-09-09] MEDS: INSULIN ASPART 100 UNITS/ML 3 ML PEN SC SCH ×2 (20:04→22:16)
[2020-09-09 20:10] LABS: BUN Creatinine Ratio 6.6 (10-20); Calcium 8.9 mg/dl (8.5-10.1); Creatinine Clr Calc Pharmacy 10.3 ml/min; Est GFR (African American) 9.4 ml/min; Est GFR (Non-African American) 8.1 ml/min
[2020-09-09 20:53] LABS: Beta-Hydroxybutyrate 5.48 mg/dl (0.2-2.81)
[2020-09-09] MEDS ORDERED: INSULIN ASPART 100 UNITS/ML 3 ML PEN SC ONE (22:30)
--- NOTE | 2020-09-09 22:32 | Orthopedic Consultation ---
Date of Service September 09, 2020 Assessment & Plan (1) Closed fracture of left hip: Left Comminuted basicervical femoral neck fracture with peritrochanteric extension. Fracture is amenable to left hip open reduction and internal fixation. I recommend an open incision to place a dynamic hip screw with sideplate. Appreciate multidisciplinary medical management and clearance for surgery. I discussed the risks and benefits of the surgery in detail with the patient in the preop holding area. The risks we discussed include but are not limited to, infection, neurovascular injury, blood loss requiring transfusion, nonunion, malunion, need for subsequent surgeries, progressive degenerative changes, symptomatic hardware, other hardware complications, venous thromboembolism, pain syndromes, and complications related to anesthesia. The patient asked appropriate questions, demonstrated good understanding, and is agreeable to proceed with fracture surgery to restore ambulation and give this proximal femur fracture is best chance to heal. He stated that he makes his own medical decisions. Informed consent was obtained and witnessed by nursing. History of Present Illness Reason for Consultation: Left hip fracture Requesting Physician: . Attending Physician: Russ Guajardo MD 65 y/o male with a complicated PMH including chronic Hep B with cirrhosis, now s/p liver transplant in 1997, insulin-requiring DM, ESRD on HD, cerebral palsy, CAD with hx MT, s/p PCI with stent, diabetic neuropathy, anemia, GERD, dyslipidemia, and osteoporosis who presented to the ED today via EMS from dialysis after he noted left hip pain and difficulty transferring from scooter to chair after a fall two days ago. He had a slip and fall on Wednesday09/07/2020. He tried to manage the pain and avoid evaluation, but his family encouraged him to be evaluated the emergency room. He denies LOC or hitting his head. He denied need for treatment of hip arthritis on that left side prior to this injury. He does have a history of right total hip arthroplasty. Pain is isolated to the left hip. His appetite has been low but has been in the usual state of health prior to the fall. He does use a walker and sometimes a cane to ambulate around the house. He is dependent on the scooter outside the house and for long distances due to cerebral palsy and balance issues. Allergies Allergy/AdvReac Type Severity Reaction Status Date / Time No Known Allergies Allergy Unverified 09/09/20 15:06 Home Medications Medication Instructions Recorded Confirmed Type B complex with C 20-folic acid 1 cap PO DAILY 09/09/20 09/09/20 History [Triphrocaps] allopurinol 100 mg PO QAM 09/09/20 09/09/20 History amitriptyline 150 mg PO QPM 09/09/20 09/09/20 History aspirin 81 mg PO DAILY 09/09/20 09/09/20 History carvedilol 3.125 mg PO QPM 09/09/20 09/09/20 History clopidogrel 75 mg PO QAM 09/09/20 09/09/20 History entecavir 0.5 mg PO QAM 09/09/20 09/09/20 History insulin aspart U-100 [Novolog See Rx Instructions .ROUTE .COMPLEX 09/09/20 09/09/20 History Flexpen U-100 Insulin] insulin glargine [Lantus Solostar 30 unit SUBCUT HS 09/09/20 09/09/20 History U-100 Insulin] pantoprazole 40 mg PO QAM 09/09/20 09/09/20 History pravastatin 20 mg PO QAM 09/09/20 09/09/20 History sevelamer carbonate 2,400 mg PO DAILY 09/09/20 09/09/20 History tacrolimus 4 mg PO BID 09/09/20 09/09/20 History vitamin E 100 unit PO UD 09/09/20 09/09/20 History Past Med/Surg History Medical History Anemia in chronic kidney disease, on chronic dialysis CAD (coronary artery disease) Cerebral palsy ataxic Diabetes mellitus type II, uncontrolled Diastolic congestive heart failure ESRD (end stage renal disease) on dialysis Essential hypertension Foot deformity, congenital GERD (gastroesophageal reflux disease) Hepatitis B History of MT (myocardial infarction) Liver transplant recipient Osteoporosis Presence of stent in coronary artery in patient with coronary artery disease Secondary hyperparathyroidism of renal origin Surgical History History of right hip replacement S/P liver transplant Family History Other Unknown family medical history Social History Smoking Status: Never smoker Hx Alcohol Use: No Hx Substance Use: No Preferred Language: Belgian Communication Ability: Effective 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 Physical Exam Today in the preop area he is more alert than the previous evening. He is oriented to person place and time. Left lower extremity: His exam is the same as the previous evening for his hip. He has discomfort with any manipulation of that lower extremity. There is no ecchymosis or skin disruption on the lateral aspect of his left hip. He has positive dorsiflexion, plantarflexion, EHL activity. He has palpable dorsalis pedis and posterior tibial pulses. Sensation is grossly intact to light touch. He is nontender down his thigh and about the knee. Otherwise, on secondary survey he is full active range of motion of his shoulders elbows wrist and digits. The right lower extremity has some mild edema but no evidence of trauma. Constitutional well developed and well nourished; no acute distress and not intoxicated appeari ng ENMT external ear and nose normal, oropharynx normal Respiratory normal respiratory effort; no respiratory distress Cardiovascular Extremities: normal capillary refill; no edema Skin no rashes, warm and dry Psychiatric A+Ox3, euthymic affect Results & Data Results & Data Laboratory Results H & H 09/09/20 09/10/20 Range/Units 13:59 07:50 Hgb 10.7 L 9.9 L (14.0-18.0) g/dL Hct 32.0 L 31.0 L (42-52) % Coagulation 09/09/20 Range/Units 13:59 INR 1.1 (0.9-1.1) Diagnostic Findings X-rays of the pelvis, femur demonstrate a peritrochanteric fracture that has a basicervical component and seems to propagate through to the lesser trochanter but not further. There is no adequate lateral so a CT scan was performed. CT scan left hip: Multiplanar CT scan with fine cuts demonstrates a fracture involving the basicervical region that extends to the peritrochanteric region. There is no subtrochanteric extension. The greater trochanter is split but minimally displaced. The basicervical component has some of the calcar attached and may represent an opportunity for open reduction internal fixation versus a more proximal femoral neck fracture. PG Care Time/CCT Total # of Minutes Spent Total Time Spent with Patient: Total time spent is greater than 50% in coordination of care (as documented) at patient's floor/unit and/or counseling patient: Coding Level of Care Code 28458 Inpt Consult Level 4 (57 - DECISION FOR SURGERY) Diagnoses Closed fracture of left hip S72.002A Encounter type: initial encounter (1) Closed fracture of left hip Encounter type: initial encounter Qualified Code(s): S72.002A - Fracture of unspecified part of neck of left femur, initial encounter for closed fracture
[2020-09-10 04:03] LABS: Appearance Urine Clear (Clear); Bacteria Urine Automated Negative (Negative); Bilirubin Urine Negative (Negative); Blood Urine Negative (Negative); Cast Urine Automated 0 /lpf (0-5); Color Urine Yellow; Epithelial Cell Urine Auto 0-5 /lpf (0-5); Glucose Urine UA 2+ (Negative); Ketones Urine Negative (Negative); Leukocyte Esterase Urine Negative (Negative); Nitrite Urine Negative (Negative); RBC Urine Automated 0-4 /hpf (0-4); Specific Gravity Urine 1.015 (1.000-1.030); Urobilinogen Urine Negative (Negative); WBC Urine Automated 0 /hpf (0-5); pH Urine >= 9.0 (4.5-7.5)
[2020-09-10] MEDS: INSULIN ASPART 100 UNITS/ML 3 ML PEN SC SCH ×5 (04:12→20:04)
[2020-09-10 04:21] LABS: Protein Urine 2+ (Negative)
[2020-09-10] MEDS ORDERED: BUPIVACAINE 0.5 % 5 MG/1 ML PF 10ML VIAL ONE ×2 (06:19→12:31)
--- NOTE | 2020-09-10 07:13 | Hospitalist Progress Note ---
Date of Service September 10, 2020 Assessment & Plan (1) Closed fracture of left hip: - Consulted orthopedics - Pain control with IV morphine - SCDs for DVT prophylaxis Pt needed to be medically optimized pt prior to OR Missed HD on day of admission therefore HD provided while inpt last night -NPO after midnight, plan for OR today (09/10, Dr. Robertson) CT of left hip ordered and reviewed by orthopedics (2) End stage chronic kidney disease: - Appreciate nephrology input and assistance - Continue renal diet and medications Missed HD on day of admission therefore HD provided while inpt last night (09/09) (3) Diabetes mellitus type II, uncontrolled: Pt has not taken insulin since Wednesday because he felt like his sugar was low over the weekend although he didn't check. Sugars on presentation today >500 - Consult pharm for glycemic management - spoke with pharmacist - Check BSG Q2 hrs until stabilizes Hyperglycemia now resolved (4) CAD (coronary artery disease): ECHO and stress imaging done in June as part of routine pre-transplant work-up. No evidence of ischemia. Pt remains asymptomatic from a cardiac perspective. Pt will be a moderate risk for surgical intervention due to complicated medical history. - Continue aspirin but hold Plavix until after OR - Continue statin, beta-alex (5) Anemia in chronic kidney disease, on chronic dialysis: Outpatient labs reviewed - H&H appears stable at baseline of 10-10.5 - Follow labs (6) Hepatitis B: - Continue entecavir as taken outpatient (7) Essential hypertension: - Continue outpatient meds and monitor (8) Cerebral palsy: - Will need PT/OT consults after OR for hip fracture. Discussed with patient that he may need short-term rehab at discharge. Will need eventual case management consult. Admission and Anticipated Discharge Date Admission Date: September 09, 2020 Subjective Patient seen in follow-up of fall, left hip fracture, end-stage renal disease on dialysis Currently lying in bed, in no acute distress, only complains of some left hip pain Underwent dialysis last night Denies fevers, chills, chest pain, shortness of breath, abdominal pain, nausea or vomiting Hyperglycemia resolved now Plan for OR today Review of Systems Review of Systems: All systems reviewed & are unremarkable except as noted in HPI & below Constitutional: no fever and no chills Respiratory: no cough and no dyspnea Cardiovascular: no chest pain and no palpitations Gastrointestinal: no abdominal pain, no nausea and no vomiting Physical Exam Physical Exam: Constitutional: WD/WN, no acute distress Eyes: + anicteric sclerae; no conjunctival abnormality Neck: trachea midline Respiratory: no respiratory distress and no labored breathing Auscultation: lungs clear to auscultation bilaterally; no rales, no rhonchi and no wheezes Cardiovascular: Rate/Rhythm: regular rate and regular rhythm Heart Sounds: + murmur; no gallop and no cardiac rub Vessels: dorsalis pedis pulses present and radial pulses present bilateral pedal edema Gastrointestinal (Abdomen): Inspection/Auscultation: normal bowel sounds; abdomen not distended Percussion/Palpation: abdomen soft; abdomen nontender Musculoskeletal: Head/Neck/Chest: normocephalic, head atraumatic and neck supple Skin: no rashes Psychiatric: A+Ox3, euthymic affect Results & Data Results & Data ([facility]) Vital Signs (Past 12 Hours) Vital Signs Temp Pulse Pulse Resp BP BP Pulse Ox 09/10/20 04:52 37.1 C 84 18 128/78 94 09/10/20 04:44 87 09/09/20 23:05 36.9 C 103 H 20 115/71 94 09/09/20 22:19 36.9 C 89 132/77 09/09/20 21:45 86 74/59 L 09/09/20 21:30 89 102/67 09/09/20 21:15 92 H 93/63 L 09/09/20 21:00 90 129/68 09/09/20 20:45 86 93/58 L 09/09/20 20:30 86 98/62 L 09/09/20 20:20 87 96/63 L 09/09/20 20:10 86 108/70 09/09/20 20:00 89 89/59 L 09/09/20 19:52 89 88/58 L 09/09/20 19:40 89 94/55 L 09/09/20 19:20 87 105/67 Laboratory Results 09/10/20 09/10/20 09/10/20 Range/Units 07:53 07:50 07:50 WBC 9.62 (4.8-10.8) K/uL RBC 3.02 L (4.7-6.1) M/uL Hgb 9.9 L (14.0-18.0) g/dL Hct 31.0 L (42-52) % MCV 102.6 H (80-100) fL MCH 32.8 (25-34) pg MCHC 31.9 L (32-36) g/dL RDW Std Deviation 57.0 H (36.4-46.3) fL RDW Coeff of Dean 15.5 H (11.5-14.5) % Plt Count 128 L (130-400) K/uL MPV 9.3 (7.4-10.4) fL Immature Gran % (Auto) 0.2 % Neut % (Auto) 72.2 % Lymph % (Auto) 16.6 % Dukes % (Auto) 10.1 % Eos % (Auto) 0.8 % Baso % (Auto) 0.1 % Neut # (Auto) 6.94 H (1.4-6.5) K/uL Lymph # (Auto) 1.60 (1.2-3.4) K/uL Dukes # (Auto) 0.97 H (0.11-0.59) K/uL Eos # (Auto) 0.08 (0-0.5) K/uL Baso # (Auto) 0.01 (0-0.2) K/uL Immature Gran # (Auto) 0.02 (0.00-0.02) K/uL PT (9.0-12.0) Seconds INR (0.9-1.1) APTT (21.0-31.0) Seconds PTT Ratio Sodium 138 D (136-145) mmol/L Potassium 4.9 (3.5-5.1) mmol/L Chloride 102 (98-107) mmol/L Carbon Dioxide 31 (21-32) mmol/L Anion Gap 5.0 (3-11) BUN 28 H (7-18) mg/dl Creatinine 5.15 H* D (0.6-1.4) mg/dl Est Cr Clr Drug Dosing 11.4 ml/min Est GFR ( Amer) 12.4 ml/min Est GFR (Non-Af Amer) 10.7 ml/min BUN/Creatinine Ratio 5.4 L (10-20) Glucose 76 (70-99) mg/dl POC Glucose 84 (70-99) mg/dl Calcium 9.1 (8.5-10.1) mg/dl Magnesium (1.8-2.4) mg/dl Total Bilirubin (0.2-1) mg/dl AST (15-37) U/L ALT (12-78) U/L Alkaline Phosphatase (45-117) U/L Total Protein (6.4-8.2) gm/dl Albumin (3.4-5.0) gm/dl Globulin (2.5-4.0) gm/dl Albumin/Globulin Ratio (0.9-2) Beta-Hydroxybutyric Acd (0.2-2.81) mg/dl Procalcitonin (0-0.5) ng/ml Urine Color Urine Appearance (Clear) Urine pH (4.5-7.5) Ur Specific [place] (1.000-1.030) Urine Protein (Negative) Urine Glucose (UA) (Negative) Urine Ketones (Negative) Urine Blood (Negative) Urine Nitrite (Negative) Urine Bilirubin (Negative) Urine Urobilinogen (Negative) Ur Leukocyte Esterase (Negative) Urine WBC (Auto) (0-5) /hpf Urine RBC (Auto) (0-4) /hpf U Hyaline Cast (Auto) (0-5) /lpf U Epithel Cells (Auto) (0-5) /lpf Urine Bacteria (Auto) (Negative) Nasal Screen MRSA (PCR) (Negative) COVID-19 Eval Order SARS-CoV-2 (PCR) (Negative) 09/10/20 09/10/20 09/10/20 Range/Units 05:37 05:05 05:03 WBC (4.8-10.8) K/uL RBC (4.7-6.1) M/uL Hgb (14.0-18.0) g/dL Hct (42-52) % MCV (80-100) fL MCH (25-34) pg MCHC (32-36) g/dL RDW Std Deviation (36.4-46.3) fL RDW Coeff of Dean (11.5-14.5) % Plt Count (130-400) K/uL MPV (7.4-10.4) fL Immature Gran % (Auto) % Neut % (Auto) % Lymph % (Auto) % Dukes % (Auto) % Eos % (Auto) % Baso % (Auto) % Neut # (Auto) (1.4-6.5) K/uL Lymph # (Auto) (1.2-3.4) K/uL Dukes # (Auto) (0.11-0.59) K/uL Eos # (Auto) (0-0.5) K/uL Baso # (Auto) (0-0.2) K/uL Immature Gran # (Auto) (0.00-0.02) K/uL PT (9.0-12.0) Seconds INR (0.9-1.1) APTT (21.0-31.0) Seconds PTT Ratio Sodium (136-145) mmol/L Potassium (3.5-5.1) mmol/L Chloride (98-107) mmol/L Carbon Dioxide (21-32) mmol/L Anion Gap (3-11) BUN (7-18) mg/dl Creatinine (0.6-1.4) mg/dl Est Cr Clr Drug Dosing ml/min Est GFR ( Amer) ml/min Est GFR (Non-Af Amer) ml/min BUN/Creatinine Ratio (10-20) Glucose (70-99) mg/dl POC Glucose 130 H 63 L* 66 L* (70-99) mg/dl Calcium (8.5-10.1) mg/dl Magnesium (1.8-2.4) mg/dl Total Bilirubin (0.2-1) mg/dl AST (15-37) U/L ALT (12-78) U/L Alkaline Phosphatase (45-117) U/L Total Protein (6.4-8.2) gm/dl Albumin (3.4-5.0) gm/dl Globulin (2.5-4.0) gm/dl Albumin/Globulin Ratio (0.9-2) Beta-Hydroxybutyric Acd (0.2-2.81) mg/dl Procalcitonin (0-0.5) ng/ml Urine Color Urine Appearance (Clear) Urine pH (4.5-7.5) Ur Specific [place] (1.000-1.030) Urine Protein (Negative) Urine Glucose (UA) (Negative) Urine Ketones (Negative) Urine Blood (Negative) Urine Nitrite (Negative) Urine Bilirubin (Negative) Urine Urobilinogen (Negative) Ur Leukocyte Esterase (Negative) Urine WBC (Auto) (0-5) /hpf Urine RBC (Auto) (0-4) /hpf U Hyaline Cast (Auto) (0-5) /lpf U Epithel Cells (Auto) (0-5) /lpf Urine Bacteria (Auto) (Negative) Nasal Screen MRSA (PCR) (Negative) COVID-19 Eval Order SARS-CoV-2 (PCR) (Negative) 09/10/20 09/10/20 09/10/20 Range/Units 04:00 03:58 03:14 WBC (4.8-10.8) K/uL RBC (4.7-6.1) M/uL Hgb (14.0-18.0) g/dL Hct (42-52) % MCV (80-100) fL MCH (25-34) pg MCHC (32-36) g/dL RDW Std Deviation (36.4-46.3) fL RDW Coeff of Dean (11.5-14.5) % Plt Count (130-400) K/uL MPV (7.4-10.4) fL Immature Gran % (Auto) % Neut % (Auto) % Lymph % (Auto) % Dukes % (Auto) % Eos % (Auto) % Baso % (Auto) % Neut # (Auto) (1.4-6.5) K/uL Lymph # (Auto) (1.2-3.4) K/uL Dukes # (Auto) (0.11-0.59) K/uL Eos # (Auto) (0-0.5) K/uL Baso # (Auto) (0-0.2) K/uL Immature Gran # (Auto) (0.00-0.02) K/uL PT (9.0-12.0) Seconds INR (0.9-1.1) APTT (21.0-31.0) Seconds PTT Ratio Sodium (136-145) mmol/L Potassium (3.5-5.1) mmol/L Chloride (98-107) mmol/L Carbon Dioxide (21-32) mmol/L Anion Gap (3-11) BUN (7-18) mg/dl Creatinine (0.6-1.4) mg/dl Est Cr Clr Drug Dosing ml/min Est GFR ( Amer) ml/min Est GFR (Non-Af Amer) ml/min BUN/Creatinine Ratio (10-20) Glucose (70-99) mg/dl POC Glucose 73 67 L* (70-99) mg/dl Calcium (8.5-10.1) mg/dl Magnesium (1.8-2.4) mg/dl Total Bilirubin (0.2-1) mg/dl AST (15-37) U/L ALT (12-78) U/L Alkaline Phosphatase (45-117) U/L Total Protein (6.4-8.2) gm/dl Albumin (3.4-5.0) gm/dl Globulin (2.5-4.0) gm/dl Albumin/Globulin Ratio (0.9-2) Beta-Hydroxybutyric Acd (0.2-2.81) mg/dl Procalcitonin (0-0.5) ng/ml Urine Color Yellow Urine Appearance Clear (Clear) Urine pH >= 9.0 H (4.5-7.5) Ur Specific [place] 1.015 (1.000-1.030) Urine Protein 2+ H (Negative) Urine Glucose (UA) 2+ H (Negative) Urine Ketones Negative (Negative) Urine Blood Negative (Negative) Urine Nitrite Negative (Negative) Urine Bilirubin Negative (Negative) Urine Urobilinogen Negative (Negative) Ur Leukocyte Esterase Negative (Negative) Urine WBC (Auto) 0 (0-5) /hpf Urine RBC (Auto) 0-4 (0-4) /hpf U Hyaline Cast (Auto) 0 (0-5) /lpf U Epithel Cells (Auto) 0-5 (0-5) /lpf Urine Bacteria (Auto) Negative (Negative) Nasal Screen MRSA (PCR) (Negative) COVID-19 Eval Order SARS-CoV-2 (PCR) (Negative) 09/09/20 09/09/20 09/09/20 Range/Units 21:58 19:56 19:17 WBC (4.8-10.8) K/uL RBC (4.7-6.1) M/uL Hgb (14.0-18.0) g/dL Hct (42-52) % MCV (80-100) fL MCH (25-34) pg MCHC (32-36) g/dL RDW Std Deviation (36.4-46.3) fL RDW Coeff of Dean (11.5-14.5) % Plt Count (130-400) K/uL MPV (7.4-10.4) fL Immature Gran % (Auto) % Neut % (Auto) % Lymph % (Auto) % Dukes % (Auto) % Eos % (Auto) % Baso % (Auto) % Neut # (Auto) (1.4-6.5) K/uL Lymph # (Auto) (1.2-3.4) K/uL Dukes # (Auto) (0.11-0.59) K/uL Eos # (Auto) (0-0.5) K/uL Baso # (Auto) (0-0.2) K/uL Immature Gran # (Auto) (0.00-0.02) K/uL PT (9.0-12.0) Seconds INR (0.9-1.1) APTT (21.0-31.0) Seconds PTT Ratio Sodium 130 L (136-145) mmol/L Potassium 5.0 D (3.5-5.1) mmol/L Chloride 95 L (98-107) mmol/L Carbon Dioxide 28 (21-32) mmol/L Anion Gap 7.0 (3-11) BUN 43 H (7-18) mg/dl Creatinine 6.47 H* D (0.6-1.4) mg/dl Est Cr Clr Drug Dosing 10.3 ml/min Est GFR ( Amer) 9.4 ml/min Est GFR (Non-Af Amer) 8.1 ml/min BUN/Creatinine Ratio 6.6 L (10-20) Glucose 337 H* (70-99) mg/dl POC Glucose 183 H 299 H (70-99) mg/dl Calcium 8.9 (8.5-10.1) mg/dl Magnesium (1.8-2.4) mg/dl Total Bilirubin (0.2-1) mg/dl AST (15-37) U/L ALT (12-78) U/L Alkaline Phosphatase (45-117) U/L Total Protein (6.4-8.2) gm/dl Albumin (3.4-5.0) gm/dl Globulin (2.5-4.0) gm/dl Albumin/Globulin Ratio (0.9-2) Beta-Hydroxybutyric Acd 5.48 H (0.2-2.81) mg/dl Procalcitonin (0-0.5) ng/ml Urine Color Urine Appearance (Clear) Urine pH (4.5-7.5) Ur Specific [place] (1.000-1.030) Urine Protein (Negative) Urine Glucose (UA) (Negative) Urine Ketones (Negative) Urine Blood (Negative) Urine Nitrite (Negative) Urine Bilirubin (Negative) Urine Urobilinogen (Negative) Ur Leukocyte Esterase (Negative) Urine WBC (Auto) (0-5) /hpf Urine RBC (Auto) (0-4) /hpf U Hyaline Cast (Auto) (0-5) /lpf U Epithel Cells (Auto) (0-5) /lpf Urine Bacteria (Auto) (Negative) Nasal Screen MRSA (PCR) (Negative) COVID-19 Eval Order SARS-CoV-2 (PCR) (Negative) 09/09/20 09/09/20 09/09/20 Range/Units 18:41 18:40 18:21 WBC (4.8-10.8) K/uL RBC (4.7-6.1) M/uL Hgb (14.0-18.0) g/dL Hct (42-52) % MCV (80-100) fL MCH (25-34) pg MCHC (32-36) g/dL RDW Std Deviation (36.4-46.3) fL RDW Coeff of Dean (11.5-14.5) % Plt Count (130-400) K/uL MPV (7.4-10.4) fL Immature Gran % (Auto) % Neut % (Auto) % Lymph % (Auto) % Dukes % (Auto) % Eos % (Auto) % Baso % (Auto) % Neut # (Auto) (1.4-6.5) K/uL Lymph # (Auto) (1.2-3.4) K/uL Dukes # (Auto) (0.11-0.59) K/uL Eos # (Auto) (0-0.5) K/uL Baso # (Auto) (0-0.2) K/uL Immature Gran # (Auto) (0.00-0.02) K/uL PT (9.0-12.0) Seconds INR (0.9-1.1) APTT (21.0-31.0) Seconds PTT Ratio Sodium (136-145) mmol/L Potassium (3.5-5.1) mmol/L Chloride (98-107) mmol/L Carbon Dioxide (21-32) mmol/L Anion Gap (3-11) BUN (7-18) mg/dl Creatinine (0.6-1.4) mg/dl Est Cr Clr Drug Dosing ml/min Est GFR ( Amer) ml/min Est GFR (Non-Af Amer) ml/min BUN/Creatinine Ratio (10-20) Glucose (70-99) mg/dl POC Glucose 401 H* (70-99) mg/dl Calcium (8.5-10.1) mg/dl Magnesium (1.8-2.4) mg/dl Total Bilirubin (0.2-1) mg/dl AST (15-37) U/L ALT (12-78) U/L Alkaline Phosphatase (45-117) U/L Total Protein (6.4-8.2) gm/dl Albumin (3.4-5.0) gm/dl Globulin (2.5-4.0) gm/dl Albumin/Globulin Ratio (0.9-2) Beta-Hydroxybutyric Acd (0.2-2.81) mg/dl Procalcitonin 1.46 H (0-0.5) ng/ml Urine Color Urine Appearance (Clear) Urine pH (4.5-7.5) Ur Specific [place] (1.000-1.030) Urine Protein (Negative) Urine Glucose (UA) (Negative) Urine Ketones (Negative) Urine Blood (Negative) Urine Nitrite (Negative) Urine Bilirubin (Negative) Urine Urobilinogen (Negative) Ur Leukocyte Esterase (Negative) Urine WBC (Auto) (0-5) /hpf Urine RBC (Auto) (0-4) /hpf U Hyaline Cast (Auto) (0-5) /lpf U Epithel Cells (Auto) (0-5) /lpf Urine Bacteria (Auto) (Negative) Nasal Screen MRSA (PCR) Negative (Negative) COVID-19 Eval Order SARS-CoV-2 (PCR) (Negative) 09/09/20 09/09/20 09/09/20 Range/Units 16:14 15:09 15:09 WBC (4.8-10.8) K/uL RBC (4.7-6.1) M/uL Hgb (14.0-18.0) g/dL Hct (42-52) % MCV (80-100) fL MCH (25-34) pg MCHC (32-36) g/dL RDW Std Deviation (36.4-46.3) fL RDW Coeff of Dean (11.5-14.5) % Plt Count (130-400) K/uL MPV (7.4-10.4) fL Immature Gran % (Auto) % Neut % (Auto) % Lymph % (Auto) % [place]ukes % (Auto) % Eos % (Auto) % Baso % (Auto) % Neut # (Auto) (1.4-6.5) K/uL Lymph # (Auto) (1.2-3.4) K/uL [place]ukes # (Auto) (0.11-0.59) K/uL Eos # (Auto) (0-0.5) K/uL Baso # (Auto) (0-0.2) K/uL Immature Gran # (Auto) (0.00-0.02) K/uL PT (9.0-12.0) Seconds INR (0.9-1.1) APTT (21.0-31.0) Seconds PTT Ratio Sodium (136-145) mmol/L Potassium (3.5-5.1) mmol/L Chloride (98-107) mmol/L Carbon Dioxide (21-32) mmol/L Anion Gap (3-11) BUN (7-18) mg/dl Creatinine (0.6-1.4) mg/dl Est Cr Clr Drug Dosing ml/min Est GFR ( Amer) ml/min Est GFR (Non-Af Amer) ml/min BUN/Creatinine Ratio (10-20) Glucose (70-99) mg/dl POC Glucose 560 H* (70-99) mg/dl Calcium (8.5-10.1) mg/dl Magnesium (1.8-2.4) mg/dl Total Bilirubin (0.2-1) mg/dl AST (15-37) U/L ALT (12-78) U/L Alkaline Phosphatase (45-117) U/L Total Protein (6.4-8.2) gm/dl Albumin (3.4-5.0) gm/dl Globulin (2.5-4.0) gm/dl Albumin/Globulin Ratio (0.9-2) Beta-Hydroxybutyric Acd (0.2-2.81) mg/dl Procalcitonin (0-0.5) ng/ml Urine Color Urine Appearance (Clear) Urine pH (4.5-7.5) Ur Specific [place] (1.000-1.030) Urine Protein (Negative) Urine Glucose (UA) (Negative) Urine Ketones (Negative) Urine Blood (Negative) Urine Nitrite (Negative) Urine Bilirubin (Negative) Urine Urobilinogen (Negative) Ur Leukocyte Esterase (Negative) Urine WBC (Auto) (0-5) /hpf Urine RBC (Auto) (0-4) /hpf U Hyaline Cast (Auto) (0-5) /lpf U Epithel Cells (Auto) (0-5) /lpf Urine Bacteria (Auto) (Negative) Nasal Screen MRSA (PCR) (Negative) COVID-19 Eval Order Covid19 at [facility] SARS-CoV-2 (PCR) NEGATIVE (Negative) 09/09/20 09/09/20 09/09/20 Range/Units 13:59 13:59 13:59 WBC 11.45 H (4.8-10.8) K/uL RBC 3.20 L (4.7-6.1) M/uL Hgb 10.7 L (14.0-18.0) g/dL Hct 32.0 L (42-52) % MCV 100.0 (80-100) fL MCH 33.4 (25-34) pg MCHC 33.4 (32-36) g/dL RDW Std Deviation 55.1 H (36.4-46.3) fL RDW Coeff of Dean 15.1 H (11.5-14.5) % Plt Count 130 (130-400) K/uL MPV 9.3 (7.4-10.4) fL Immature Gran % (Auto) 0.3 % Neut % (Auto) 85.2 % Lymph % (Auto) 5.7 % Dukes % (Auto) 8.8 % Eos % (Auto) 0.0 % Baso % (Auto) 0.0 % Neut # (Auto) 9.76 H (1.4-6.5) K/uL Lymph # (Auto) 0.65 L (1.2-3.4) K/uL [place]ukes # (Auto) 1.01 H (0.11-0.59) K/uL Eos # (Auto) 0.00 (0-0.5) K/uL Baso # (Auto) 0.00 (0-0.2) K/uL Immature Gran # (Auto) 0.03 H (0.00-0.02) K/uL PT 11.2 (9.0-12.0) Seconds INR 1.1 (0.9-1.1) APTT 26.6 (21.0-31.0) Seconds PTT Ratio 1.0 Sodium 125 L (136-145) mmol/L Potassium 6.3 H* (3.5-5.1) mmol/L Chloride 89 L (98-107) mmol/L Carbon Dioxide 26 (21-32) mmol/L Anion Gap 10.0 (3-11) BUN 57 H (7-18) mg/dl Creatinine 8.51 H* (0.6-1.4) mg/dl Est Cr Clr Drug Dosing 7.5 ml/min Est GFR ( Amer) 6.7 ml/min Est GFR (Non-Af Amer) 5.8 ml/min BUN/Creatinine Ratio 6.7 L (10-20) Glucose 508 H* (70-99) mg/dl POC Glucose (70-99) mg/dl Calcium 9.2 (8.5-10.1) mg/dl Magnesium 2.4 (1.8-2.4) mg/dl Total Bilirubin 0.5 (0.2-1) mg/dl AST 15 (15-37) U/L ALT 90 H (12-78) U/L Alkaline Phosphatase 160 H (45-117) U/L Total Protein 7.2 (6.4-8.2) gm/dl Albumin 2.9 L (3.4-5.0) gm/dl Globulin 4.3 H (2.5-4.0) gm/dl Albumin/Globulin Ratio 0.7 L (0.9-2) Beta-Hydroxybutyric Acd 5.14 H (0.2-2.81) mg/dl Procalcitonin (0-0.5) ng/ml Urine Color Urine Appearance (Clear) Urine pH (4.5-7.5) Ur Specific [place] (1.000-1.030) Urine Protein (Negative) Urine Glucose (UA) (Negative) Urine Ketones (Negative) Urine Blood (Negative) Urine Nitrite (Negative) Urine Bilirubin (Negative) Urine Urobilinogen (Negative) Ur Leukocyte Esterase (Negative) Urine WBC (Auto) (0-5) /hpf Urine RBC (Auto) (0-4) /hpf U Hyaline Cast (Auto) (0-5) /lpf U Epithel Cells (Auto) (0-5) /lpf Urine Bacteria (Auto) (Negative) Nasal Screen MRSA (PCR) (Negative) COVID-19 Eval Order SARS-CoV-2 (PCR) (Negative) Medications Administered Current Inpatient Medications Dextrose (Dextrose 50% 50 Ml Syringe) 25 - 50 ml IV UD PRN; Protocol PRN Reason: Hypoglycemia Protocol Stop: 10/09/20 19:44 Last Admin: 09/10/20 05:19 Dose: 25 ml Documented by: Glucagon (Glucagon For Inj 1 Mg Vial) 1 mg IM UD PRN; Protocol PRN Reason: Hypoglycemia Protocol Stop: 10/09/20 19:44 Glucose (Glucose 40% Gel 15 Gm Tube) 15 - 30 gm PO UD PRN; Protocol PRN Reason: Hypoglycemia Protocol Stop: 10/09/20 19:44 Glucose (Glucose 10 Tabs/Tube) 4 - 8 tabs PO UD PRN; Protocol PRN Reason: Hypoglycemia Protocol Stop: 10/09/20 19:44 Ceftriaxone Sodium 1,000 mg/ (Dextrose) 50 mls @ 100 mls/hr IV Q24H ZOEY; Protocol Stop: 09/12/20 08:59 Last Admin: 09/10/20 09:52 Dose: 100 mls/hr Documented by: Insulin Aspart (Insulin Aspart 100 Units/Ml 3 Ml Pen) 0 units SC Q4 ZOEY Stop: 10/10/20 03:59 Last Admin: 09/10/20 09:48 Dose: Not Given Documented by: Miscellaneous (Carbohydrates For Hypoglycemia ) 15 - 30 gm PO UD PRN PRN Reason: Hypoglycemia Treatment Stop: 10/09/20 19:44 Miscellaneous Information (Pharmacy Glycemic Mgmt Consult) 1 ea N/A UD ZOEY Stop: 10/09/20 19:29 Morphine Sulfate (Morphine Sulfate 2 Mg/Ml Carp) 2 mg IV Q4H PRN PRN Reason: Pain Stop: 09/23/20 19:06 Last Admin: 09/10/20 09:52 Dose: 2 mg Documented by: Naloxone HCl (Naloxone Hcl 0.4 Mg/1 Ml Vial/Carp) 0.1 mg IV UD PRN PRN Reason: Opiate Overdose Stop: 10/09/20 18:07 (1) Closed fracture of left hip Encounter type: initial encounter Qualified Code(s): S72.002A - Fracture of unspecified part of neck of left femur, initial encounter for closed fracture (2) Diabetes mellitus type II, uncontrolled Glycemic state: with hyperglycemia Qualified Code(s): E11.65 - Type 2 diabetes mellitus with hyperglycemia (3) CAD (coronary artery disease) Coronary Disease-Associated Artery/Lesion type: [place]reafski artery [place] vs. 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
--- NOTE | 2020-09-10 07:28 | Ultrasound Report ---
LEFT LOWER EXTREMITY VENOUS DOPPLER CLINICAL HISTORY: LLE edema, L hip fracture COMPARISON STUDY: No previous studies for comparison. TECHNIQUE: Sonography of the deep venous system of the left lower extremity was performed. Compressi on and augmentation were evaluated. FINDINGS: The left common femoral, superficial femoral and popliteal veins were compressible. Augmen tation was normal. Flow was shown within the deep calf vessels. IMPRESSION: No evidence of deep venous thrombus within the left lower extremity. ACT 112: Negative or not required by law. Electronically signed by: Anuel Robertson M.D. 09/10/2020 7:27 AM
--- NOTE | 2020-09-10 08:03 | CT Scan Report ---
CT hip LT wo con CLINICAL HISTORY: Surgical planning COMPARISON STUDY: Pelvis and left femur radiographs September 01, 2020. TECHNIQUE: Axial images of the left hip were obtained without IV contrast. Sagittal and coronal recon structions were viewed. Automated exposure control was utilized for the study. A dose lowering techn ique was utilized adhering to the principles of ALARA. FINDINGS: Note is made of an acute moderately comminuted moderately displaced intertrochanteric fract ure of the left femur. Mild varus angulation is noted due to the fracture. No additional acute fractu res are noted. Alignment of the left hip is anatomic. No suspicious osseous lesions are identified by CT. There is mild osteophytosis of the left hip. IMPRESSION: Acute comminuted displaced intertrochanteric fracture of the left femur, as described abo ve. ACT 112: Negative or not required by law. Electronically signed by: Anuel Robertson M.D. 09/10/2020 8:02 AM
[2020-09-10 08:08] LABS: Basophils # (auto) 0.01 K/uL (0-0.2); Basophils % (auto) 0.1 %; Eosinophils # (auto) 0.08 K/uL (0-0.5); Eosinophils % (auto) 0.8 %; Hemoglobin 9.9 g/dL (14.0-18.0); Immature Granulocytes # (auto) 0.02 K/uL (0.00-0.02); Immature Granulocytes % (auto) 0.2 %; Lymphocytes % (auto) 16.6 %; Mean Corpuscular Hemoglobin 32.8 pg (25-34); Mean Corpuscular Hgb Conc 31.9 g/dL (32-36); Mean Corpuscular Volume 102.6 fL (80-100); Mean Platelet Volume 9.3 fL (7.4-10.4); Monocytes # (auto) 0.97 K/uL (0.11-0.59); Monocytes % (auto) 10.1 %; Neutrophils # (auto) 6.94 K/uL (1.4-6.5); Neutrophils % (auto) 72.2 %; Platelet Count 128 K/uL (130-400); RDW Coefficient of Variation 15.5 % (11.5-14.5); Red Blood Count 3.02 M/uL (4.7-6.1); White Blood Count 9.62 K/uL (4.8-10.8)
[2020-09-10 08:48] LABS: BUN Creatinine Ratio 5.4 (10-20); Calcium 9.1 mg/dl (8.5-10.1); Creatinine Clr Calc Pharmacy 11.4 ml/min; Est GFR (African American) 12.4 ml/min; Est GFR (Non-African American) 10.7 ml/min; Potassium 4.9 mmol/L (3.5-5.1)
--- NOTE | 2020-09-10 08:49 | Pharmacy Report ---
Pharmacy Glycemic Short Note 2 - Date of Service September 10, 2020 - Glycemic Short BSG Results (Last 24 hours): 09/09/20 09/09/20 09/09/20 13:59 16:14 18:21 Glucose 508 H* POC Glucose 560 H* 401 H* 09/09/20 09/09/20 09/09/20 19:17 19:56 21:58 Glucose 337 H* POC Glucose 299 H 183 H 09/10/20 09/10/20 09/10/20 03:58 04:00 05:03 Glucose POC Glucose 67 L* 73 66 L* 09/10/20 09/10/20 09/10/20 05:05 05:37 07:53 Glucose POC Glucose 63 L* 130 H 84 OUTPATIENT ANTIDIABETIC REGIMEN: * Lantus 30 units SC HS * Novolog 12 units SC w/ breakfast, 14 units w/ lunch, and 16 units w/ dinner * No recent HbA1c, but unlikely to be reliable anyhow given ESRD requiring HD ASSESSMENT: * RL is a 65 year old male admitted on 09/09/20 with left hip fracture following a fall a couple of days prior * Patient has complicated past medical history, including ESRD requiring HD, CAD w/ hx of RI, cerebral palsy, chronic hepatitis B with cirrhosis, and now s/p liver transplant in 1997 * Presented with hyperglycemia in ED (508 mg/dL) - last reported Lantus dose on 09/06/20 * Given 2/3 of home Lantus dose last evening (i.e. 20 units) and 9 units of Novolog * Patient trended down overnight with a low BSG of 67 mg/dL - treated with D50W * Patient underwent HD yesterday evening * Currently NPO for possible OR today PLAN FOR INPATIENT GLYCEMIC CONTROL: * Basal insulin * Will hold for now in light of hypoglycemia and NPO status * Bolus insulin * NovoLog per scale ACHS or Q6hrs while NPO * Goal Range: Low 110 mg/dL - High 140 mg/dL * Correction Factor: 25 mg/dL/unit * Nutritional / Prandial insulin per carb ratio of 1 unit per 8 grams CHO consumed PLAN FOR DISCHARGE: * to be determined
[2020-09-10] MEDS: cefTRIAXone SODIUM 1,000 MG in DEXTROSE 5% 50 ML IV SCH (09:52)
[2020-09-10] MEDS ORDERED: fentaNYL citrate 100 MCG/2 ML VIAL ONE ×2 (10:40→13:53)
--- NOTE | 2020-09-10 12:37 | Cardiology Consultation ---
Date of Consultation September 10, 2020 Assessment & Plan (1) Preop cardiovascular exam: Patient is a 65-year-old male with complex history and medical issues as outlined underlying history of chronic stable ischemic heart disease without angina and with preserved LV systolic function. Recent ischemic work-up negative. EKG with low atrial focus and chronic right bundle branch block Patient admitted following a mechanical fall with hip fracture. Has received dialysis for volume management. Blood pressures initially hypotensive post dialysis and beta-alex held will resume. No contraindications to proceeding to needed surgery discussed with patient (2) CAD (coronary artery disease): (3) End stage chronic kidney disease: (4) Closed fracture of left hip: History of Present Illness Reason for Consultation: Preoperative evaluation, hip fracture Requesting Physician: Dr. Guajardo Attending Physician: Russ Guajardo MD History of Present Illness Patient is a 65-year-old male with complex history which includes 1. Chronic stable ischemic heart disease status post prior coronary inventions with remote CA 2010 with left anterior descending stenting, right coronary artery stenting 2018 with drug-eluting stent, (LAD stent patent). No angina pectoris, preserved LV systolic 2. End-stage renal disease on hemo-dialysis replacement 3. Status post hepatic transplant 1997 secondary to cirrhosis hepatitis B 4. Cerebral palsy 5. Type 2 diabetes mellitus Patient presents this admission having suffered a mechanical fall with hip fracture. Service anticipates surgical repair patient is referred for preoperative evaluation Patient denies any anginal symptoms or congestive heart failure. Notes no dizziness lightness syncope or near syncope. No fevers chills or unexplained infections. No bleeding difficulties. Takes medications as prescribed. Compliant with dialysis and immunosuppressives. Recent edema responsive to dialysis. Tolerated surgical hernia repair November 2018 without difficulty Allergies Allergy/AdvReac Type Severity Reaction Status Date / Time No Known Allergies Allergy Unverified 09/09/20 15:06 Home Medications Medication Instructions Recorded Confirmed Type B complex with C 20-folic acid 1 cap PO DAILY 09/09/20 09/09/20 History [Triphrocaps] allopurinol 100 mg PO QAM 09/09/20 09/09/20 History amitriptyline 150 mg PO QPM 09/09/20 09/09/20 History aspirin 81 mg PO DAILY 09/09/20 09/09/20 History carvedilol 3.125 mg PO QPM 09/09/20 09/09/20 History clopidogrel 75 mg PO QAM 09/09/20 09/09/20 History entecavir 0.5 mg PO QAM 09/09/20 09/09/20 History insulin aspart U-100 [Novolog See Rx Instructions .ROUTE .COMPLEX 09/09/20 09/09/20 History Flexpen U-100 Insulin] insulin glargine [Lantus Solostar 30 unit SUBCUT HS 09/09/20 09/09/20 History U-100 Insulin] pantoprazole 40 mg PO QAM 09/09/20 09/09/20 History pravastatin 20 mg PO QAM 09/09/20 09/09/20 History sevelamer carbonate 2,400 mg PO DAILY 09/09/20 09/09/20 History tacrolimus 4 mg PO BID 09/09/20 09/09/20 History vitamin E 100 unit PO UD 09/09/20 09/09/20 History Patient History Medical History Anemia in chronic kidney disease, on chronic dialysis CAD (coronary artery disease) Cerebral palsy ataxic Diabetes mellitus type II, uncontrolled Diastolic congestive heart failure ESRD (end stage renal disease) on dialysis Essential hypertension Foot deformity, congenital GERD (gastroesophageal reflux disease) Hepatitis B History of [place] (myocardial infarction) Liver transplant recipient Osteoporosis Presence of stent in coronary artery in patient with coronary artery disease Secondary hyperparathyroidism of renal origin Surgical History History of right hip replacement S/P liver transplant Family History Other Unknown family medical history Social History Smoking Status: Never smoker Hx Alcohol Use: No Hx Substance Use: No Preferred Language: [place] Communication Ability: Effective Strap Setter Required: No Beliefs That Will Affect Care: None Current Living Situation: Alone Other Information That Helps Us Care for You: No Feels Safe at Home: Yes Safety Concerns: Feels Safe At This Time Assistive Devices: Denture - Upper and Denture - Lower Assistive Devices Comment: scooter Physical Exam Constitutional: no acute distress In pain from left hip Eyes: + eyes dysmorphic ENMT: external ear and nose normal, oropharynx normal Neck: trachea midline, no thyromegaly Respiratory: normal respiratory effort, lungs clear to auscultation Cardiovascular: Rate/Rhythm: regular rate and regular rhythm Heart Sounds: normal S1 and normal S2; no gallop and no murmur Palpation: normal PMI Vessels: normal carotid upstroke and radial pulses present; no JVD and no carotid bruit Extremities: + edema (1+) Gastrointestinal (Abdomen): normal bowel sounds, soft, nontender, no hepatosplenomegaly Musculoskeletal: no cyanosis or clubbing, extremities motor strength 5/5 Right foot ecchymotic Skin: no rashes, warm and dry Neurologic: PERRL, EOMI, accommodation nl, no face palsy, no dysarthria Psychiatric: A+Ox3, euthymic affect Results & Data ([facility]) Vital Signs (Past 12 Hours) Vital Signs Temp Pulse Pulse Resp BP Pulse Ox 09/10/20 08:14 37.1 C 85 16 121/77 94 09/10/20 04:52 37.1 C 84 18 128/78 94 09/10/20 04:44 87 Laboratory Results Laboratory Results - last 24 hr 09/09/20 09/09/20 09/09/20 13:59 13:59 13:59 WBC 11.45 H RBC 3.20 L Hgb 10.7 L Hct 32.0 L MCV 100.0 MCH 33.4 MCHC 33.4 RDW Std Deviation 55.1 H RDW Coeff of [place] 15.1 H Plt Count 130 MPV 9.3 Immature Gran % (Auto) 0.3 Neut % (Auto) 85.2 Lymph % (Auto) 5.7 [place] % (Auto) 8.8 Eos % (Auto) 0.0 Baso % (Auto) 0.0 Neut # (Auto) 9.76 H Lymph # (Auto) 0.65 L [place] # (Auto) 1.01 H Eos # (Auto) 0.00 Baso # (Auto) 0.00 Immature Gran # (Auto) 0.03 H PT 11.2 INR 1.1 APTT 26.6 PTT Ratio 1.0 Sodium 125 L Potassium 6.3 H* Chloride 89 L Carbon Dioxide 26 Anion Gap 10.0 BUN 57 H Creatinine 8.51 H* Est Cr Clr Drug Dosing 7.5 Est GFR ( Amer) 6.7 Est GFR (Non-Af Amer) 5.8 BUN/Creatinine Ratio 6.7 L Glucose 508 H* POC Glucose Calcium 9.2 Magnesium 2.4 Total Bilirubin 0.5 AST 15 ALT 90 H Alkaline Phosphatase 160 H Total Protein 7.2 Albumin 2.9 L Globulin 4.3 H Albumin/Globulin Ratio 0.7 L Beta-Hydroxybutyric Acd 5.14 H Procalcitonin Urine Color Urine Appearance Urine pH Ur Specific [place] Urine Protein Urine Glucose (UA) Urine Ketones Urine Blood Urine Nitrite Urine Bilirubin Urine Urobilinogen Ur Leukocyte Esterase Urine WBC (Auto) Urine RBC (Auto) U Hyaline Cast (Auto) U Epithel Cells (Auto) Urine Bacteria (Auto) Nasal Screen MRSA (PCR) COVID-19 Eval Order SARS-CoV-2 (PCR) Blood Type Antibody Screen 09/09/20 09/09/20 09/09/20 15:09 15:09 16:14 WBC RBC Hgb Hct MCV MCH MCHC RDW Std Deviation RDW Coeff of [place] Plt Count MPV Immature Gran % (Auto) Neut % (Auto) Lymph % (Auto) [place] % (Auto) Eos % (Auto) Baso % (Auto) Neut # (Auto) Lymph # (Auto) [place] # (Auto) Eos # (Auto) Baso # (Auto) Immature Gran # (Auto) PT INR APTT PTT Ratio Sodium Potassium Chloride Carbon Dioxide Anion Gap BUN Creatinine Est Cr Clr Drug Dosing Est GFR ( Amer) Est GFR (Non-Af Amer) BUN/Creatinine Ratio Glucose POC Glucose 560 H* Calcium Magnesium Total Bilirubin AST ALT Alkaline Phosphatase Total Protein Albumin Globulin Albumin/Globulin Ratio Beta-Hydroxybutyric Acd Procalcitonin Urine Color Urine Appearance Urine pH Ur Specific [place] Urine Protein Urine Glucose (UA) Urine Ketones Urine Blood Urine Nitrite Urine Bilirubin Urine Urobilinogen Ur Leukocyte Esterase Urine WBC (Auto) Urine RBC (Auto) U Hyaline Cast (Auto) U Epithel Cells (Auto) Urine Bacteria (Auto) Nasal Screen MRSA (PCR) COVID-19 Eval Order Covid19 at [facility] SARS-CoV-2 (PCR) NEGATIVE Blood Type Antibody Screen 09/09/20 09/09/20 09/09/20 18:21 18:40 18:41 WBC RBC Hgb Hct MCV MCH MCHC RDW Std Deviation RDW Coeff of [place] Plt Count MPV Immature Gran % (Auto) Neut % (Auto) Lymph % (Auto) [place] % (Auto) Eos % (Auto) Baso % (Auto) Neut # (Auto) Lymph # (Auto) [place] # (Auto) Eos # (Auto) Baso # (Auto) Immature Gran # (Auto) PT INR APTT PTT Ratio Sodium Potassium Chloride Carbon Dioxide Anion Gap BUN Creatinine Est Cr Clr Drug Dosing Est GFR ( Amer) Est GFR (Non-Af Amer) BUN/Creatinine Ratio Glucose POC Glucose 401 H* Calcium Magnesium Total Bilirubin AST ALT Alkaline Phosphatase Total Protein Albumin Globulin Albumin/Globulin Ratio Beta-Hydroxybutyric Acd Procalcitonin 1.46 H Urine Color Urine Appearance Urine pH Ur Specific [place] Urine Protein Urine Glucose (UA) Urine Ketones Urine Blood Urine Nitrite Urine Bilirubin Urine Urobilinogen Ur Leukocyte Esterase Urine WBC (Auto) Urine RBC (Auto) U Hyaline Cast (Auto) U Epithel Cells (Auto) Urine Bacteria (Auto) Nasal Screen MRSA (PCR) Negative COVID-19 Eval Order SARS-CoV-2 (PCR) Blood Type Antibody Screen 09/09/20 09/09/20 09/09/20 19:17 19:56 21:58 WBC RBC Hgb Hct MCV MCH MCHC RDW Std Deviation RDW Coeff of [place] Plt Count MPV Immature Gran % (Auto) Neut % (Auto) Lymph % (Auto) [place] % (Auto) Eos % (Auto) Baso % (Auto) Neut # (Auto) Lymph # (Auto) [place] # (Auto) Eos # (Auto) Baso # (Auto) Immature Gran # (Auto) PT INR APTT PTT Ratio Sodium 130 L Potassium 5.0 D Chloride 95 L Carbon Dioxide 28 Anion Gap 7.0 BUN 43 H Creatinine 6.47 H* D Est Cr Clr Drug Dosing 10.3 Est GFR ( Amer) 9.4 Est GFR (Non-Af Amer) 8.1 BUN/Creatinine Ratio 6.6 L Glucose 337 H* POC Glucose 299 H 183 H Calcium 8.9 Magnesium Total Bilirubin AST ALT Alkaline Phosphatase Total Protein Albumin Globulin Albumin/Globulin Ratio Beta-Hydroxybutyric Acd 5.48 H Procalcitonin Urine Color Urine Appearance Urine pH Ur Specific [place] Urine Protein Urine Glucose (UA) Urine Ketones Urine Blood Urine Nitrite Urine Bilirubin Urine Urobilinogen Ur Leukocyte Esterase Urine WBC (Auto) Urine RBC (Auto) U Hyaline Cast (Auto) U Epithel Cells (Auto) Urine Bacteria (Auto) Nasal Screen MRSA (PCR) COVID-19 Eval Order SARS-CoV-2 (PCR) Blood Type Antibody Screen 09/10/20 09/10/20 09/10/20 03:14 03:58 04:00 WBC RBC Hgb Hct MCV MCH MCHC RDW Std Deviation RDW Coeff of [place] Plt Count MPV Immature Gran % (Auto) Neut % (Auto) Lymph % (Auto) [place] % (Auto) Eos % (Auto) Baso % (Auto) Neut # (Auto) Lymph # (Auto) [place] # (Auto) Eos # (Auto) Baso # (Auto) Immature Gran # (Auto) PT INR APTT PTT Ratio Sodium Potassium Chloride Carbon Dioxide Anion Gap BUN Creatinine Est Cr Clr Drug Dosing Est GFR ( Amer) Est GFR (Non-Af Amer) BUN/Creatinine Ratio Glucose POC Glucose 67 L* 73 Calcium Magnesium Total Bilirubin AST ALT Alkaline Phosphatase Total Protein Albumin Globulin Albumin/Globulin Ratio Beta-Hydroxybutyric Acd Procalcitonin Urine Color Yellow Urine Appearance Clear Urine pH >= 9.0 H Ur Specific [place] 1.015 Urine Protein 2+ H Urine Glucose (UA) 2+ H Urine Ketones Negative Urine Blood Negative Urine Nitrite Negative Urine Bilirubin Negative Urine Urobilinogen Negative Ur Leukocyte Esterase Negative Urine WBC (Auto) 0 Urine RBC (Auto) 0-4 U Hyaline Cast (Auto) 0 U Epithel Cells (Auto) 0-5 Urine Bacteria (Auto) Negative Nasal Screen MRSA (PCR) COVID-19 Eval Order SARS-CoV-2 (PCR) Blood Type Antibody Screen 09/10/20 09/10/20 09/10/20 05:03 05:05 05:37 WBC RBC Hgb Hct MCV MCH MCHC RDW Std Deviation RDW Coeff of [place] Plt Count MPV Immature Gran % (Auto) Neut % (Auto) Lymph % (Auto) [place] % (Auto) Eos % (Auto) Baso % (Auto) Neut # (Auto) Lymph # (Auto) [place] # (Auto) Eos # (Auto) Baso # (Auto) Immature Gran # (Auto) PT INR APTT PTT Ratio Sodium Potassium Chloride Carbon Dioxide Anion Gap BUN Creatinine Est Cr Clr Drug Dosing Est GFR ( Amer) Est GFR (Non-Af Amer) BUN/Creatinine Ratio Glucose POC Glucose 66 L* 63 L* 130 H Calcium Magnesium Total Bilirubin AST ALT Alkaline Phosphatase Total Protein Albumin Globulin Albumin/Globulin Ratio Beta-Hydroxybutyric Acd Procalcitonin Urine Color Urine Appearance Urine pH Ur Specific [place] Urine Protein Urine Glucose (UA) Urine Ketones Urine Blood Urine Nitrite Urine Bilirubin Urine Urobilinogen Ur Leukocyte Esterase Urine WBC (Auto) Urine RBC (Auto) U Hyaline Cast (Auto) U Epithel Cells (Auto) Urine Bacteria (Auto) Nasal Screen MRSA (PCR) COVID-19 Eval Order SARS-CoV-2 (PCR) Blood Type Antibody Screen 09/10/20 09/10/20 09/10/20 07:50 07:50 07:53 WBC 9.62 RBC 3.02 L Hgb 9.9 L Hct 31.0 L MCV 102.6 H MCH 32.8 MCHC 31.9 L RDW Std Deviation 57.0 H RDW Coeff of [place] 15.5 H Plt Count 128 L MPV 9.3 Immature Gran % (Auto) 0.2 Neut % (Auto) 72.2 Lymph % (Auto) 16.6 [place] % (Auto) 10.1 Eos % (Auto) 0.8 Baso % (Auto) 0.1 Neut # (Auto) 6.94 H Lymph # (Auto) 1.60 [place] # (Auto) 0.97 H Eos # (Auto) 0.08 Baso # (Auto) 0.01 Immature Gran # (Auto) 0.02 PT INR APTT PTT Ratio Sodium 138 D Potassium 4.9 Chloride 102 Carbon Dioxide 31 Anion Gap 5.0 BUN 28 H Creatinine 5.15 H* D Est Cr Clr Drug Dosing 11.4 Est GFR ( Amer) 12.4 Est GFR (Non-Af Amer) 10.7 BUN/Creatinine Ratio 5.4 L Glucose 76 POC Glucose 84 Calcium 9.1 Magnesium Total Bilirubin AST ALT Alkaline Phosphatase Total Protein Albumin Globulin Albumin/Globulin Ratio Beta-Hydroxybutyric Acd Procalcitonin Urine Color Urine Appearance Urine pH Ur Specific [place] Urine Protein Urine Glucose (UA) Urine Ketones Urine Blood Urine Nitrite Urine Bilirubin Urine Urobilinogen Ur Leukocyte Esterase Urine WBC (Auto) Urine RBC (Auto) U Hyaline Cast (Auto) U Epithel Cells (Auto) Urine Bacteria (Auto) Nasal Screen MRSA (PCR) COVID-19 Eval Order SARS-CoV-2 (PCR) Blood Type Antibody Screen 09/10/20 09/10/20 09/10/20 11:54 12:16 12:17 WBC RBC Hgb Hct MCV MCH MCHC RDW Std Deviation RDW Coeff of [place] Plt Count MPV Immature Gran % (Auto) Neut % (Auto) Lymph % (Auto) [place] % (Auto) Eos % (Auto) Baso % (Auto) Neut # (Auto) Lymph # (Auto) [place] # (Auto) Eos # (Auto) Baso # (Auto) Immature Gran # (Auto) PT INR APTT PTT Ratio Sodium Potassium Chloride Carbon Dioxide Anion Gap BUN Creatinine Est Cr Clr Drug Dosing Est GFR ( Amer) Est GFR (Non-Af Amer) BUN/Creatinine Ratio Glucose POC Glucose 62 L* 68 L* Calcium Magnesium Total Bilirubin AST ALT Alkaline Phosphatase Total Protein Albumin Globulin Albumin/Globulin Ratio Beta-Hydroxybutyric Acd Procalcitonin Urine Color Urine Appearance Urine pH Ur Specific [place] Urine Protein Urine Glucose (UA) Urine Ketones Urine Blood Urine Nitrite Urine Bilirubin Urine Urobilinogen Ur Leukocyte Esterase Urine WBC (Auto) Urine RBC (Auto) U Hyaline Cast (Auto) U Epithel Cells (Auto) Urine Bacteria (Auto) Nasal Screen MRSA (PCR) COVID-19 Eval Order SARS-CoV-2 (PCR) Blood Type Pending Antibody Screen Pending Diagnostic Findings Echocardiogram 06/13/2020 The left ventricular systolic function is normal. The qualitative LV ejection fraction is 50-54% (normal). The right ventricular systolic function is qualitatively normal. The left ventricular diastolic function is moderately abnormal (grade II). Mild aortic valve regurgitation is present. [id number] mitral regurgitation is present Stress nuclear imaging 07/04/2020 Small fixed apical defect without ischemia Ejection fraction 61% IMPRESSION: Likely a small apical infarct. No evidence of myocardial ischemia unchanged from 05/25/2019 (1) CAD (coronary artery disease) Coronary Disease-Associated Artery/Lesion type: [place] artery [place] vs. transplanted heart: [place] heart Associated angina: without angina Qualified Code(s): I25.10 - Atherosclerotic heart disease of [place] coronary artery without angina pectoris (2) Closed fracture of left hip Encounter type: initial encounter Qualified Code(s): S72.002A - Fracture of unspecified part of neck of left femur, initial encounter for closed fracture
[2020-09-10] MEDS ORDERED: SODIUM CHLORIDE 0.9% 1000ML 1,000 ML IV SCH (12:45)
--- NOTE | 2020-09-10 12:50 | Anesthesiology Consultation ---
Date of Service September 10, 2020 Assessment & Plan Chart Review Chart Review: Acceptable Risk for Surgery Consults Requested none History Surgery Operation Date: 09/10/20 07:55 Proposed Procedures p Left Open Reduction Internal Fixation Dynamic Hip Screw - Gm Robertson MD Height/Weight Height: 5 ft 8 in Weight: 57.7 kg Allergies Allergy/AdvReac Type Severity Reaction Status Date / Time No Known Allergies Allergy Unverified 09/09/20 15:06 Medications Home Medications Medication Instructions Recorded Confirmed Last Taken B complex with C 20-folic acid 1 cap PO DAILY 09/09/20 09/09/20 09/09/20 [Triphrocaps] allopurinol 100 mg PO QAM 09/09/20 09/09/20 09/09/20 amitriptyline 150 mg PO QPM 09/09/20 09/09/20 09/08/20 aspirin 81 mg PO DAILY 09/09/20 09/09/20 09/09/20 carvedilol 3.125 mg PO QPM 09/09/20 09/09/20 09/08/20 clopidogrel 75 mg PO QAM 09/09/20 09/09/20 09/09/20 entecavir 0.5 mg PO QAM 09/09/20 09/09/20 09/09/20 insulin aspart U-100 [Novolog See Rx Instructions .ROUTE .COMPLEX 09/09/20 09/09/20 Unknown Flexpen U-100 Insulin] insulin glargine [Lantus Solostar 30 unit SUBCUT HS 09/09/20 09/09/20 09/06/20 U-100 Insulin] pantoprazole 40 mg PO QAM 09/09/20 09/09/20 09/09/20 pravastatin 20 mg PO QAM 09/09/20 09/09/20 09/09/20 sevelamer carbonate 2,400 mg PO DAILY 09/09/20 09/09/20 09/09/20 tacrolimus 4 mg PO BID 09/09/20 09/09/20 09/09/20 vitamin E 100 unit PO UD 09/09/20 09/09/20 09/09/20 Active Medications Generic Name Dose Route Start Last Admin Trade Name Freq PRN Reason Stop Dose Admin Dextrose 25 - 50 ml 09/09/20 19:45 09/10/20 05:19 Dextrose 50% 50 Ml Syringe IV 10/09/20 19:44 25 ml UD PRN Administration Hypoglycemia Protocol Protocol Ceftriaxone Sodium 1,000 mg/ 50 mls @ 100 mls/hr 09/10/20 09:00 09/10/20 10:56 Dextrose IV 09/12/20 08:59 Infused Q24H ZOEY Infusion Protocol Insulin Aspart 0 units 09/10/20 12:00 09/10/20 12:28 Insulin Aspart 100 Units/Ml 3 Ml Pen SC 10/10/20 03:59 Not Given Q6 ZOEY Morphine Sulfate 2 mg 09/09/20 19:07 09/10/20 09:52 Morphine Sulfate 2 Mg/Ml Carp IV 09/23/20 19:06 2 mg Q4H PRN Administration Pain NPO Date Last Intake of Fluids: 09/08/20 Time Last Intake of Fluids: 18:00 Last Intake of Fluids Comment: Patient hasn't drank anything since Wednesday; in too much pain Date Last Intake of Solids: 09/07/20 Time Last Intake of Solids: 13:00 Last Intake of Solids Comment: Hasn't eaten in days; in pain; no appetite Past Medical History Medical History Anemia in chronic kidney disease, on chronic dialysis CAD (coronary artery disease) Cerebral palsy ataxic Diabetes mellitus type II, uncontrolled Diastolic congestive heart failure ESRD (end stage renal disease) on dialysis Essential hypertension Foot deformity, congenital GERD (gastroesophageal reflux disease) Hepatitis B History of [place] (myocardial infarction) Liver transplant recipient Osteoporosis Presence of stent in coronary artery in patient with coronary artery disease Secondary hyperparathyroidism of renal origin Past Family History Family History Other Unknown family medical history Past Surgical History Surgical History History of right hip replacement S/P liver transplant Social History Smoking Status: Never smoker Hx Alcohol Use: No Hx Substance Use: No Physical Exam Vital Signs Last Vital Signs Temp 37.7 C H 09/10/20 12:27 Pulse 90 09/10/20 12:27 Resp 20 09/10/20 12:27 BP 124/76 09/10/20 12:27 Pulse Ox 94 09/10/20 12:27 Testing Laboratory Results 09/10/20 07:50 09/10/20 07:50 PT 11.2 Seconds (9.0-12.0) 09/09/20 13:59 INR 1.1 (0.9-1.1) 09/09/20 13:59 APTT 26.6 Seconds (21.0-31.0) 09/09/20 13:59 Urine Color Yellow 09/10/20 03:14 Urine Appearance Clear (Clear) 09/10/20 03:14 Urine pH >= 9.0 (4.5-7.5) H 09/10/20 03:14 Ur Specific [place] 1.015 (1.000-1.030) 09/10/20 03:14 Urine Protein 2+ (Negative) H 09/10/20 03:14 Urine Glucose (UA) 2+ (Negative) H 09/10/20 03:14 Urine Ketones Negative (Negative) 09/10/20 03:14 Urine Nitrite Negative (Negative) 09/10/20 03:14 Ur Leukocyte Esterase Negative (Negative) 09/10/20 03:14 Urine WBC (Auto) 0 /hpf (0-5) 09/10/20 03:14 Urine RBC (Auto) 0-4 /hpf (0-4) 09/10/20 03:14 U Hyaline Cast (Auto) 0 /lpf (0-5) 09/10/20 03:14 U Epithel Cells (Auto) 0-5 /lpf (0-5) 09/10/20 03:14 Urine Bacteria (Auto) Negative (Negative) 09/10/20 03:14 09/10/20 09/10/20 09/10/20 12:17 12:16 07:53 POC Glucose 68 L* 62 L* 84 09/10/20 09/10/20 09/10/20 05:37 05:05 05:03 POC Glucose 130 H 63 L* 66 L* 09/10/20 09/10/20 04:00 03:58 POC Glucose 73 67 L*
[2020-09-10] MEDS ORDERED: ONDANSETRON INJ 2 MG/ML 2 ML VIAL IV PRN (12:51)
[2020-09-10] MEDS ORDERED: ATROPINE SULFATE 0.1 MG/ML 10ML SYR IV PRN (12:51)
[2020-09-10] MEDS ORDERED: METOCLOPRAMIDE HCL INJ 5 MG/ML 2 ML VIAL IV PRN (12:51)
[2020-09-10] MEDS ORDERED: PROMETHAZINE HCL 12.5 MG in SODIUM CHLORIDE 0.9% 50 ML IV PRN (12:51)
[2020-09-10] MEDS ORDERED: fentaNYL citrate 100 MCG/2 ML VIAL IV PRN (12:51)
[2020-09-10] MEDS ORDERED: HYDROmorphone INJ 2 MG/ML SYR/VIAL IV PRN (12:51)
[2020-09-10] MEDS ORDERED: ePHEDrine sulfate 50 MG/ML AMP IV PRN (12:51)
--- NOTE | 2020-09-10 12:54 | History & Physical Bridge Note ---
Date of Service September 10, 2020 History & Physical Bridge Note I have examined the patient, reviewed the History & Physical and in the interval since the performance of the History & Physical I have noted the following changes of clinical significance: no changes noted. Patient is aware of COVID-19 risks. Patient is asymptomatic for COVID-19. Patient has been tested for COVID-19 - [NEGATIVE].
[2020-09-10] MEDS ORDERED: carvediloL 3.125 MG TAB PO SCH (13:00)
[2020-09-10] MEDS ORDERED: BUPIVACAINE/EPINEPHRINE 0.5% MPF 1:200,000 30 ML VIAL ONE (13:01)
[2020-09-10] MEDS ORDERED: ROCURONIUM BROMIDE 10 MG/ML 5 ML VIAL IV ONE (13:32)
[2020-09-10] MEDS ORDERED: PROPOFOL IV EMULSION 10 MG/ML 20 ML VIAL IV ONE (13:32)
[2020-09-10] MEDS ORDERED: ONDANSETRON INJ 2 MG/ML 2 ML VIAL ONE (13:32)
[2020-09-10] MEDS ORDERED: DEXAMETHASONE SOD INJ 4 MG/ML VIAL ONE (13:32)
--- NOTE | 2020-09-10 15:12 | Fluoroscopy Report ---
FL hip LT 2-3V CLINICAL HISTORY: LT ORIF COMPARISON STUDY: Left femur radiographs and CT of the left hip August 20, 2020. FLUOROSCOPY TIME: 113 seconds. FLUOROSCOPIC IMAGES: 7. FINDINGS: Fluoroscopy was provided for reduction and internal fixation of the proximal left femoral i nternal fixation. Fracture alignment appears near anatomic. Hardware is intact. There are no unexpect ed radiopaque foreign bodies. IMPRESSION: Fluoroscopy provided during open reduction and internal fixation of the proximal left fe moral fracture. ACT 112: Negative or not required by law. Electronically signed by: Anuel Robertson M.D. 09/10/2020 3:11 PM
--- NOTE | 2020-09-10 15:24 | Operative Report ---
PG Post Operative Report Pre & Post Diagnosis Operation Date: 09/10/20 07:55 Pre-Op Diagnosis: LEFT BASICERVICAL PERITROCHANTERIC PROXIMAL FEMUR FRACTURE Post-Op Diagnosis: LEFT BASICERVICAL PERITROCHANTERIC PROXIMAL FEMUR FRACTURE I identified the patient and participated in the time-out.: Yes Procedure Operation Date: 09/10/20 07:55 Actual Procedures p Left Open Reduction Internal Fixation with Dynamic Hip Screw - Gm Robertson MD Surgeon Gm Robertson MD [employer] Marketing Analyst Ayad Negrete PA-C Estimated Blood Loss 250 Findings See Below All Synthes implants: [135] degree DHS platestandard barrel, [4 holes/78] mm. DHS/DCS lag screw, 12.7 mm thread/90 mm. 4.5 cortical screws 36, 36, 38, 38. DHS/DCS compression screw, 36 mm. Specimens none Anesthesia Type MAC Spinal Regional Complications none Disposition Accompanied Patient To Recovery: No Disposition: Surgical ICU Description of Procedure On the day of surgery should be was greeted in the preoperative holding area and the informed consent was reviewed and confirmed. The surgical site was then identified by the patient and signed by myself. The patient was taken to the operating placed by the OR table and anesthesia was induced. The patient is then positioned on the fracture table. All constanza prominences were well padded. The operative foot was placed in the fracture boot with abundant padding. The well leg was secured. We then positioned the lower extremities in a scissor fashion with a non-op leg flexed down to allow visualization with fluoroscopy which was confirmed before we prepped and draped. Surgical timeout was called and verified by all present. Antibiotics were infused, and equipment was available and functional. The procedure was initiated with a closed reduction maneuvers. Gentle in-line traction pulled the fracture out to length. The limb was then internally rotated to reduce the proximal femur. Flexion and adduction were used to adjust the reduction and allow access to the greater trochanter. We had adequate reduction prior to prepping and draping. The leg was then prepped and draped in usual sterile fashion. Surgical timeout was reconfirmed. We made an incision was made at the level of the lesser trochanter and extended distally. Bovie electrocautery was used in the subcutaneous fat for hemostasis. The IT band was approached and incised in line with the incision to expose the vastus lateralis. The vastus lateralis was then cleared away from the lateral aspect of the femur using a Ingram and Bovie electrocautery to expose the area for the plate. A bone hook was placed across the anterior aspect of the femur and an attempt to zamora in the calcar piece was made. It was firmly reduced and not moving. It had locked in pretty well with the initial reduction. A derotational pin was then placed in the anterior superior aspect of the neck and directed into the femoral head under fluoroscopic guidance. Position was confirmed with fluoroscopy in AP and lateral planes. We then used the 135 mm drill guide against the femoral shaft. The guidepin was then drilled through this guide up into the femoral neck. AP and lateral fluoroscopy was used for positioning. It did have to be repositioned more distal and projected more posterior. Once we had reasonable centercenter position of the pin in the femoral head, the overall reduction and pin position was evaluated and multiple fluoroscopic planes. The screw length was chosen by measuring off the depth guide. The opening reamer was used the lateral cortex and advanced to allow for the 38 mm barrel. The DCS/DHS screw was then placed over the guidewire and advanced under manual power towards a femoral head, crossing the fracture. Once the fracture was crossed, I removed the derotational pin somewhat to allow access with the condylar screw. The screw was then advanced to its full length until the backside it was at the lateral cortex and it was adequately placed at its center center position in the subchondral bone of the femoral head. Reduction has been maintained. The screwdriver guide was removed and the DHS plate was then placed down along the guidewire and all along the barrel of the screw to lay flat onto the lateral cortex. A tamp was used to ensure that it was firmly against the lateral cortex. A Lebruege clamp was used distally to ensure it was firmly against the bone before fixation was achieved. Cortical screws were then placed starting proximal and moving distal. All holes of the plate were filled. Screw position and length were confirmed by fluoroscopy. Fracture reduction has been maintained. Next, the compression screw was placed in the backside of the barrel to provide compression along the plate. The fracture did not seem to remove or reduce any further by applying this reduction through the device. The derotational pin had been removed prior to attempts at compression. This completed the fixation of the fracture. Fluoroscopy was used in both AP and lateral planes to evaluate the entirety of the fracture and implant. Reduction and implant positions were acceptable. The wounds were then thoroughly irrigated with bulb syringe and normal saline. The IT band layer was approximated with #1 Vicryl suture in an interrupted, followed by running/locking stitch. Subcutaneous fat and deep dermal layers were closed with 2-0 Vicryl suture. Final skin closures was with 2-0 Vicryl suture in backed up by holly. Wounds were dressed with sterile Xeroform, sterile gauze, and foam tape over ABDs. The patient tolerated procedure well, awoke from anesthesia without complication, was extubated in the operating room, and transferred to the PACU in stable condition. Disposition: The patient be weightbearing as tolerated. I recommended DVT prophylaxis consisting of continuing his Plavix. 24 hours of antibiotic prophylaxis should be continued. His hematocrit should be monitored closely. Physician family readiness support assistant attestation: Ayad Negrete PA-C was present and scrubbed for the duration of the case. He was essential to prepping/draping, patient positioning, retraction, and assistance with wound closure. I attest to the content of the Intraoperative Record and any orders documented therein. Any exceptions are noted below.
--- NOTE | 2020-09-10 16:03 | XRay Report ---
XR hip LT min 2V CLINICAL HISTORY: Post-Operative implant position COMPARISON: Left femur radiographs and CT of the left hip September 09, 2020. FINDINGS: These images demonstrate internal fixation of the intertrochanteric fracture of the left h ip with dynamic hip screw. Hardware is intact. Fracture alignment appears anatomic. There are no unex pected radiopaque foreign bodies. There are skin holly. Right hip arthroplasty is noted. IMPRESSION: Expected findings following internal fixation of the proximal left femoral fracture. ACT 112: Negative or not required by law. Electronically signed by: Anuel Robertson M.D. 09/10/2020 4:01 PM
--- NOTE | 2020-09-10 16:09 | Electrocardiogram Report ---
Test Reason : Blood Pressure : / mmHG Vent. Rate : 087 BPM Atrial Rate : 087 BPM P-R Int : 000 ms QRS Dur : 144 ms QT Int : 432 ms P-R-T Axes : 000 102 054 degrees QTc Int : 519 ms Suspect junctional rhythm Right bundle branch block Inferior infarct , age undetermined Anterolateral infarct , age undetermined Abnormal ECG When compared with ECG of 09-JUN-2017 07:23, Junctional rhythm has replaced Sinus rhythm Confirmed by Carlton Looney ([id number]) on 09/10/2020 4:09:13 PM Referred By: REFERRED SELF Confirmed By:Carlton Looney
[2020-09-10] MEDS ORDERED: ACETAMINOPHEN 500 MG TAB PO PRN (16:35)
[2020-09-10] MEDS ORDERED: HYDROmorphone INJ 0.5 MG/0.5 ML SYR IV PRN ×2 (16:35)
[2020-09-10] MEDS ORDERED: NALOXONE HCL 0.4 MG/1 ML VIAL/CARP IV PRN (16:35)
[2020-09-10] MEDS ORDERED: oxyCODONE HCL IR 5 MG TAB (IMMEDIATE RELEASE) PO PRN (16:35)
[2020-09-10] MEDS: HEPARIN SOD (PORCINE) 1000 UNIT/ML IV SCH ×3 (16:39→17:34)
--- NOTE | 2020-09-10 17:14 | Anesthesiology Progress Note ---
Date of Service September 10, 2020 Anesthesia Post Procedure Vital Signs Vital Signs: Temp Pulse Pulse Pulse Resp BP BP 09/10/20 16:20 88 16 112/71 09/10/20 16:10 36.4 C L 92 H 20 111/61 09/10/20 16:00 89 20 110/69 09/10/20 15:50 90 18 123/67 09/10/20 15:40 90 16 127/77 09/10/20 15:30 89 14 143/81 H 09/10/20 15:24 36.9 C 89 12 128/76 09/10/20 12:27 37.7 C H 90 20 124/76 09/10/20 08:14 37.1 C 85 16 121/77 09/10/20 04:52 37.1 C 84 18 128/78 09/10/20 04:44 87 09/09/20 23:05 36.9 C 103 H 20 115/71 09/09/20 22:19 36.9 C 89 132/77 09/09/20 21:45 86 74/59 L 09/09/20 21:30 89 102/67 09/09/20 21:15 92 H 93/63 L 09/09/20 21:00 90 129/68 09/09/20 20:45 86 93/58 L 09/09/20 20:30 86 98/62 L 09/09/20 20:20 87 96/63 L 09/09/20 20:10 86 108/70 09/09/20 20:00 89 89/59 L 09/09/20 19:52 89 88/58 L 09/09/20 19:40 89 94/55 L 09/09/20 19:20 87 105/67 09/09/20 19:00 81 121/72 09/09/20 18:46 36.8 C 79 09/09/20 18:11 80 09/09/20 18:08 36.7 C 79 20 169/85 H 09/09/20 18:07 80 09/09/20 17:58 80 16 156/90 H Pulse Ox 09/10/20 16:20 99 09/10/20 16:10 94 09/10/20 16:00 94 09/10/20 15:50 100 09/10/20 15:40 100 09/10/20 15:30 100 09/10/20 15:24 97 09/10/20 12:27 94 09/10/20 08:14 94 09/10/20 04:52 94 09/10/20 04:44 09/09/20 23:05 94 09/09/20 22:19 09/09/20 21:45 09/09/20 21:30 09/09/20 21:15 09/09/20 21:00 09/09/20 20:45 09/09/20 20:30 09/09/20 20:20 09/09/20 20:10 09/09/20 20:00 09/09/20 19:52 09/09/20 19:40 09/09/20 19:20 09/09/20 19:00 09/09/20 18:46 09/09/20 18:11 09/09/20 18:08 96 09/09/20 18:07 09/09/20 17:58 96 Pain Intensity Left Hip: Pain Intensity: 3 Transfer of Care Handoff Completed per policy Notes Mental Status: alert / awake / arousable and participated in evaluation Patient Amnestic to Procedure: Yes Nausea / Vomiting: adequately controlled Pain: adequately controlled Airway Patency, RR, SpO2: stable & adequate BP & HR: stable & adequate Hydration State: stable & adequate Anesthetic Complications: no major complications apparent
[2020-09-10] MEDS ORDERED: ceFAZolin 2000MG 2,000 MG/15 ML SYR IV ONE (17:15)
--- NOTE | 2020-09-10 17:28 | Nephrology Progress Note ---
Date of Service September 10, 2020 Assessment & Plan (1) End stage chronic kidney disease: on MWF HD; tolerated HD 09/09 w/ 1L UF >for HD on 09/11 -daily bmp, cbc -BG improved today Present on Admission?: Yes (2) Anemia in chronic kidney disease, on chronic dialysis: no indication for anemia meds on tx today; monitor daily w/ elevated BG Present on Admission?: Yes (3) Closed fracture of left hip: s/p OR today Present on Admission?: Yes Admission and Anticipated Discharge Date Admission Date: September 09, 2020 Subjective seen on rounds this am at 0740; not sob; pain from hip better controlled; not hungry. no sob; tolerated only 1L UF last evening; no n/v Review of Systems Review of Systems: All systems reviewed & are unremarkable except as noted in Subjective Physical Exam Constitutional: well developed, well nourished, + frail appearing and cooperative; no acute distress Eyes: EOM intact bilaterally ENMT: Ears: no external ear abnormality Nose: no external nose abnormality Mouth: + dry oral mucous membranes Neck: no nuchal rigidity Respiratory: normal respiratory effort; no labored breathing (lying flat on RA) Auscultation: lungs clear to auscultation bilaterally and + diminished lung sounds Cardiovascular: Rate/Rhythm: regular rate and regular rhythm Extremities: + edema (trace LLE) and + AV fistula (RUE + t/b) Gastrointestinal (Abdomen): Inspection/Auscultation: normal bowel sounds Percussion/Palpation: abdomen soft; abdomen nontender Musculoskeletal: Extremities: + limited ROM of extremities and + abnormal strength Skin: no rashes, warm and dry Psychiatric: Orientation: alert and oriented x 3 Speech: normal ra te/rhythm/volume of speech Results & Data ([facility]) Vital Signs (Past 12 Hours) Vital Signs Temp Pulse Pulse Resp BP Pulse Ox 09/10/20 16:20 88 16 112/71 99 09/10/20 16:10 36.4 C L 92 H 20 111/61 94 09/10/20 16:00 89 20 110/69 94 09/10/20 15:50 90 18 123/67 100 09/10/20 15:40 90 16 127/77 100 09/10/20 15:30 89 14 143/81 H 100 09/10/20 15:24 36.9 C 89 12 128/76 97 09/10/20 12:27 37.7 C H 90 20 124/76 94 09/10/20 08:14 37.1 C 85 16 121/77 94 Laboratory Results 09/10/20 07:50 09/10/20 07:50 (1) Closed fracture of left hip Encounter type: initial encounter Qualified Code(s): S72.002A - Fracture of unspecified part of neck of left femur, initial encounter for closed fracture
[2020-09-10] MEDS: SEVELAMER HCL 800 MG TABLET PO SCH (17:56)
[2020-09-10] MEDS: AMITRIPTYLINE HCL 50 MG TAB PO SCH (20:01)
[2020-09-10] MEDS: carvediloL 3.125 MG TAB PO SCH (20:01)
[2020-09-10] MEDS: oxyCODONE HCL IR 5 MG TAB (IMMEDIATE RELEASE) PO PRN (20:02)
[2020-09-10] MEDS: TACROLIMUS 1 MG CAP PO SCH (20:02)
[2020-09-10] MEDS: PRAVASTATIN SOD 20 MG TAB PO SCH (20:02)
[2020-09-10] MEDS: ENTECAVIR 0.5 MG PO SCH (20:30)
[2020-09-10] MEDS ORDERED: INSULIN GLARGINE SOLOSTAR 100 UNITS/ML 3 ML PEN SQ SCH (21:00)
[2020-09-11] MEDS ORDERED: INSULIN ASPART 100 UNITS/ML 3 ML PEN SC ONE (02:00)
[2020-09-11 07:00] LABS: Basophils # (auto) 0.01 K/uL (0-0.2); Basophils % (auto) 0.1 %; Hematocrit (blood only) 23.8 % (42-52); Hemoglobin 7.7 g/dL (14.0-18.0); Immature Granulocytes # (auto) 0.03 K/uL (0.00-0.02); Immature Granulocytes % (auto) 0.3 %; Lymphocytes # (auto) 1.25 K/uL (1.2-3.4); Lymphocytes % (auto) 10.6 %; Mean Corpuscular Hemoglobin 32.8 pg (25-34); Mean Corpuscular Hgb Conc 32.4 g/dL (32-36); Mean Corpuscular Volume 101.3 fL (80-100); Mean Platelet Volume 9.3 fL (7.4-10.4); Monocytes # (auto) 1.09 K/uL (0.11-0.59); Monocytes % (auto) 9.3 %; Neutrophils # (auto) 9.39 K/uL (1.4-6.5); Neutrophils % (auto) 79.7 %; Platelet Count 166 K/uL (130-400); RDW Coefficient of Variation 15.3 % (11.5-14.5); RDW Standard Deviation 55.5 fL (36.4-46.3); Red Blood Count 2.35 M/uL (4.7-6.1); White Blood Count 11.77 K/uL (4.8-10.8)
[2020-09-11 07:46] LABS: Anisocytosis Present; Calcium 8.7 mg/dl (8.5-10.1); Creatinine Clr Calc Pharmacy 8.9 ml/min; Est GFR (Non-African American) 7.8 ml/min; Magnesium 2.2 mg/dl (1.8-2.4); Potassium 6.5 mmol/L (3.5-5.1)
[2020-09-11] MEDS: ASPIRIN 81 MG ECTAB PO SCH (08:04)
[2020-09-11] MEDS: TOCOPHERYL, DL-ALPHA 100 UNITS CAP PO SCH ×2 (08:04→21:14)
[2020-09-11] MEDS: allopurinoL 100 MG TAB PO SCH (08:05)
[2020-09-11] MEDS: PANTOprazole 40 MG TAB PO SCH (08:05)
[2020-09-11] MEDS: TACROLIMUS 1 MG CAP PO SCH ×2 (08:05→21:12)
[2020-09-11] MEDS: SEVELAMER HCL 800 MG TABLET PO SCH ×3 (08:05→17:31)
[2020-09-11] MEDS: NEPHROCAPS PO SCH (08:05)
--- NOTE | 2020-09-11 08:23 | Orthopedic Progress Note ---
Date of Service September 11, 2020 Assessment & Plan (1) Closed fracture of left hip: Left Comminuted basicervical femoral neck fracture with peritrochanteric extension. POD1 s/p Dynamic Hip Screw. Appreciate multidisciplinary medical management. - PT/OT: WBAT - pain control -Discontinue 24-hour perioperative antibiotic prophylaxis - DVT ppx - aspirin and clopidgrel adequate - Volume and H/H mgt per primary/nephrology. Expect H/H carlee in 48-72 hours from hip fracture and surgery - Dressing change on postop day 3 Dispo: Pending evaluations with PT/OT and needs at the next level of care. Orthopedic discharge instructions placed Subjective Nikhil reports that his pain is improved but "it still hurts from surgery." He is concerned about having to do physical therapy. He thinks to be quite a challenge given his weight loss, need for dialysis and debilitation. Review of Systems All systems reviewed & are unremarkable except as noted in HPI & below. Physical Exam LLE: The dressing is clean dry and intact. He remains quite tender through the thigh but with soft compartments. He is reluctant to move through the knee. There is no knee effusion. He demonstrates active plantar flexion, dorsiflexion, EHL activity. He has 2+ DP pulse. Sensation grossly intact. No apparent complications from positioning of surgery with his left foot and right lower extremity. Results & Data Results & Data Laboratory Results . Laboratory Tests 09/10/20 09/11/20 09/11/20 07:50 06:42 06:42 WBC 9.62 11.77 H Hgb 9.9 L 7.7 L Hct 31.0 L 23.8 L Neut % (Auto) 79.7 Neut # (Auto) 9.39 H Potassium 6.5 H* D Creatinine 6.69 H* D Diagnostic Findings Radiographs: Postoperative films show adequate reduction and stable implants PG Care Time/CCT Total # of Minutes Spent Total Time Spent with Patient: Total time spent is greater than 50% in coordination of care (as documented) at patient's floor/unit and/or counseling patient: Coding Level of Care Code 85455 Post Operative Follow-Up Diagnoses Closed fracture of left hip S72.002A Encounter type: initial encounter (1) Closed fracture of left hip Encounter type: initial encounter Qualified Code(s): S72.002A - Fracture of unspecified part of neck of left femur, initial encounter for closed fracture
[2020-09-11] MEDS: INSULIN ASPART 100 UNITS/ML 3 ML PEN SC SCH ×4 (08:28→21:15)
[2020-09-11] MEDS: oxyCODONE HCL IR 5 MG TAB (IMMEDIATE RELEASE) PO PRN (08:30)
[2020-09-11] MEDS ORDERED: CLOPIDOGREL BISULFATE 75 MG TAB PO SCH (09:00)
[2020-09-11] MEDS ORDERED: INSULIN GLARGINE SOLOSTAR 100 UNITS/ML 3 ML PEN SC SCH (09:00)
[2020-09-11] MEDS: cefTRIAXone SODIUM 1,000 MG in DEXTROSE 5% 50 ML IV SCH (09:08)
[2020-09-11] MEDS ORDERED: SODIUM CHLORIDE 0.9% 250 ML IV PRN (09:23)
--- NOTE | 2020-09-11 09:55 | Pharmacy Report ---
Pharmacy Glycemic Short Note 2 - Date of Service September 11, 2020 - Glycemic Short BSG Results (Last 24 hours): 09/10/20 09/10/20 09/10/20 12:16 12:17 13:36 Glucose POC Glucose 62 L* 68 L* 44 L* 09/10/20 09/10/20 09/10/20 15:26 16:50 20:00 Glucose POC Glucose 132 H 138 H 180 H 09/11/20 09/11/20 09/11/20 01:49 06:42 07:36 Glucose 239 H POC Glucose 221 H 253 H OUTPATIENT ANTIDIABETIC REGIMEN: * Lantus 30 units SC HS * Novolog 12 units SC w/ breakfast, 14 units w/ lunch, and 16 units w/ dinner * No recent HbA1c, but unlikely to be reliable anyhow given ESRD requiring HD ASSESSMENT: 09/11 * Pt has received units of insulin over the past 24hrs * 0 units of basal with * 2 units of bolus with NovoLog * BSGs LOW majority of the day yesterday secondary to NPO + Lantus given the night before. Lantus dose given was reduced ~30% outpatient dose (20 units vs 30 units) however LOW still occurred. * BSGs now elevated this morning - up to 253mg/dl fasting. Diet advanced to T2DM. Will resume basal and titrate based on BSG trends. 09/10 * RL is a 65 year old male admitted on 09/09/20 with left hip fracture following a fall a couple of days prior * Patient has complicated past medical history, including ESRD requiring HD, CAD w/ hx of MD, cerebral palsy, chronic hepatitis B with cirrhosis, and now s/p liver transplant in 1997 * Presented with hyperglycemia in ED (508 mg/dL) - last reported Lantus dose on 09/06/20 * Given 2/3 of home Lantus dose last evening (i.e. 20 units) and 9 units of Novolog * Patient trended down overnight with a low BSG of 67 mg/dL - treated with D50W * Patient underwent HD yesterday evening * Currently NPO for possible OR today PLAN FOR INPATIENT GLYCEMIC CONTROL: * Basal insulin * Lantus 15 units SQ x 1 dose this morning. Re-evaluate daily. * Bolus insulin * NovoLog per scale ACHS or Q6hrs while NPO * Goal Range: Low 110 mg/dL - High 140 mg/dL * Correction Factor: 25 mg/dL/unit * Nutritional / Prandial insulin per carb ratio of 1 unit per 8 grams CHO consumed PLAN FOR DISCHARGE: * TBD
[2020-09-11] MEDS ORDERED: SODIUM CHLORIDE 0.9% 1000ML 1,000 ML IV PRN (10:40)
[2020-09-11] MEDS ORDERED: EPOETIN ALFA 10,000 UNITS/ML VIAL IV SCH (11:00)
[2020-09-11] MEDS ORDERED: IRON SUCROSE 100 MG in SYRINGE 0 ML IV SCH (11:00)
--- NOTE | 2020-09-11 11:21 | Hospitalist Progress Note ---
Date of Service September 11, 2020 Assessment & Plan (1) Closed fracture of left hip: CT hip showed acute comminuted displaced intertrochanteric fracture of the left femur S/P Left Open Reduction Internal Fixation with Dynamic Hip Screw on 09/10/[address] Gm Robertson MD No post op complication Hgb dropped to 7.7 today PT/OT eval (2) End stage chronic kidney disease: Missed HD on day of admission therefore HD provided while inpt last night (09/09) HD today Nephrology on board (3) Diabetes mellitus type II, uncontrolled: Pt has not taken insulin since Wednesday because he felt like his sugar was l ow over the weekend although he didn't check. Sugars on presentation today >500 Pharmacy on board for glycemic management (4) CAD (coronary artery disease): ECHO and stress imaging done in June as part of routine pre-transplant work-up. No evidence of ischemia. Pt remains asymptomatic from a cardiac perspective. Pt will be a moderate risk for surgical intervention due to complicated medical history. Case discussed with cardiology recommended to discontinue the plavix on disharge Continue statin, beta-alex (5) Anemia in chronic kidney disease, on chronic dialysis: Acute blood loss anemia Outpatient labs reviewed - H&H appears stable at baseline of 10-10.5 Hgb dropped to 7.7 Will transfuse 1 unit prbc during HD Continue monitor CBC (6) Hepatitis B: - Continue entecavir as taken outpatient (7) Essential hypertension: - Continue outpatient meds and monitor (8) Cerebral palsy: - Will need PT/OT consults after OR for hip fracture. Discussed with patient that he may need short-term rehab at discharge. Will need eventual case management consult. Admission and Anticipated Discharge Date Admission Date: September 09, 2020 Subjective Pt was seen and examined for post op follow up Lying in bed with no distress Pt said that he feels ok He is getting ready to go to dialysis Hgb only 7.7 today and plan to transfuse 1 unit PRBC during HD Denies any chest pain, palpitation, dizziness and SOB Review of Systems Review of Systems: All systems reviewed & are unremarkable except as noted in Subjective Physical Exam Physical Exam: General- No acute distress Head- atraumatic Eyes- PERRL, EOMI, ENT- oropharynx clear Neck- supple, no JVD Lungs- clear to auscultation Heart- regular rhythm; no murmur Abdomen- normal bowel sounds, soft, nontender Extremities- no calf tenderness Neuro- alert, oriented x 3; PERRL, EOMI; no facial palsy; no dysarthria Skin- warm & dry Results & Data Results & Data ([facility]) Vital Signs (Past 12 Hours) Vital Signs Temp Pulse Pulse Resp BP Pulse Ox 09/11/20 07:57 36.9 C 74 18 170/87 H 96 09/11/20 07:42 72 09/11/20 04:26 37.1 C 74 16 162/83 H 94 09/11/20 00:08 79 (1) Hepatitis B Hepatic coma status: without hepatic coma Hepatitis delta agent presence: without delta-agent Viral hepatitis chronicity: chronic Qualified Code(s): B18.1 - Chronic viral hepatitis B without delta-agent (2) CAD (coronary artery disease) Associated angina: without angina Coronary Disease-Associated Artery/Lesion type: [place] artery [place] vs. 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
--- NOTE | 2020-09-11 14:45 | Cardiology Progress Note ---
Date of Service September 11, 2020 Assessment & Plan (1) Preop cardiovascular exam: Patient is a 65-year-old male with complex history and medical issues as outlined underlying history of chronic stable ischemic heart disease without angina and with preserved LV systolic function. Recent ischemic work-up negative. EKG with low atrial focus and chronic right bundle branch block Patient admitted following a mechanical fall with hip fracture and underwent surgical repair without issue Cardiac status appears stable. Dialysis later today, potassium elevated (2) CAD (coronary artery disease): (3) End stage chronic kidney disease: (4) Closed fracture of left hip: Hip fracture likely to cause significant immobility issues "good leg" Admission and Anticipated Discharge Date Admission Date: September 09, 2020 Subjective Patient seen and examined, chart, medications, telemetry reviewed. Tolerated operative procedure yesterday without complaint. Mild lethargy secondary to pain medications today but otherwise no acute complaints. Anticipates dialysis later today. Review of Systems Review of Systems: All systems reviewed & are unremarkable except as noted in Subjective Physical Exam Constitutional: no acute distress Eyes: + eyes dysmorphic ENMT: external ear and nose normal, oropharynx normal Neck: trachea midline, no thyromegaly Respiratory: normal respiratory effort, lungs clear to auscultation Cardiovascular: Rate/Rhythm: regular rate and regular rhythm Heart Sounds: normal S1 and normal S2; no gallop and no murmur Palpation: normal PMI Vessels: normal carotid upstroke and radial pulses present; no JVD and no carotid bruit Extremities: + edema (1+) Gastrointestinal (Abdomen): normal bowel sounds, soft, nontender, no hepatosplenomegaly Musculoskeletal: Ecchymosis and edema of the right foot, surgical incision left hip dry without hematoma Skin: no rashes, warm and dry Neurologic: PERRL, EOMI, accommodation nl, no face palsy, no dysarthria Psychiatric: A+Ox3, euthymic affect Results & Data ([facility]) Vital Signs (Past 12 Hours) Vital Signs Temp Pulse Pulse Pulse Resp BP BP 09/11/20 14:00 63 99/72 L 09/11/20 13:40 76 98/58 L 09/11/20 13:20 79 136/61 09/11/20 13:00 79 102/59 L 09/11/20 12:40 36.5 C 78 16 92/80 L 09/11/20 12:31 36.5 C 84 16 102/50 L 09/11/20 12:20 84 102/50 L 09/11/20 12:00 82 112/58 L 09/11/20 11:43 36.7 C 77 19 142/78 H 09/11/20 11:40 75 142/69 H 09/11/20 11:24 36.5 C 75 09/11/20 07:57 36.9 C 74 18 170/87 H 09/11/20 07:42 72 09/11/20 04:26 37.1 C 74 16 162/83 H Pulse Ox 09/11/20 14:00 09/11/20 13:40 09/11/20 13:20 09/11/20 13:00 09/11/20 12:40 09/11/20 12:31 09/11/20 12:20 09/11/20 12:00 09/11/20 11:43 96 09/11/20 11:40 09/11/20 11:24 09/11/20 07:57 96 09/11/20 07:42 09/11/20 04:26 94 Laboratory Results Laboratory Results - last 24 hr 09/10/20 09/10/20 09/10/20 11:54 15:26 16:50 WBC RBC Hgb Hct MCV MCH MCHC RDW Std Deviation RDW Coeff of Dean Plt Count MPV Immature Gran % (Auto) Neut % (Auto) Lymph % (Auto) [place] % (Auto) Eos % (Auto) Baso % (Auto) Neut # (Auto) Lymph # (Auto) [place] # (Auto) Eos # (Auto) Baso # (Auto) Immature Gran # (Auto) Anisocytosis Sodium Potassium Chloride Carbon Dioxide Anion Gap BUN Creatinine Est Cr Clr Drug Dosing Est GFR ( Amer) Est GFR (Non-Af Amer) BUN/Creatinine Ratio Glucose POC Glucose 132 H 138 H Calcium Magnesium Blood Type O Positive Blood Type Recheck Antibody Screen NEGATIVE Crossmatch See Detail 09/10/20 09/11/20 09/11/20 20:00 01:49 06:42 WBC 11.77 H RBC 2.35 L Hgb 7.7 L Hct 23.8 L MCV 101.3 H MCH 32.8 MCHC 32.4 RDW Std Deviation 55.5 H RDW Coeff of Dean 15.3 H Plt Count 166 MPV 9.3 Immature Gran % (Auto) 0.3 Neut % (Auto) 79.7 Lymph % (Auto) 10.6 [place] % (Auto) 9.3 Eos % (Auto) 0.0 Baso % (Auto) 0.1 Neut # (Auto) 9.39 H Lymph # (Auto) 1.25 [place] # (Auto) 1.09 H Eos # (Auto) 0.00 Baso # (Auto) 0.01 Immature Gran # (Auto) 0.03 H Anisocytosis Present Sodium Potassium Chloride Carbon Dioxide Anion Gap BUN Creatinine Est Cr Clr Drug Dosing Est GFR ( Amer) Est GFR (Non-Af Amer) BUN/Creatinine Ratio Glucose POC Glucose 180 H 221 H Calcium Magnesium Blood Type Blood Type Recheck Antibody Screen Crossmatch 09/11/20 09/11/20 09/11/20 06:42 06:42 07:36 WBC RBC Hgb Hct MCV MCH MCHC RDW Std Deviation RDW Coeff of Dean Plt Count MPV Immature Gran % (Auto) Neut % (Auto) Lymph % (Auto) [place] % (Auto) Eos % (Auto) Baso % (Auto) Neut # (Auto) Lymph # (Auto) [place] # (Auto) Eos # (Auto) Baso # (Auto) Immature Gran # (Auto) Anisocytosis Sodium 132 L Potassium 6.5 H* D Chloride 97 L Carbon Dioxide 25 Anion Gap 10.0 BUN 47 H D Creatinine 6.69 H* D Est Cr Clr Drug Dosing 8.9 Est GFR ( Amer) 9.0 Est GFR (Non-Af Amer) 7.8 BUN/Creatinine Ratio 7.0 L Glucose 239 H POC Glucose 253 H Calcium 8.7 Magnesium 2.2 Blood Type Blood Type Recheck O Positive Antibody Screen Crossmatch 09/11/20 11:32 WBC RBC Hgb Hct MCV MCH MCHC RDW Std Deviation RDW Coeff of Dean Plt Count MPV Immature Gran % (Auto) Neut % (Auto) Lymph % (Auto) [place] % (Auto) Eos % (Auto) Baso % (Auto) Neut # (Auto) Lymph # (Auto) [place] # (Auto) Eos # (Auto) Baso # (Auto) Immature Gran # (Auto) Anisocytosis Sodium Potassium Chloride Carbon Dioxide Anion Gap BUN Creatinine Est Cr Clr Drug Dosing Est GFR ( Amer) Est GFR (Non-Af Amer) BUN/Creatinine Ratio Glucose POC Glucose 244 H Calcium Magnesium Blood Type Blood Type Recheck Antibody Screen Crossmatch (1) CAD (coronary artery disease) Coronary Disease-Associated Artery/Lesion type: [place] artery [place] vs. transplanted heart: [place] heart Associated angina: without angina Qualified Code(s): I25.10 - Atherosclerotic heart disease of [place] coronary artery without angina pectoris (2) Closed fracture of left hip Encounter type: initial encounter Qualified Code(s): S72.002A - Fracture of unspecified part of neck of left femur, initial encounter for closed fracture
--- NOTE | 2020-09-11 16:58 | Dialysis Progress Note ---
Date of Service September 11, 2020 Assessment & Plan (1) End stage chronic kidney disease: on MWF HD; tolerated HD 09/09 w/ 1L UF >>for HD today, 2 K bath d/t hyperkalemia (no hemolysis reported) >for HD on 09/13 or as clinical needs dictate -no heparin on tx today as he is one day post op -daily bmp, cbc -BG improved today >>doubt pruritis is uremia > ? if from pain meds (2) Anemia in chronic kidney disease, on chronic dialysis: 10.7 admission > 7.7 hgb today >for pRBC on tx today >gave 10K epo and 100 mg venofer on tx today as well (3) Closed fracture of left hip: s/p OR 09/10 Admission and Anticipated Discharge Date Admission Date: September 09, 2020 Subjective seen on dialysis at approximately 1430; c/o new generalized pruritis; no sob, no edema, no n/v or worsening weakness; hip pain 07/22 Review of Systems Review of Systems: All systems reviewed & are unremarkable except as noted in Subjective Physical Exam Constitutional: well developed, well nourished, + frail appearing and cooperative; no acute distress Eyes: EOM intact bilaterally ENMT: Ears: no external ear abnormality Nose: no external nose abnormality Mouth: + dry oral mucous membranes Neck: no nuchal rigidity Respiratory: normal respiratory effort; no labored breathing (on RA) Auscultation: lungs clear to auscultation bilaterally and + diminished lung sounds Cardiovascular: Rate/Rhythm: regular rate and regular rhythm Extremities: + edema (trace LLE) and + AV fistula (RUE + t/b) Gastrointestinal (Abdomen): Inspection/Auscultation: normal bowel sounds Percussion/Palpation: abdomen soft; abdomen nontender Musculoskeletal: Extremities: + limited ROM of extremities and + abnormal strength Skin: no rashes, warm and dry Psychiatric: Orientation: alert and oriented x 3 Speech: normal rate/rhythm/volume of speech Results & Data ([facility]) Vital Signs (Past 12 Hours) Vital Signs Temp Pulse Pulse Pulse Resp BP BP 09/11/20 15:40 36.5 C 77 80 138/71 09/11/20 15:29 76 09/11/20 15:20 83 147/82 H 09/11/20 15:00 66 117/99 09/11/20 14:40 76 143/89 H 09/11/20 14:20 76 101/78 09/11/20 14:00 63 99/72 L 09/11/20 13:40 76 98/58 L 09/11/20 13:20 79 136/61 09/11/20 13:00 79 102/59 L 09/11/20 12:40 36.5 C 78 16 92/80 L 09/11/20 12:31 36.5 C 84 16 102/50 L 09/11/20 12:20 84 102/50 L 09/11/20 12:00 82 112/58 L 09/11/20 11:43 36.7 C 77 19 142/78 H 09/11/20 11:40 75 142/69 H 09/11/20 11:24 36.5 C 75 09/11/20 07:57 36.9 C 74 18 170/87 H 09/11/20 07:42 72 Pulse Ox 09/11/20 15:40 09/11/20 15:29 09/11/20 15:20 09/11/20 15:00 09/11/20 14:40 09/11/20 14:20 09/11/20 14:00 09/11/20 13:40 09/11/20 13:20 09/11/20 13:00 09/11/20 12:40 09/11/20 12:31 09/11/20 12:20 09/11/20 12:00 09/11/20 11:43 96 09/11/20 11:40 09/11/20 11:24 09/11/20 07:57 96 09/11/20 07:42 Laboratory Results 09/11/20 06:42 09/11/20 06:42 (1) Closed fracture of left hip Encounter type: initial encounter Qualified Code(s): S72.002A - Fracture of unspecified part of neck of left femur, initial encounter for closed fracture
[2020-09-11] MEDS ORDERED: INSULIN GLARGINE SOLOSTAR 100 UNITS/ML 3 ML PEN SC ONE (21:00)
[2020-09-11] MEDS: AMITRIPTYLINE HCL 50 MG TAB PO SCH (21:11)
[2020-09-11] MEDS: carvediloL 3.125 MG TAB PO SCH (21:12)
[2020-09-11] MEDS: ENTECAVIR 0.5 MG PO SCH (21:13)
[2020-09-11] MEDS: PRAVASTATIN SOD 20 MG TAB PO SCH (21:14)
[2020-09-12] MEDS: INSULIN ASPART 100 UNITS/ML 3 ML PEN SC SCH ×6 (00:38→20:47)
[2020-09-12] MEDS: NEPHROCAPS PO SCH (07:09)
[2020-09-12] MEDS: SEVELAMER HCL 800 MG TABLET PO SCH ×3 (07:09→16:58)
[2020-09-12] MEDS: allopurinoL 100 MG TAB PO SCH (07:09)
[2020-09-12] MEDS: PANTOprazole 40 MG TAB PO SCH (07:09)
[2020-09-12] MEDS: TACROLIMUS 1 MG CAP PO SCH ×2 (07:09→20:47)
[2020-09-12] MEDS: ASPIRIN 81 MG ECTAB PO SCH (07:09)
[2020-09-12 07:39] LABS: Hematocrit (blood only) 27.5 % (42-52); Hemoglobin 8.7 g/dL (14.0-18.0); Mean Corpuscular Hemoglobin 32.3 pg (25-34); Mean Corpuscular Hgb Conc 31.6 g/dL (32-36); Mean Corpuscular Volume 102.2 fL (80-100); Mean Platelet Volume 9.1 fL (7.4-10.4); Platelet Count 167 K/uL (130-400); RDW Coefficient of Variation 16.9 % (11.5-14.5); RDW Standard Deviation 63.1 fL (36.4-46.3); Red Blood Count 2.69 M/uL (4.7-6.1); White Blood Count 7.84 K/uL (4.8-10.8)
[2020-09-12 08:06] LABS: BUN Creatinine Ratio 6.5 (10-20); Calcium 8.8 mg/dl (8.5-10.1); Est GFR (Non-African American) 14.7 ml/min; Potassium 4.3 mmol/L (3.5-5.1)
[2020-09-12] MEDS: INSULIN GLARGINE SOLOSTAR 100 UNITS/ML 3 ML PEN SC SCH (08:28)
--- NOTE | 2020-09-12 11:22 | Pharmacy Report ---
Pharmacy Glycemic Short Note 2 - Date of Service September 12, 2020 - Glycemic Short BSG Results (Last 24 hours): 09/11/20 09/11/20 09/11/20 11:32 16:35 20:09 Glucose POC Glucose 244 H 80 97 09/12/20 09/12/20 09/12/20 00:17 04:03 07:11 Glucose 92 POC Glucose 80 84 09/12/20 07:48 Glucose POC Glucose 109 H OUTPATIENT ANTIDIABETIC REGIMEN: * Lantus 30 units SC HS * Novolog 12 units SC w/ breakfast, 14 units w/ lunch, and 16 units w/ dinner * No recent HbA1c, but unlikely to be reliable anyhow given ESRD requiring HD ASSESSMENT: 09/12 * Pt has received 29 units of insulin over the past 24hrs * 15 units of basal with Lantus * 14 units of bolus with NovoLog * BSGs trended down significantly after HD * AM fasting below goal range for inpatient targets. Will lower basal and loosen CF/CR 09/11 * Pt has received units of insulin over the past 24hrs * 0 units of basal with * 2 units of bolus with NovoLog * BSGs LOW majority of the day yesterday secondary to NPO + Lantus given the night before. Lantus dose given was reduced ~30% outpatient dose (20 units vs 30 units) however LOW still occurred. * BSGs now elevated this morning - up to 253mg/dl fasting. Diet advanced to T2 DM. Will resume basal and titrate based on BSG trends. 09/10 * RL is a 65 year old male admitted on 09/09/20 with left hip fracture following a fall a couple of days prior * Patient has complicated past medical history, including ESRD requiring HD, CAD w/ hx of [place], cerebral palsy, chronic hepatitis B with cirrhosis, and now s/p liver transplant in 1997 * Presented with hyperglycemia in ED (508 mg/dL) - last reported Lantus dose on 09/06/20 * Given 2/3 of home Lantus dose last evening (i.e. 20 units) and 9 units of Novolog * Patient trended down overnight with a low BSG of 67 mg/dL - treated with D 50W * Patient underwent HD yesterday evening * Currently NPO for possible OR today PLAN FOR INPATIENT GLYCEMIC CONTROL: * Basal insulin * DECREASE Lantus 12 units SQ daily in AM. * Bolus insulin: loosen parameters * NovoLog per scale ACHS or Q6hrs while NPO * Goal Range: Low 110 mg/dL - High 140 mg/dL * Correction Factor: 30 mg/dL/unit * Nutritional / Prandial insulin per carb ratio of 1 unit per 10 grams CHO consumed PLAN FOR DISCHARGE: * TBD; pt is requiring significantly less insulin inpatient as compared to home dosing. Outpatient dosing may need reduced if patient is experiencing hypo
--- NOTE | 2020-09-12 16:27 | Hospitalist Progress Note ---
Date of Service September 12, 2020 Assessment & Plan (1) Closed fracture of left hip: CT hip showed acute comminuted displaced intertrochanteric fracture of the left femur S/P Left Open Reduction Internal Fixation with Dynamic Hip Screw on 09/10/[address] Gm Robertson MD No post op complication recieved 1 unit PRBC yesterday Hgb 8.7 today PT/OT eval (2) End stage chronic kidney disease: Missed HD on day of admission therefore HD provided while inpt last night (09/09) HD today Nephrology on board (3) Diabetes mellitus type II, uncontrolled: Pt has not taken insulin since Wednesday because he felt like his sugar was low over the weekend although he didn't check. Sugars on presentation today >500 Pharmacy on board for glycemic management (4) CAD (coronary artery disease): ECHO and stress imaging done in June as part of routine pre-transplant work-up. No evidence of ischemia. Pt remains asymptomatic from a cardiac perspective. Pt will be a moderate risk for surgical intervention due to complicated medical history. Case discussed with cardiology recommended to discontinue the plavix on disharge Continue statin, beta-alex (5) Anemia in chronic kidney disease, on chronic dialysis: Acute blood loss anemia Outpatient labs reviewed - H&H appears stable at baseline of 10-10.5 S/P transfusion with 1 unit prbc during HD yesterday Hgb 8.7 today Continue monitor CBC (6) Hepatitis B: - Continue entecavir as taken outpatient (7) Essential hypertension: - Continue outpatient meds and monitor (8) Cerebral palsy: - Will need PT/OT consults after OR for hip fracture. Discussed with patient that he may need short-term rehab at discharge. Will need eventual case management consult. Admission and Anticipated Discharge Date Admission Date: September 09, 2020 Subjective Pt was seen and examined for post op follow up Lying in bed with no distress eating his lunch He said that he has some tenderness in his hip when he sits at the edge of the bed Denies any chest pain, palpitation, dizziness and SOB Review of Systems Review of Systems: All systems reviewed & are unremarkable except as noted in Subjective Physical Exam Physical Exam: General- No acute distress Head- atraumatic Eyes- PERRL, EOMI, ENT- oropharynx clear Neck- supple, no JVD Lungs- clear to auscultation Heart- regular rhythm; no murmur Abdomen- normal bowel sounds, soft, nontender Extremities- no calf tenderness Neuro- alert, oriented x 3; PERRL, EOMI; no facial palsy; no dysarthria Skin- warm & dry Results & Data Results & Data ([facility]) Vital Signs (Past 12 Hours) Vital Signs Temp Pulse Resp BP Pulse Ox 09/12/20 14:39 36.8 C 77 18 128/76 95 09/12/20 11:10 36.8 C 77 18 135/74 97 09/12/20 07:30 36.9 C 79 18 121/71 95 (1) Hepatitis B Hepatic coma status: without hepatic coma Hepatitis delta agent presence: without delta-agent Viral hepatitis chronicity: chronic Qualified Code(s): B18.1 - Chronic viral hepatitis B without delta-agent (2) CAD (coronary artery disease) Associated angina: without angina Coronary Disease-Associated Artery/Lesion type: [place] artery [place] vs. 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
--- NOTE | 2020-09-12 16:51 | Orthopedic Progress Note ---
Date of Service September 12, 2020 Assessment & Plan (1) Closed fracture of left hip: Left Comminuted basicervical femoral neck fracture with peritrochanteric extension. POD2 s/p Dynamic Hip Screw. Appreciate multidisciplinary medical management. - Continue plan of care. - PT/OT: WBAT - pain control - DVT ppx - aspirin and clopidgrel adequate - Daily dressing changes, as needed. Please keep the wound covered while an inpatient. Dispo: From an orthopedic perspective, he is ready for next level of care. We will continue to follow his clinical progress. Please contact with any questions. Orthopedic discharge instructions placed. Subjective Reports continued pain. Nursing staff reports that it has been difficult to move him because of pain. He states that he tried to sit on the edge of the bed but was too painful to stand. Review of Systems All systems reviewed & are unremarkable except as noted in HPI & below. Physical Exam Left lower extremity: The dressing was clean dry and intact and change since surgery. He has positive dorsiflexion, plantarflexion intact sensation throughout. Thigh compartments are soft but he has exquisite tenderness along the vastus lateralis. Constitutional WD/WN, vitals as above no acute distress and not intoxicated appearing Respiratory normal respiratory effort; no labored breathing Cardiovascular Extremities: normal capillary refill Results & Data Results & Data Laboratory Results . H & H 09/09/20 09/10/20 09/11/20 Range/Units 13:59 07:50 06:42 Hgb 10.7 L 9.9 L 7.7 L (14.0-18.0) g/dL Hct 32.0 L 31.0 L 23.8 L (42-52) % 09/12/20 Range/Units 07:11 Hgb 8.7 L (14.0-18.0) g/dL Hct 27.5 L (42-52) % Coagulation 09/09/20 Range/Units 13:59 INR 1.1 (0.9-1.1) Diagnostic Findings . PG Care Time/CCT Total # of Minutes Spent Total Time Spent with Patient: Total time spent is greater than 50% in coord ination of care (as documented) at patient's floor/unit and/or counseling patient: Coding Level of Care Code 48359 Post Operative Follow-Up Diagnoses Closed fracture of left hip S72.002A Encounter type: initial encounter (1) Closed fracture of left hip Encounter type: initial encounter Qualified Code(s): S72.002A - Fracture of unspecified part of neck of left femur, initial encounter for closed fracture
[2020-09-12] MEDS: AMITRIPTYLINE HCL 50 MG TAB PO SCH (20:45)
[2020-09-12] MEDS: ENTECAVIR 0.5 MG PO SCH (20:46)
[2020-09-12] MEDS: carvediloL 3.125 MG TAB PO SCH (20:46)
[2020-09-12] MEDS: PRAVASTATIN SOD 20 MG TAB PO SCH (20:47)
[2020-09-12] MEDS: oxyCODONE HCL IR 5 MG TAB (IMMEDIATE RELEASE) PO PRN (21:04)
[2020-09-13] MEDS ORDERED: SODIUM CHLORIDE 0.9% 1000ML 1,000 ML IV PRN (07:48)
[2020-09-13] MEDS ORDERED: HEPARIN SOD (PORCINE) 1000 UNIT/ML IV ONE (07:48)
[2020-09-13] MEDS: TACROLIMUS 1 MG CAP PO SCH ×2 (09:08→21:01)
[2020-09-13] MEDS: SEVELAMER HCL 800 MG TABLET PO SCH ×3 (09:10→17:12)
[2020-09-13] MEDS: ASPIRIN 81 MG ECTAB PO SCH (09:10)
[2020-09-13] MEDS: TOCOPHERYL, DL-ALPHA 100 UNITS CAP PO SCH ×2 (09:11→21:02)
[2020-09-13] MEDS: allopurinoL 100 MG TAB PO SCH (09:12)
[2020-09-13] MEDS: PANTOprazole 40 MG TAB PO SCH (09:12)
[2020-09-13] MEDS: NEPHROCAPS PO SCH (09:12)
[2020-09-13] MEDS: INSULIN GLARGINE SOLOSTAR 100 UNITS/ML 3 ML PEN SC SCH (09:18)
[2020-09-13] MEDS: INSULIN ASPART 100 UNITS/ML 3 ML PEN SC SCH ×4 (09:19→22:13)
[2020-09-13] MEDS ORDERED: EPOETIN ALFA 20,000 UNITS/ML VIAL IV SCH (10:00)
[2020-09-13 10:12] LABS: Hemoglobin 8.5 g/dL (14.0-18.0); Mean Corpuscular Hemoglobin 32.1 pg (25-34); Mean Corpuscular Hgb Conc 31.5 g/dL (32-36); Mean Corpuscular Volume 101.9 fL (80-100); Mean Platelet Volume 9.3 fL (7.4-10.4); Platelet Count 193 K/uL (130-400); RDW Coefficient of Variation 16.1 % (11.5-14.5); RDW Standard Deviation 59.6 fL (36.4-46.3); Red Blood Count 2.65 M/uL (4.7-6.1); White Blood Count 8.43 K/uL (4.8-10.8)
[2020-09-13 10:34] LABS: BUN Creatinine Ratio 6.5 (10-20); Calcium 8.8 mg/dl (8.5-10.1); Creatinine Clr Calc Pharmacy 10.3 ml/min; Est GFR (Non-African American) 8.7 ml/min; Potassium 4.5 mmol/L (3.5-5.1)
[2020-09-13] MEDS: HEPARIN SOD (PORCINE) 1000 UNIT/ML IV SCH (12:04)
--- NOTE | 2020-09-13 17:34 | Nephrology Progress Note ---
Date of Service September 13, 2020 Assessment & Plan (1) End stage chronic kidney disease: on MWF HD; tolerated HD 09/09 w/ 1L UF; had 0.5 L UF on 09/13 >for HD on 09/16 or as clinical needs dictate -daily bmp, cbc -BG improved today >>doubt pruritis is uremia > ? if from pain meds (2) Anemia in chronic kidney disease, on chronic dialysis: 10.7 admission > 8.5 hgb today >for pRBC on tx today >gave 10K epo and 100 mg venofer on tx today as well (3) Closed fracture of left hip: s/p OR 09/10 Admission and Anticipated Discharge Date Admission Date: September 09, 2020 Subjective tolerated only 500 mL UF today; denies hip pain; no sob, no n/v; does not mention pruritis today Review of Systems Review of Systems: All systems reviewed & are unremarkable except as noted in Subjective Physical Exam Constitutional: well developed, well nourished, + frail appearing and cook helper juice perative; no acute distress Eyes: EOM intact bilaterally ENMT: Ears: no external ear abnormality Nose: no external nose abnormality Mouth: + dry oral mucous membranes Neck: no nuchal rigidity Respiratory: normal respiratory effort; no labored breathing (on RA) Au scultation: lungs clear to auscultation bilaterally and + diminished lung sounds Cardiovascular: Rate/Rhythm: regular rate and regular rhythm Extremities: + edema (trace LLE) and + AV fistula (RUE + t/b) Gastrointestinal (Abdomen): Inspection/Auscultation: normal bowel sounds Percussion/Palpation: abdomen soft; abdomen nontender Musculoskeletal: Extremities: + limited ROM of extremities and + abnormal strength Skin: no rashes, warm and dry Psychiatric: Orientation: alert and oriented x 3 Speech: normal rate/rhythm/volume of speech Results & Data ([facility]) Vital Signs (Past 12 Hours) Vital Signs Temp Pulse Pulse Resp BP BP Pulse Ox 09/13/20 14:05 36.8 C 117/72 09/13/20 13:20 70 92/54 L 09/13/20 13:00 66 106/57 L 09/13/20 12:40 69 109/59 L 09/13/20 12:20 70 112/58 L 09/13/20 12:00 78 84/57 L 09/13/20 11:40 75 110/63 09/13/20 11:27 76 110/63 09/13/20 11:20 78 84/57 L 09/13/20 11:00 80 85/56 L 09/13/20 10:40 82 81/52 L 09/13/20 10:20 83 83/49 L 09/13/20 10:00 64 109/63 09/13/20 09:43 76 116/66 09/13/20 09:36 37 C 09/13/20 08:27 36.9 C 75 17 113/71 95 Laboratory Results 09/13/20 07:49 09/13/20 07:49 (1) Closed fracture of left hip Encounter type: initial encounter Qualified Code(s): S72.002A - Fracture of unspecified part of neck of left femur, initial encounter for closed fracture
--- NOTE | 2020-09-13 18:48 | Hospitalist Progress Note ---
Date of Service September 13, 2020 Assessment & Plan (1) Closed fracture of left hip: CT hip showed acute comminuted displaced intertrochanteric fracture of the left femur S/P Left Open Reduction Internal Fixation with Dynamic Hip Screw on 09/10/[address] Gm Robertson MD No post op complication received 1 unit PRBC 09/11 Hgb 8.5 today PT/OT eval (2) End stage chronic kidney disease: Missed HD on day of admission therefore HD provided while inpt last night (09/09) HD today Nephrology on board (3) Diabetes mellitus type II, uncontrolled: Pt has not taken insulin since Wednesday because he felt like his sugar was low over the weekend although he didn't check. Sugars on presentation today >500 Pharmacy on board for glycemic management (4) CAD (coronary artery disease): ECHO and stress imaging done in June as part of routine pre-transplant work-up. No evidence of ischemia. Pt remains asymptomatic from a cardiac perspective. Pt will be a moderate risk for surgical intervention due to complicated medical history. Case discussed with cardiology recommended to discontinue the plavix on disharge Continue statin, beta-alex (5) Anemia in chronic kidney disease, on chronic dialysis: Acute blood loss anemia Outpatient labs reviewed - H&H appears stable at baseline of 10-10.5 S/P transfusion with 1 unit prbc during HD on 09/11 Hgb 8.5 today Continue monitor CBC (6) Hepatitis B: - Continue entecavir as taken outpatient (7) Essential hypertension: - Continue outpatient meds and monitor (8) Cerebral palsy: - Will need PT/OT consults after OR for hip fracture. Discussed with patient that he may need short-term rehab at discharge. Will need eventual case management consult. Admission and Anticipated Discharge Date Admission Date: September 09, 2020 Subjective Pt was seen and examined for post op follow up Lying in bed with no distress Denies any chest pain, palpitation, dizziness and SOB Review of Systems Review of Systems: All systems reviewed & are unremarkable except as noted in Subjective Physical Exam Physical Exam: General- No acute distress Head- atraumatic Eyes- PERRL, EOMI, ENT- oropharynx clear Neck- supple, no JVD Lungs- clear to auscultation Heart- regular rhythm; no murmur Abdomen- normal bowel sounds, soft, nontender Extremities- no calf tenderness Neuro- alert, oriented x 3; PERRL, EOMI; no facial palsy; no dysarthria Skin- warm & dry Results & Data Results & Data ([facility]) Vital Signs (Past 12 Hours) Vital Signs Temp Pulse Pulse Resp BP BP Pulse Ox 09/13/20 14:05 36.8 C 117/72 09/13/20 13:20 70 92/54 L 09/13/20 13:00 66 106/57 L 09/13/20 12:40 69 109/59 L 09/13/20 12:20 70 112/58 L 09/13/20 12:00 78 84/57 L 09/13/20 11:40 75 110/63 09/13/20 11:27 76 110/63 09/13/20 11:20 78 84/57 L 09/13/20 11:00 80 85/56 L 09/13/20 10:40 82 81/52 L 09/13/20 10:20 83 83/49 L 09/13/20 10:00 64 109/63 09/13/20 09:43 76 116/66 09/13/20 09:36 37 C 09/13/20 08:27 36.9 C 75 17 113/71 95 (1) Hepatitis B Hepatic coma status: without hepatic coma Hepatitis delta agent presence: without delta-agent Viral hepatitis chronicity: chronic Qualified Code(s): B18.1 - Chronic viral hepatitis B without delta-agent (2) CAD (coronary artery disease) Associated angina: without angina Coronary Disease-Associated Artery/Lesion type: [place] artery [place] vs. 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
[2020-09-13] MEDS: AMITRIPTYLINE HCL 50 MG TAB PO SCH (21:02)
[2020-09-13] MEDS: PRAVASTATIN SOD 20 MG TAB PO SCH (21:03)
[2020-09-13] MEDS: carvediloL 3.125 MG TAB PO SCH (21:03)
[2020-09-13] MEDS: ENTECAVIR 0.5 MG PO SCH (21:04)
[2020-09-13] MEDS: oxyCODONE HCL IR 5 MG TAB (IMMEDIATE RELEASE) PO PRN (21:13)
[2020-09-14 06:36] LABS: Hematocrit (blood only) 25.7 % (42-52); Hemoglobin 8.2 g/dL (14.0-18.0); Mean Corpuscular Hemoglobin 32.3 pg (25-34); Mean Corpuscular Hgb Conc 31.9 g/dL (32-36); Mean Corpuscular Volume 101.2 fL (80-100); Mean Platelet Volume 9.1 fL (7.4-10.4); Platelet Count 183 K/uL (130-400); RDW Standard Deviation 58.2 fL (36.4-46.3); Red Blood Count 2.54 M/uL (4.7-6.1); White Blood Count 7.54 K/uL (4.8-10.8)
[2020-09-14 06:55] LABS: BUN Creatinine Ratio 6.6 (10-20); Calcium 8.7 mg/dl (8.5-10.1); Creatinine Clr Calc Pharmacy 16.2 ml/min; Est GFR (African American) 16.9 ml/min; Est GFR (Non-African American) 14.6 ml/min
[2020-09-14] MEDS: allopurinoL 100 MG TAB PO SCH (09:12)
[2020-09-14] MEDS: INSULIN ASPART 100 UNITS/ML 3 ML PEN SC SCH ×4 (09:12→21:57)
[2020-09-14] MEDS: ASPIRIN 81 MG ECTAB PO SCH (09:12)
[2020-09-14] MEDS: SEVELAMER HCL 800 MG TABLET PO SCH ×3 (09:12→17:40)
[2020-09-14] MEDS: INSULIN GLARGINE SOLOSTAR 100 UNITS/ML 3 ML PEN SC SCH (09:12)
[2020-09-14] MEDS: NEPHROCAPS PO SCH (09:13)
[2020-09-14] MEDS: TACROLIMUS 1 MG CAP PO SCH ×2 (09:13→21:54)
[2020-09-14] MEDS: PANTOprazole 40 MG TAB PO SCH (09:13)
--- NOTE | 2020-09-14 19:47 | Hospitalist Progress Note ---
Date of Service September 14, 2020 Assessment & Plan (1) Closed fracture of left hip: CT hip showed acute comminuted displaced intertrochanteric fracture of the left femur S/P Left Open Reduction Internal Fixation with Dynamic Hip Screw on 09/10/[address] Gm Robertson MD No post op complication received 1 unit PRBC 09/11 Hgb 8.2 today PT/OT eval (2) End stage chronic kidney disease: Missed HD on day of admission therefore HD provided while inpt last night (09/09) HD today Nephrology on board (3) Diabetes mellitus type II, uncontrolled: Pt has not taken insulin since Wednesday because he felt like his sugar was low over the weekend although he didn't check. Sugars on presentation today >500 Pharmacy on board for glycemic management (4) CAD (coronary artery disease): ECHO and stress imaging done in June as part of routine pre-transplant work-up. No evidence of ischemia. Pt remains asymptomatic from a cardiac perspective. Pt will be a moderate risk for surgical intervention due to complicated medical history. Case discussed with cardiology recommended to discontinue the plavix on disharge Continue statin, beta-alex (5) Anemia in chronic kidney disease, on chronic dialysis: Acute blood loss anemia Outpatient labs reviewed - H&H appears stable at baseline of 10-10.5 S/P transfusion with 1 unit prbc during HD on 09/11 Hgb 8.2 today Continue monitor CBC (6) Hepatitis B: - Continue entecavir as taken outpatient (7) Essential hypertension: - Continue outpatient meds and monitor (8) Cerebral palsy: - Will need PT/OT consults after OR for hip fracture. Discussed with patient that he may need short-term rehab at discharge. Will need eventual case management consult. Admission and Anticipated Discharge Date Admission Date: September 09, 2020 Subjective Pt was seen and examined for post op follow up Lying in bed with no distress Denies any chest pain, palpitation, dizziness and SOB Review of Systems Review of Systems: All systems reviewed & are unremarkable except as noted in Subjective Physical Exam Physical Exam: General- No acute distress Head- atraumatic Eyes- PERRL, EOMI, ENT- oropharynx clear Neck- supple, no JVD Lungs- clear to auscultation Heart- regular rhythm; no murmur Abdomen- normal bowel sounds, soft, nontender Extremities- no calf tenderness Neuro- alert, oriented x 3; PERRL, EOMI; no facial palsy; no dysarthria Skin- warm & dry Results & Data Results & Data ([facility]) Vital Signs (Past 12 Hours) Vital Signs Temp Pulse Pulse Resp BP Pulse Ox 09/14/20 19:05 36.8 C 80 18 126/74 95 09/14/20 15:55 36.5 C 65 16 134/68 93 09/14/20 15:28 70 09/14/20 14:16 73 09/14/20 11:41 36.9 C 74 20 105/71 96 09/14/20 07:50 36.8 C 72 20 108/64 95 (1) Hepatitis B Hepatic coma status: without hepatic coma Hepatitis delta agent presence: without delta-agent Viral hepatitis chronicity: chronic Qualified Code(s): B18.1 - Chronic viral hepatitis B without delta-agent (2) CAD (coronary artery disease) Associated angina: without angina Coronary Disease-Associated Artery/Lesion type: [place] artery [place] vs. 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
[2020-09-14] MEDS: AMITRIPTYLINE HCL 50 MG TAB PO SCH (21:53)
[2020-09-14] MEDS: PRAVASTATIN SOD 20 MG TAB PO SCH (21:53)
[2020-09-14] MEDS: carvediloL 3.125 MG TAB PO SCH (21:53)
[2020-09-14] MEDS: ENTECAVIR 0.5 MG PO SCH (21:54)
[2020-09-15] MEDS: TACROLIMUS 1 MG CAP PO SCH ×2 (07:44→20:59)
[2020-09-15] MEDS: ASPIRIN 81 MG ECTAB PO SCH (07:44)
[2020-09-15] MEDS: PANTOprazole 40 MG TAB PO SCH (07:44)
[2020-09-15] MEDS: allopurinoL 100 MG TAB PO SCH (07:45)
[2020-09-15] MEDS: NEPHROCAPS PO SCH (07:45)
[2020-09-15] MEDS: SEVELAMER HCL 800 MG TABLET PO SCH ×3 (07:45→16:57)
[2020-09-15] MEDS: INSULIN ASPART 100 UNITS/ML 3 ML PEN SC SCH ×4 (08:05→21:09)
[2020-09-15] MEDS: INSULIN GLARGINE SOLOSTAR 100 UNITS/ML 3 ML PEN SC SCH ×2 (08:06→08:46)
[2020-09-15] MEDS: oxyCODONE HCL IR 5 MG TAB (IMMEDIATE RELEASE) PO PRN (09:05)
--- NOTE | 2020-09-15 11:20 | Pharmacy Report ---
Pharmacy Glycemic Short Note 2 - Date of Service September 15, 2020 - Glycemic Short BSG Results (Last 24 hours): 09/14/20 09/14/20 09/14/20 11:46 16:41 16:43 POC Glucose 231 H 348 H* 313 H* 09/14/20 09/15/20 20:03 07:41 POC Glucose 288 H 174 H OUTPATIENT ANTIDIABETIC REGIMEN: * Lantus 30 units SC HS * Novolog 12 units SC w/ breakfast, 14 units w/ lunch, and 16 units w/ dinner * No recent HbA1c, but unlikely to be reliable anyhow given ESRD requiring HD ASSESSMENT: 09/15: * Nikhil received a total of 43 units of insulin yesterday * 14 units basal + 29 units bolus * BSGs were uncontrolled: [phone] mg/dL * Fasting BSG continued to trend up this AM and was 174 mg/dL * Increased basal to 20 units this AM * No changes to Novolog PLAN FOR INPATIENT GLYCEMIC CONTROL: * Basal insulin - increased * Lantus 20 units SC AM * Bolus insulin * NovoLog per scale ACHS or Q6hrs while NPO * Goal Range: Low 110 mg/dL - High 140 mg/dL * Correction Factor: 25 mg/dL/unit * Nutritional / Prandial insulin per carb ratio of 1 unit per 8 grams CHO consumed PLAN FOR DISCHARGE: * TBD; pt is requiring significantly less insulin inpatient as compared to home dosing. Outpatient dosing may need reduced if patient is experiencing hypo
--- NOTE | 2020-09-15 18:43 | Hospitalist Progress Note ---
Date of Service September 15, 2020 Assessment & Plan (1) Closed fracture of left hip: CT hip showed acute comminuted displaced intertrochanteric fracture of the left femur S/P Left Open Reduction Internal Fixation with Dynamic Hip Screw on 09/10/[address] Gm Robertson MD No post op complication received 1 unit PRBC 09/11 Hgb 8.2 PT/OT eval (2) End stage chronic kidney disease: Missed HD on day of admission therefore HD provided while inpt last night (09/09) Plan for hemodialysis tomorrow Nephrology on board (3) Diabetes mellitus type II, uncontrolled: Pt has not taken insulin since Wednesday because he felt like his sugar was low over the weekend although he didn't check. Sugars on presentation today >500 Pharmacy on board for glycemic management (4) CAD (coronary artery disease): ECHO and stress imaging done in June as part of routine pre-transplant work-up. No evidence of ischemia. Pt remains asymptomatic from a cardiac perspective. Pt will be a moderate risk for surgical intervention due to complicated medical history. Case discussed with cardiology recommended to discontinue the plavix on disharge Continue statin, beta-alex (5) Anemia in chronic kidney disease, on chronic dialysis: Acute blood loss anemia Outpatient labs reviewed - H&H appears stable at baseline of 10-10.5 S/P transfusion with 1 unit prbc during HD on 09/11 Hgb 8.2 Continue monitor CBC (6) Hepatitis B: - Continue entecavir as taken outpatient (7) Essential hypertension: - Continue outpatient meds and monitor (8) Cerebral palsy: - Will need PT/OT consults after OR for hip fracture. Discussed with patient that he may need short-term rehab at discharge. Will need eventual case management consult. Admission and Anticipated Discharge Date Admission Date: September 09, 2020 Subjective Pt was seen and examined for post op follow up Lying in bed with no distress Pt sait that he feels much better He said that his pain control Denies any chest pain, palpitation, dizziness and SOB Review of Systems Review of Systems: All systems reviewed & are unremarkable except as noted in Subjective Physical Exam Physical Exam: General- No acute distress Head- atraumatic Eyes- PERRL, EOMI, ENT- oropharynx clear Neck- supple, no JVD Lungs- clear to auscultation Heart- regular rhythm; no murmur Abdomen- normal bowel sounds, soft, nontender Extremities- no calf tenderness Neuro- alert, oriented x 3; PERRL, EOMI; no facial palsy; no dysarthria Skin- warm & dry Results & Data Results & Data ([facility]) Vital Signs (Past 12 Hours) Vital Signs Temp Pulse Resp BP Pulse Ox 09/15/20 15:31 36.7 C 64 18 110/71 97 09/15/20 11:48 36.7 C 73 18 91/53 L 95 09/15/20 08:00 36.8 C 83 18 118/76 98 (1) Hepatitis B Hepatic coma status: without hepatic coma Hepatitis delta agent presence: without delta-agent Viral hepatitis chronicity: chronic Qualified Code(s): B18.1 - Chronic viral hepatitis B without delta-agent (2) CAD (coronary artery disease) Associated angina: without angina Coronary Disease-Associated Artery/Lesion type: [place] artery [place] vs. 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
[2020-09-15] MEDS: AMITRIPTYLINE HCL 50 MG TAB PO SCH (20:59)
[2020-09-15] MEDS: carvediloL 3.125 MG TAB PO SCH (21:00)
[2020-09-15] MEDS: ENTECAVIR 0.5 MG PO SCH (21:00)
[2020-09-15] MEDS: PRAVASTATIN SOD 20 MG TAB PO SCH (21:01)
[2020-09-16] MEDS: INSULIN ASPART 100 UNITS/ML 3 ML PEN SC SCH ×4 (08:00→22:07)
[2020-09-16] MEDS ORDERED: SODIUM CHLORIDE 0.9% 1000ML 1,000 ML IV PRN (08:08)
[2020-09-16 08:20] LABS: Hematocrit (blood only) 25.1 % (42-52); Hemoglobin 8.1 g/dL (14.0-18.0); Mean Corpuscular Hemoglobin 32.4 pg (25-34); Mean Corpuscular Hgb Conc 32.3 g/dL (32-36); Mean Corpuscular Volume 100.4 fL (80-100); Mean Platelet Volume 8.8 fL (7.4-10.4); Platelet Count 236 K/uL (130-400); RDW Coefficient of Variation 16.8 % (11.5-14.5); RDW Standard Deviation 57.4 fL (36.4-46.3); White Blood Count 7.49 K/uL (4.8-10.8)
[2020-09-16] MEDS: INSULIN GLARGINE SOLOSTAR 100 UNITS/ML 3 ML PEN SC SCH (08:30)
[2020-09-16] MEDS ORDERED: HEPARIN SOD (PORCINE) 1000 UNIT/ML IV ONE (09:00)
[2020-09-16] MEDS ORDERED: EPOETIN ALFA 20,000 UNITS/ML VIAL IV ONE (09:00)
[2020-09-16] MEDS ORDERED: IRON SUCROSE 100 MG in SYRINGE 0 ML IV ONE (09:00)
[2020-09-16 09:10] LABS: BUN Creatinine Ratio 8.8 (10-20); Creatinine Clr Calc Pharmacy 8.6 ml/min; Est GFR (African American) 8.2 ml/min; Est GFR (Non-African American) 7.1 ml/min; Potassium 4.5 mmol/L (3.5-5.1)
[2020-09-16] MEDS: HEPARIN SOD (PORCINE) 1000 UNIT/ML IV SCH ×2 (13:10→14:30)
[2020-09-16] MEDS: ASPIRIN 81 MG ECTAB PO SCH (13:24)
[2020-09-16] MEDS: allopurinoL 100 MG TAB PO SCH (13:24)
[2020-09-16] MEDS: SEVELAMER HCL 800 MG TABLET PO SCH ×3 (13:24→17:38)
[2020-09-16] MEDS: TOCOPHERYL, DL-ALPHA 100 UNITS CAP PO SCH ×2 (13:25→23:18)
[2020-09-16] MEDS: NEPHROCAPS PO SCH (13:25)
[2020-09-16] MEDS: PANTOprazole 40 MG TAB PO SCH (13:26)
[2020-09-16] MEDS: TACROLIMUS 1 MG CAP PO SCH ×2 (13:26→22:03)
--- NOTE | 2020-09-16 13:27 | Hospitalist Progress Note ---
Date of Service September 16, 2020 Assessment & Plan (1) Closed fracture of left hip: CT hip showed acute comminuted displaced intertrochanteric fracture of the left femur S/P Left Open Reduction Internal Fixation with Dynamic Hip Screw on 09/10/[address] Gm Robertson MD No post op complication received 1 unit PRBC 09/11 Hgb 8.1 Continue PT/OT eval (2) End stage chronic kidney disease: Missed HD on day of admission therefore HD provided while inpt last night (09/09) Plan for hemodialysis today Nephrology on board (3) Diabetes mellitus type II, uncontrolled: Pt has not taken insulin since Wednesday because he felt like his sugar was low over the weekend although he didn't check. Sugars on presentation today >500 Pharmacy on board for glycemic management (4) CAD (coronary artery disease): ECHO and stress imaging done in June as part of routine pre-transplant work-up. No evidence of ischemia. Pt remains asymptomatic from a cardiac perspective. Pt will be a moderate risk for surgical intervention due to complicated medical history. Case discussed with cardiology recommended to discontinue the plavix on disharge Continue statin, beta-alex (5) Anemia in chronic kidney disease, on chronic dialysis: Acute blood loss anemia Outpatient labs reviewed - H&H appears stable at baseline of 10-10.5 S/P transfusion with 1 unit prbc during HD on 09/11 Hgb 8.1 Continue monitor CBC (6) Hepatitis B: - Continue entecavir as taken outpatient (7) Essential hypertension: - Continue outpatient meds and monitor (8) Cerebral palsy: Continue PT/OT Waiting for placement to rehab Admission and Anticipated Discharge Date Admission Date: September 09, 2020 Subjective Pt was seen and examined for post op follow up Lying in bed with no distress He said that his pain control Denies any chest pain, palpitation, dizziness and SOB Review of Systems Review of Systems: All systems reviewed & are unremarkable except as noted in Subjective Physical Exam Physical Exam: General- No acute distress Head- atraumatic Eyes- PERRL, EOMI, ENT- oropharynx clear Neck- supple, no JVD Lungs- clear to auscultation Heart- regular rhythm; no murmur Abdomen- normal bowel sounds, soft, nontender Extremities- no calf tenderness Neuro- alert, oriented x 3; PERRL, EOMI; no facial palsy; no dysarthria Skin- warm & dry Results & Data [facility] Vital Signs (Past 12 Hours) Vital Signs Temp Pulse Pulse Resp BP BP Pulse Ox 09/16/20 12:53 36.7 C 63 141/80 H 09/16/20 12:39 61 119/68 09/16/20 12:20 62 120/78 09/16/20 12:00 65 119/65 09/16/20 11:40 66 95/58 L 09/16/20 11:20 65 109/59 L 09/16/20 11:00 64 103/61 09/16/20 10:45 65 83/43 L 09/16/20 10:40 66 78/47 L 09/16/20 10:20 64 87/47 L 09/16/20 10:00 64 91/57 L 09/16/20 09:40 66 71/42 L 09/16/20 09:20 60 80/49 L 09/16/20 09:13 62 85/52 L 09/16/20 08:55 36.7 C 60 09/16/20 08:07 59 L 09/16/20 08:00 36.6 C 62 18 103/63 92 09/16/20 03:15 36.7 C 62 17 130/70 94 (1) Hepatitis B Hepatic coma status: without hepatic coma Hepatitis delta agent presence: without delta-agent Viral hepatitis chronicity: chronic Qualified Code(s): B18.1 - Chronic viral hepatitis B without delta-agent (2) CAD (coronary artery disease) Associated angina: without angina Coronary Disease-Associated Artery/Lesion type: [place] artery [place] vs. 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
--- NOTE | 2020-09-16 13:48 | Nephrology Progress Note ---
Date of Service September 16, 2020 Assessment & Plan (1) End stage chronic kidney disease: on MWF HD; tolerated HD 09/09 w/ 1L UF; had 0.5 L UF on 09/13; had 0 ultrafiltration on September 16 due to relative hypotension >for HD on 09/18 or as clinical needs dictate -daily bmp, cbc (2) Anemia in chronic kidney disease, on chronic dialysis: 10.7 admission > 8.1 hgb today >gave 20K epo and 100 mg venofer on tx today as well (3) Closed fracture of left hip: s/p OR 09/10 Admission and Anticipated Discharge Date Admission Date: September 09, 2020 Subjective Seen shortly after he completed dialysis today; no shortness of breath or nausea. He tolerated no UF today. Mild but essentially controlled hip pain. Review of Systems Review of Systems: All systems reviewed & are unremarkable except as noted in Subjective Physical Exam Constitutional: well developed, well nourished, + frail appearing and cooperative; no acute distress Eyes: EOM intact bilaterally ENMT: Ears: no external ear abnormality Nose: no external nose abnormality Mouth: + dry oral mucous membranes Neck: no nuchal rigidity Respiratory: normal respiratory effort; no labored breathing (on RA) Auscultation: lungs clear to auscultation bilaterally and + diminished lung sounds Cardiovascular: Rate/Rhythm: regular rate and regular rhythm Extremities: + edema (trace LLE) and + AV fistula (RUE + t/b) Gastrointestinal (Abdomen): Inspection/Auscultation: normal bowel sounds Percussion/Palpation: abdomen soft; abdomen nontender Musculoskeletal: Extremities: + limited ROM of extremities and + abnormal strength Skin: no rashes, warm and dry Psychiatric: Orientation: alert and oriented x 3 Speech: normal rat e/rhythm/volume of speech Results & Data ([facility]) Vital Signs (Past 12 Hours) Vital Signs Temp Pulse Pulse Resp BP BP Pulse Ox 09/16/20 12:53 36.7 C 63 141/80 H 09/16/20 12:39 61 119/68 09/16/20 12:20 62 120/78 09/16/20 12:00 65 119/65 09/16/20 11:40 66 95/58 L 09/16/20 11:20 65 109/59 L 09/16/20 11:00 64 103/61 07/05/21 10:45 65 83/43 L 09/16/20 10:40 66 78/47 L 09/16/20 10:20 64 87/47 L 09/16/20 10:00 64 91/57 L 09/16/20 09:40 66 71/42 L 09/16/20 09:20 60 80/49 L 09/16/20 09:13 62 85/52 L 09/16/20 08:55 36.7 C 60 09/16/20 08:07 59 L 09/16/20 08:00 36.6 C 62 18 103/63 92 09/16/20 03:15 36.7 C 62 17 130/70 94 Laboratory Results 09/16/20 07:43 09/16/20 07:43 (1) Closed fracture of left hip Encounter type: initial encounter Qualified Code(s): S72.002A - Fracture of unspecified part of neck of left femur, initial encounter for closed fracture
[2020-09-16] MEDS ORDERED: INSULIN GLARGINE SOLOSTAR 100 UNITS/ML 3 ML PEN SC ONE (15:00)
[2020-09-16] MEDS: ENTECAVIR 0.5 MG PO SCH ×2 (22:02→22:09)
[2020-09-16] MEDS: PRAVASTATIN SOD 20 MG TAB PO SCH (22:05)
[2020-09-16] MEDS: carvediloL 3.125 MG TAB PO SCH (22:05)
[2020-09-16] MEDS: AMITRIPTYLINE HCL 50 MG TAB PO SCH (22:06)
[2020-09-16] MEDS: oxyCODONE HCL IR 5 MG TAB (IMMEDIATE RELEASE) PO PRN (22:17)
[2020-09-17 08:14] LABS: Hematocrit (blood only) 26.7 % (42-52); Hemoglobin 8.4 g/dL (14.0-18.0); Mean Corpuscular Hemoglobin 32.1 pg (25-34); Mean Corpuscular Hgb Conc 31.5 g/dL (32-36); Mean Corpuscular Volume 101.9 fL (80-100); Mean Platelet Volume 8.9 fL (7.4-10.4); Platelet Count 237 K/uL (130-400); RDW Coefficient of Variation 17.6 % (11.5-14.5); RDW Standard Deviation 60.1 fL (36.4-46.3); Red Blood Count 2.62 M/uL (4.7-6.1)
[2020-09-17] MEDS: INSULIN ASPART 100 UNITS/ML 3 ML PEN SC SCH ×4 (08:18→21:11)
[2020-09-17] MEDS: SEVELAMER HCL 800 MG TABLET PO SCH ×3 (08:19→17:35)
[2020-09-17] MEDS: ASPIRIN 81 MG ECTAB PO SCH (08:20)
[2020-09-17] MEDS: allopurinoL 100 MG TAB PO SCH (08:20)
[2020-09-17] MEDS: TACROLIMUS 1 MG CAP PO SCH ×2 (08:21→21:57)
[2020-09-17] MEDS: PANTOprazole 40 MG TAB PO SCH (08:21)
[2020-09-17] MEDS: NEPHROCAPS PO SCH (08:21)
[2020-09-17] MEDS ORDERED: INSULIN GLARGINE SOLOSTAR 100 UNITS/ML 3 ML PEN SQ SCH (09:00)
[2020-09-17 09:02] LABS: BUN Creatinine Ratio 6.5 (10-20); Calcium 8.7 mg/dl (8.5-10.1); Creatinine Clr Calc Pharmacy 11.9 ml/min; Est GFR (African American) 12.1 ml/min; Est GFR (Non-African American) 10.4 ml/min; Potassium 3.9 mmol/L (3.5-5.1)
--- NOTE | 2020-09-17 11:22 | Pharmacy Report ---
Pharmacy Glycemic Short Note 2 - Date of Service September 17, 2020 - Glycemic Short BSG Results (Last 24 hours): 09/16/20 09/16/20 09/16/20 13:20 16:29 20:16 Glucose POC Glucose 128 H 188 H 201 H 09/17/20 09/17/20 07:33 08:00 Glucose 163 H POC Glucose 156 H OUTPATIENT ANTIDIABETIC REGIMEN: * Lantus 30 units SC HS * Novolog 12 units SC w/ breakfast, 14 units w/ lunch, and 16 units w/ dinner * No recent HbA1c, but unlikely to be reliable anyhow given ESRD requiring HD ASSESSMENT: 09/17: * Patient received total of 29 units of insulin yesterday, of which 18 units were Lantus * Fasting BSG 156 mg/dL - continue same Lantus * No change to CF/CR 09/15: * Nikhil received a total of 43 units of insulin yesterday * 14 units basal + 29 units bolus * BSGs were uncontrolled: [phone] mg/dL * Fasting BSG continued to trend up this AM and was 174 mg/dL * Increased basal to 20 units this AM * No changes to Novolog PLAN FOR INPATIENT GLYCEMIC CONTROL: * Basal insulin * Lantus 18 units daily * Bolus insulin * NovoLog per scale ACHS or Q6hrs while NPO * Goal Range: Low 110 mg/dL - High 140 mg/dL * Correction Factor: 25 mg/dL/unit * Nutritional / Prandial insulin per carb ratio of 1 unit per 10 grams CHO consumed PLAN FOR DISCHARGE: * No recent A1c - likely unreliable however due to ESRD/HD status * Of note, insulin requirements during this hospitalization are less than outpatient insulin regimen. Would be reasonable to continue home insulin regimen on discharge as long as patient is not experiencing frequent hypoglycemia at home.
[2020-09-17] MEDS: oxyCODONE HCL IR 5 MG TAB (IMMEDIATE RELEASE) PO PRN (13:43)
--- NOTE | 2020-09-17 19:46 | Hospitalist Progress Note ---
Date of Service September 17, 2020 Assessment & Plan (1) Closed fracture of left hip: CT hip showed acute comminuted displaced intertrochanteric fracture of the left femur S/P Left Open Reduction Internal Fixation with Dynamic Hip Screw on 09/10/[address] Gm Robertson MD No post op complication received 1 unit PRBC 09/11 Hgb 8.4 today Continue PT/OT eval (2) End stage chronic kidney disease: Missed HD on day of admission therefore HD provided while inpt last night (09/09) Next Hemodialysis tomorrow Nephrology on board (3) Diabetes mellitus type II, uncontrolled: Pt has not taken insulin since Wednesday because he felt like his sugar was low over the weekend although he didn't check. Sugars on presentation today >500 Will check Hba1c Pharmacy on board for glycemic management Continue Lantus and novolog sliding scale (4) CAD (coronary artery disease): ECHO and stress imaging done in June as part of routine pre-transplant work-up. No evidence of ischemia. Pt remains asymptomatic from a cardiac perspective. Pt will be a moderate risk for surgical intervention due to complicated medical history. Case discussed with cardiology recommended to discontinue the plavix on disharge Continue statin, beta-alex (5) Anemia in chronic kidney disease, on chronic dialysis: Acute blood loss anemia Outpatient labs reviewed - H&H appears stable at baseline of 10-10.5 S/P transfusion with 1 unit prbc during HD on 09/11 Hgb 8.4 Continue monitor CBC (6) Hepatitis B: - Continue entecavir as taken outpatient (7) Essential hypertension: - Continue outpatient meds and monitor (8) Cerebral palsy: Continue PT/OT Waiting for placement to rehab Admission and Anticipated Discharge Date Admission Date: September 09, 2020 Subjective Pt was seen and examined for post op follow up Lying in bed with no distress He said that his pain control Denies any chest pain, palpitation, dizziness and SOB Review of Systems Review of Systems: All systems reviewed & are unremarkable except as noted in Subjective Physical Exam Physical Exam: General- No acute distress Head- atraumatic Eyes- PERRL, EOMI, ENT- oropharynx clear Neck- supple, no JVD Lungs- clear to auscultation Heart- regular rhythm; no murmur Abdomen- normal bowel sounds, soft, nontender Extremities- no calf tenderness Neuro- alert, oriented x 3; PERRL, EOMI; no facial palsy; no dysarthria Skin- warm & dry Results & Data Results & Data ([facility]) Vital Signs (Past 12 Hours) Vital Signs Temp Pulse Pulse Resp BP Pulse Ox 09/17/20 16:03 65 09/17/20 14:48 36.5 C 67 18 115/76 94 09/17/20 11:42 69 09/17/20 11:03 36.6 C 67 18 98/55 L 93 (1) Hepatitis B Hepatic coma status: without hepatic coma Hepatitis delta agent presence: without delta-agent Viral hepatitis chronicity: chronic Qualified Code(s): B18.1 - Chronic viral hepatitis B without delta-agent (2) CAD (coronary artery disease) Associated angina: without angina Coronary Disease-Associated Artery/Lesion type: [place] artery [place] vs. 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
[2020-09-17] MEDS ORDERED: ALBUMIN 25% 12.5 GM/50 ML VIAL IV ONE (20:17)
[2020-09-17] MEDS ORDERED: traMADol HCL 50 MG TABLET PO PRN (20:19)
--- NOTE | 2020-09-17 20:21 | Communication Note ---
Date of Service: September 17, 2020 Patient noted to be very drowsy after oxycodone administration tonight as per RN. Hold oxycodone. Ultram as needed pain not relieved by Tylenol Hold parameters for sedation confusion for narcotic medications. Will relay to AM provider.
[2020-09-17] MEDS: carvediloL 3.125 MG TAB PO SCH (21:07)
[2020-09-17] MEDS: ENTECAVIR 0.5 MG PO SCH (21:56)
[2020-09-17] MEDS: PRAVASTATIN SOD 20 MG TAB PO SCH (21:58)
[2020-09-18] MEDS ORDERED: bisacodyL 5 MG TABEC PO ONE (07:41)
[2020-09-18] MEDS ORDERED: POLYETHYLENE (MIRALAX) 17 GM PACK PO PRN (07:47)
[2020-09-18] MEDS ORDERED: bisacodyL 5 MG TABEC PO PRN (07:47)
[2020-09-18] MEDS ORDERED: SODIUM CHLORIDE 0.9% 1000ML 1,000 ML IV PRN ×2 (08:18→15:31)
[2020-09-18] MEDS ORDERED: HEPARIN SOD (PORCINE) 1000 UNIT/ML IV ONE (08:18)
[2020-09-18] MEDS ORDERED: EPOETIN ALFA 20,000 UNITS/ML VIAL IV SCH (08:45)
[2020-09-18] MEDS: allopurinoL 100 MG TAB PO SCH (08:57)
[2020-09-18] MEDS: PANTOprazole 40 MG TAB PO SCH (08:57)
[2020-09-18] MEDS: ASPIRIN 81 MG ECTAB PO SCH (08:57)
[2020-09-18] MEDS: TOCOPHERYL, DL-ALPHA 100 UNITS CAP PO SCH ×2 (08:57→21:13)
[2020-09-18] MEDS: TACROLIMUS 1 MG CAP PO SCH ×2 (08:57→21:15)
[2020-09-18] MEDS: SEVELAMER HCL 800 MG TABLET PO SCH ×3 (08:57→17:55)
[2020-09-18] MEDS: INSULIN GLARGINE SOLOSTAR 100 UNITS/ML 3 ML PEN SQ SCH (08:59)
[2020-09-18] MEDS: INSULIN ASPART 100 UNITS/ML 3 ML PEN SC SCH ×4 (08:59→21:13)
[2020-09-18 09:02] LABS: Estimated Average Glucose 166 mg/dl; Hemoglobin A1C 7.4 % (4.5-5.6)
[2020-09-18] MEDS: NEPHROCAPS PO SCH (10:16)
--- NOTE | 2020-09-18 12:04 | Pharmacy Report ---
Pharmacy Glycemic Short Note 2 - Date of Service September 18, 2020 - Glycemic Short BSG Results (Last 24 hours): 09/17/20 09/17/20 09/18/20 16:25 20:11 07:53 POC Glucose 292 H 246 H 65 L* 09/18/20 09/18/20 07:55 11:33 POC Glucose 77 151 H OUTPATIENT ANTIDIABETIC REGIMEN: * Lantus 30 units SC HS * Novolog 12 units SC w/ breakfast, 14 units w/ lunch, and 16 units w/ dinner * No recent HbA1c, but unlikely to be reliable anyhow given ESRD requiring HD ASSESSMENT: 09/18: * Patient received total of 40 units of insulin yesterday, of which 18 units were Lantus * Fasting BSG 65 mg/dL - decrease Lantus * Blood sugars rising throughout the day, tighten CF/CR * HD today 09/17: * Patient received total of 29 units of insulin yesterday, of which 18 units were Lantus * Fasting BSG 156 mg/dL - continue same Lantus * No change to CF/CR 09/15: * Nikhil received a total of 43 units of insulin yesterday * 14 units basal + 29 units bolus * BSGs were uncontrolled: [phone] mg/dL * Fasting BSG continued to trend up this AM and was 174 mg/dL * Increased basal to 20 units this AM * No changes to Novolog PLAN FOR INPATIENT GLYCEMIC CONTROL: * Basal insulin -decrease * Lantus 15 units daily * Bolus insulin -tighten CF/CR * NovoLog per scale ACHS or Q6hrs while NPO * Goal Range: Low 110 mg/dL - High 140 mg/dL * Correction Factor: 20 mg/dL/unit * Nutritional / Prandial insulin per carb ratio of 1 unit per 7 grams CHO consumed PLAN FOR DISCHARGE: * No recent A1c - likely unreliable however due to ESRD/HD status * Of note, insulin requirements during this hospitalization are less than outpatient insulin regimen. Would be reasonable to continue home insulin regimen on discharge as long as patient is not experiencing frequent hypoglycemia at home.
[2020-09-18] MEDS: HEPARIN SOD (PORCINE) 1000 UNIT/ML IV SCH ×3 (15:16→18:10)
--- NOTE | 2020-09-18 15:33 | Nephrology Progress Note ---
Date of Service September 18, 2020 Assessment & Plan (1) End stage chronic kidney disease: on MWF HD; tolerated HD 09/09 w/ 1L UF; had 0.5 L UF on 09/13; had 0 ultrafiltration on September 16 due to relative hypotension >for HD today w/ up to 1L fluid removal as bp tolerates; next HD for 09/20 or as clinical needs dictate -daily bmp, cbc (2) Anemia in chronic kidney disease, on chronic dialysis: 10.7 admission > 8.4 hgb today >gave 20K epo and 100 mg venofer on tx today as well (3) Closed fracture of left hip: s/p OR 09/10 Admission and Anticipated Discharge Date Admission Date: September 09, 2020 Subjective seen on rounds this am at 0920; very drowsy w/ narcotics ON and pain regimen changed; feels hip is doing better; no sob, no n/v, no edema Review of Systems Review of Systems: All systems reviewed & are unremarkable except as noted in Subjective Physical Exam Constitutional: well developed, well nourished, + frail appearing and cooperative; no acute distress Eyes: EOM intact bilaterally ENMT: Ears: no external ear abnormality Nose: no external nose abnormality Mouth: + dry oral mucous membranes Neck: no nuchal rigidity Respiratory: normal respiratory effort; no labored breathing (on RA) Auscultation: lungs clear to auscultation bilaterally and + diminished lung sounds Cardiovascular: Rate/Rhythm: regular rate and regular rhythm Extremities: + edema (trace LLE) and + AV fistula (RUE + t/b) Gastrointestinal (Abdomen): Inspection/Auscultation: normal bowel sounds Percussion/Palpation: abdomen soft; abdomen nontender Musculoskeletal: Extremities: + limited ROM of extremities and + abnormal strength Skin: no rashes, warm and dry Neurologic: louie, fluent speech Psychiatric: Orientation: alert and oriented x 3 Speech: normal rate/rhythm/volume of speech Insight: + limited insight Judgement: + limited judgement Results & Data ([facility]) Vital Signs (Past 12 Hours) Vital Signs Temp Pulse Pulse Pulse Resp BP BP 09/18/20 15:00 68 107/56 L 09/18/20 14:40 62 103/55 L 09/18/20 14:20 68 116/60 09/18/20 14:00 65 121/63 09/18/20 13:40 65 121/65 09/18/20 13:16 63 120/64 09/18/20 13:10 37 C 67 09/18/20 11:00 37.1 C 75 20 119/57 L 09/18/20 08:00 36.9 C 66 20 111/60 09/18/20 07:00 57 L Pulse Ox 09/18/20 15:00 09/18/20 14:40 09/18/20 14:20 09/18/20 14:00 09/18/20 13:40 09/18/20 13:16 09/18/20 13:10 09/18/20 11:00 93 09/18/20 08:00 90 09/18/20 07:00 Laboratory Results 09/17/20 08:00 09/17/20 08:00 (1) Closed fracture of left hip Encounter type: initial encounter Qualified Code(s): S72.002A - Fracture of unspecified part of neck of left femur, initial encounter for closed fracture
[2020-09-18] MEDS ORDERED: IRON SUCROSE 100 MG in SYRINGE 0 ML IV ONE (16:00)
--- NOTE | 2020-09-18 18:57 | Hospitalist Progress Note ---
Date of Service September 18, 2020 Assessment & Plan (1) Closed fracture of left hip: Cough/hypoxia: Patient reports of having nonproductive cough, congestion. Requiring 2 L oxygen via nasal cannula, per nursing patient desaturated around low 90s/80s overnight Chest auscultation, no rales or wheeze noted, very poor inspiratory effort We will continue to encourage to use incentive spirometry Potable chest x-ray ordered, Will start empirically on p.o. doxycycline for possible bronchitis Post fracture of left hip: CT hip showed acute comminuted displaced intertrochanteric fracture of the left femur S/P Left Open Reduction Internal Fixation with Dynamic Hip Screw on 09/10/[address] Gm Robertson MD received 1 unit PRBC 09/11 for postop acute blood loss anemia- Underlying anemia of chronic disease H&H has been stable posttransfusion Patient will need acute rehab for recovery from hip fracture surgery (2) End stage chronic kidney disease: Continue scheduled dialysis Nephrology on board (3) Diabetes mellitus type II, uncontrolled: Pharmacy on board for glycemic management Continue Lantus and novolog sliding scale (4) CAD (coronary artery disease): No chest pain ECHO and stress imaging done in June as part of routine pre-transplant work-up. No evidence of ischemia. Pt remains asymptomatic from a cardiac perspective. Case discussed with cardiology prior hospitalist: Recommended to discontinue the plavix on disharge Continue statin, beta-alex (5) Anemia in chronic kidney disease, on chronic dialysis: Acute blood loss anemia Outpatient labs reviewed - H&H appears stable at baseline of 10-10.5 S/P transfusion with 1 unit prbc during HD on 09/11 Hgb 8.4 Continue monitor CBC (6) Hepatitis B: - Continue entecavir as taken outpatient (7) Essential hypertension: - Continue outpatient meds and monitor (8) Cerebral palsy: Continue PT/OT Waiting for placement to rehab Admission and Anticipated Discharge Date Admission Date: September 09, 2020 Subjective pt reports of having " chest cold " feeling short of breath , requiring 2 L 02 via nasal canula afebrile had dialysis today no cough pt had pneumonia on may , concerned that he may be developing one now Chest xray no obvious infiltrate started on PO Doxycycline for possible bronchitis Review of Systems Respiratory: + cough and + chest congestion Physical Exam Constitutional: WD/WN, vitals as above + ill appearing Eyes: + anicteric sclerae ENMT: external ear and nose normal, oropharynx normal Neck: trachea midline, no thyromegaly Respiratory: normal respiratory effort and + cough (Nonproductive) Auscultation: + diminished lung sounds; no crackles, no rales and no wheezes Cardiovascular: RRR, no murmur, no edema Gastrointestinal (Abdomen): Percussion/Palpation: abdomen soft; abdomen nontender Musculoskeletal: Generalized weakness, have AV fistula on right arm Neurologic: PERRL, EOMI, accommodation nl, no face palsy, no dysarthria Psychiatric: Orientation: alert and oriented x 3 Affect: + flat affect Results & Data Results & Data ([facility]) Vital Signs (Past 12 Hours) Vital Signs Temp Pulse Pulse Pulse Resp BP BP 09/18/20 16:20 67 123/60 09/18/20 16:00 64 105/56 L 09/18/20 15:40 65 121/65 09/18/20 15:20 63 99/58 L 09/18/20 15:00 68 107/56 L 09/18/20 14:40 62 103/55 L 09/18/20 14:20 68 116/60 09/18/20 14:00 65 121/63 09/18/20 13:40 65 121/65 09/18/20 13:16 63 120/64 09/18/20 13:10 37 C 67 09/18/20 11:00 37.1 C 75 20 119/57 L 09/18/20 08:00 36.9 C 66 20 111/60 09/18/20 07:00 57 L Pulse Ox 09/18/20 16:20 09/18/20 16:00 09/18/20 15:40 09/18/20 15:20 09/18/20 15:00 09/18/20 14:40 09/18/20 14:20 09/18/20 14:00 09/18/20 13:40 09/18/20 13:16 09/18/20 13:10 09/18/20 11:00 93 09/18/20 08:00 90 09/18/20 07:00 (1) Hepatitis B Hepatic coma status: without hepatic coma Hepatitis delta agent presence: without delta-agent Viral hepatitis chronicity: chronic Qualified Code(s): B18.1 - Chronic viral hepatitis B without delta-agent (2) CAD (coronary artery disease) Associated angina: without angina Coronary Disease-Associated Artery/Lesion type: [place] artery [place] vs. 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
--- NOTE | 2020-09-18 19:32 | XRay Report ---
XR chest 1V portable HISTORY: shortness of breath COMPARISON: Chest 09/09/2020. FINDINGS: No pneumothorax. No pleural effusions. The cardiac silhouette is mildly enlarged. There is a mildly tortuous thoracic aorta, unchanged. Emphysema and mild chronic interstitial thickening persi sts. Faint patchy bibasilar densities are noted. The upper lung zones are clear. No evidence for pulm onary edema. IMPRESSION: 1. Faint patchy bibasilar densities. This could represent atelectasis or pneumonia. 2. Emphysema. 3. Cardiomegaly. ACT 112: Negative or not required by law. Electronically signed by: Herberth Acosta M.D. 09/18/2020 7:30 PM
[2020-09-18] MEDS: AMITRIPTYLINE HCL 100 MG TAB PO SCH (21:10)
[2020-09-18] MEDS: carvediloL 3.125 MG TAB PO SCH (21:12)
[2020-09-18] MEDS: DOXYCYCLINE HYCLATE 100 MG CAP PO SCH (21:13)
[2020-09-18] MEDS: ENTECAVIR 0.5 MG PO SCH (21:14)
[2020-09-18] MEDS: PRAVASTATIN SOD 20 MG TAB PO SCH (21:15)
[2020-09-19] MEDS: TACROLIMUS 1 MG CAP PO SCH ×2 (08:35→20:39)
[2020-09-19] MEDS: NEPHROCAPS PO SCH (08:36)
[2020-09-19] MEDS: PANTOprazole 40 MG TAB PO SCH (08:36)
[2020-09-19] MEDS: allopurinoL 100 MG TAB PO SCH (08:36)
[2020-09-19] MEDS: ASPIRIN 81 MG ECTAB PO SCH (08:36)
[2020-09-19] MEDS: DOXYCYCLINE HYCLATE 100 MG CAP PO SCH ×2 (08:36→20:37)
[2020-09-19] MEDS: SEVELAMER HCL 800 MG TABLET PO SCH ×3 (08:37→17:32)
[2020-09-19] MEDS: INSULIN GLARGINE SOLOSTAR 100 UNITS/ML 3 ML PEN SQ SCH (08:40)
[2020-09-19] MEDS: INSULIN ASPART 100 UNITS/ML 3 ML PEN SC SCH ×4 (08:40→20:40)
--- NOTE | 2020-09-19 09:45 | Hospitalist Progress Note ---
Date of Service September 19, 2020 Assessment & Plan (1) Closed fracture of left hip: Cough/hypoxia: Possible secondary to atelectasis, patient has very weak inspiratory effort. Chest x-ray shows trace basilar infiltrates, possible infectious versus atelectasis Hypoxia has resolved, in room air saturation maintains to 96% Reports of nocturnal hypoxemia, will order for nocturnal pulse ox study Continue with p.o. doxycycline We will order as needed nebulizer treatment for wheeze or shortness of breath Post fracture of left hip: CT hip showed acute comminuted displaced intertrochanteric fracture of the left femur S/P Left Open Reduction Internal Fixation with Dynamic Hip Screw on 09/10/[address] Gm Robertson MD received 1 unit PRBC 09/11 for postop acute blood loss anemia- Underlying anemia of chronic disease H&H has been stable posttransfusion Patient will need acute rehab for recovery from hip fracture surgery Appreciate input from orthopedics for postop follow-up (2) End stage chronic kidney disease: Continue scheduled dialysis Nephrology on board (3) Diabetes mellitus type II, uncontrolled: Pharmacy on board for glycemic management Continue Lantus and novolog sliding scale Per pharmacy, patient's outpatient insulin regimen will be resumed on discharge (4) CAD (coronary artery disease): No chest pain ECHO and stress imaging done in June as part of routine pre-transplant work-up. No evidence of ischemia. Pt remains asymptomatic from a cardiac perspective. Patient had history of cardiac stent more than 1 year ago, no history of CVA Given anemia of chronic disease, patient does not need dual antiplatelet treatment Plavix is discontinued, Continue with aspirin 81 mg daily Continue statin, beta-alex (5) Anemia in chronic kidney disease, on chronic dialysis: Acute blood loss anemia Outpatient labs reviewed - H&H appears stable at baseline of 10-10.5 S/P transfusion with 1 unit prbc during HD on 09/11 Globin has been stable (6) Hepatitis B: - Continue entecavir as taken outpatient (7) Essential hypertension: - Continue outpatient meds and monitor (8) Cerebral palsy: Disposition: Patient is accepted at rehab at [facility] Plan to transfer to rehab tomorrow if no episode of hypoxemia Sister updated over phone Admission and Anticipated Discharge Date Admission Date: September 09, 2020 Subjective Follow-up visit for closed fracture of left hip status post surgery End-stage renal disease on dialysis. Patient seen at bedside, was still on 2 L oxygen via nasal cannula. Bedside pulse oximetry shows 98%, I took off the 2 L oxygen, patient maintained SPO2 above 96%, Patient reports cough still persist, does not feel chest tightness or shortness of breath, Cough is dry nonproductive, Does not have any fever or chills, Offers no other complaint Review of Systems Review of Systems: All systems reviewed & are unremarkable except as noted in Subjective Physical Exam Constitutional: WD/WN, vitals as above + ill appearing Eyes: + anicteric sclerae ENMT: external ear and nose normal, oropharynx normal Neck: trachea midline, no thyromegaly Respiratory: normal respiratory effort and + cough (Nonproductive) Auscultation: + diminished lung sounds; no crackles, no rales and no wheezes Cardiovascular: RRR, no murmur, no edema Gastrointestinal (Abdomen): Percussion/Palpation: abdomen soft; abdomen nontender Neurologic: PERRL, EOMI, accommodation nl, no face palsy, no dysarthria Psychiatric: Orientation: alert and oriented x 3 Affect: + flat affect Results & Data Results & Data ([facility]) Vital Signs (Past 12 Hours) Vital Signs Temp Pulse Resp BP Pulse Ox 09/19/20 08:27 36.5 C 78 20 99/52 L 99 09/19/20 02:44 36.9 C 64 18 107/60 93 09/18/20 22:39 37.0 C 70 18 112/64 95 (1) Closed fracture of left hip Encounter type: initial encounter Qualified Code(s): S72.002A - Fracture of unspecified part of neck of left femur, initial encounter for closed fracture (2) Diabetes mellitus type II, uncontrolled Glycemic state: with hyperglycemia Qualified Code(s): E11.65 - Type 2 diabetes mellitus with hyperglycemia (3) CAD (coronary artery disease) Coronary Disease-Associated Artery/Lesion type: [place] artery [place] vs. 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
--- NOTE | 2020-09-19 13:30 | Orthopedic Progress Note ---
Date of Service September 19, 2020 Assessment & Plan (1) Closed fracture of left hip: POD 9 from left hip DHS for peritrochanteric fracture. Making uncomplicated progress with regard to the wound. Appreciate medical management Stable from an orthopedic perspective for transfer to the next level of care. Continue daily dressing changes and as needed. Please contact orthopedics if there is any drainage beyond 2 weeks. Discharge recommendations have been placed. Prefer to see him in our clinic in 2 to 3 weeks postop for repeat x- rays and staple removal. We will continue to follow peripherally. Please contact with any questions. Subjective Reluctant to provide information. He did state that the pain is better. He seemed disappointed that his not able to stand more readily. Review of Systems All systems reviewed & are unremarkable except as noted in HPI & below. Physical Exam Left hip: Dressing was peeled back to reveal minor serous drainage along the incision line. Robert are intact. There is no active drainage. Remains neurovascular intact left lower extremity. Constitutional WD/WN, vitals as above no acute distress and not intoxicated appearing Respiratory normal respiratory effort; no labored breathing Cardiovascular Extremities: normal capillary refill Results & Data Results & Data Laboratory Results H & H 09/09/20 09/10/20 09/11/20 Range/Units 13:59 07:50 06:42 Hgb 10.7 L 9.9 L 7.7 L (14.0-18.0) g/dL Hct 32.0 L 31.0 L 23.8 L (42-52) % 09/12/20 09/13/20 09/14/20 Range/Units 07:11 07:49 06:07 Hgb 8.7 L 8.5 L 8.2 L (14.0-18.0) g/dL Hct 27.5 L 27.0 L 25.7 L (42-52) % 09/16/20 09/17/20 Range/Units 07:43 08:00 Hgb 8.1 L 8.4 L (14.0-18.0) g/dL Hct 25.1 L 26.7 L (42-52) % Coagulation 09/09/20 Range/Units 13:59 INR 1.1 (0.9-1.1) PG Care Time/CCT Total # of Minutes Spent Total Time Spent with Patient: Total time spent is greater than 50% in c oordination of care (as documented) at patient's floor/unit and/or counseling patient: Coding Level of Care Code 36153 Post Operative Follow-Up Diagnoses Closed fracture of left hip S72.002A Encounter type: initial encounter (1) Closed fracture of left hip Encounter type: initial encounter Qualified Code(s): S72.002A - Fracture of unspecified part of neck of left femur, initial encounter for closed fracture
[2020-09-19] MEDS: AMITRIPTYLINE HCL 100 MG TAB PO SCH (20:35)
[2020-09-19] MEDS: carvediloL 3.125 MG TAB PO SCH (20:36)
[2020-09-19] MEDS: ENTECAVIR 0.5 MG PO SCH (20:37)
[2020-09-19] MEDS: PRAVASTATIN SOD 20 MG TAB PO SCH (20:38)
[2020-09-20] MEDS ORDERED: SODIUM CHLORIDE 0.9% 1000ML 1,000 ML IV PRN (08:19)
[2020-09-20] MEDS ORDERED: HEPARIN SOD (PORCINE) 1000 UNIT/ML IV SCH (08:30)
[2020-09-20] MEDS: allopurinoL 100 MG TAB PO SCH (08:50)
[2020-09-20] MEDS: TACROLIMUS 1 MG CAP PO SCH ×2 (08:51→21:15)
[2020-09-20] MEDS: ASPIRIN 81 MG ECTAB PO SCH (08:51)
[2020-09-20] MEDS: INSULIN GLARGINE SOLOSTAR 100 UNITS/ML 3 ML PEN SQ SCH (08:52)
[2020-09-20] MEDS: TOCOPHERYL, DL-ALPHA 100 UNITS CAP PO SCH ×2 (08:52→21:15)
[2020-09-20] MEDS: DOXYCYCLINE HYCLATE 100 MG CAP PO SCH ×2 (08:52→21:16)
[2020-09-20] MEDS: SEVELAMER HCL 800 MG TABLET PO SCH ×3 (08:53→20:14)
[2020-09-20] MEDS: NEPHROCAPS PO SCH (08:53)
[2020-09-20] MEDS: PANTOprazole 40 MG TAB PO SCH (08:54)
[2020-09-20] MEDS ORDERED: EPOETIN ALFA 20,000 UNITS/ML VIAL IV SCH (09:00)
[2020-09-20] MEDS: INSULIN ASPART 100 UNITS/ML 3 ML PEN SC SCH ×3 (10:01→21:24)
[2020-09-20 14:35] LABS: Hematocrit (blood only) 25.6 % (42-52); Hemoglobin 8.2 g/dL (14.0-18.0); Mean Corpuscular Hemoglobin 32.2 pg (25-34); Mean Corpuscular Volume 100.4 fL (80-100); Platelet Count 220 K/uL (130-400); RDW Coefficient of Variation 17.3 % (11.5-14.5); RDW Standard Deviation 61.6 fL (36.4-46.3); Red Blood Count 2.55 M/uL (4.7-6.1); White Blood Count 7.08 K/uL (4.8-10.8)
[2020-09-20 15:03] LABS: BUN Creatinine Ratio 8.3 (10-20); Creatinine Clr Calc Pharmacy 11.4 ml/min; Est GFR (Non-African American) 9.5 ml/min; Potassium 4.1 mmol/L (3.5-5.1)
[2020-09-20] MEDS: HEPARIN SOD (PORCINE) 1000 UNIT/ML IV SCH ×3 (15:58→17:30)
--- NOTE | 2020-09-20 16:59 | Nephrology Progress Note ---
Date of Service September 20, 2020 Assessment & Plan (1) End stage chronic kidney disease: on MWF HD; tolerated HD 09/09 w/ 1L UF; had 0.5 L UF on 09/13; had 0 ultrafiltration on September 16 due to relative hypotension >for HD today w/ up to 1L fluid removal as bp tolerates; next HD for 09/23 or as clinical needs dictate -daily bmp, cbc (2) Anemia in chronic kidney disease, on chronic dialysis: 10.7 admission > 8.2 hgb today >gave 20K epo on tx today as well (3) Closed fracture of left hip: s/p OR 09/10 Admission and Anticipated Discharge Date Admission Date: September 09, 2020 Subjective no interval events; no c/o uncontrolled hip pain; denies sob or poor po or edema. tolerating HD Review of Systems Review of Systems: All systems reviewed & are unremarkable except as noted in Subjective Physical Exam Constitutional: well developed, well nourished, + frail appearing and cooperative; no acute distress Eyes: EOM intact bilaterally ENMT: Ears: no external ear abnormality Nose: no external nose abnormality Mouth: + dry oral mucous membranes Neck: no nuchal rigidity Respiratory: normal respiratory effort; no labored breathing (on RA) Auscultation: lungs clear to auscultation bilaterally and + diminished lung soun ds Cardiovascular: Rate/Rhythm: regular rate and regular rhythm Extremities: + edema (trace LLE) and + AV fistula (RUE + t/b) Gastrointestinal (Abdomen): Inspection/Auscultation: normal bowel sounds Percussion/Palpation: abdomen soft; abdomen nontender Musculoskeletal: Extremities: + limited ROM of extremities and + abnormal strength Skin: no rashes, warm and dry Psychiatric: Orientation: alert and oriented x 3 Speech: normal rate/rhythm/volume of speech Insight: + limited insight Judgement: + limited judgement Results & Data ([facility]) Vital Signs (Past 12 Hours) Vital Signs Temp Pulse Pulse Pulse Resp BP BP 09/20/20 14:40 60 95/53 L 09/20/20 14:30 60 99/54 L 09/20/20 14:23 37.0 C 61 09/20/20 07:42 36.6 C 57 L 18 130/61 Pulse Ox 09/20/20 14:40 09/20/20 14:30 09/20/20 14:23 09/20/20 07:42 94 Laboratory Results 09/20/20 14:28 09/20/20 14:28 (1) Closed fracture of left hip Encounter type: initial encounter Qualified Code(s): S72.002A - Fracture of unspecified part of neck of left femur, initial encounter for closed fracture
--- NOTE | 2020-09-20 17:08 | Hospitalist Progress Note ---
Date of Service September 20, 2020 Assessment & Plan (1) Closed fracture of left hip: Cough/hypoxia: Possible bronchitis, started on doxycycline Respiratory status improved, no hypoxia, remains in room air High risk for atelectasis atelectasis, patient has very weak inspiratory effort. Patient encouraged to use incentive spirometry Post fracture of left hip: CT hip showed acute comminuted displaced intertrochanteric fracture of the left femur S/P Left Open Reduction Internal Fixation with Dynamic Hip Screw on 09/10/[address] Gm Robertson MD received 1 unit PRBC 09/11 for postop acute blood loss anemia- Underlying anemia of chronic disease H&H has been stable posttransfusion Patient will need acute rehab for recovery from hip fracture surgery Appreciate input from orthopedics for postop follow-up Patient is scheduled to be transferred to rehab tomorrow (2) End stage chronic kidney disease: Continue scheduled dialysis Nephrology on board (3) Diabetes mellitus type II, uncontrolled: Pharmacy on board for glycemic management Continue Lantus and novolog sliding scale Per pharmacy, patient's outpatient insulin regimen will be resumed on discharge (4) CAD (coronary artery disease): No chest pain ECHO and stress imaging done in June as part of routine pre-transplant work-up. No evidence of ischemia. Pt remains asymptomatic from a cardiac perspective. Patient had history of cardiac stent more than 1 year ago, no history of CVA Given anemia of chronic disease, patient does not need dual antiplatelet treatment Plavix is discontinued, Continue with aspirin 81 mg daily Continue statin, beta-alex (5) Anemia in chronic kidney disease, on chronic dialysis: Acute blood loss anemia Outpatient labs reviewed - H&H appears stable at baseline of 10-10.5 S/P transfusion with 1 unit prbc during HD on 09/11 hb Globin has been stable (6) Hepatitis B: - Continue entecavir as taken outpatient (7) Essential hypertension: - Continue outpatient meds and monitor (8) Cerebral palsy: Disposition: Patient is accepted at rehab at [facility] Patient had his scheduled dialysis today, unable to his transfer to rehab late afternoon. [facility] appreciate input from case management Admission and Anticipated Discharge Date Admission Date: September 09, 2020 Subjective Follow-up visit for closed fracture of left hip status post surgery End-stage renal disease on dialysis. Patient has been off oxygen, no hypoxia, He reports his cough has improved no chest congestion, no chest pain, Vitals been stable, offers no new complain Scheduled to have dialysis today Review of Systems Review of Systems: All systems reviewed & are unremarkable except as noted in Subjective Physical Exam Constitutional: WD/WN, vitals as above + ill appearing Eyes: + anicteric sclerae ENMT: external ear and nose normal, oropharynx normal Neck: trachea midline, no thyromegaly Respiratory: normal respiratory effort and + cough (Nonproductive) Auscultation: + diminished lung sounds; no crackles, no rales and no wheezes Cardiovascular: RRR, no murmur, no edema Gastrointestinal (Abdomen): Percussion/Palpation: abdomen soft; abdomen nontender Neurologic: PERRL, EOMI, accommodation nl, no face palsy, no dysarthria Psychiatric: Orientation: alert and oriented x 3 Affect: + flat affect Results & Data Results & Data ([facility]) Vital Signs (Past 12 Hours) Vital Signs Temp Pulse Pulse Pulse Resp BP BP 09/20/20 14:40 60 95/53 L 09/20/20 14:30 60 99/54 L 09/20/20 14:23 37.0 C 61 09/20/20 07:42 36.6 C 57 L 18 130/61 Pulse Ox 09/20/20 14:40 09/20/20 14:30 09/20/20 14:23 09/20/20 07:42 94 (1) Closed fracture of left hip Encounter type: initial encounter Qualified Code(s): S72.002A - Fracture of unspecified part of neck of left femur, initial encounter for closed fracture (2) Diabetes mellitus type II, uncontrolled Glycemic state: with hyperglycemia Qualified Code(s): E11.65 - Type 2 diabetes mellitus with hyperglycemia (3) CAD (coronary artery disease) Coronary Disease-Associated Artery/Lesion type: [place] artery [place] vs. 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
[2020-09-20] MEDS: PRAVASTATIN SOD 20 MG TAB PO SCH (21:15)
[2020-09-20] MEDS: AMITRIPTYLINE HCL 100 MG TAB PO SCH (21:16)
[2020-09-20] MEDS: carvediloL 3.125 MG TAB PO SCH (21:16)
[2020-09-20] MEDS: ENTECAVIR 0.5 MG PO SCH (21:17)
[2020-09-21] MEDS: INSULIN ASPART 100 UNITS/ML 3 ML PEN SC SCH (08:18)
[2020-09-21] MEDS: SEVELAMER HCL 800 MG TABLET PO SCH (08:20)
[2020-09-21] MEDS: allopurinoL 100 MG TAB PO SCH (08:20)
[2020-09-21] MEDS: ASPIRIN 81 MG ECTAB PO SCH (08:20)
[2020-09-21] MEDS: NEPHROCAPS PO SCH (08:21)
[2020-09-21] MEDS: DOXYCYCLINE HYCLATE 100 MG CAP PO SCH (08:21)
[2020-09-21] MEDS: INSULIN GLARGINE SOLOSTAR 100 UNITS/ML 3 ML PEN SQ SCH (08:21)
[2020-09-21] MEDS: PANTOprazole 40 MG TAB PO SCH (08:21)
[2020-09-21] MEDS: TACROLIMUS 1 MG CAP PO SCH (08:22)
--- NOTE | 2020-09-21 09:29 | Hospitalist Progress Note ---
Date of Service September 21, 2020 Assessment & Plan (1) Closed fracture of left hip: Upper airway infection/bronchitis. Cough has resolved, no hypoxia. Patient is started on doxycycline, will need 2 more days of treatment to complete the course prescription sent to pharmacy High risk for atelectasis atelectasis, patient has very weak inspiratory effort. Patient encouraged to use incentive spirometry-which he should continue to use at rehab as well Post fracture of left hip: CT hip showed acute comminuted displaced intertrochanteric fracture of the left femur S/P Left Open Reduction Internal Fixation with Dynamic Hip Screw on 09/10/[address] Gm Robertson MD received 1 unit PRBC 09/11 for postop acute blood loss anemia- Underlying anemia of chronic disease H&H has been stable posttransfusion Appreciate input from orthopedics for postop follow-up Stable to be transferred to rehab today. (2) End stage chronic kidney disease: Continue scheduled dialysis Last dialysis was yesterday, Nephrology on board And will continue with scheduled dialysis at rehab (3) Diabetes mellitus type II, uncontrolled: Pharmacy on board for glycemic management Continue Lantus and novolog sliding scale patient's outpatient insulin regimen resumed on discharge (4) CAD (coronary artery disease): No new complain chest pain ECHO and stress imaging done in June as part of routine pre-transplant work-up. No evidence of ischemia. Pt remains asymptomatic from a cardiac perspective. Patient had history of cardiac stent more than 1 year ago, no history of CVA Given anemia of chronic disease, patient does not need to be on dual antiplatelet treatment Plavix is discontinued, Continue with aspirin 81 mg daily Continue statin, beta-alex (5) Anemia in chronic kidney disease, on chronic dialysis: Acute blood loss anemia Outpatient labs reviewed - H&H appears stable at baseline of 10-10.5 S/P transfusion with 1 unit prbc during HD on 09/11 hb Globin has been stable (6) Hepatitis B: - Continue entecavir as taken outpatient (7) Essential hypertension: - Continue outpatient meds and monitor (8) Cerebral palsy: Disposition: Stable to be transferred to rehab/[facility] today Sister updated over phone Admission and Anticipated Discharge Date Admission Date: September 09, 2020 Subjective Follow-up visit for closed fracture of left hip status post surgery End-stage renal disease on dialysis. Patient seen at bedside in room 260 bed 1, States he feels well, has an uneventful night, does not have any cough, no shortness of breath, Not required any supplemental oxygen for the past few days. No abdominal pain or nausea, Pain on hip surgery site well controlled, Patient is happy to know that he is being transferred to rehab today Review of Systems Review of Systems: All systems reviewed & are unremarkable except as noted in Subjective Physical Exam Constitutional: WD/WN, vitals as above + ill appearing Eyes: + anicteric sclerae ENMT: external ear and nose normal, oropharynx normal Neck: trachea midline, no thyromegaly Respiratory: normal respiratory effort, lungs clear to auscultation normal respiratory effort; no cough (Nonproductive) Auscultation: no crackles, no rales and no wheezes Cardiovascular: RRR, no murmur, no edema Gastrointestinal (Abdomen): Percussion/Palpation: abdomen soft; abdomen nontender Musculoskeletal: Status post left hip surgery. Neurologic: PERRL, EOMI, accommodation nl, no face palsy, no dysarthria Psychiatric: Orientation: alert and oriented x 3 Affect: + flat affect Results & Data Results & Data ([facility]) Vital Signs (Past 12 Hours) Vital Signs Temp Pulse Pulse Resp BP Pulse Ox 09/21/20 07:48 36.9 C 64 16 118/64 93 09/20/20 23:10 37.0 C 72 14 105/62 94 (1) Hepatitis B Hepatic coma status: without hepatic coma Hepatitis delta agent presence: without delta-agent Viral hepatitis chronicity: chronic Qualified Code(s): B18.1 - Chronic viral hepatitis B without delta-agent (2) CAD (coronary artery disease) Associated angina: without angina Coronary Disease-Associated Artery/Lesion type: [place] artery [place] vs. 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
--- NOTE | 2020-09-21 09:38 | Discharge Summary ---
Date of Service September 21, 2020 Admission HPI Per Admitting Provider This is a 65 y/o male with a complicated PMH including chronic Hep B with cirrhosis, now s/p liver transplant in 1997, insulin-requiring DM, ESRD on HD, cerebral palsy, CAD with hx VT, s/p PCI with stent, diabetic neuropathy, anemia, GERD, dyslipidemia, and osteoporosis who presented to the ED today via EMS from dialysis after he noted left hip pain and difficulty transferring from scooter to chair after a fall two days ago. Pt reports that he was doing his laundry on Wednesday and wearing new diabetic shoes when they caught on the floor and he lost his balance and fell, landing on his left hip. He denies LOC or hitting his head. He noted ongoing pain since the fall but tried to stick it out at home without further evaluation despite his family's urging that he get evaluated. Today, when he went for his usual HD, the staff noted that he was having pain in the left hip area and trouble transferring so they called EMS to transport patient for additional work-up. In the ED, he was found to have a left hip fracture. Nephrology was also contacted by the ED for dialysis treatment today if possible. Last HD on Wednesday (usually schedule is //). Pt reports that he has not been eating well since the fall - poor appetite but no N/V. He also felt like his sugars were "running low" over the weekend so he didn't take his insulin since Wednesday night. However, he did not check his sugars so he is unsure what they were. His pain at present is a 6/10. Principal Diagnosis Hip fracture/status post surgery End-stage renal disease on dialysis Type 2 diabetes Cerebral palsy History of coronary artery disease Discharge Exam Constitutional WD/WN, vitals as above + ill appearing Eyes + anicteric sclerae ENMT external ear and nose normal, oropharynx normal Neck trachea midline, no thyromegaly Respiratory normal respiratory effort, lungs clear to auscultation normal respiratory effort; no cough (Nonproductive) Auscultation: no crackles, no rales and no wheezes Cardiovascular RRR, no murmur, no edema Gastrointestinal (Abdomen) Percussion/Palpation: abdomen soft; abdomen nontender Neurologic PERRL, EOMI, accommodation nl, no face palsy, no dysarthria Psychiatric Orientation: alert and oriented x 3 Affect: + flat affect Discharge Data Allergies Allergy/AdvReac Type Severity Reaction Status Date / Time oxycodone AdvReac Mild sedation Verified 09/17/20 20:21 Consultations 09/09/20 15:10 ED Decision to Admit Stat 09/09/20 16:45 Consult Nephrology Routine 09/09/20 18:08 Consult Orthopedic Surgery Routine 09/10/20 07:51 Consult Cardiology Routine Procedures Performed Operation Date: 09/10/20 07:55 Actual Procedures p Left Open Reduction Internal Fixation Dynamic Hip Screw - Gm Robertson MD Ordered Studies 09/09/20 17:09 US venous doppler LE LT Urgent 09/09/20 18:48 CT hip LT wo con Urgent 09/10/20 FL hip LT 2-3V Routine Hospital Course (1) Closed fracture of left hip: Upper airway infection/bronchitis. Cough has resolved, no hypoxia. Patient is started on doxycycline, will need 2 more days of treatment to complete the course prescription sent to pharmacy High risk for atelectasis atelectasis, patient has very weak inspiratory effort. Patient encouraged to use incentive spirometry-which he should continue to use at rehab as well Post fracture of left hip: CT hip showed acute comminuted displaced intertrochanteric fracture of the left femur S/P Left Open Reduction Internal Fixation with Dynamic Hip Screw on 09/10/[address] Gm Robertson MD received 1 unit PRBC 09/11 for postop acute blood loss anemia- Underlying anemia of chronic disease H&H has been stable posttransfusion Appreciate input from orthopedics for postop follow-up Stable to be transferred to rehab today. (2) End stage chronic kidney disease: Continue scheduled dialysis Last dialysis was yesterday, Nephrology on board And will continue with scheduled dialysis at rehab (3) Diabetes mellitus type II, uncontrolled: Pharmacy on board for glycemic management Continue Lantus and novolog sliding scale patient's outpatient insulin regimen resumed on discharge (4) CAD (coronary artery disease): No new complain chest pain ECHO and stress imaging done in June as part of routine pre-transplant work-up. No evidence of ischemia. Pt remains asymptomatic from a cardiac perspective. Patient had history of cardiac stent more than 1 year ago, no history of CVA Given anemia of chronic disease, patient does not need to be on dual a ntiplatelet treatment Plavix is discontinued, Continue with aspirin 81 mg daily Continue statin, beta-alex (5) Anemia in chronic kidney disease, on chronic dialysis: Acute blood loss anemia Outpatient labs reviewed - H&H appears stable at baseline of 10-10.5 S/P transfusion with 1 unit prbc during HD on 09/11 hb Globin has been stable (6) Hepatitis B: - Continue entecavir as taken outpatient (7) Essential hypertension: - Continue outpatient meds and monitor (8) Cerebral palsy: Disposition: Stable to be transferred to rehab/[facility] today Sister updated over phone Total Time Total Time Spent Total Time Spent (In Minutes): Approximately 35 minutes Total Time Includes: Examination of the Patient, Discharge Planning and Medication Reconciliation Discharge Plan Discharge Items Patient Disposition: Transfer Residential Fac Reason For Visit: HIP FRACTURE Discharge Diagnosis: Hip fracture/status post surgery End-stage renal disease on dialysis Type 2 diabetes Cerebral palsy History of coronary artery disease Condition on Discharge: Good Activity: Per Instructions section Non-emergency contact: Primary Care Provider Call non-emergency contact if: you have any medication questions Follow-up/Referrals: Gm Robertson MD [Surgeon] - (Orthopedic clinic follow-up should be in 2-3 weeks after surgery for repeat x-ray. Robert can be removed at the orthopedic follow-up) Carlton Lee DO [Primary Care Provider] - Diet: Carb Consistent or DM2 and Dialysis Renal Addtl Attending Provider Instructions: Orthopaedic Instructions after Hip Fracture Surgery: Please keep your wound clean and dry. Do not remove any of the robert. [place] were removed at your follow-up appointment with orthopedic surgery. Please continue daily dressing changes until your follow-up appointment. If there is no drainage onto the dressing for total of 24 hours, you may shower after 5 days from surgery. Allow soap and water to run over the incision, no scrubbing, and pat dry. Do not submerse (sitting in bathtub, hot tub, jacuzzi, pool, etc) the wound for at least 3 weeks. You may bear weight on your lower extremities as tolerated. Please use the walker or as instructed by physical therapy. For pain control please use Tylenol as needed. . You can also apply ice to the surgical site. Orthopedic clinic follow-up should be in 2-3 weeks after surgery for repeat x- ray. Robert can be removed at the orthopedic follow-up. If necessary, robert can be removed by a nurse at home or at a nursing facility upon our order. Please contact the clinic. Addtl Billing Adjudicator Provider Instructions: Please take all medications as instructed on discharge list below. It is recommended that you follow-up with your primary care physician within 1-2 weeks of hospital discharge to ensure you are still doing well. Please call if you have any questions or problems. You can reach a [facility] hospitalist on duty at [facility] 24 hours a day by calling [phone] PLEASE TAKE PROBIOTICS ( OVER THE COUNTER ) WHILE TAKING ANTIBIOTICS TO PREVENT DIARRHEA /LOOSE STOOL Pending Studies at Discharge: No Stand-Alone Forms: My [facility] Skilled Items Patient informed of condition?: Yes DNR: No Discharge Level of Care: Skilled Communicable Disease: No Discharge Prognosis: Stable Lines: None Urinary Catheter: No Medications and DC Order Prescriptions: New doxycycline hyclate 100 mg Capsule 100 mg PO BID 2 Days Qty: 4 RF: 0 Continued amitriptyline 150 mg tablet 150 mg PO QPM RF: 0 allopurinol 100 mg tablet 100 mg PO QAM RF: 0 carvedilol 3.125 mg tablet 3.125 mg PO QPM RF: 0 pantoprazole 40 mg tablet,delayed release (DR/EC) 40 mg PO QAM RF: 0 pravastatin 20 mg tablet 20 mg PO QAM RF: 0 tacrolimus 1 mg capsule 4 mg PO BID RF: 0 entecavir 0.5 mg tablet 0.5 mg PO QAM RF: 0 sevelamer carbonate 800 mg tablet 2,400 mg PO DAILY RF: 0 aspirin 81 mg Tablet 81 mg PO DAILY RF: 0 Triphrocaps 1 mg capsule 1 cap PO DAILY RF: 0 insulin aspart U-100 [Novolog Flexpen U-100 Insulin] 100 unit/mL (3 mL) Insulin Pen See Rx Instructions .ROUTE .COMPLEX RF: 0 Lantus Solostar U-100 Insulin 100 unit/mL (3 mL) Insulin Pen 30 unit SUBCUT HS RF: 0 vitamin E 100 unit Capsule 100 unit PO UD RF: 0 Discontinued clopidogrel 75 mg tablet 75 mg PO QAM RF: 0 Discharge Orders: Discharge Order (Routine); Ordered 09/21/20 Ordered By: Monik Espinosa Admission Data Admit Date/Time: 09/09/20 16:09 Attending Provider: Monik Espinosa Admit Provider: Russ Guajardo Primary Care Provider: Carlton Lee V. Other Providers: Harrison Singleton ; Russ Guajardo ; Ana Moss ; Gm Robertson ; Yoan Mooney
== END 2020-09-21 12:35 | DRG 480 ==
LOC: ED 12:38 → 2W 16:09 → SUATTDRO 16:09 → 2W 17:59

== ENCOUNTER 2021-02-04 13:28 | Inpatient (IN) ==
--- NOTE | 2021-02-04 13:37 | Emergency Department Note ---
Impression & Plan TIA (transient ischemic attack), End stage chronic kidney disease, Thrombocytopenia ED Provider Note NAME: ISABEL REYES AGE: 65 SEX: M : 1955 ARRIVES VIA: Ambulance INFORMANT: Patient, ED PROVIDER(S): [facility] DO CHIEF COMPLAINT: Altered mental status HPI: The patient is a 65-year-old male who presented to the emergency department for an evaluation of altered mental status and possible TIA. The patient has a history of end-stage renal disease. He had an episode prior to dialysis today that could be consistent with a TIA. They did not do dialysis on him today because of the TIA and instead called 911. The patient was brought to the emergency department for further evaluation. The patient has had no dialysis since last Wednesday. He had a GI bleed so they skipped dialysis. He was supposed to have a course of dialysis today to catch him up. He states he had an episode where he could not form words and felt as though he might be having a stroke. The patient states otherwise he has been compliant with his usual outpatient medication regimen. He denies having any headache at this time. He denies having any fevers recently. He said no swelling in the legs. At this time the patient states he feels that he is back to his baseline. ROS: See above HPI for pertinent positives & negatives. A total of 10 systems reviewed and were otherwise negative. PAST MEDICAL HISTORY: See Below PAST SURGICAL HISTORY: See Below FAMILY HISTORY: See Below SOCIAL HISTORY: See Below HOME MEDICATIONS: See Below ALLERGIES: See Below VITALS: See Below PHYSICAL EXAMINATION: GENERAL: Patient is awake alert in no acute distress patient is resting comfortably and showing no signs of anxiety EYES: The conjunctivae are clear. The pupils are round and reactive. EARS, NOSE, MOUTH AND THROAT: The nose is without any evidence of any deformity. Mucous membranes are dry. NECK: The neck is nontender and supple. RESPIRATORY: Lung sounds were clear. There is no tachypnea or conversational dyspnea. CARDIOVASCULAR: Regular rate and rhythm noted there no murmurs rubs or gallops normal S1 normal S2. GASTROINTESTINAL: The abdomen is soft. Abdomen is nontender. MUSCULOSKELETAL/EXTREMITIES: There is no evidence of gross deformity full range of motion is noted in the hips and shoulders. SKIN: Pedal edema was noted bilaterally. Skin was warm and dry. NEUROLOGIC: Patient is awake alert and oriented x3. Strength was symmetric. MEDICAL DECISION MAKING: The patient is a 65-year-old male who presented to the emergency department by ambulance for an evaluation of TIA-like symptoms. The patient had an episode where he could not form words. He missed dialysis last week because of GI bleeding. He was scheduled for a make up appointment today but was able to have dialysis because of the TIA symptoms. 911 was called and the patient was b rought to the emergency department via ambulance. The patient does not have any neurologic deficits at this time and feels that he is back to his baseline. He would not be a candidate for TPA given his lack of symptoms in the emergency department. He does also not represent a large vessel occlusion and CT angiography would be contraindicated given the patient's renal failure and lack of symptoms. We discussed the patient's laboratory and radiographic studies with him. Ultimately the patient may require further work-up for strokelike symptoms. For this reason we [facility] They will evaluate the patient in the emergency department f or further management and disposition. Triage Nursing notes reviewed. Prior medical records reviewed Vital Signs: reviewed and remarkable for elevated blood pressure. Differential diagnosis: Infection, dehydration, metabolic abnormality, hypo/hyperglycemia, electrolyte disturbance, anemia, hypoxia, cardiac sources, intracerebral event, toxicologic, neurologic, as well as other pathologies. ER treatment provided: See below Diagnostics interpreted by me: ECG: EKG was obtained in the emergency department. My interpretation is sinus rhythm at 72 bpm. Right bundle branch block pattern was noted. T wave inversions were noted in the anterior leads. This was compared to a tracing from September 092020. The T wave abnormalities are new compared to the earlier tracing. Otherwise no significant changes were noted. Cardiac Monitoring: An order was placed for continuous cardiac monitoring. The monitor shows a rate of 82 bpm with sinus rhythm. Laboratory studies: As stated above and show below. Imaging studies: See below Consultation(s): The case was discussed with Becky Rice who [facility]. Past Med/Surg History Medical History Anemia in chronic kidney disease, on chronic dialysis CAD (coronary artery disease) Cerebral palsy ataxic Diabetes mellitus type II, uncontrolled Diastolic congestive heart failure ESRD (end stage renal disease) on dialysis Essential hypertension Foot deformity, congenital GERD (gastroesophageal reflux disease) Hepatitis B History of PA (myocardial infarction) Liver transplant recipient Osteoporosis Presence of stent in coronary artery in patient with coronary artery disease Secondary hyperparathyroidism of renal origin Surgical History History of repair of hip fracture History of right hip replacement S/P liver transplant Family History Other Unknown family medical history Social History Smoking Status: Never smoker Hx Alcohol Use: No Hx Substance Use: No Preferred Language: Faroese Communication Ability: Effective 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 Beliefs That Will Affect Care: None marital status: Single Current Living Situation: Care Home Feels Safe at Home: Yes Allergies Allergies Allergy/AdvReac Type Severity Reaction Status Date / Time sorbitol Allergy Verified 02/05/21 15:52 oxycodone AdvReac Intermediate OVER Verified 02/04/21 16:15 SEDATION Home Meds Home Medications Medication Instructions Recorded Confirmed allopurinol 100 mg tablet 100 mg PO QAM 09/09/20 02/04/21 carvedilol 3.125 mg tablet 3.125 mg PO HS 09/09/20 02/04/21 entecavir 0.5 mg tablet 0.5 mg PO QAM 09/09/20 02/04/21 insulin aspart U-100 100 unit/mL See Rx Instructions .ROUTE .COMPLEX 09/09/20 02/04/21 (3 mL) subcutaneous pen (Novolog Flexpen U-100 Insulin aspart) insulin glargine 100 unit/mL (3 30 unit SUBCUT HS 09/09/20 02/04/21 mL) subcutaneous pen (Lantus Solostar U-100 Insulin) pravastatin 20 mg tablet 20 mg PO QAM 09/09/20 02/04/21 sevelamer carbonate 800 mg tablet 800 mg PO TID 09/09/20 02/04/21 tacrolimus 1 mg capsule, 1 mg PO BID 09/09/20 02/04/21 immediate-release vitamin E 100 unit capsule 100 unit PO UD 09/09/20 02/04/21 acetaminophen 325 mg tablet 650 mg PO TID 02/04/21 02/04/21 (Tylenol) amitriptyline 150 mg tablet 150 mg PO HS 02/04/21 02/04/21 aspirin 81 mg tablet,delayed 81 mg PO DAILY 02/04/21 02/04/21 release bisacodyl 10 mg rectal suppository 10 mg NV DAILY PRN 02/04/21 02/04/21 collagenase clostridium histo. 250 1 applic TOPICAL DAILY 02/04/21 02/04/21 unit/gram topical ointment (Santyl) nitroglycerin 0.4 mg sublingual 0.4 mg SUBLINGUAL DIRECTED PRN 02/04/21 02/04/21 tablet omeprazole 20 mg capsule,delayed 20 mg PO DAILY 02/04/21 02/04/21 release sennosides 8.6 mg tablet (senna) 8.6 mg PO BID 02/04/21 02/04/21 vitamin B complex and vitamin C 1 cap PO DAILY 02/04/21 02/04/21 no.20-folic acid 1 mg capsule Results & Data (ED) Vital Signs Vital Signs - 24 hr 02/05/21 16:00 02/05/21 16:11 02/05/21 18:55 Temperature 36.5 C Temperature Source Oral Pulse Rate 90 Pulse Rate [Apical] Pulse Rate [Left Brachial] 88 Pulse Rhythm [Left Brachial] Pulse Strength [Left Brachial] Respiratory Rate 16 Respiratory Effort / Characteristics Non-Labored Respiratory Depth Normal Respiratory Pattern Blood Pressure [Left Arm] 133/85 Blood Pressure Mean [Left Arm] 101 Blood Pressure Position [Left Arm] Lying Pulse Oximetry 96 Pulse Oximetry [Right Hand] 95 Oxygen Delivery Method Room Air Oxygen Delivery Method [Right Hand] Room Air 02/05/21 21:34 02/06/21 00:00 02/06/21 04:00 Temperature 36.9 C 36.5 C 36.7 C Temperature Source Oral Axillary Oral Pulse Rate 83 Pulse Rate [Apical] Pulse Rate [Left Brachial] 85 75 73 Pulse Rhythm [Left Brachial] Regular Regular Regular Pulse Strength [Left Brachial] Normal Normal Normal Respiratory Rate 18 16 16 Respiratory Effort / Characteristics Non-Labored Spontaneous Non-Labored Spontaneous Non-Labored Spontaneous Respiratory Depth Normal Normal Normal Respiratory Pattern Regular Regular Regular Blood Pressure [Left Arm] 127/72 118/71 111/63 Blood Pressure Mean [Left Arm] 90 86 79 Blood Pressure Position [Left Arm] Semi-fowlers Semi-fowlers Semi-fowlers Pulse Oximetry 95 95 95 Pulse Oximetry [Right Hand] Oxygen Delivery Method Room Air Room Air Room Air Oxygen Delivery Method [Right Hand] 02/06/21 07:12 02/06/21 08:00 02/06/21 11:44 Temperature 37.0 C 37.0 C Temperature Source Oral Oral Pulse Rate 65 Pulse Rate [Apical] 72 72 Pulse Rate [Left Brachial] Pulse Rhythm [Left Brachial] Pulse Strength [Left Brachial] Respiratory Rate 22 20 Respiratory Effort / Characteristics Respiratory Depth Respiratory Pattern Blood Pressure [Left Arm] 122/71 109/66 Blood Pressure Mean [Left Arm] 88 80 Blood Pressure Position [Left Arm] Lying Lying Pulse Oximetry 100 100 Pulse Oximetry [Right Hand] Oxygen Delivery Method Room Air Room Air Oxygen Delivery Method [Right Hand] Home Medications Current Medication List: was personally reviewed by me Laboratory Data Attestation: I reviewed the patient's lab results. Result diagrams: 02/06/21 04:22 02/06/21 04:22 Lab Results 02/04/21 02/04/21 02/04/21 Range/Units 14:27 14:27 14:27 WBC Cancelled RBC Cancelled Hgb Cancelled POC Hgb (14.0-18.0) g/dl Hct Cancelled POC Hct (42-52) % MCV Cancelled MCH Cancelled MCHC Cancelled RDW Std Deviation Cancelled RDW Coeff of Dean Cancelled Plt Count Cancelled MPV Cancelled Immature Gran % (Auto) Cancelled Neut % (Auto) Cancelled Lymph % (Auto) Cancelled Clay % (Auto) Cancelled Eos % (Auto) Cancelled Baso % (Auto) Cancelled Neut # (Auto) Cancelled Lymph # (Auto) Cancelled Clay # (Auto) Cancelled Eos # (Auto) Cancelled Baso # (Auto) Cancelled Immature Gran # (Auto) Cancelled Absolute Nucleated RBC Cancelled Nucleated RBC % (auto) Cancelled Neutrophils % (Manual) Cancelled Band Neutrophils % Cancelled Lymphocytes % (Manual) Cancelled Prolymphocyte % Cancelled Reactive Lymphs % (Man) Cancelled Monocytes % (Manual) Cancelled Eosinophils % (Manual) Cancelled Basophils % (Manual) Cancelled Metamyelocytes % (Man) Cancelled Myelocytes % (Man) Cancelled Promyelocytes % (Man) Cancelled Blast Cells % (Manual) Cancelled Plasma Cell % (Manual) Cancelled Other Cells % Cancelled Nucleated RBC % Cancelled Neutrophils # (Manual) Cancelled Band Neutrophils # Cancelled Total Absolute Neuts Cancelled Lymphocytes # (Manual) Cancelled Prolymphocyte # Cancelled Reactive Lymphs # Cancelled Total Abs Lymphocytes Cancelled Monocytes # (Manual) Cancelled Eosinophils # (Manual) Cancelled Basophils # (Manual) Cancelled Metamyelocytes # (Man) Cancelled Myelocytes # (Manual) Cancelled Promyelocytes # (Man) Cancelled Blast Cells # (Man) Cancelled Plasma Cell # (Manual) Cancelled Other Cells # Cancelled Nucleated RBCs # (Man) Cancelled Hypersegmented Neuts Cancelled Hyposegmented Neuts Cancelled Hypogranular Neuts Cancelled Large Granular Lymphs Cancelled # Lrg Granular Lymphs Cancelled Hairy Cells Cancelled Smudge Cells Cancelled Toxic Granulation Cancelled Toxic Vacuolation Cancelled Dohle Bodies Cancelled Lyssa Rods Cancelled Platelet Estimate Cancelled Hypogranular Platelets Cancelled Clumped Platelets Cancelled Giant Platelets Cancelled Platelet Satelliting Cancelled RBC Morphology Cancelled Polychromasia Cancelled Hypochromasia Cancelled Poikilocytosis Cancelled Basophilic Stippling Cancelled Anisocytosis Cancelled Microcytosis Cancelled Macrocytosis Cancelled Spherocytes Cancelled Pappenheimer Bodies Cancelled Sickle Cells Cancelled Target Cells Cancelled Tear Drop Cells Cancelled Ovalocytes Cancelled Stomatocytes Cancelled Dennis-Nicolaus Bodies Cancelled Echinocytes Cancelled Acanthocytes (Spur) Cancelled Rouleaux Cancelled RBC Agglutinates Cancelled Schistocytes Cancelled RBC Morph Comment Cancelled Sezary Cell Cancelled PT Cancelled INR Cancelled APTT Cancelled PTT Ratio Cancelled POC Sodium (135-144) mmol/L Sodium 137 (136-145) mmol/L POC Potassium (3.3-5.0) mmol/L Potassium (3.5-5.1) mmol/L POC Chloride (101-112) mmol/L Chloride 102 (98-107) mmol/L Carbon Dioxide 26 (21-32) mmol/L POC Total CO2 (24-31) mmol/L Anion Gap 10.0 (3-11) POC Anion Gap (16-25) mmol/L POC BUN (7-18) mg/dl BUN 58 H (7-18) mg/dl Creatinine 5.18 H* (0.6-1.4) mg/dl POC Creatinine (0.6-1.3) mg/dl Est Cr Clr Drug Dosing Not Reportable Est GFR ( Amer) 12.3 ml/min Est GFR (Non-Af Amer) 10.6 ml/min BUN/Creatinine Ratio 11.1 (10-20) Glucose 104 H (70-99) mg/dl POC Glucose (70-99) mg/dl POC Glucose (other) (70-99) mg/dl Estimat Average Glucose mg/dl Hemoglobin A1c (4.5-5.6) % Calcium 8.4 L (8.5-10.1) mg/dl POC Ioniz Calcium Viral (1.12-1.32) mmol/l Magnesium (1.8-2.4) mg/dl Total Bilirubin 0.5 (0.2-1) mg/dl AST TNP ALT 81 H (12-78) U/L Alkaline Phosphatase 156 H (45-117) U/L Total Creatine Kinase (39-308) U/L Troponin I 0.018 (0-0.045) ng/ml Total Protein 5.8 L (6.4-8.2) gm/dl Albumin 1.7 L (3.4-5.0) gm/dl Globulin 4.1 H (2.5-4.0) gm/dl Albumin/Globulin Ratio 0.4 L (0.9-2) Triglycerides (0-150) mg/dl Cholesterol (0-200) mg/dl LDL Cholesterol, Calc mg/dl VLDL Cholesterol, Calc mg/dl HDL Cholesterol mg/dl Cholesterol/HDL Ratio TSH 6.050 H (0.300-4.500) uIu/ml Free T4 0.75 L (0.8-1.6) ng/dl Stool Occult Bld Scrn (Negative) Hep Bs Antigen (Neg) Hep Bs Antibody Hep Bs Antibody, Quant (>or=10mIU/mL Immune) mIU/mL SARS-CoV-2, RNA, NAAT (NEGATIVE) 02/04/21 02/04/21 02/04/21 Range/Units 14:38 15:00 15:16 WBC RBC Hgb POC Hgb 10.9 L (14.0-18.0) g/dl Hct POC Hct 32 L (42-52) % MCV MCH MCHC RDW Std Deviation RDW Coeff of Dean Plt Count MPV Immature Gran % (Auto) Neut % (Auto) Lymph % (Auto) Clay % (Auto) Eos % (Auto) Baso % (Auto) Neut # (Auto) Lymph # (Auto) Clay # (Auto) Eos # (Auto) Baso # (Auto) Immature Gran # (Auto) Absolute Nucleated RBC Nucleated RBC % (auto) Neutrophils % (Manual) Band Neutrophils % Lymphocytes % (Manual) Prolymphocyte % Reactive Lymphs % (Man) Monocytes % (Manual) Eosinophils % (Manual) Basophils % (Manual) Metamyelocytes % (Man) Myelocytes % (Man) Promyelocytes % (Man) Blast Cells % (Manual) Plasma Cell % (Manual) Other Cells % Nucleated RBC % Neutrophils # (Manual) Band Neutrophils # Total Absolute Neuts Lymphocytes # (Manual) Prolymphocyte # Reactive Lymphs # Total Abs Lymphocytes Monocytes # (Manual) Eosinophils # (Manual) Basophils # (Manual) Metamyelocytes # (Man) Myelocytes # (Manual) Promyelocytes # (Man) Blast Cells # (Man) Plasma Cell # (Manual) Other Cells # Nucleated RBCs # (Man) Hypersegmented Neuts Hyposegmented Neuts Hypogranular Neuts Large Granular Lymphs # Lrg Granular Lymphs Hairy Cells Smudge Cells Toxic Granulation Toxic Vacuolation Dohle Bodies Lyssa Rods Platelet Estimate Hypogranular Platelets Clumped Platelets Giant Platelets Platelet Satelliting RBC Morphology Polychromasia Hypochromasia Poikilocytosis Basophilic Stippling Anisocytosis Microcytosis Macrocytosis Spherocytes Pappenheimer Bodies Sickle Cells Target Cells Tear Drop Cells Ovalocytes Stomatocytes Dennis-Nicolaus Bodies Echinocytes Acanthocytes (Spur) Rouleaux RBC Agglutinates Schistocytes RBC Morph Comment Sezary Cell PT INR APTT PTT Ratio POC Sodium 136 (135-144) mmol/L Sodium (136-145) mmol/L POC Potassium 4.8 (3.3-5.0) mmol/L Potassium (3.5-5.1) mmol/L POC Chloride 97 L (101-112) mmol/L Chloride (98-107) mmol/L Carbon Dioxide (21-32) mmol/L POC Total CO2 30 (24-31) mmol/L Anion Gap (3-11) POC Anion Gap 14.0 L (16-25) mmol/L POC BUN 72 H (7-18) mg/dl BUN (7-18) mg/dl Creatinine (0.6-1.4) mg/dl POC Creatinine 5.7 H* (0.6-1.3) mg/dl Est Cr Clr Drug Dosing Est GFR ( Amer) ml/min Est GFR (Non-Af Amer) ml/min BUN/Creatinine Ratio (10-20) Glucose (70-99) mg/dl POC Glucose (70-99) mg/dl POC Glucose (other) 104 H (70-99) mg/dl Estimat Average Glucose mg/dl Hemoglobin A1c (4.5-5.6) % Calcium (8.5-10.1) mg/dl POC Ioniz Calcium Viral 1.17 (1.12-1.32) mmol/l Magnesium (1.8-2.4) mg/dl Total Bilirubin (0.2-1) mg/dl AST ALT (12-78) U/L Alkaline Phosphatase (45-117) U/L Total Creatine Kinase (39-308) U/L Troponin I (0-0.045) ng/ml Total Protein (6.4-8.2) gm/dl Albumin (3.4-5.0) gm/dl Globulin (2.5-4.0) gm/dl Albumin/Globulin Ratio (0.9-2) Triglycerides (0-150) mg/dl Cholesterol (0-200) mg/dl LDL Cholesterol, Calc mg/dl VLDL Cholesterol, Calc mg/dl HDL Cholesterol mg/dl Cholesterol/HDL Ratio TSH (0.300-4.500) uIu/ml Free T4 (0.8-1.6) ng/dl Stool Occult Bld Scrn (Negative) Hep Bs Antigen (Neg) Hep Bs Antibody Hep Bs Antibody, Quant (>or=10mIU/mL Immune) mIU/mL SARS-CoV-2, RNA, NAAT NEGATIVE (NEGATIVE) 02/04/21 02/04/21 02/04/21 Range/Units 15:50 15:50 15:59 WBC 7.45 RBC 3.20 L Hgb 10.3 L POC Hgb (14.0-18.0) g/dl Hct 32.2 L POC Hct (42-52) % MCV 100.6 H MCH 32.2 MCHC 32.0 RDW Std Deviation 57.4 H RDW Coeff of Dean 15.5 H Plt Count 85 L MPV 8.9 Immature Gran % (Auto) 0.5 Neut % (Auto) 64.3 Lymph % (Auto) 27.2 Clay % (Auto) 6.7 Eos % (Auto) 0.9 Baso % (Auto) 0.4 Neut # (Auto) 4.78 Lymph # (Auto) 2.03 Clay # (Auto) 0.50 Eos # (Auto) 0.07 Baso # (Auto) 0.03 Immature Gran # (Auto) 0.04 H Absolute Nucleated RBC Nucleated RBC % (auto) Neutrophils % (Manual) Band Neutrophils % Lymphocytes % (Manual) Prolymphocyte % Reactive Lymphs % (Man) Monocytes % (Manual) Eosinophils % (Manual) Basophils % (Manual) Metamyelocytes % (Man) Myelocytes % (Man) Promyelocytes % (Man) Blast Cells % (Manual) Plasma Cell % (Manual) Other Cells % Nucleated RBC % Neutrophils # (Manual) Band Neutrophils # Total Absolute Neuts Lymphocytes # (Manual) Prolymphocyte # Reactive Lymphs # Total Abs Lymphocytes Monocytes # (Manual) Eosinophils # (Manual) Basophils # (Manual) Metamyelocytes # (Man) Myelocytes # (Manual) Promyelocytes # (Man) Blast Cells # (Man) Plasma Cell # (Manual) Other Cells # Nucleated RBCs # (Man) Hypersegmented Neuts Hyposegmented Neuts Hypogranular Neuts Large Granular Lymphs # Lrg Granular Lymphs Hairy Cells Smudge Cells Toxic Granulation Toxic Vacuolation Dohle Bodies Lyssa Rods Platelet Estimate Decreased L Hypogranular Platelets Clumped Platelets Giant Platelets Platelet Satelliting RBC Morphology Polychromasia Hypochromasia Poikilocytosis Basophilic Stippling Anisocytosis Microcytosis Macrocytosis Spherocytes Pappenheimer Bodies Sickle Cells Target Cells Tear Drop Cells Ovalocytes Stomatocytes Dennis-Nicolaus Bodies Echinocytes Acanthocytes (Spur) Rouleaux RBC Agglutinates Schistocytes RBC Morph Comment Sezary Cell PT 11.4 INR 1.1 APTT 28.9 PTT Ratio 1.1 POC Sodium (135-144) mmol/L Sodium (136-145) mmol/L POC Potassium (3.3-5.0) mmol/L Potassium 4.6 (3.5-5.1) mmol/L POC Chloride (101-112) mmol/L Chloride (98-107) mmol/L Carbon Dioxide (21-32) mmol/L POC Total CO2 (24-31) mmol/L Anion Gap (3-11) POC Anion Gap (16-25) mmol/L POC BUN (7-18) mg/dl BUN (7-18) mg/dl Creatinine (0.6-1.4) mg/dl POC Creatinine (0.6-1.3) mg/dl Est Cr Clr Drug Dosing Est GFR ( Amer) ml/min Est GFR (Non-Af Amer) ml/min BUN/Creatinine Ratio (10-20) Glucose (70-99) mg/dl POC Glucose (70-99) mg/dl POC Glucose (other) (70-99) mg/dl Estimat Average Glucose mg/dl Hemoglobin A1c (4.5-5.6) % Calcium (8.5-10.1) mg/dl POC Ioniz Calcium Viral (1.12-1.32) mmol/l Magnesium 2.4 (1.8-2.4) mg/dl Total Bilirubin (0.2-1) mg/dl AST 39 H ALT (12-78) U/L Alkaline Phosphatase (45-117) U/L Total Creatine Kinase 43 (39-308) U/L Troponin I (0-0.045) ng/ml Total Protein (6.4-8.2) gm/dl Albumin (3.4-5.0) gm/dl Globulin (2.5-4.0) gm/dl Albumin/Globulin Ratio (0.9-2) Triglycerides (0-150) mg/dl Cholesterol (0-200) mg/dl LDL Cholesterol, Calc mg/dl VLDL Cholesterol, Calc mg/dl HDL Cholesterol mg/dl Cholesterol/HDL Ratio TSH (0.300-4.500) uIu/ml Free T4 (0.8-1.6) ng/dl Stool Occult Bld Scrn (Negative) Hep Bs Antigen (Neg) Hep Bs Antibody Hep Bs Antibody, Quant (>or=10mIU/mL Immune) mIU/mL SARS-CoV-2, RNA, NAAT (NEGATIVE) 02/04/21 02/05/21 02/05/21 Range/Units 19:31 05:15 05:15 WBC 6.70 RBC 2.84 L Hgb 9.3 L POC Hgb (14.0-18.0) g/dl Hct 28.4 L POC Hct (42-52) % MCV 100.0 MCH 32.7 MCHC 32.7 RDW Std Deviation 57.0 H RDW Coeff of Dean 15.6 H Plt Count 77 L MPV 8.8 Immature Gran % (Auto) 0.1 Neut % (Auto) 56.0 Lymph % (Auto) 35.8 Clay % (Auto) 6.6 Eos % (Auto) 1.2 Baso % (Auto) 0.3 Neut # (Auto) 3.75 Lymph # (Auto) 2.40 Clay # (Auto) 0.44 Eos # (Auto) 0.08 Baso # (Auto) 0.02 Immature Gran # (Auto) 0.01 Absolute Nucleated RBC Nucleated RBC % (auto) Neutrophils % (Manual) Band Neutrophils % Lymphocytes % (Manual) Prolymphocyte % Reactive Lymphs % (Man) Monocytes % (Manual) Eosinophils % (Manual) Basophils % (Manual) Metamyelocytes % (Man) Myelocytes % (Man) Promyelocytes % (Man) Blast Cells % (Manual) Plasma Cell % (Manual) Other Cells % Nucleated RBC % Neutrophils # (Manual) Band Neutrophils # Total Absolute Neuts Lymphocytes # (Manual) Prolymphocyte # Reactive Lymphs # Total Abs Lymphocytes Monocytes # (Manual) Eosinophils # (Manual) Basophils # (Manual) Metamyelocytes # (Man) Myelocytes # (Manual) Promyelocytes # (Man) Blast Cells # (Man) Plasma Cell # (Manual) Other Cells # Nucleated RBCs # (Man) Hypersegmented Neuts Hyposegmented Neuts Hypogranular Neuts Large Granular Lymphs # Lrg Granular Lymphs Hairy Cells Smudge Cells Toxic Granulation Toxic Vacuolation Dohle Bodies Lyssa Rods Platelet Estimate Hypogranular Platelets Clumped Platelets Giant Platelets Platelet Satelliting RBC Morphology Polychromasia Hypochromasia Poikilocytosis Basophilic Stippling Anisocytosis Microcytosis Macrocytosis Spherocytes Pappenheimer Bodies Sickle Cells Target Cells Tear Drop Cells Ovalocytes Stomatocytes Dennis-Nicolaus Bodies Echinocytes Acanthocytes (Spur) Rouleaux RBC Agglutinates Schistocytes RBC Morph Comment Sezary Cell PT INR APTT PTT Ratio POC Sodium (135-144) mmol/L Sodium 135 L (136-145) mmol/L POC Potassium (3.3-5.0) mmol/L Potassium 4.6 (3.5-5.1) mmol/L POC Chloride (101-112) mmol/L Chloride 102 (98-107) mmol/L Carbon Dioxide 24 (21-32) mmol/L POC Total CO2 (24-31) mmol/L Anion Gap 9.0 (3-11) POC Anion Gap (16-25) mmol/L POC BUN (7-18) mg/dl BUN 67 H (7-18) mg/dl Creatinine 5.55 H* D (0.6-1.4) mg/dl POC Creatinine (0.6-1.3) mg/dl Est Cr Clr Drug Dosing 12.5 Est GFR ( Amer) 11.3 ml/min Est GFR (Non-Af Amer) 9.8 ml/min BUN/Creatinine Ratio 12.0 (10-20) Glucose 60 L (70-99) mg/dl POC Glucose 74 (70-99) mg/dl POC Glucose (other) (70-99) mg/dl Estimat Average Glucose mg/dl Hemoglobin A1c (4.5-5.6) % Calcium 8.6 (8.5-10.1) mg/dl POC Ioniz Calcium Viral (1.12-1.32) mmol/l Magnesium (1.8-2.4) mg/dl Total Bilirubin (0.2-1) mg/dl AST ALT (12-78) U/L Alkaline Phosphatase (45-117) U/L Total Creatine Kinase (39-308) U/L Troponin I (0-0.045) ng/ml Total Protein (6.4-8.2) gm/dl Albumin (3.4-5.0) gm/dl Globulin (2.5-4.0) gm/dl Albumin/Globulin Ratio (0.9-2) Triglycerides 55 (0-150) mg/dl Cholesterol 61 (0-200) mg/dl LDL Cholesterol, Calc 15 mg/dl VLDL Cholesterol, Calc 11 mg/dl HDL Cholesterol 35 mg/dl Cholesterol/HDL Ratio 2 TSH (0.300-4.500) uIu/ml Free T4 (0.8-1.6) ng/dl Stool Occult Bld Scrn (Negative) Hep Bs Antigen (Neg) Hep Bs Antibody Hep Bs Antibody, Quant (>or=10mIU/mL Immune) mIU/mL SARS-CoV-2, RNA, NAAT (NEGATIVE) 02/05/21 02/05/21 02/05/21 Range/Units 05:15 07:02 08:25 WBC RBC Hgb POC Hgb (14.0-18.0) g/dl Hct POC Hct (42-52) % MCV MCH MCHC RDW Std Deviation RDW Coeff of Dean Plt Count MPV Immature Gran % (Auto) Neut % (Auto) Lymph % (Auto) Clay % (Auto) Eos % (Auto) Baso % (Auto) Neut # (Auto) Lymph # (Auto) Clay # (Auto) Eos # (Auto) Baso # (Auto) Immature Gran # (Auto) Absolute Nucleated RBC Nucleated RBC % (auto) Neutrophils % (Manual) Band Neutrophils % Lymphocytes % (Manual) Prolymphocyte % Reactive Lymphs % (Man) Monocytes % (Manual) Eosinophils % (Manual) Basophils % (Manual) Metamyelocytes % (Man) Myelocytes % (Man) Promyelocytes % (Man) Blast Cells % (Manual) Plasma Cell % (Manual) Other Cells % Nucleated RBC % Neutrophils # (Manual) Band Neutrophils # Total Absolute Neuts Lymphocytes # (Manual) Prolymphocyte # Reactive Lymphs # Total Abs Lymphocytes Monocytes # (Manual) Eosinophils # (Manual) Basophils # (Manual) Metamyelocytes # (Man) Myelocytes # (Manual) Promyelocytes # (Man) Blast Cells # (Man) Plasma Cell # (Manual) Other Cells # Nucleated RBCs # (Man) Hypersegmented Neuts Hyposegmented Neuts Hypogranular Neuts Large Granular Lymphs # Lrg Granular Lymphs Hairy Cells Smudge Cells Toxic Granulation Toxic Vacuolation Dohle Bodies Lyssa Rods Platelet Estimate Hypogranular Platelets Clumped Platelets Giant Platelets Platelet Satelliting RBC Morphology Polychromasia Hypochromasia Poikilocytosis Basophilic Stippling Anisocytosis Microcytosis Macrocytosis Spherocytes Pappenheimer Bodies Sickle Cells Target Cells Tear Drop Cells Ovalocytes Stomatocytes Dennis-Nicolaus Bodies Echinocytes Acanthocytes (Spur) Rouleaux RBC Agglutinates Schistocytes RBC Morph Comment Sezary Cell PT INR APTT PTT Ratio POC Sodium (135-144) mmol/L Sodium (136-145) mmol/L POC Potassium (3.3-5.0) mmol/L Potassium (3.5-5.1) mmol/L POC Chloride (101-112) mmol/L Chloride (98-107) mmol/L Carbon Dioxide (21-32) mmol/L POC Total CO2 (24-31) mmol/L Anion Gap (3-11) POC Anion Gap (16-25) mmol/L POC BUN (7-18) mg/dl BUN (7-18) mg/dl Creatinine (0.6-1.4) mg/dl POC Creatinine (0.6-1.3) mg/dl Est Cr Clr Drug Dosing Est GFR ( Amer) ml/min Est GFR (Non-Af Amer) ml/min BUN/Creatinine Ratio (10-20) Glucose (70-99) mg/dl POC Glucose 74 (70-99) mg/dl POC Glucose (other) (70-99) mg/dl Estimat Average Glucose 126 mg/dl Hemoglobin A1c 6.0 H (4.5-5.6) % Calcium (8.5-10.1) mg/dl POC Ioniz Calcium Viral (1.12-1.32) mmol/l Magnesium (1.8-2.4) mg/dl Total Bilirubin (0.2-1) mg/dl AST ALT (12-78) U/L Alkaline Phosphatase (45-117) U/L Total Creatine Kinase (39-308) U/L Troponin I (0-0.045) ng/ml Total Protein (6.4-8.2) gm/dl Albumin (3.4-5.0) gm/dl Globulin (2.5-4.0) gm/dl Albumin/Globulin Ratio (0.9-2) Triglycerides (0-150) mg/dl Cholesterol (0-200) mg/dl LDL Cholesterol, Calc mg/dl VLDL Cholesterol, Calc mg/dl HDL Cholesterol mg/dl Cholesterol/HDL Ratio TSH (0.300-4.500) uIu/ml Free T4 (0.8-1.6) ng/dl Stool Occult Bld Scrn (Negative) Hep Bs Antigen Neg (Neg) Hep Bs Antibody Non-Immune Hep Bs Antibody, Quant < 3.10 L (>or=10mIU/mL Immune) mIU/mL SARS-CoV-2, RNA, NAAT (NEGATIVE) 02/05/21 02/05/21 02/05/21 Range/Units 12:39 14:15 16:31 WBC RBC Hgb POC Hgb (14.0-18.0) g/dl Hct POC Hct (42-52) % MCV MCH MCHC RDW Std Deviation RDW Coeff of Dean Plt Count MPV Immature Gran % (Auto) Neut % (Auto) Lymph % (Auto) Clay % (Auto) Eos % (Auto) Baso % (Auto) Neut # (Auto) Lymph # (Auto) Clay # (Auto) Eos # (Auto) Baso # (Auto) Immature Gran # (Auto) Absolute Nucleated RBC Nucleated RBC % (auto) Neutrophils % (Manual) Band Neutrophils % Lymphocytes % (Manual) Prolymphocyte % Reactive Lymphs % (Man) Monocytes % (Manual) Eosinophils % (Manual) Basophils % (Manual) Metamyelocytes % (Man) Myelocytes % (Man) Promyelocytes % (Man) Blast Cells % (Manual) Plasma Cell % (Manual) Other Cells % Nucleated RBC % Neutrophils # (Manual) Band Neutrophils # Total Absolute Neuts Lymphocytes # (Manual) Prolymphocyte # Reactive Lymphs # Total Abs Lymphocytes Monocytes # (Manual) Eosinophils # (Manual) Basophils # (Manual) Metamyelocytes # (Man) Myelocytes # (Manual) Promyelocytes # (Man) Blast Cells # (Man) Plasma Cell # (Manual) Other Cells # Nucleated RBCs # (Man) Hypersegmented Neuts Hyposegmented Neuts Hypogranular Neuts Large Granular Lymphs # Lrg Granular Lymphs Hairy Cells Smudge Cells Toxic Granulation Toxic Vacuolation Dohle Bodies Lyssa Rods Platelet Estimate Hypogranular Platelets Clumped Platelets Giant Platelets Platelet Satelliting RBC Morphology Polychromasia Hypochromasia Poikilocytosis Basophilic Stippling Anisocytosis Microcytosis Macrocytosis Spherocytes Pappenheimer Bodies Sickle Cells Target Cells Tear Drop Cells Ovalocytes Stomatocytes Dennis-Nicolaus Bodies Echinocytes Acanthocytes (Spur) Rouleaux RBC Agglutinates Schistocytes RBC Morph Comment Sezary Cell PT INR APTT PTT Ratio POC Sodium (135-144) mmol/L Sodium (136-145) mmol/L POC Potassium (3.3-5.0) mmol/L Potassium (3.5-5.1) mmol/L POC Chloride (101-112) mmol/L Chloride (98-107) mmol/L Carbon Dioxide (21-32) mmol/L POC Total CO2 (24-31) mmol/L Anion Gap (3-11) POC Anion Gap (16-25) mmol/L POC BUN (7-18) mg/dl BUN (7-18) mg/dl Creatinine (0.6-1.4) mg/dl POC Creatinine (0.6-1.3) mg/dl Est Cr Clr Drug Dosing Est GFR ( Amer) ml/min Est GFR (Non-Af Amer) ml/min BUN/Creatinine Ratio (10-20) Glucose (70-99) mg/dl POC Glucose 98 86 (70-99) mg/dl POC Glucose (other) (70-99) mg/dl Estimat Average Glucose mg/dl Hemoglobin A1c (4.5-5.6) % Calcium (8.5-10.1) mg/dl POC Ioniz Calcium Viral (1.12-1.32) mmol/l Magnesium (1.8-2.4) mg/dl Total Bilirubin (0.2-1) mg/dl AST ALT (12-78) U/L Alkaline Phosphatase (45-117) U/L Total Creatine Kinase (39-308) U/L Troponin I (0-0.045) ng/ml Total Protein (6.4-8.2) gm/dl Albumin (3.4-5.0) gm/dl Globulin (2.5-4.0) gm/dl Albumin/Globulin Ratio (0.9-2) Triglycerides (0-150) mg/dl Cholesterol (0-200) mg/dl LDL Cholesterol, Calc mg/dl VLDL Cholesterol, Calc mg/dl HDL Cholesterol mg/dl Cholesterol/HDL Ratio TSH (0.300-4.500) uIu/ml Free T4 (0.8-1.6) ng/dl Stool Occult Bld Scrn Positive A (Negative) Hep Bs Antigen (Neg) Hep Bs Antibody Hep Bs Antibody, Quant (>or=10mIU/mL Immune) mIU/mL SARS-CoV-2, RNA, NAAT (NEGATIVE) 02/05/21 02/06/21 02/06/21 Range/Units 19:47 04:22 04:22 WBC 6.19 RBC 2.50 L Hgb 8.1 L POC Hgb (14.0-18.0) g/dl Hct 25.4 L POC Hct (42-52) % MCV 101.6 H MCH 32.4 MCHC 31.9 L RDW Std Deviation 58.0 H RDW Coeff of Dean 15.8 H Plt Count 77 L MPV 9.2 Immature Gran % (Auto) 0.0 Neut % (Auto) 46.1 Lymph % (Auto) 43.5 Clay % (Auto) 8.6 Eos % (Auto) 1.3 Baso % (Auto) 0.5 Neut # (Auto) 2.86 Lymph # (Auto) 2.69 Clay # (Auto) 0.53 Eos # (Auto) 0.08 Baso # (Auto) 0.03 Immature Gran # (Auto) 0.00 Absolute Nucleated RBC Nucleated RBC % (auto) Neutrophils % (Manual) Band Neutrophils % Lymphocytes % (Manual) Prolymphocyte % Reactive Lymphs % (Man) Monocytes % (Manual) Eosinophils % (Manual) Basophils % (Manual) Metamyelocytes % (Man) Myelocytes % (Man) Promyelocytes % (Man) Blast Cells % (Manual) Plasma Cell % (Manual) Other Cells % Nucleated RBC % Neutrophils # (Manual) Band Neutrophils # Total Absolute Neuts Lymphocytes # (Manual) Prolymphocyte # Reactive Lymphs # Total Abs Lymphocytes Monocytes # (Manual) Eosinophils # (Manual) Basophils # (Manual) Metamyelocytes # (Man) Myelocytes # (Manual) Promyelocytes # (Man) Blast Cells # (Man) Plasma Cell # (Manual) Other Cells # Nucleated RBCs # (Man) Hypersegmented Neuts Hyposegmented Neuts Hypogranular Neuts Large Granular Lymphs # Lrg Granular Lymphs Hairy Cells Smudge Cells Toxic Granulation Toxic Vacuolation Dohle Bodies Lyssa Rods Platelet Estimate Hypogranular Platelets Clumped Platelets Giant Platelets Platelet Satelliting RBC Morphology Unremarkable Polychromasia Hypochromasia Poikilocytosis Basophilic Stippling Anisocytosis Microcytosis Macrocytosis Spherocytes Pappenheimer Bodies Sickle Cells Target Cells Tear Drop Cells Ovalocytes Stomatocytes Dennis-Nicolaus Bodies Echinocytes Acanthocytes (Spur) Rouleaux RBC Agglutinates Schistocytes RBC Morph Comment Sezary Cell PT INR APTT PTT Ratio POC Sodium (135-144) mmol/L Sodium 137 (136-145) mmol/L POC Potassium (3.3-5.0) mmol/L Potassium 3.9 D (3.5-5.1) mmol/L POC Chloride (101-112) mmol/L Chloride 104 (98-107) mmol/L Carbon Dioxide 27 (21-32) mmol/L POC Total CO2 (24-31) mmol/L Anion Gap 6.0 (3-11) POC Anion Gap (16-25) mmol/L POC BUN (7-18) mg/dl BUN 40 H (7-18) mg/dl Creatinine 3.82 H D (0.6-1.4) mg/dl POC Creatinine (0.6-1.3) mg/dl Est Cr Clr Drug Dosing 18.2 Est GFR ( Amer) 17.8 ml/min Est GFR (Non-Af Amer) 15.3 ml/min BUN/Creatinine Ratio 10.4 (10-20) Glucose 66 L (70-99) mg/dl POC Glucose 82 (70-99) mg/dl POC Glucose (other) (70-99) mg/dl Estimat Average Glucose mg/dl Hemoglobin A1c (4.5-5.6) % Calcium 8.2 L (8.5-10.1) mg/dl POC Ioniz Calcium Viral (1.12-1.32) mmol/l Magnesium (1.8-2.4) mg/dl Total Bilirubin (0.2-1) mg/dl AST ALT (12-78) U/L Alkaline Phosphatase (45-117) U/L Total Creatine Kinase (39-308) U/L Troponin I (0-0.045) ng/ml Total Protein (6.4-8.2) gm/dl Albumin (3.4-5.0) gm/dl Globulin (2.5-4.0) gm/dl Albumin/Globulin Ratio (0.9-2) Triglycerides (0-150) mg/dl Cholesterol (0-200) mg/dl LDL Cholesterol, Calc mg/dl VLDL Cholesterol, Calc mg/dl HDL Cholesterol mg/dl Cholesterol/HDL Ratio TSH (0.300-4.500) uIu/ml Free T4 (0.8-1.6) ng/dl Stool Occult Bld Scrn (Negative) Hep Bs Antigen (Neg) Hep Bs Antibody Hep Bs Antibody, Quant (>or=10mIU/mL Immune) mIU/mL SARS-CoV-2, RNA, NAAT (NEGATIVE) 02/06/21 02/06/21 Range/Units 07:10 11:13 WBC RBC Hgb POC Hgb (14.0-18.0) g/dl Hct POC Hct (42-52) % MCV MCH MCHC RDW Std Deviation RDW Coeff of Dean Plt Count MPV Immature Gran % (Auto) Neut % (Auto) Lymph % (Auto) Clay % (Auto) Eos % (Auto) Baso % (Auto) Neut # (Auto) Lymph # (Auto) Clay # (Auto) Eos # (Auto) Baso # (Auto) Immature Gran # (Auto) Absolute Nucleated RBC Nucleated RBC % (auto) Neutrophils % (Manual) Band Neutrophils % Lymphocytes % (Manual) Prolymphocyte % Reactive Lymphs % (Man) Monocytes % (Manual) Eosinophils % (Manual) Basophils % (Manual) Metamyelocytes % (Man) Myelocytes % (Man) Promyelocytes % (Man) Blast Cells % (Manual) Plasma Cell % (Manual) Other Cells % Nucleated RBC % Neutrophils # (Manual) Band Neutrophils # Total Absolute Neuts Lymphocytes # (Manual) Prolymphocyte # Reactive Lymphs # Total Abs Lymphocytes Monocytes # (Manual) Eosinophils # (Manual) Basophils # (Manual) Metamyelocytes # (Man) Myelocytes # (Manual) Promyelocytes # (Man) Blast Cells # (Man) Plasma Cell # (Manual) Other Cells # Nucleated RBCs # (Man) Hypersegmented Neuts Hyposegmented Neuts Hypogranular Neuts Large Granular Lymphs # Lrg Granular Lymphs Hairy Cells Smudge Cells Toxic Granulation Toxic Vacuolation Dohle Bodies Lyssa Rods Platelet Estimate Hypogranular Platelets Clumped Platelets Giant Platelets Platelet Satelliting RBC Morphology Polychromasia Hypochromasia Poikilocytosis Basophilic Stippling Anisocytosis Microcytosis Macrocytosis Spherocytes Pappenheimer Bodies Sickle Cells Target Cells Tear Drop Cells Ovalocytes Stomatocytes Dennis-Nicolaus Bodies Echinocytes Acanthocytes (Spur) Rouleaux RBC Agglutinates Schistocytes RBC Morph Comment Sezary Cell PT INR APTT PTT Ratio POC Sodium (135-144) mmol/L Sodium (136-145) mmol/L POC Potassium (3.3-5.0) mmol/L Potassium (3.5-5.1) mmol/L POC Chloride (101-112) mmol/L Chloride (98-107) mmol/L Carbon Dioxide (21-32) mmol/L POC Total CO2 (24-31) mmol/L Anion Gap (3-11) POC Anion Gap (16-25) mmol/L POC BUN (7-18) mg/dl BUN (7-18) mg/dl Creatinine (0.6-1.4) mg/dl POC Creatinine (0.6-1.3) mg/dl Est Cr Clr Drug Dosing Est GFR ( Amer) ml/min Est GFR (Non-Af Amer) ml/min BUN/Creatinine Ratio (10-20) Glucose (70-99) mg/dl POC Glucose 79 143 H (70-99) mg/dl POC Glucose (other) (70-99) mg/dl Estimat Average Glucose mg/dl Hemoglobin A1c (4.5-5.6) % Calcium (8.5-10.1) mg/dl POC Ioniz Calcium Viral (1.12-1.32) mmol/l Magnesium (1.8-2.4) mg/dl Total Bilirubin (0.2-1) mg/dl AST ALT (12-78) U/L Alkaline Phosphatase (45-117) U/L Total Creatine Kinase (39-308) U/L Troponin I (0-0.045) ng/ml Total Protein (6.4-8.2) gm/dl Albumin (3.4-5.0) gm/dl Globulin (2.5-4.0) gm/dl Albumin/Globulin Ratio (0.9-2) Triglycerides (0-150) mg/dl Cholesterol (0-200) mg/dl LDL Cholesterol, Calc mg/dl VLDL Cholesterol, Calc mg/dl HDL Cholesterol mg/dl Cholesterol/HDL Ratio TSH (0.300-4.500) uIu/ml Free T4 (0.8-1.6) ng/dl Stool Occult Bld Scrn (Negative) Hep Bs Antigen (Neg) Hep Bs Antibody Hep Bs Antibody, Quant (>or=10mIU/mL Immune) mIU/mL SARS-CoV-2, RNA, NAAT (NEGATIVE) Administered Medications Allopurinol (Allopurinol 100 Mg Tab) 100 mg PO QAM [facility] Stop: 03/07/21 08:59 Last Admin: 02/06/21 07:57 Dose: 100 mg Documented by: [id number] Admin: 02/05/21 08:15 Dose: 100 mg Documented by: [id number] Aspirin (Aspirin 81 Mg Ectab) 81 mg PO DAILY [facility] Stop: 03/07/21 08:59 Last Admin: 02/06/21 07:56 Dose: 81 mg Documented by: [id number] Admin: 02/05/21 08:15 Dose: 81 mg Documented by: [id number] Carvedilol (Carvedilol 3.125 Mg Tab) 3.125 mg PO HS [facility] Stop: 03/06/21 20:59 Last Admin: 02/05/21 21:43 Dose: 3.125 mg Documented by: [id number] Admin: 02/04/21 20:28 Dose: 3.125 mg Documented by: [id number] Collagenase (Collagenase Oint 30 Gm Tube) 1 appln TOP DAILY [facility] Stop: 03/07/21 08:59 Last Admin: 02/06/21 07:57 Dose: 1 appln Documented by: [id number] Admin: 02/05/21 08:15 Dose: 1 appln Documented by: [id number] Pantoprazole Sodium 40 mg/ (Syringe) 10 mls @ 5 mls/min IV BID [facility] Stop: 03/08/21 12:29 Last Admin: 02/06/21 13:17 Dose: 5 mls/min Documented by: [id number] Insulin Aspart (Insulin Aspart 100 Units/Ml 3 Ml Pen) 0 units SC ACHS [facility] Stop: 03/06/21 20:59 Last Admin: 02/06/21 12:36 Dose: 5 units Documented by: [id number] Cosigned by: [id number] Admin: 02/06/21 07:56 Dose: 2 units Documented by: [id number] Cosigned by: [id number] Admin: 02/05/21 21:28 Dose: 2 units Documented by: [id number] Cosigned by: [id number] Admin: 02/05/21 16:30 Dose: Not Given Documented by: [id number] Admin: 02/05/21 14:11 Dose: Not Given Documented by: [id number] Admin: 02/05/21 08:00 Dose: 2 units Documented by: [id number] Cosigned by: [id number] Admin: 02/04/21 20:35 Dose: Not Given Documented by: [id number] Insulin Glargine (Insulin Glargine Solostar 100 Units/Ml 3 Ml Pen) 0 - 24 units SC HS [facility]; Protocol Stop: 03/06/21 20:59 Last Admin: 02/05/21 21:30 Dose: Not Given Documented by: [id number] Admin: 02/04/21 20:35 Dose: Not Given Documented by: [id number] Pantoprazole Sodium (Pantoprazole 40 Mg Tab) 40 mg PO DAILY [facility] Stop: 03/07/21 08:59 Last Admin: 02/06/21 07:57 Dose: 40 mg Documented by: [id number] Admin: 02/05/21 08:15 Dose: 40 mg Documented by: [id number] Pravastatin Sodium (Pravastatin Sod 20 Mg Tab) 20 mg PO QAM [facility] Stop: 03/07/21 08:59 Last Admin: 02/06/21 07:57 Dose: 20 mg Documented by: [id number] Admin: 02/05/21 08:15 Dose: 20 mg Documented by: [id number] Sennosides (Senna 8.6 Mg Tab) 8.6 mg PO BID [facility] Stop: 03/06/21 20:59 Last Admin: 02/06/21 07:57 Dose: 8.6 mg Documented by: [id number] Admin: 02/05/21 21:42 Dose: 8.6 mg Documented by: [id number] Admin: 02/05/21 08:15 Dose: 8.6 mg Documented by: [id number] Admin: 02/04/21 20:28 Dose: 8.6 mg Documented by: [id number] Sevelamer HCl (Sevelamer Hcl 800 Mg Tablet) 800 mg PO TIDM [facility] Stop: 03/06/21 19:59 Last Admin: 02/06/21 12:34 Dose: 800 mg Documented by: [id number] Admin: 02/06/21 07:55 Dose: 800 mg Documented by: [id number] Admin: 02/05/21 17:15 Dose: 800 mg Documented by: [id number] Admin: 02/05/21 12:55 Dose: 800 mg Documented by: [id number] Admin: 02/05/21 08:15 Dose: 800 mg Documented by: [id number] Admin: 02/04/21 20:28 Dose: 800 mg Documented by: [id number] Tacrolimus (Tacrolimus 1 Mg Cap) 1 mg PO BID [facility] Stop: 03/06/21 20:59 Last Admin: 02/06/21 07:57 Dose: 1 mg Documented by: [id number] Admin: 02/05/21 21:42 Dose: 1 mg Documented by: [id number] Admin: 02/05/21 08:15 Dose: 1 mg Documented by: [id number] Admin: 02/04/21 20:28 Dose: 1 mg Documented by: [id number] Vitamin B Complex/Folic Acid (Nephrocaps) 1 cap PO DAILY [facility] Stop: 03/07/21 08:59 Last Admin: 02/06/21 07:57 Dose: 1 cap Documented by: [id number] Admin: 02/05/21 08:15 Dose: 1 cap Documented by: [id number] Vitamin E (Tocopheryl, Dl-Alpha 100 Units Cap) 100 units PO MoWeFr@0900 [facility] Stop: 03/07/21 08:59 Last Admin: 02/05/21 08:15 Dose: 100 units Documented by: [id number] Discontinued Medications Heparin Sodium (Porcine) (Heparin Sod (Porcine) 1000 Unit/Ml) 1,500 units IV TODAY@0730 [facility] Stop: 02/05/21 16:00 Last Admin: 02/05/21 10:28 Dose: Not Given Documented by: [id number] Heparin Sodium (Porcine) (Heparin Sod (Porcine) 1000 Unit/Ml) 600 units IV Q1H [facility] Stop: 02/05/21 09:31 Last Admin: 02/05/21 11:41 Dose: Not Given Documented by: [id number] Admin: 02/05/21 11:41 Dose: Not Given Documented by: [id number] Admin: 02/05/21 10:28 Dose: Not Given Documented by: [id number] Imaging Data Radiologist's Impression: Head CT 02/06/21 05:45 CT OF THE HEAD WITHOUT CONTRAST CLINICAL HISTORY: Altered mental status. COMPARISON STUDY: Head CT and MRI of brain February 04, 2021. CT DOSE: 638.56 mGycm TECHNIQUE: Helical axial images of the head were obtained without IV contrast. Automated exposure control was utilized for the study. A dose lowering technique was utilized adhering to the principles of ALARA. FINDINGS: No acute intracranial hemorrhage, midline shift or mass effect is present. Ventricular system is stable. Basal cisterns are patent. Prominence of the extra-axial spaces is unchanged and due to atrophy. White matter hypodensity suggests small vessel disease. These are unchanged. There are no findings to suggest acute dural sinus thrombosis or acute territorial infarct. Right maxillary sinus is opacified. This is likely chronic. As before, the left mastoid air cells are largely opacified. There is no acute calvarial fracture. IMPRESSION: No acute intracranial findings. No change in appearance of the b rain. ACT 112: Negative or not required by law. Electronically signed by: Anuel Robertson M.D. 02/06/2021 7:40 AM Discharge Plan Visit Data Patient Disposition: Admitted As Inpatient Discharge Instructions Interventions: ED Discharge Assessment Last Done: 02/04/21 17:54
--- NOTE | 2021-02-04 14:09 | XRay Report ---
XR chest 1V portable HISTORY: 65 years-old Male weakness acute weakness COMPARISON: Chest radiograph 09/18/2020 TECHNIQUE: Portable AP view of the chest FINDINGS: Cardiac silhouette is enlarged. Small to moderate right pleural effusion with right basilar consolida tion. No pneumothorax, overt pulmonary edema. Nipple shadow projects over the lateral left lung base. No acute fracture. IMPRESSION: Small to moderate right pleural effusion with right basilar consolidation. ACT 112: Negative or not required by law. The above report was generated using voice recognition software. It may contain grammatical, syntax o r spelling errors. Electronically signed by: Bishop Aldridge M.D. 02/04/2021 2:08 PM
--- NOTE | 2021-02-04 14:16 | Communication Note ---
Date of Service: February 04, 2021 I personally saw this patient and participated in their care under the supervision of Dr. Plaza. Resident Activity Tracking Resident Involvement: Resident Care Provided Care Provided: Adult ED
[2021-02-04 15:08] LABS: iSTAT Creatinine 5.7 mg/dl (0.6-1.3); iSTAT Hemoglobin 10.9 g/dl (14.0-18.0); iSTAT Ionized Calcium 1.17 mmol/l (1.12-1.32); iSTAT Potassium 4.8 mmol/L (3.3-5.0)
[2021-02-04 15:13] LABS: Alanine Aminotransferase 81 U/L (12-78); Albumin Globulin Ratio 0.4 (0.9-2); Albumin Level 1.7 gm/dl (3.4-5.0); Alkaline Phosphatase 156 U/L (45-117); BUN Creatinine Ratio 11.1 (10-20); Bilirubin,Total 0.5 mg/dl (0.2-1); Blood Urea Nitrogen 58 mg/dl (7-18); Calcium 8.4 mg/dl (8.5-10.1); Carbon Dioxide 26 mmol/L (21-32); Chloride 102 mmol/L (98-107); Est GFR (African American) 12.3 ml/min; Est GFR (Non-African American) 10.6 ml/min; Globulin 4.1 gm/dl (2.5-4.0); Glucose 104 mg/dl (70-99); Sodium 137 mmol/L (136-145); Total Protein 5.8 gm/dl (6.4-8.2); Troponin I 0.018 ng/ml (0-0.045)
--- NOTE | 2021-02-04 15:23 | CT Scan Report ---
CT head/brain wo con CLINICAL HISTORY: 65 years-old Male with tia. Acute strokelike symptoms TECHNIQUE: Multiple axial CT images of the head were obtained without contrast. A dose lowering tech nique was utilized adhering to the principles of ALARA. CT DOSE: 1035.81 mGycm COMPARISON: None. FINDINGS: No acute intracranial hemorrhage, midline shift, intracranial mass, hydrocephalus, or acute territori al infarct. Age-related involutional changes. White matter hypodensities suggest chronic microvascula r ischemic disease. Cerebral vascular calcifications. Prominence of the extra-axial space adjacent to the frontal and temporal lobes measures up to 6 mm on the right and 4 mm on the left. No acute fract ure or extra-axial hemorrhage. The calvarium is intact. Large left mastoid effusion with fluid also present within the left middle ear cavity. There is complete opacification with associated volume loss of the right maxillary sinus, likely chronic. Unremarkable soft tissues. Prior bilateral lens repair. IMPRESSION: 1. No acute intracranial abnormality. 2. Age-related involutional changes with chronic microvascular ischemic disease. 3. Subcentimeter prominence of the extra-axial spaces adjacent to the frontal and temporal lobes may be secondary to atrophy versus subdural hygroma or chronic subdural hematomas. Correlate with prior i maging. ACT 112: Negative or not required by law. The above report was generated using voice recognition software. It may contain grammatical, syntax o r spelling errors. Electronically signed by: Bishop Aldridge M.D. 02/04/2021 3:21 PM
[2021-02-04 15:37] LABS: T4 Free Thyroxine 0.75 ng/dl (0.8-1.6)
[2021-02-04 16:18] LABS: INR 1.1 (0.9-1.1); Partial Thromboplastin Ratio 1.1; Partial Thromboplastin Time 28.9 Seconds (21.0-31.0); Prothrombin Time 11.4 Seconds (9.0-12.0)
[2021-02-04 16:21] LABS: Hematocrit (blood only) 32.2 % (42-52); Hemoglobin 10.3 g/dL (14.0-18.0); Mean Corpuscular Hemoglobin 32.2 pg (25-34); Mean Corpuscular Volume 100.6 fL (80-100); RDW Coefficient of Variation 15.5 % (11.5-14.5); RDW Standard Deviation 57.4 fL (36.4-46.3); White Blood Count 7.45 K/uL (4.8-10.8)
[2021-02-04 16:33] LABS: Potassium 4.6 mmol/L (3.5-5.1)
[2021-02-04 16:38] LABS: Basophils # (auto) 0.03 K/uL (0-0.2); Basophils % (auto) 0.4 %; Eosinophils # (auto) 0.07 K/uL (0-0.5); Eosinophils % (auto) 0.9 %; Immature Granulocytes # (auto) 0.04 K/uL (0.00-0.02); Immature Granulocytes % (auto) 0.5 %; Lymphocytes # (auto) 2.03 K/uL (1.2-3.4); Lymphocytes % (auto) 27.2 %; Mean Platelet Volume 8.9 fL (7.4-10.4); Monocytes % (auto) 6.7 %; Neutrophils # (auto) 4.78 K/uL (1.4-6.5); Neutrophils % (auto) 64.3 %; Platelet Count 85 K/uL (130-400); Platelet Estimate Decreased (Normal)
[2021-02-04 16:41] LABS: Magnesium 2.4 mg/dl (1.8-2.4)
--- NOTE | 2021-02-04 18:21 | History & Physical Report ---
Date of Service February 04, 2021 Assessment & Plan (1) End stage chronic kidney disease: (2) Stroke-like episode: Plan: #. Strokelike symptoms Patient sent from dialysis center for concerns of TIA and altered mental status Patient AO x3 at baseline, LLE weakness noted Admitting CT head negative for acute findings, will get MRI of head Echo, neurology consult Allow permissive hypertension, neurochecks Follow-up with MRI #. ESRD on hemodialysis Patient undergoes hemodialysis Wednesday We will consult nephrology Last hemodialysis was on last Wednesday Patient missed dialysis Wednesday, and did not undergo dialysis today because of concerns of TIA and was sent to hospital for evaluation Expect dialysis tomorrow, per nephrology #. Hip fracture Right hip fracture 2013, left hip fracture secondary to fall 1 month ago status post repair --> patient coming from longterm PT/OT while inpatient #. Other chronic medical conditions: CAD, history of AR, HTN, HLD, anemia of chronic disease Resume home meds as appropriate Full code DVT prophylaxis: SCDs, heparin since CT head was negative for any bleed. 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 Patient was frustrated and irritated at each and every question during my history and exam. History taken from the patient and chart review. Per patient, he undergoes dialysis MWF. His last dialysis was on Wednesday, missed dialysis on Wednesday and was getting catch up dialysis today. He was sent from the dialysis center for evaluation of altered mental status and possible TIA. They did not do dialysis on him today because of the concern of TIA and immediately sent him to the hospital by calling 911. Patient says that he did not get dialysis on Wednesday because it was a holiday, per chart review they skipped the dialysis on Wednesday due to him having a GI bleed. At bedside exam, patient did not have slurring of speech but he was sounding irritated at each and every question. He was AO x3. Patient reports no new weakness. Patient denies any fever/neck pain/cough/chest pain/pain burning while passing urine/changes in his bowel movements acutely. Patient denied other review of symptoms. All the medications were reviewed with the patient. He denied smoking tobacco/drinking alcohol/doing recreational drugs or marijuana. He denied any past history of stroke or seizure. He denied any history of cancer or heart disease in the family. Besides family doctor and kidney doctor, he reports not visiting any other doctor as an outpatient. Allergies Allergy/AdvReac Type Severity Reaction Status Date / Time oxycodone AdvReac Intermediate OVER Verified 02/04/21 16:15 SEDATION Home Medications Medication Instructions Recorded Confirmed Type allopurinol 100 mg tablet 100 mg PO QAM 09/09/20 02/04/21 History carvedilol 3.125 mg tablet 3.125 mg PO HS 09/09/20 02/04/21 History entecavir 0.5 mg tablet 0.5 mg PO QAM 09/09/20 02/04/21 History insulin aspart U-100 100 unit/mL See Rx Instructions .ROUTE .COMPLEX 09/09/20 02/04/21 History (3 mL) subcutaneous pen (Novolog Flexpen U-100 Insulin aspart) insulin glargine 100 unit/mL (3 30 unit SUBCUT HS 09/09/20 02/04/21 History mL) subcutaneous pen (Lantus Solostar U-100 Insulin) pravastatin 20 mg tablet 20 mg PO QAM 09/09/20 02/04/21 History sevelamer carbonate 800 mg tablet 800 mg PO TID 09/09/20 02/04/21 History tacrolimus 1 mg capsule, 1 mg PO BID 09/09/20 02/04/21 History immediate-release vitamin E 100 unit capsule 100 unit PO UD 09/09/20 02/04/21 History acetaminophen 325 mg tablet 650 mg PO TID 02/04/21 02/04/21 History (Tylenol) amitriptyline 150 mg tablet 150 mg PO HS 02/04/21 02/04/21 History aspirin 81 mg tablet,delayed 81 mg PO DAILY 02/04/21 02/04/21 History release bisacodyl 10 mg rectal suppository 10 mg [place] DAILY PRN 02/04/21 02/04/21 History collagenase clostridium histo. 250 1 applic TOPICAL DAILY 02/04/21 02/04/21 History unit/gram topical ointment (Santyl) nitroglycerin 0.4 mg sublingual 0.4 mg SUBLINGUAL DIRECTED PRN 02/04/21 02/04/21 History tablet omeprazole 20 mg capsule,delayed 20 mg PO DAILY 02/04/21 02/04/21 History release sennosides 8.6 mg tablet (senna) 8.6 mg PO BID 02/04/21 02/04/21 History vitamin B complex and vitamin C 1 cap PO DAILY 02/04/21 02/04/21 History no.20-folic acid 1 mg capsule Past Med/Surg History Medical History Anemia in chronic kidney disease, on chronic dialysis CAD (coronary artery disease) Cerebral palsy ataxic Diabetes mellitus type II, uncontrolled Diastolic congestive heart failure ESRD (end stage renal disease) on dialysis Essential hypertension Foot deformity, congenital GERD (gastroesophageal reflux disease) Hepatitis B History of AR (myocardial infarction) Liver transplant recipient Osteoporosis Presence of stent in coronary artery in patient with coronary artery disease Secondary hyperparathyroidism of renal origin Surgical History History of repair of hip fracture History of right hip replacement S/P liver transplant Family History Other Unknown family medical history Social History Smoking Status: Never smoker Hx Alcohol Use: No Hx Substance Use: No Preferred Language: Peruvian Communication Ability: Effective Fish Net Maker Required: No Beliefs That Will Affect Care: None Current Living Situation: Alone Feels Safe at Home: Yes Assistive Devices: Glasses Physical Exam Physical Exam: GENERAL: Alert and oriented x3. NAD, on RA. HEENT: No pallor, no icterus. Pupils equal, round and reactive to light. Oral mucosa moist. NECK: No JVD, no neck masses. HEART: S1 and S2 heard. Regular rate and rhythm. No murmur, no gallop. RESPIRATORY SYSTEM: Normal AP diameter. No accessory muscle use. No wheezing, no crackles. ABDOMEN: Soft, bowel sounds present, nontender, no distention. CENTRAL NERVOUS SYSTEM: No facial droop. Speech is clear. Obeys simple commands. Moves extremities. EXTREMITIES: No edema, no erythema seen. Bilateral upper extremity power 5 / 5; patient cannot move RLE chronically/spastic RLE from cerebral palsy; LLE power 3/5; right arm noted with dialysis catheter. Results & Data Results & Data ([facility]) Vital Signs (Past 12 Hours) Vital Signs Temp Pulse Pulse Resp BP BP Pulse Ox 02/04/21 17:54 82 16 155/87 H 96 02/04/21 17:00 82 15 144/86 H 96 02/04/21 15:20 74 12 150/97 H 02/04/21 13:34 36.5 C 76 14 132/85 94 Code Status & VTE Plan VTE Prophylaxis Plan VTE Prophylaxis will be ordered: Yes
[2021-02-04] MEDS ORDERED: GLUCOSE 40% GEL 15 GM TUBE PO PRN (18:55)
[2021-02-04] MEDS ORDERED: GLUCOSE 10 TABS/TUBE PO PRN (18:55)
[2021-02-04] MEDS ORDERED: PHARMACIST DISCHARGE MED REC CONSULT PRN (18:55)
[2021-02-04] MEDS ORDERED: POLYETHYLENE (MIRALAX) 17 GM PACK PO PRN (18:55)
[2021-02-04] MEDS ORDERED: ONDANSETRON INJ 2 MG/ML 2 ML VIAL IV PRN (18:55)
[2021-02-04] MEDS ORDERED: GLUCAGON FOR INJ 1 MG VIAL SQ PRN (18:55)
[2021-02-04] MEDS ORDERED: bisacodyL 10 MG SUPP PR PRN (18:55)
[2021-02-04] MEDS ORDERED: DEXTROSE 50% 50 ML SYRINGE IV PRN (18:55)
[2021-02-04] MEDS ORDERED: ACETAMINOPHEN 325 MG TAB PO PRN (18:55)
[2021-02-04] MEDS: TACROLIMUS 1 MG CAP PO SCH (20:28)
[2021-02-04] MEDS: SEVELAMER HCL 800 MG TABLET PO SCH (20:28)
[2021-02-04] MEDS: carvediloL 3.125 MG TAB PO SCH (20:28)
[2021-02-04] MEDS: SENNA 8.6 MG TAB PO SCH (20:28)
[2021-02-04] MEDS: INSULIN ASPART 100 UNITS/ML 3 ML PEN SC SCH (20:35)
[2021-02-04] MEDS: INSULIN GLARGINE SOLOSTAR 100 UNITS/ML 3 ML PEN SC SCH (20:35)
[2021-02-04] MEDS ORDERED: INSULIN GLARGINE SOLOSTAR 100 UNITS/ML 3 ML PEN SQ SCH (21:00)
[2021-02-05 05:51] LABS: Hematocrit (blood only) 28.4 % (42-52); Hemoglobin 9.3 g/dL (14.0-18.0); Mean Corpuscular Hemoglobin 32.7 pg (25-34); Mean Corpuscular Hgb Conc 32.7 g/dL (32-36); RDW Coefficient of Variation 15.6 % (11.5-14.5); Red Blood Count 2.84 M/uL (4.7-6.1)
[2021-02-05 05:54] LABS: Mean Platelet Volume 8.8 fL (7.4-10.4); Platelet Count 77 K/uL (130-400)
[2021-02-05 06:24] LABS: Basophils # (auto) 0.02 K/uL (0-0.2); Basophils % (auto) 0.3 %; Eosinophils # (auto) 0.08 K/uL (0-0.5); Eosinophils % (auto) 1.2 %; Immature Granulocytes # (auto) 0.01 K/uL (0.00-0.02); Immature Granulocytes % (auto) 0.1 %; Lymphocytes % (auto) 35.8 %; Monocytes # (auto) 0.44 K/uL (0.11-0.59); Monocytes % (auto) 6.6 %; Neutrophils # (auto) 3.75 K/uL (1.4-6.5)
[2021-02-05 07:03] LABS: Calcium 8.6 mg/dl (8.5-10.1); Creatinine Clr Calc Pharmacy 12.5 ml/min; Est GFR (African American) 11.3 ml/min; Est GFR (Non-African American) 9.8 ml/min; Potassium 4.6 mmol/L (3.5-5.1)
[2021-02-05] MEDS ORDERED: SODIUM CHLORIDE 0.9% 1000ML 1,000 ML IV PRN (07:20)
[2021-02-05] MEDS ORDERED: HEPARIN SOD (PORCINE) 1000 UNIT/ML IV SCH (07:30)
[2021-02-05] MEDS: INSULIN ASPART 100 UNITS/ML 3 ML PEN SC SCH ×4 (08:00→21:28)
[2021-02-05] MEDS: PRAVASTATIN SOD 20 MG TAB PO SCH (08:15)
[2021-02-05] MEDS: SEVELAMER HCL 800 MG TABLET PO SCH ×3 (08:15→17:15)
[2021-02-05] MEDS: TOCOPHERYL, DL-ALPHA 100 UNITS CAP PO SCH (08:15)
[2021-02-05] MEDS: COLLAGENASE OINT 30 GM TUBE TOP SCH (08:15)
[2021-02-05] MEDS: NEPHROCAPS PO SCH (08:15)
[2021-02-05] MEDS: allopurinoL 100 MG TAB PO SCH (08:15)
[2021-02-05] MEDS: ASPIRIN 81 MG ECTAB PO SCH (08:15)
[2021-02-05] MEDS: TACROLIMUS 1 MG CAP PO SCH ×2 (08:15→21:42)
[2021-02-05] MEDS: SENNA 8.6 MG TAB PO SCH ×2 (08:15→21:42)
[2021-02-05] MEDS: PANTOprazole 40 MG TAB PO SCH (08:15)
[2021-02-05 09:04] LABS: Hepatitis B Surface Ab Quant < 3.10 mIU/mL (>or=10mIU/mL Immune); Hepatitis B Surface Antibody Non-Immune
--- NOTE | 2021-02-05 09:19 | Magnetic Resonance Report ---
MRI OF THE BRAIN WITHOUT CONTRAST CLINICAL HISTORY: Transient ischemic attack. Speech difficulty. COMPARISON STUDY: Head CT February 04, 2021. TECHNIQUE: Utilizing a 1.5 Dea magnet and dedicated coil, multiplanar, multiecho imaging of the bra in was performed without IV contrast. FINDINGS: There are no foci of restricted diffusion to suggest acute infarct. No acute intracranial h emorrhage, midline shift or mass effect is present. Ventricular system is unremarkable. Note is made of symmetric prominence of the extra-axial CSF spaces which is due to atrophy. No intracranial masses identified on this unenhanced examination. White matter T2 hyperintense foci are noted. These favor small vessel disease. Left mastoid air cells are largely opacified. Right maxillary sinus is opacifie d. This is likely chronic. Calvarial signal is normal. IMPRESSION: 1. No acute intracranial findings. 2. Prominence of the extra-axial CSF spaces which is due to atrophy. 3. White matter T2 hyperintense foci suggestive of small vessel disease. 4. Partially opacified left mastoid air cells. ACT 112: Negative or not required by law. Electronically signed by: Anuel Robertson M.D. 02/05/2021 9:18 AM
--- NOTE | 2021-02-05 09:29 | Ultrasound Report ---
US carotid doppler BI CLINICAL HISTORY: tia. COMPARISON: None. TECHNIQUE: Munguia scale, Doppler spectral analysis, and color imaging was performed. Stenosis assessmen t by velocity criteria. FINDINGS: Right CCA velocity (cm/s): 49 Right ICA velocity (cm/s): 60 Right ICA/CCA ratio: 1.2 Right vertebral arterial flow: Retrograde Right subclavian artery (centimeters per second): 149 with monophasic flow Right findings: There is no significant atherosclerotic plaquing noted on the right. Left CCA velocity (cm/s): 77 Left ICA velocity (cm/s): 59 Left ICA/CCA ratio: 0.8 Left vertebral arterial flow: Antegrade. Left subclavian artery (centimeters per second): 80 with biphasic flow Left findings: There is no significant atherosclerotic plaquing noted on the left. IMPRESSION: No significant atherosclerotic plaquing or significant flow limiting stenoses noted by v elocity criteria bilaterally. There is retrograde flow within the vertebral artery on the right. Ther e is mildly elevated monophasic flow within the right subclavian artery when compared to the left. ACT 112: Negative or not required by law. Electronically signed by: Geovani Rich M.D. 02/05/2021 9:27 AM
[2021-02-05 09:48] LABS: Estimated Average Glucose 126 mg/dl
[2021-02-05 09:54] LABS: Hepatitis B Surf Ag Rflx Conf Neg (Neg)
[2021-02-05] MEDS: HEPARIN SOD (PORCINE) 1000 UNIT/ML IV SCH ×2 (10:28→11:41)
--- NOTE | 2021-02-05 12:29 | Neurology Consultation ---
Date of Consultation February 05, 2021 Assessment & Plan (1) TIA (transient ischemic attack): 1. MRI with no evidence of stroke 2. PT/OT for discharge needs 3. optimze HTN HLD, DM LDL <70- already hypotensive will need to be cautious with blood pressure 4. plt drug would not be advised in the patient due to low plt 5. carotid doppler no significant stenosis 6. dialysis when appropriate- per Nephrology 7. no further imaging 8. will sign off for now will be available for questions concerns. (2) Thrombocytopenia: (3) Anemia in chronic kidney disease, on chronic dialysis: Supervising Physician Co-Signing Physician Notes I have seen and discussed above patient with Dr Fred Herrera, neurology I have seen and evaluated this man and reviewed the history that is available. He is a little vague about symptomatology. I suspect he had a near syncopal event to the best of my ability to reconstruct the history and this was alarming to the dialysis group and he was sent in here for possible TIA although I do not know what other symptoms he may have manifested borderline of what they saw. At this point his exam looks essentially normal. There is some question of a left facial asymmetry but on the note this is baseline and he is awake alert and oriented and has the generalized muscular wasting typical of end-stage renal disease MRI scan has shown no acute event and a duplex of the carotids was unremarkable At this point I have my doubts that this was a TIA, suspect this may have been a transient hypotensive episode, have no basis to call this a seizure and really have no further recommendations about neurologic testing at this point I suspect if he is medically stable he can be discharged home and then proceed with dialysis on the schedule that been modified for the Fred Herrera MD History of Present Illness Reason for Consultation: possible TIA Requesting Physician: Russ Guajardo MD Attending Physician: Russ Guajardo MD History of Present Illness Nikhil is a 59 year old gentleman with PMH- ESRD on HD, CAD and VA x2 [last 04/03/2010] status post stents x3, no stroke or seizure history, 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 He undergoes dialysis MWF. His last dialysis was on Wednesday, missed dialysis on Wednesday and was getting dialysis today. . He was sent from the dialysis center for evaluation of altered mental status and possible TIA. They did not get dialysis on Wednesday because it was a holiday, they skipped the dialysis on Wednesday due to him having a GI bleed. He feels the syncope was becaused by too much fluids being taken with dialysis. He is now feeling back to his baseline Allergies Allergy/AdvReac Type Severity Reaction Status Date / Time oxycodone AdvReac Intermediate OVER Verified 02/04/21 16:15 SEDATION Home Medications Medication Instructions Recorded Confirmed Type allopurinol 100 mg tablet 100 mg PO QAM 09/09/20 02/04/21 History carvedilol 3.125 mg tablet 3.125 mg PO HS 09/09/20 02/04/21 History entecavir 0.5 mg tablet 0.5 mg PO QAM 09/09/20 02/04/21 History insulin aspart U-100 100 unit/mL See Rx Instructions .ROUTE .COMPLEX 09/09/20 02/04/21 History (3 mL) subcutaneous pen (Novolog Flexpen U-100 Insulin aspart) insulin glargine 100 unit/mL (3 30 unit SUBCUT HS 09/09/20 02/04/21 History mL) subcutaneous pen (Lantus Solostar U-100 Insulin) pravastatin 20 mg tablet 20 mg PO QAM 09/09/20 02/04/21 History sevelamer carbonate 800 mg tablet 800 mg PO TID 09/09/20 02/04/21 History tacrolimus 1 mg capsule, 1 mg PO BID 09/09/20 02/04/21 History immediate-release vitamin E 100 unit capsule 100 unit PO UD 09/09/20 02/04/21 History acetaminophen 325 mg tablet 650 mg PO TID 02/04/21 02/04/21 History (Tylenol) amitriptyline 150 mg tablet 150 mg PO HS 02/04/21 02/04/21 History aspirin 81 mg tablet,delayed 81 mg PO DAILY 02/04/21 02/04/21 History release bisacodyl 10 mg rectal suppository 10 mg [place] DAILY PRN 02/04/21 02/04/21 History collagenase clostridium histo. 250 1 applic TOPICAL DAILY 02/04/21 02/04/21 History unit/gram topical ointment (Santyl) nitroglycerin 0.4 mg sublingual 0.4 mg SUBLINGUAL DIRECTED PRN 02/04/21 02/04/21 History tablet omeprazole 20 mg capsule,delayed 20 mg PO DAILY 02/04/21 02/04/21 History release sennosides 8.6 mg tablet (senna) 8.6 mg PO BID 02/04/21 02/04/21 History vitamin B complex and vitamin C 1 cap PO DAILY 02/04/21 02/04/21 History no.20-folic acid 1 mg capsule Patient History Medical History Anemia in chronic kidney disease, on chronic dialysis CAD (coronary artery disease) Cerebral palsy ataxic Diabetes mellitus type II, uncontrolled Diastolic congestive heart failure ESRD (end stage renal disease) on dialysis Essential hypertension Foot deformity, congenital GERD (gastroesophageal reflux disease) Hepatitis B History of VA (myocardial infarction) Liver transplant recipient Osteoporosis Presence of stent in coronary artery in patient with coronary artery disease Secondary hyperparathyroidism of renal origin Surgical History History of repair of hip fracture History of right hip replacement S/P liver transplant Family History Other Unknown family medical history Social History Smoking Status: Never smoker Hx Alcohol Use: No Hx Substance Use: No Preferred Language: Mongolian Communication Ability: Effective Associate Financial Advisor Required: No Beliefs That Will Affect Care: None marital status: Single Current Living Situation: Snf Feels Safe at Home: Yes Assistive Devices: Wheelchair Review of Systems Review of Systems: All systems reviewed & are unremarkable except as noted in HPI & below Physical Exam Physical Exam: Physical Exam: Constitutional: appearance nourished, ill appearing Ears, Nose, Mouth and Throat: mucous membranes moist, no injection and skin normal, eyes normal Cardiovascular: normal S-1 and S-2 and regular rate and rhythm Respiratory: clear to auscultation (CTA) and no rales, ronchi or wheeze Musculoskeletal: no peripheral edema and good distal pulses Skin: no stigmata of neurocutaneous disease noted and normal and intact Eyes: extraocular muscles intact (EOMI) and pupils equal, round and reactive to light (PERRL) miotic NEUROLOGIC EXAMINATION: Mental status: Alert and interactive Oriented to [facility], 2020, pen write with it, rings on his fingers. Oriented to person Speech fluent with no evidence of aphasia Cranial Nerves possible left sided facial droop ? whether this is new Reflexes: Deep tendon reflexes were symmetrical and decrease LE Sensory: light cool vibration decreased in left. GT proproception decreased Coordination: finger to nose Gait/Stance: Posture normal. Motor: Negative for pronator drift of out stretched arms with eyes closed. Strength: bilateral UE hand aquatic instructor biceps triceps 4+/5, hip flex right 4+/5 ,left 4/5 Results & Data ([facility]) Vital Signs (Past 12 Hours) Vital Signs Temp Pulse Pulse Pulse Resp BP BP 02/05/21 12:20 87 88/62 L 02/05/21 12:00 88 89/64 L 02/05/21 11:40 86 105/69 02/05/21 11:20 88 84/64 L 02/05/21 11:00 87 99/62 L 02/05/21 10:40 86 101/72 02/05/21 10:20 85 113/74 02/05/21 10:00 83 114/74 02/05/21 09:40 81 119/76 02/05/21 09:20 74 127/78 02/05/21 09:10 36.6 C 74 02/05/21 08:00 71 02/05/21 07:20 36.8 C 71 16 139/78 02/05/21 04:49 36.6 C 73 16 124/87 Pulse Ox 02/05/21 12:20 02/05/21 12:00 02/05/21 11:40 02/05/21 11:20 02/05/21 11:00 02/05/21 10:40 02/05/21 10:20 02/05/21 10:00 02/05/21 09:40 02/05/21 09:20 02/05/21 09:10 02/05/21 08:00 02/05/21 07:20 98 02/05/21 04:49 96 Laboratory Results Abnormal lab results 02/04/21 02/04/21 02/04/21 Range/Units 14:27 14:38 15:50 RBC 3.20 L (4.7-6.1) M/uL Hgb 10.3 L (14.0-18.0) g/dL POC Hgb 10.9 L (14.0-18.0) g/dl Hct 32.2 L (42-52) % POC Hct 32 L (42-52) % MCV 100.6 H (80-100) fL RDW Std Deviation 57.4 H (36.4-46.3) fL RDW Coeff of Dean 15.5 H (11.5-14.5) % Plt Count 85 L (130-400) K/uL Immature Gran # (Auto) 0.04 H (0.00-0.02) K/uL Platelet Estimate Decreased L (Normal) Sodium (136-145) mmol/L POC Chloride 97 L (101-112) mmol/L POC Anion Gap 14.0 L (16-25) mmol/L POC BUN 72 H (7-18) mg/dl BUN 58 H (7-18) mg/dl Creatinine 5.18 H* (0.6-1.4) mg/dl POC Creatinine 5.7 H* (0.6-1.3) mg/dl Glucose 104 H (70-99) mg/dl POC Glucose (other) 104 H (70-99) mg/dl Hemoglobin A1c (4.5-5.6) % Calcium 8.4 L (8.5-10.1) mg/dl AST (15-37) U/L ALT 81 H (12-78) U/L Alkaline Phosphatase 156 H (45-117) U/L Total Protein 5.8 L (6.4-8.2) gm/dl Albumin 1.7 L (3.4-5.0) gm/dl Globulin 4.1 H (2.5-4.0) gm/dl Albumin/Globulin Ratio 0.4 L (0.9-2) TSH 6.050 H (0.300-4.500) uIu/ml Free T4 0.75 L (0.8-1.6) ng/dl Hep Bs Antibody, Quant (>or=10mIU/mL Immune) mIU/mL 02/04/21 02/05/21 02/05/21 Range/Units 15:59 05:15 05:15 RBC 2.84 L (4.7-6.1) M/uL Hgb 9.3 L (14.0-18.0) g/dL POC Hgb (14.0-18.0) g/dl Hct 28.4 L (42-52) % POC Hct (42-52) % MCV (80-100) fL RDW Std Deviation 57.0 H (36.4-46.3) fL RDW Coeff of Dean 15.6 H (11.5-14.5) % Plt Count 77 L (130-400) K/uL Immature Gran # (Auto) (0.00-0.02) K/uL Platelet Estimate (Normal) Sodium 135 L (136-145) mmol/L POC Chloride (101-112) mmol/L POC Anion Gap (16-25) mmol/L POC BUN (7-18) mg/dl BUN 67 H (7-18) mg/dl Creatinine 5.55 H* D (0.6-1.4) mg/dl POC Creatinine (0.6-1.3) mg/dl Glucose 60 L (70-99) mg/dl POC Glucose (other) (70-99) mg/dl Hemoglobin A1c (4.5-5.6) % Calcium (8.5-10.1) mg/dl AST 39 H (15-37) U/L ALT (12-78) U/L Alkaline Phosphatase (45-117) U/L Total Protein (6.4-8.2) gm/dl Albumin (3.4-5.0) gm/dl Globulin (2.5-4.0) gm/dl Albumin/Globulin Ratio (0.9-2) TSH (0.300-4.500) uIu/ml Free T4 (0.8-1.6) ng/dl Hep Bs Antibody, Quant (>or=10mIU/mL Immune) mIU/mL 02/05/21 02/05/21 Range/Units 05:15 08:25 RBC (4.7-6.1) M/uL Hgb (14.0-18.0) g/dL POC Hgb (14.0-18.0) g/dl Hct (42-52) % POC Hct (42-52) % MCV (80-100) fL RDW Std Deviation (36.4-46.3) fL RDW Coeff of Dean (11.5-14.5) % Plt Count (130-400) K/uL Immature Gran # (Auto) (0.00-0.02) K/uL Platelet Estimate (Normal) Sodium (136-145) mmol/L POC Chloride (101-112) mmol/L POC Anion Gap (16-25) mmol/L POC BUN (7-18) mg/dl BUN (7-18) mg/dl Creatinine (0.6-1.4) mg/dl POC Creatinine (0.6-1.3) mg/dl Glucose (70-99) mg/dl POC Glucose (other) (70-99) mg/dl Hemoglobin A1c 6.0 H (4.5-5.6) % Calcium (8.5-10.1) mg/dl AST (15-37) U/L ALT (12-78) U/L Alkaline Phosphatase (45-117) U/L Total Protein (6.4-8.2) gm/dl Albumin (3.4-5.0) gm/dl Globulin (2.5-4.0) gm/dl Albumin/Globulin Ratio (0.9-2) TSH (0.300-4.500) uIu/ml Free T4 (0.8-1.6) ng/dl Hep Bs Antibody, Quant < 3.10 L (>or=10mIU/mL Immune) mIU/mL Diagnostic Findings carotid doppler- No significant atherosclerotic plaquing or significant flow limiting stenoses noted by velocity criteria bilaterally. There is retrograde flow within the vertebral artery on the right. There is mildly elevated monophasic flow within the right subclavian artery when compared to the left. MRI brain-No acute intracranial findings. Prominence of the extra-axial CSF spaces which is due to atrophy. White matter T2 hyperintense foci suggestive of small vessel disease. Partially opacified left mastoid air cells. CXR Small to moderate right pleural effusion with right basilar consolidation. CT head-No acute intracranial abnormality. Age-related involutional changes with chronic microvascular ischemic disease. Subcentimeter prominence of the extra-axial spaces adjacent to the frontal and temporal lobes may be secondary to atrophy versus subdural hygroma or chronic subdural hematomas.
--- NOTE | 2021-02-05 12:31 | Hospitalist Progress Note ---
Date of Service February 05, 2021 Assessment & Plan (1) End stage chronic kidney disease: (2) Stroke-like episode: Plan: Strokelike symptoms Patient sent from dialysis center for concerns of TIA and altered mental status Patient AO x3 at baseline, LLE weakness noted Admitting CT head negative for acute findings Brain MRI - IMPRESSION: 1. No acute intracranial findings. 2. Prominence of the extra-axial CSF spaces which is due to atrophy. 3. White matter T2 hyperintense foci suggestive of small vessel disease. 4. Partially opacified left mastoid air cells. Carotid doppler - No significant atherosclerotic plaquing or significant flow limiting stenoses noted by velocity criteria bilaterally. There is retrograde flow within the vertebral artery on the right. There is mildly elevated mo nophasic flow within the right subclavian artery when compared to the left. Echo - no change compared to previous study in June 2020. Normal LV chamber size with moderate concentric LVH. Low normal LV systolic function, EF 50 to 55%. No segmental LV wall motion abnormalities are noted. Grade 1 diastolic dysfunction. Aortic valve sclerosis mild, without significant aortic valvular stenosis. Mild aortic regurg. Mild to moderate mitral regurg. Mildly dilated aortic root measuring 4.1 cm. The interatrial septum is intact with no evidence for an atrial septal defect. Injection of contrast documented no interatrial shunt. Neurology consult Allow permissive hypertension, neurochecks ESRD on hemodialysis Patient undergoes hemodialysis Wednesday Nephrology consulted Last hemodialysis was on wednesday Patient missed dialysis Wednesday, and did not undergo dialysis on day of admission because of concerns of TIA and was sent to hospital for evaluation Reportedly missed dialysis on Wednesday because of possible GI bleed however patient cannot answer/further explain this Now s/p HD GI bleed -Per chart review, patient was admitted earlier in January because of malfunctioning AV fistula -During that hospital stay, after vascular procedure, he had a large bloody bowel movement, reportedly he also was evaluated for similar in late December -Reportedly patient had colonoscopy which revealed friable rectal mucosa, also removed polyp from sigmoid colon and cecum FOBT ordered and positive, monitor H&H GI consult Hip fracture Right hip fracture 2013, left hip fracture secondary to fall 1 month ago status post repair --> patient coming from assisted PT/OT while inpatient Other chronic medical conditions: CAD, history of [place], HTN, HLD, anemia of chronic disease Resume home meds as appropriate Full code DVT prophylaxis: SCDs Admission and Anticipated Discharge Date Admission Date: February 04, 2021 Subjective Patient seen in follow-up of strokelike symptoms /possible word finding difficulty/presyncope, end-stage disease on dialysis Currently laying in bed, in no acute distress He is alert oriented answering questions appropriately Denies any chest pain, shortness of breath, headache He is asking about possible discharge Had MRI brain earlier today, to be seen by neurology later Review of Systems Review of Systems: All systems reviewed & are unremarkable except as noted in Subjective Physical Exam Physical Exam: GENERAL: Alert and oriented x3. NAD, on RA. HEENT: NC/AT. EOMI, PERRL. Oral mucosa moist. NECK: No JVD, no neck masses. HEART: S1 and S2 heard. Regular rate and rhythm. No murmur, no gallop. RESPIRATORY: Normal AP diameter. No accessory muscle use. No wheezing, no crackles. ABDOMEN: Soft, bowel sounds present, nontender, no distention. NEURO:Alert oriented answering questions appropriately. No facial droop. Speech is clear. Moves extremities and as below. EXTREMITIES: No edema, no erythema seen. Bilateral upper extremity power 5 / 5; patient cannot move RLE chronically/spastic RLE from cerebral palsy; LLE power 3/5; right arm noted with dialysis catheter. Results & Data Results & Data ([facility]) Vital Signs (Past 12 Hours) Vital Signs Temp Pulse Pulse Pulse Resp BP BP 02/05/21 12:20 87 88/62 L 02/05/21 12:00 88 89/64 L 02/05/21 11:40 86 105/69 02/05/21 11:20 88 84/64 L 02/05/21 11:00 87 99/62 L 02/05/21 10:40 86 101/72 02/05/21 10:20 85 113/74 02/05/21 10:00 83 114/74 02/05/21 09:40 81 119/76 02/05/21 09:20 74 127/78 02/05/21 09:10 36.6 C 74 02/05/21 08:00 71 02/05/21 07:20 36.8 C 71 16 139/78 02/05/21 04:49 36.6 C 73 16 124/87 Pulse Ox 02/05/21 12:20 02/05/21 12:00 02/05/21 11:40 02/05/21 11:20 02/05/21 11:00 02/05/21 10:40 02/05/21 10:20 02/05/21 10:00 02/05/21 09:40 02/05/21 09:20 02/05/21 09:10 02/05/21 08:00 02/05/21 07:20 98 02/05/21 04:49 96
--- NOTE | 2021-02-05 19:16 | Nephrology Consultation ---
Date of Consultation February 05, 2021 Assessment & Plan (1) End stage chronic kidney disease: For HD today > 3.5hr on 2K bath with up to 2.5L UF target but keeping SBP > 100. He tolerated 1.4L UF. -daily bmp, hgb -next HD on 02/07 or as clinical needs dictate -had no epo w/ HD pending stroke w/u -cont sevelamer ac If he is clinically stable tomorrow could in theory be d/c back to rehab f acility and resume customary OP dialysis History of Present Illness Reason for Consultation: ESRD on HD Requesting Physician: Dr Peters Attending Physician: Russ Guajardo MD History of Present Illness 65 y/o M whom I'm asked to see for dialysis needs was admitted last evening for evaluation of stroke like symptoms such as trouble w/ word finding prior to dialysis yesterday. 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 He was admitted from home in September and d/c to [facility] where he remains today. D/t concerns about possible TIA, dialysis staff sent pt to ER for evaluation rather than giving him a treatment. For unclear reasons he missed wednesday HD > may be d/t altered schedule for ; there were however also reports of GI bleeding causing him to not go to dialysis. Last dialysis tx prior to today is 01/31. The patient whom I saw and evaluated at about 0920 am had no complaints except wishing to be d/c soon. he had no dyspnea, no uncontrolled pain, no n/v, no issues wordfinding or new focal weakness/numbness reported; he is anuric. Neurology is following > working dx is near syncopal episode versus TIA. Allergies Allergy/AdvReac Type Severity Reaction Status Date / Time sorbitol Allergy Verified 02/05/21 15:52 oxycodone AdvReac Intermediate OVER Verified 02/04/21 16:15 SEDATION Home Medications Medication Instructions Recorded Confirmed Type allopurinol 100 mg tablet 100 mg PO QAM 09/09/20 02/04/21 History carvedilol 3.125 mg tablet 3.125 mg PO HS 09/09/20 02/04/21 History entecavir 0.5 mg tablet 0.5 mg PO QAM 09/09/20 02/04/21 History insulin aspart U-100 100 unit/mL See Rx Instructions .ROUTE .COMPLEX 09/09/20 02/04/21 History (3 mL) subcutaneous pen (Novolog Flexpen U-100 Insulin aspart) insulin glargine 100 unit/mL (3 30 unit SUBCUT HS 09/09/20 02/04/21 History mL) subcutaneous pen (Lantus Solostar U-100 Insulin) pravastatin 20 mg tablet 20 mg PO QAM 09/09/20 02/04/21 History sevelamer carbonate 800 mg tablet 800 mg PO TID 09/09/20 02/04/21 History tacrolimus 1 mg capsule, 1 mg PO BID 09/09/20 02/04/21 History immediate-release vitamin E 100 unit capsule 100 unit PO UD 09/09/20 02/04/21 History acetaminophen 325 mg tablet 650 mg PO TID 02/04/21 02/04/21 History (Tylenol) amitriptyline 150 mg tablet 150 mg PO HS 02/04/21 02/04/21 History aspirin 81 mg tablet,delayed 81 mg PO DAILY 02/04/21 02/04/21 History release bisacodyl 10 mg rectal suppository 10 mg MA DAILY PRN 02/04/21 02/04/21 History collagenase clostridium histo. 250 1 applic TOPICAL DAILY 02/04/21 02/04/21 History unit/gram topical ointment (Santyl) nitroglycerin 0.4 mg sublingual 0.4 mg SUBLINGUAL DIRECTED PRN 02/04/21 02/04/21 History tablet omeprazole 20 mg capsule,delayed 20 mg PO DAILY 02/04/21 02/04/21 History release sennosides 8.6 mg tablet (senna) 8.6 mg PO BID 02/04/21 02/04/21 History vitamin B complex and vitamin C 1 cap PO DAILY 02/04/21 02/04/21 History no.20-folic acid 1 mg capsule Patient History Medical History Anemia in chronic kidney disease, on chronic dialysis CAD (coronary artery disease) Cerebral palsy ataxic Diabetes mellitus type II, uncontrolled Diastolic congestive heart failure ESRD (end stage renal disease) on dialysis Essential hypertension Foot deformity, congenital GERD (gastroesophageal reflux disease) Hepatitis B History of AR (myocardial infarction) Liver transplant recipient Osteoporosis Presence of stent in coronary artery in patient with coronary artery disease Secondary hyperparathyroidism of renal origin Surgical History History of repair of hip fracture History of right hip replacement S/P liver transplant Family History Other Unknown family medical history Social History Smoking Status: Never smoker Hx Alcohol Use: No Hx Substance Use: No Preferred Language: Portuguese Communication Ability: Effective Car Hop Required: No Beliefs That Will Affect Care: None marital status: Single Current Living Situation: Snf Feels Safe at Home: Yes Assistive Devices: Wheelchair Review of Systems Review of Systems: All systems reviewed & are unremarkable except as noted in HPI & below Physical Exam Constitutional: well developed, well nourished and average body habitus; no acute distress Eyes: EOM intact bilaterally ENMT: Ears: no external ear abnormality Nose: no external nose abnormality Mouth: + dry oral mucous membranes Neck: no nuchal rigidity Respiratory: normal respiratory effort Auscultation: + diminished lung sounds Cardiovascular: Rate/Rhythm: regular rate and regular rhythm Extremities: + edema and + AV fistula (+ t/b) Gastrointestinal (Abdomen): Inspection/Auscultation: normal bowel sounds Percussion/Palpation: abdomen soft; abdomen nontender Musculoskeletal: Extremities: strength 5/5 throughout Skin: no rashes, warm and dry Neurologic: louie, fluent speech, no tremor Psychiatric: Orientation: oriented x 3 Affect: + constricted affect Results & Data ([facility]) Vital Signs (Past 12 Hours) Vital Signs Temp Pulse Pulse Pulse Resp BP BP 02/05/21 16:11 36.5 C 88 16 133/85 02/05/21 16:00 90 02/05/21 12:55 36.7 C 88 116/74 02/05/21 12:40 87 106/69 02/05/21 12:30 90 113/74 02/05/21 12:20 87 88/62 L 02/05/21 12:00 36.3 C L 88 85 20 89/64 L 113/74 02/05/21 11:40 86 105/69 02/05/21 11:20 88 84/64 L 02/05/21 11:00 87 99/62 L 02/05/21 10:40 86 101/72 02/05/21 10:20 85 113/74 02/05/21 10:00 83 114/74 02/05/21 09:40 81 119/76 02/05/21 09:20 74 127/78 02/05/21 09:10 36.6 C 74 02/05/21 08:00 71 02/05/21 07:20 36.8 C 71 16 139/78 Pulse Ox 02/05/21 16:11 96 02/05/21 16:00 02/05/21 12:55 02/05/21 12:40 02/05/21 12:30 02/05/21 12:20 02/05/21 12:00 97 02/05/21 11:40 02/05/21 11:20 02/05/21 11:00 02/05/21 10:40 02/05/21 10:20 02/05/21 10:00 02/05/21 09:40 02/05/21 09:20 02/05/21 09:10 02/05/21 08:00 02/05/21 07:20 98 Laboratory Results 02/05/21 05:15 02/05/21 05:15
[2021-02-05] MEDS: INSULIN GLARGINE SOLOSTAR 100 UNITS/ML 3 ML PEN SC SCH (21:30)
[2021-02-05] MEDS: carvediloL 3.125 MG TAB PO SCH (21:43)
[2021-02-06 05:02] LABS: Hematocrit (blood only) 25.4 % (42-52); Hemoglobin 8.1 g/dL (14.0-18.0); Mean Corpuscular Hemoglobin 32.4 pg (25-34); Mean Corpuscular Hgb Conc 31.9 g/dL (32-36); Mean Corpuscular Volume 101.6 fL (80-100); RDW Coefficient of Variation 15.8 % (11.5-14.5); White Blood Count 6.19 K/uL (4.8-10.8)
[2021-02-06 05:15] LABS: Mean Platelet Volume 9.2 fL (7.4-10.4); Platelet Count 77 K/uL (130-400)
[2021-02-06 05:35] LABS: BUN Creatinine Ratio 10.4 (10-20); Calcium 8.2 mg/dl (8.5-10.1); Creatinine Clr Calc Pharmacy 18.2 ml/min; Est GFR (African American) 17.8 ml/min; Est GFR (Non-African American) 15.3 ml/min
[2021-02-06 05:44] LABS: Basophils # (auto) 0.03 K/uL (0-0.2); Basophils % (auto) 0.5 %; Eosinophils # (auto) 0.08 K/uL (0-0.5); Eosinophils % (auto) 1.3 %; Lymphocytes # (auto) 2.69 K/uL (1.2-3.4); Lymphocytes % (auto) 43.5 %; Monocytes # (auto) 0.53 K/uL (0.11-0.59); Monocytes % (auto) 8.6 %; Neutrophils # (auto) 2.86 K/uL (1.4-6.5); Neutrophils % (auto) 46.1 %; RBC Morphology Unremarkable
--- NOTE | 2021-02-06 06:00 | Electrocardiogram Report ---
Test Reason : Blood Pressure : / mmHG Vent. Rate : 072 BPM Atrial Rate : 072 BPM P-R Int : 000 ms QRS Dur : 132 ms QT Int : 440 ms P-R-T Axes : 000 029 042 degrees QTc Int : 481 ms Normal sinus rhythm Right bundle branch block Septal infarct , age undetermined Possible Inferior infarct , age undetermined Abnormal ECG When compared with ECG of 09-SEP-2020 15:30, Sinus rhythm has replaced Junctional rhythm Confirmed by Marcelo Garcia ([id number]) on 02/06/2021 5:59:49 AM Referred By: Confirmed By:Marcelo Garcia
[2021-02-06 07:39] LABS: Potassium 3.9 mmol/L (3.5-5.1)
--- NOTE | 2021-02-06 07:42 | CT Scan Report ---
CT OF THE HEAD WITHOUT CONTRAST CLINICAL HISTORY: Altered mental status. COMPARISON STUDY: Head CT and MRI of brain February 04, 2021. CT DOSE: 638.56 mGycm TECHNIQUE: Helical axial images of the head were obtained without IV contrast. Automated exposure con trol was utilized for the study. A dose lowering technique was utilized adhering to the principles o f ALARA. FINDINGS: No acute intracranial hemorrhage, midline shift or mass effect is present. Ventricular syst em is stable. Basal cisterns are patent. Prominence of the extra-axial spaces is unchanged and due to atrophy. White matter hypodensity suggests small vessel disease. These are unchanged. There are no f indings to suggest acute dural sinus thrombosis or acute territorial infarct. Right maxillary sinus i s opacified. This is likely chronic. As before, the left mastoid air cells are largely opacified. The re is no acute calvarial fracture. IMPRESSION: No acute intracranial findings. No change in appearance of the brain. ACT 112: Negative or not required by law. Electronically signed by: Anuel Robertson M.D. 02/06/2021 7:40 AM
[2021-02-06] MEDS: SEVELAMER HCL 800 MG TABLET PO SCH ×3 (07:55→16:37)
[2021-02-06] MEDS: ASPIRIN 81 MG ECTAB PO SCH (07:56)
[2021-02-06] MEDS: INSULIN ASPART 100 UNITS/ML 3 ML PEN SC SCH ×4 (07:56→21:21)
[2021-02-06] MEDS: SENNA 8.6 MG TAB PO SCH ×2 (07:57→21:12)
[2021-02-06] MEDS: PANTOprazole 40 MG TAB PO SCH (07:57)
[2021-02-06] MEDS: NEPHROCAPS PO SCH (07:57)
[2021-02-06] MEDS: COLLAGENASE OINT 30 GM TUBE TOP SCH (07:57)
[2021-02-06] MEDS: PRAVASTATIN SOD 20 MG TAB PO SCH (07:57)
[2021-02-06] MEDS: allopurinoL 100 MG TAB PO SCH (07:57)
[2021-02-06] MEDS: TACROLIMUS 1 MG CAP PO SCH ×2 (07:57→21:12)
--- NOTE | 2021-02-06 12:39 | Hospitalist Progress Note ---
Date of Service February 06, 2021 Assessment & Plan (1) End stage chronic kidney disease: (2) Stroke-like episode: Plan: Strokelike symptoms Patient sent from dialysis center for concerns of TIA and altered mental status Patient AO x3 at baseline, LLE weakness noted Admitting CT head negative for acute findings Brain MRI - IMPRESSION: 1. No acute intracranial findings. 2. Prominence of the extra-axial CSF spaces which is due to atrophy. 3. White matter T2 hyperintense foci suggestive of small vessel disease. 4. Partially opacified left mastoid air cells. Carotid doppler - No significant atherosclerotic plaquing or significant flow limiting stenoses noted by velocity criteria bilaterally. There is retrograde flow within the vertebral artery on the right. There is mildly elevated m onophasic flow within the right subclavian artery when compared to the left. Echo - no change compared to previous study in June 2020. Normal LV chamber size with moderate concentric LVH. Low normal LV systolic function, EF 50 to 55%. No segmental LV wall motion abnormalities are noted. Grade 1 diastolic dysfunction. Aortic valve sclerosis mild, without significant aortic valvular stenosis. Mild aortic regurg. Mild to moderate mitral regurg. Mildly dilated aortic root measuring 4.1 cm. The interatrial septum is intact with no evidence for an atrial septal defect. Injection of contrast documented no interatrial shunt. Neurology consulted - suspect he had a near syncopal event - MRI scan has shown no acute event and a duplex of the carotids was unremarkable - at this point doubt that this was a TIA, suspect this may have been a transient hypotensive episode, have no basis to call this a seizure and really have no further recommendations about neurologic testing at this point ESRD on hemodialysis Patient undergoes hemodialysis Wednesday Nephrology consulted Last hemodialysis was on wednesday Patient missed dialysis Wednesday, and did not undergo dialysis on day of admission because of concerns of TIA and was sent to hospital for evaluation Reportedly missed dialysis on Wednesday because of possible GI bleed however patient cannot answer/further explain this Now s/p HD Acute on chronic anemia, GI bleed -Per chart review ([facility]), patient was admitted earlier in January because of malfunctioning AV fistula -During that hospital stay, after vascular procedure, he had a large bloody bowel movement, reportedly he also was evaluated for similar in late December -Reportedly patient had colonoscopy which revealed friable rectal mucosa, also removed polyp from sigmoid colon and cecum Hgb 8.1 (on admission above 10) FOBT positive monitor H&H GI consult Hip fracture Right hip fracture 2013, left hip fracture secondary to fall 1 month ago status post repair --> patient coming from prison PT/OT while inpatient Other chronic medical conditions: CAD, history of [place], HTN, HLD, anemia of chronic disease Resume home meds as appropriate Full code DVT prophylaxis: SCDs Admission and Anticipated Discharge Date Admission Date: February 04, 2021 Subjective Patient seen in follow-up of strokelike symptoms /word finding difficulty/presyncope, and end-stage renal disease on dialysis Currently laying in bed, in no acute distress He is alert oriented answering questions appropriately Denies any chest pain, shortness of breath, headache, also denies abdominal pain Hgb today (8.1, on admission above 10), FOBT positive GI consulted Review of Systems Review of Systems: All systems reviewed & are unremarkable except as noted in Subjective Physical Exam Physical Exam: GENERAL: Alert and oriented x3. NAD, on RA. HEENT: NC/AT. EOMI, PERRL. Oral mucosa moist. NECK: No JVD, no neck masses. HEART: S1 and S2 heard. Regular rate and rhythm. No murmur, no gallop. RESPIRATORY: Normal AP diameter. No accessory muscle use. No wheezing, no crackles. ABDOMEN: Soft, bowel sounds present, nontender, no distention. NEURO:Alert oriented answering most questions appropriately. No facial droop. Speech is clear. Moves extremities and as below. EXTREMITIES: No edema, no erythema seen. Bilateral upper extremity power 5 / 5; patient cannot move RLE chronically/spastic RLE from cerebral palsy; LLE power 3/5; right arm noted with dialysis catheter. Results & Data Results & Data ([facility]) Vital Signs (Past 12 Hours) Vital Signs Temp Pulse Pulse Pulse Resp BP Pulse Ox 02/06/21 11:44 37.0 C 72 20 109/66 100 02/06/21 08:00 65 02/06/21 07:12 37.0 C 72 22 122/71 100 02/06/21 04:00 36.7 C 73 16 111/63 95 Laboratory Results 02/06/21 02/06/21 02/06/21 Range/Units 11:13 07:10 04:22 WBC (4.8-10.8) K/uL RBC (4.7-6.1) M/uL Hgb (14.0-18.0) g/dL Hct (42-52) % MCV (80-100) fL MCH (25-34) pg MCHC (32-36) g/dL RDW Std Deviation (36.4-46.3) fL RDW Coeff of Dean (11.5-14.5) % Plt Count (130-400) K/uL MPV (7.4-10.4) fL Immature Gran % (Auto) % Neut % (Auto) % Lymph % (Auto) % [place] % (Auto) % Eos % (Auto) % Baso % (Auto) % Neut # (Auto) (1.4-6.5) K/uL Lymph # (Auto) (1.2-3.4) K/uL [place] # (Auto) (0.11-0.59) K/uL Eos # (Auto) (0-0.5) K/uL Baso # (Auto) (0-0.2) K/uL Immature Gran # (Auto) (0.00-0.02) K/uL RBC Morphology Sodium 137 (136-145) mmol/L Potassium 3.9 D (3.5-5.1) mmol/L Chloride 104 (98-107) mmol/L Carbon Dioxide 27 (21-32) mmol/L Anion Gap 6.0 (3-11) BUN 40 H (7-18) mg/dl Creatinine 3.82 H D (0.6-1.4) mg/dl Est Cr Clr Drug Dosing 18.2 ml/min Est GFR ( Amer) 17.8 ml/min Est GFR (Non-Af Amer) 15.3 ml/min BUN/Creatinine Ratio 10.4 (10-20) Glucose 66 L (70-99) mg/dl POC Glucose 143 H 79 (70-99) mg/dl Calcium 8.2 L (8.5-10.1) mg/dl Stool Occult Bld Scrn (Negative) 02/06/21 02/05/21 02/05/21 Range/Units 04:22 19:47 16:31 WBC 6.19 (4.8-10.8) K/uL RBC 2.50 L (4.7-6.1) M/uL Hgb 8.1 L (14.0-18.0) g/dL Hct 25.4 L (42-52) % MCV 101.6 H (80-100) fL MCH 32.4 (25-34) pg MCHC 31.9 L (32-36) g/dL RDW Std Deviation 58.0 H (36.4-46.3) fL RDW Coeff of Dean 15.8 H (11.5-14.5) % Plt Count 77 L (130-400) K/uL MPV 9.2 (7.4-10.4) fL Immature Gran % (Auto) 0.0 % Neut % (Auto) 46.1 % Lymph % (Auto) 43.5 % [place] % (Auto) 8.6 % Eos % (Auto) 1.3 % Baso % (Auto) 0.5 % Neut # (Auto) 2.86 (1.4-6.5) K/uL Lymph # (Auto) 2.69 (1.2-3.4) K/uL [place] # (Auto) 0.53 (0.11-0.59) K/uL Eos # (Auto) 0.08 (0-0.5) K/uL Baso # (Auto) 0.03 (0-0.2) K/uL Immature Gran # (Auto) 0.00 (0.00-0.02) K/uL RBC Morphology Unremarkable Sodium (136-145) mmol/L Potassium (3.5-5.1) mmol/L Chloride (98-107) mmol/L Carbon Dioxide (21-32) mmol/L Anion Gap (3-11) BUN (7-18) mg/dl Creatinine (0.6-1.4) mg/dl Est Cr Clr Drug Dosing ml/min Est GFR ( Amer) ml/min Est GFR (Non-Af Amer) ml/min BUN/Creatinine Ratio (10-20) Glucose (70-99) mg/dl POC Glucose 82 86 (70-99) mg/dl Calcium (8.5-10.1) mg/dl Stool Occult Bld Scrn (Negative) 02/05/21 02/05/21 Range/Units 14:15 12:39 WBC (4.8-10.8) K/uL RBC (4.7-6.1) M/uL Hgb (14.0-18.0) g/dL Hct (42-52) % MCV (80-100) fL MCH (25-34) pg MCHC (32-36) g/dL RDW Std Deviation (36.4-46.3) fL RDW Coeff of Dean (11.5-14.5) % Plt Count (130-400) K/uL MPV (7.4-10.4) fL Immature Gran % (Auto) % Neut % (Auto) % Lymph % (Auto) % [place] % (Auto) % Eos % (Auto) % Baso % (Auto) % Neut # (Auto) (1.4-6.5) K/uL Lymph # (Auto) (1.2-3.4) K/uL [place] # (Auto) (0.11-0.59) K/uL Eos # (Auto) (0-0.5) K/uL Baso # (Auto) (0-0.2) K/uL Immature Gran # (Auto) (0.00-0.02) K/uL RBC Morphology Sodium (136-145) mmol/L Potassium (3.5-5.1) mmol/L Chloride (98-107) mmol/L Carbon Dioxide (21-32) mmol/L Anion Gap (3-11) BUN (7-18) mg/dl Creatinine (0.6-1.4) mg/dl Est Cr Clr Drug Dosing ml/min Est GFR ( Amer) ml/min Est GFR (Non-Af Amer) ml/min BUN/Creatinine Ratio (10-20) Glucose (70-99) mg/dl POC Glucose 98 (70-99) mg/dl Calcium (8.5-10.1) mg/dl Stool Occult Bld Scrn Positive A (Negative) Medications Administered Current Inpatient Medications Acetaminophen (Acetaminophen 325 Mg Tab) 650 mg PO Q4H PRN PRN Reason: Pain or Fever Stop: 03/06/21 18:54 Allopurinol (Allopurinol 100 Mg Tab) 100 mg PO QAM [facility] Stop: 03/07/21 08:59 Last Admin: 02/06/21 07:57 Dose: 100 mg Documented by: Aspirin (Aspirin 81 Mg Ectab) 81 mg PO DAILY ZOEY Stop: 03/07/21 08:59 Last Admin: 02/06/21 07:56 Dose: 81 mg Documented by: Bisacodyl (Bisacodyl 10 Mg Supp) 10 mg WI DAILY PRN PRN Reason: Constipation Stop: 03/06/21 18:54 Carvedilol (Carvedilol 3.125 Mg Tab) 3.125 mg PO HS ZOEY Stop: 03/06/21 20:59 Last Admin: 02/05/21 21:43 Dose: 3.125 mg Documented by: Collagenase (Collagenase Oint 30 Gm Tube) 1 appln TOP DAILY ZOEY Stop: 03/07/21 08:59 Last Admin: 02/06/21 07:57 Dose: 1 appln Documented by: Dextrose (Dextrose 50% 50 Ml Syringe) 25 - 50 ml IV UD PRN; Protocol PRN Reason: Hypoglycemia Protocol Stop: 03/06/21 18:54 Glucagon (Glucagon For Inj 1 Mg Vial) 1 mg SQ UD PRN; Protocol PRN Reason: Hypoglycemia Protocol Stop: 03/06/21 18:54 Glucose (Glucose 10 Tabs/Tube) 4 - 8 tabs PO UD PRN; Protocol PRN Reason: Hypoglycemia Protocol Stop: 03/06/21 18:54 Glucose (Glucose 40% Gel 15 Gm Tube) 15 - 30 gm PO UD PRN; Protocol PRN Reason: Hypoglycemia Protocol Stop: 03/06/21 18:54 Pantoprazole Sodium 40 mg/ (Syringe) 10 mls @ 5 mls/min IV BID ZOEY Stop: 03/08/21 12:29 Insulin Aspart (Insulin Aspart 100 Units/Ml 3 Ml Pen) 0 units SC ACHS ZOEY Stop: 03/06/21 20:59 Last Admin: 02/06/21 12:36 Dose: 5 units Documented by: Insulin Glargine (Insulin Glargine Solostar 100 Units/Ml 3 Ml Pen) 0 - 24 units SC HS ZOEY; Protocol Stop: 03/06/21 20:59 Last Admin: 02/05/21 21:30 Dose: Not Given Documented by: Miscellaneous (Carbohydrates For Hypoglycemia ) 15 - 30 gm PO UD PRN PRN Reason: Hypoglycemia Protocol Stop: 03/06/21 18:54 Miscellaneous Information (Pharmacist Discharge Med Rec Consult) 1 ea N/A UD PRN PRN Reason: Consult Stop: 03/06/21 18:54 Ondansetron HCl (Ondansetron Inj 2 Mg/Ml 2 Ml Vial) 4 mg IV Q6H PRN PRN Reason: Nausea Stop: 03/06/21 18:54 Pantoprazole Sodium (Pantoprazole 40 Mg Tab) 40 mg PO DAILY ZOEY Stop: 03/07/21 08:59 Last Admin: 02/06/21 07:57 Dose: 40 mg Documented by: Polyethylene Glycol (Polyethylene (Miralax) 17 Gm Pack) 17 gm PO DAILY PRN PRN Reason: Constipation Stop: 03/06/21 18:54 Pravastatin Sodium (Pravastatin Sod 20 Mg Tab) 20 mg PO QAM [facility] Stop: 03/07/21 08:59 Last Admin: 02/06/21 07:57 Dose: 20 mg Documented by: Sennosides (Senna 8.6 Mg Tab) 8.6 mg PO BID [facility] Stop: 03/06/21 20:59 Last Admin: 02/06/21 07:57 Dose: 8.6 mg Documented by: Sevelamer HCl (Sevelamer Hcl 800 Mg Tablet) 800 mg PO TIDM [facility] Stop: 03/06/21 19:59 Last Admin: 02/06/21 12:34 Dose: 800 mg Documented by: Tacrolimus (Tacrolimus 1 Mg Cap) 1 mg PO BID [facility] Stop: 03/06/21 20:59 Last Admin: 02/06/21 07:57 Dose: 1 mg Documented by: Vitamin B Complex/Folic Acid (Nephrocaps) 1 cap PO DAILY [facility] Stop: 03/07/21 08:59 Last Admin: 02/06/21 07:57 Dose: 1 cap Documented by: Vitamin E (Tocopheryl, Dl-Alpha 100 Units Cap) 100 units PO [id number] [facility] Stop: 03/07/21 08:59 Last Admin: 02/05/21 08:15 Dose: 100 units Documented by:
[2021-02-06] MEDS: PANTOprazole 40 MG in SYRINGE 0 ML IV SCH ×2 (13:17→21:12)
[2021-02-06 17:36] LABS: Appearance Urine Turbid (Clear); Bacteria Urine Automated 4+ (Negative); Bilirubin Urine Negative (Negative); Blood Urine 3+ (Negative); Color Urine Yellow; Epithelial Cell Urine Auto >30 /lpf (0-5); Glucose Urine UA Negative (Negative); Ketones Urine Negative (Negative); Leukocyte Esterase Urine 3+ (Negative); Nitrite Urine Negative (Negative); Specific Gravity Urine 1.014 (1.000-1.030); Urobilinogen Urine Negative (Negative); WBC Urine Automated >30 /hpf (0-5)
[2021-02-06 17:47] LABS: Protein Urine 3+ (Negative)
[2021-02-06 17:48] LABS: Cast Urine Automated 0 /lpf (0-5)
[2021-02-06] MEDS: carvediloL 3.125 MG TAB PO SCH (21:12)
[2021-02-06] MEDS: INSULIN GLARGINE SOLOSTAR 100 UNITS/ML 3 ML PEN SC SCH (21:12)
[2021-02-07] MEDS: cefTRIAXone SODIUM 1,000 MG in DEXTROSE 5% 50 ML IV SCH (01:33)
[2021-02-07 04:47] LABS: Hematocrit (blood only) 25.5 % (42-52); Mean Corpuscular Hgb Conc 31.4 g/dL (32-36); RDW Coefficient of Variation 15.5 % (11.5-14.5); RDW Standard Deviation 57.1 fL (36.4-46.3); White Blood Count 5.04 K/uL (4.8-10.8)
[2021-02-07 04:51] LABS: Mean Platelet Volume 8.4 fL (7.4-10.4); Platelet Count 74 K/uL (130-400)
[2021-02-07 05:29] LABS: BUN Creatinine Ratio 10.5 (10-20); Calcium 7.9 mg/dl (8.5-10.1); Creatinine Clr Calc Pharmacy 13.9 ml/min; Est GFR (African American) 12.9 ml/min; Est GFR (Non-African American) 11.1 ml/min; Potassium 3.8 mmol/L (3.5-5.1)
[2021-02-07 05:36] LABS: ALC (manual) 2.34 K/uL (1.2-3.4); ANC (manual) 2.25 K/uL (1.4-6.5); Large Granular Lymph # (manua 1.59 K/uL; Large Granular Lymph % (manual) 31.6 %; Lymphocytes # (manual) 0.75 K/uL (1.2-3.4); Lymphocytes % (manual) 14.9 %; Monocytes # (manual) 0.44 K/uL (0.11-0.59); Monocytes % (manual) 8.8 %; Neutrophils # (manual) 2.25 K/uL (1.4-6.5); Neutrophils % (manual) 44.7 %; RBC Morphology Unremarkable
[2021-02-07] MEDS ORDERED: HEPARIN SOD (PORCINE) 1000 UNIT/ML IV SCH (07:00)
[2021-02-07] MEDS ORDERED: EPOETIN ALFA 20,000 UNITS/ML VIAL IV SCH (07:00)
[2021-02-07] MEDS ORDERED: SODIUM CHLORIDE 0.9% 1000ML 1,000 ML IV PRN (07:00)
[2021-02-07] MEDS: INSULIN ASPART 100 UNITS/ML 3 ML PEN SC SCH ×4 (08:45→20:38)
[2021-02-07] MEDS: SEVELAMER HCL 800 MG TABLET PO SCH ×2 (08:49→11:29)
[2021-02-07] MEDS: TACROLIMUS 1 MG CAP PO SCH ×2 (08:50→20:39)
[2021-02-07] MEDS: PRAVASTATIN SOD 20 MG TAB PO SCH (08:50)
[2021-02-07] MEDS: PANTOprazole 40 MG in SYRINGE 0 ML IV SCH ×2 (08:50→21:40)
[2021-02-07] MEDS: NEPHROCAPS PO SCH (08:50)
[2021-02-07] MEDS: TOCOPHERYL, DL-ALPHA 100 UNITS CAP PO SCH (08:50)
[2021-02-07] MEDS: SENNA 8.6 MG TAB PO SCH ×2 (08:50→20:40)
[2021-02-07] MEDS: allopurinoL 100 MG TAB PO SCH (08:51)
[2021-02-07] MEDS: COLLAGENASE OINT 30 GM TUBE TOP SCH (08:51)
[2021-02-07] MEDS: CARBOHYDRATES FOR HYPOGLYCEMIA PO PRN ×2 (11:27→12:00)
--- NOTE | 2021-02-07 13:11 | Gastrointestinal Consultation ---
Date of Consultation February 07, 2021 Assessment & Plan (1) TIA (transient ischemic attack): (2) Anemia in chronic kidney disease, on chronic dialysis: Pt is a 65 y/o male w hx of liver transplant for Hep B, ESRD on HD, CP, who was admitted for possible TIA. He is anemic on presentation, reported hx of rectal bleeding days ago. However no signs of continued GI bleeding since then. Colonoscopy <1 months showed friable rectal mucosa. - No indication for endoscopic workup as no further signs of GI bleeding - Would advanced diet as tolerated - May consider outpt EGD eval for anemia after his DC home - PPI daily - Pls recall GI prn Supervising Physician Co-Signing Physician Notes I have personally seen and examined the patient with SÁNCHEZ May. Her note reflects my exam and findings. I agree with her impression and plan. Out patient f/u with regular GI providers for continuity of care. Lance Ziegler M.D. History of Present Illness Reason for Consultation: Gi bleeding Requesting Physician: Dr. Russ Guajardo Attending Physician: Dr. Lance Ziegler History of Present Illness Pt is a 65 yo male w PMHx below who presented with with AMS, suspected TIA. Neurology on board. GI was consulted as pt reported rectal bleeding few days ago and his dialysis was cancelled because of this. He has anemia, Hgb 10 -> 8 but no signs of GI bleeding since admitted. He did have a colonoscopy by Dr. Youssef earlier this month and noted to have friable rectal mucosa. No EGD on record. On exam, no signs of abd pain, n/v. He takes ASA 81mg daily, no anticoagulants Allergies Allergy/AdvReac Type Severity Reaction Status Date / Time sorbitol Allergy Verified 02/05/21 15:52 oxycodone AdvReac Intermediate OVER Verified 02/04/21 16:15 SEDATION Home Medications Medication Instructions Recorded Confirmed Type allopurinol 100 mg tablet 100 mg PO QAM 09/09/20 02/04/21 History carvedilol 3.125 mg tablet 3.125 mg PO HS 09/09/20 02/04/21 History entecavir 0.5 mg tablet 0.5 mg PO QAM 09/09/20 02/04/21 History insulin aspart U-100 100 unit/mL See Rx Instructions .ROUTE .COMPLEX 09/09/20 02/04/21 History (3 mL) subcutaneous pen (Novolog Flexpen U-100 Insulin aspart) insulin glargine 100 unit/mL (3 30 unit SUBCUT HS 09/09/20 02/04/21 History mL) subcutaneous pen (Lantus Solostar U-100 Insulin) pravastatin 20 mg tablet 20 mg PO QAM 09/09/20 02/04/21 History sevelamer carbonate 800 mg tablet 800 mg PO TID 09/09/20 02/04/21 History tacrolimus 1 mg capsule, 1 mg PO BID 09/09/20 02/04/21 History immediate-release vitamin E 100 unit capsule 100 unit PO UD 09/09/20 02/04/21 History acetaminophen 325 mg tablet 650 mg PO TID 02/04/21 02/04/21 History (Tylenol) amitriptyline 150 mg tablet 150 mg PO HS 02/04/21 02/04/21 History aspirin 81 mg tablet,delayed 81 mg PO DAILY 02/04/21 02/04/21 History release bisacodyl 10 mg rectal suppository 10 mg [place] DAILY PRN 02/04/21 02/04/21 History collagenase clostridium histo. 250 1 applic TOPICAL DAILY 02/04/21 02/04/21 History unit/gram topical ointment (Santyl) nitroglycerin 0.4 mg sublingual 0.4 mg SUBLINGUAL DIRECTED PRN 02/04/21 02/04/21 History tablet omeprazole 20 mg capsule,delayed 20 mg PO DAILY 02/04/21 02/04/21 History release sennosides 8.6 mg tablet (senna) 8.6 mg PO BID 02/04/21 02/04/21 History vitamin B complex and vitamin C 1 cap PO DAILY 02/04/21 02/04/21 History no.20-folic acid 1 mg capsule Patient History Medical History Anemia in chronic kidney disease, on chronic dialysis CAD (coronary artery disease) Cerebral palsy ataxic Diabetes mellitus type II, uncontrolled Diastolic congestive heart failure ESRD (end stage renal disease) on dialysis Essential hypertension Foot deformity, congenital GERD (gastroesophageal reflux disease) Hepatitis B History of NC (myocardial infarction) Liver transplant recipient Osteoporosis Presence of stent in coronary artery in patient with coronary artery disease Secondary hyperparathyroidism of renal origin Surgical History History of repair of hip fracture History of right hip replacement S/P liver transplant Family History Other Unknown family medical history Social History Smoking Status: Never smoker Hx Alcohol Use: No Hx Substance Use: No Preferred Language: Polish Communication Ability: Effective Mosaic Tile Maker Required: No Beliefs That Will Affect Care: None marital status: Single Current Living Situation: Long Term Feels Safe at Home: Yes Review of Systems Review of Systems: All systems reviewed & are unremarkable except as noted in HPI & below Physical Exam Constitutional: WD/WN, vitals as above well groomed, cooperative and comfortable Eyes: PERRL, conjunctivae normal, anicteric sclerae ENMT: external ear and nose normal, oropharynx normal Respiratory: normal respiratory effort, lungs clear to auscultation Cardiovascular: RRR, no murmur, no edema Gastrointestinal (Abdomen): normal bowel sounds, soft, nontender, no hepatosplenomegaly Skin: no rashes, warm and dry no jaundice Psychiatric: A+Ox3, euthymic affect Lymphatic: no lymphedema Results & Data ([facility]) Vital Signs (Past 12 Hours) Vital Signs Temp Pulse Pulse Resp BP Pulse Ox 02/07/21 12:21 36.8 C 82 14 152/85 H 94 02/07/21 07:14 36.7 C 71 18 155/86 H 98 02/07/21 03:20 36.8 C 64 21 136/79 94
--- NOTE | 2021-02-07 15:29 | Hospitalist Progress Note ---
Date of Service February 07, 2021 Assessment & Plan (1) End stage chronic kidney disease: (2) Stroke-like episode: Plan: Strokelike symptoms Patient sent from dialysis center for concerns of TIA and altered mental status Patient AO x3 at baseline, LLE weakness noted Admitting CT head negative for acute findings Brain MRI - IMPRESSION: 1. No acute intracranial findings. 2. Prominence of the extra-axial CSF spaces which is due to atrophy. 3. White matter T2 hyperintense foci suggestive of small vessel disease. 4. Partially opacified left mastoid air cells. Carotid doppler - No significant atherosclerotic plaquing or significant flow limiting stenoses noted by velocity criteria bilaterally. There is retrograde flow within the vertebral artery on the right. There is mildly elevated m onophasic flow within the right subclavian artery when compared to the left. Echo - no change compared to previous study in June 2020. Normal LV chamber size with moderate concentric LVH. Low normal LV systolic function, EF 50 to 55%. No segmental LV wall motion abnormalities are noted. Grade 1 diastolic dysfunction. Aortic valve sclerosis mild, without significant aortic valvular stenosis. Mild aortic regurg. Mild to moderate mitral regurg. Mildly dilated aortic root measuring 4.1 cm. The interatrial septum is intact with no evidence for an atrial septal defect. Injection of contrast documented no interatrial shunt. Neurology consulted - suspect he had a near syncopal event - MRI scan has shown no acute event and a duplex of the carotids was unremarkable - at this point doubt that this was a TIA, suspect this may have been a transient hypotensive episode, have no basis to call this a seizure and really have no further recommendations about neurologic testing at this point ESRD on hemodialysis Patient undergoes hemodialysis Wednesday Nephrology consulted Last hemodialysis was on wednesday Patient missed dialysis Wednesday, and did not undergo dialysis on day of admission because of concerns of TIA and was sent to hospital for evaluation Reportedly missed dialysis on Wednesday because of possible GI bleed however patient cannot answer/further explain this Now s/p HD Acute on chronic anemia, GI bleed -Per chart review ([facility]), patient was admitted earlier in January because of malfunctioning AV fistula -During that hospital stay, after vascular procedure, he had a large bloody bowel movement, reportedly he also was evaluated for similar in late December -Reportedly patient had colonoscopy which revealed friable rectal mucosa, also removed polyp from sigmoid colon and cecum Hgb 8.1 (on admission above 10) FOBT positive monitor H&H GI consulted - No indication for endoscopic workup as no further signs of GI bleeding, consider outpt EGD eval for anemia after his DC home - PPI daily UTI - UA c/w UTI, started empirically on ceftriaxone Hip fracture Right hip fracture 2013, left hip fracture secondary to fall 1 month ago status post repair --> patient coming from alf PT/OT while inpatient Other chronic medical conditions: CAD, history of MD, HTN, HLD, anemia of chronic disease Resume home meds as appropriate Full code DVT prophylaxis: SCDs Admission and Anticipated Discharge Date Admission Date: February 06, 2021 Subjective Patient seen in follow-up of strokelike symptoms /word finding difficulty/presyncope, and end-stage renal disease on dialysis Currently laying in bed, in no acute distress He is alert oriented answering questions appropriately Denies any chest pain, shortness of breath, headache, also denies abdominal pain Hgb down from admission, FOBT positive GI consulted Review of Systems Review of Systems: All systems reviewed & are unremarkable except as noted in Subjective Physical Exam Physical Exam: GENERAL: Alert and oriented x3. NAD, on RA. HEENT: NC/AT. EOMI, PERRL. Oral mucosa moist. NECK: No JVD, no neck masses. HEART: S1 and S2 heard. Regular rate and rhythm. No murmur, no gallop. RESPIRATORY: Normal AP diameter. No accessory muscle use. No wheezing, no crackles. ABDOMEN: Soft, bowel sounds present, nontender, no distention. NEURO:Alert oriented answering most questions appropriately. No facial droop. Speech is clear. Moves extremities and as below. EXTREMITIES: No edema, no erythema seen. Bilateral upper extremity power 5 / 5; patient cannot move RLE chronically/spastic RLE from cerebral palsy; LLE power 3/5; right arm noted with dialysis catheter. Results & Data Results & Data ([facility]) Vital Signs (Past 12 Hours) Vital Signs Temp Pulse Resp BP Pulse Ox 02/07/21 12:21 36.8 C 82 14 152/85 H 94 02/07/21 07:14 36.7 C 71 18 155/86 H 98 Laboratory Results 02/07/21 02/07/21 02/07/21 Range/Units 12:48 11:54 11:21 WBC (4.8-10.8) K/uL RBC (4.7-6.1) M/uL Hgb (14.0-18.0) g/dL Hct (42-52) % MCV (80-100) fL MCH (25-34) pg MCHC (32-36) g/dL RDW Std Deviation (36.4-46.3) fL RDW Coeff of Dean (11.5-14.5) % Plt Count (130-400) K/uL MPV (7.4-10.4) fL Neutrophils % (Manual) % Lymphocytes % (Manual) % Monocytes % (Manual) % Neutrophils # (Manual) (1.4-6.5) K/uL Total Absolute Neuts (1.4-6.5) K/uL Lymphocytes # (Manual) (1.2-3.4) K/uL Total Abs Lymphocytes (1.2-3.4) K/uL Monocytes # (Manual) (0.11-0.59) K/uL Large Granular Lymphs % # Lrg Granular Lymphs K/uL RBC Morphology Sodium (136-145) mmol/L Potassium (3.5-5.1) mmol/L Chloride (98-107) mmol/L Carbon Dioxide (21-32) mmol/L Anion Gap (3-11) BUN (7-18) mg/dl Creatinine (0.6-1.4) mg/dl Est Cr Clr Drug Dosing ml/min Est GFR ( Amer) ml/min Est GFR (Non-Af Amer) ml/min BUN/Creatinine Ratio (10-20) Glucose (70-99) mg/dl POC Glucose 109 H 62 L* 46 L* (70-99) mg/dl Calcium (8.5-10.1) mg/dl Urine Color Urine Appearance (Clear) Urine pH (4.5-7.5) Ur Specific [place] (1.000-1.030) Urine Protein (Negative) Urine Glucose (UA) (Negative) Urine Ketones (Negative) Urine Blood (Negative) Urine Nitrite (Negative) Urine Bilirubin (Negative) Urine Urobilinogen (Negative) Ur Leukocyte Esterase (Negative) Urine WBC (Auto) (0-5) /hpf Urine RBC (Auto) (0-4) /hpf U Hyaline Cast (Auto) (0-5) /lpf U Epithel Cells (Auto) (0-5) /lpf Urine Bacteria (Auto) (Negative) Urine Yeast 02/07/21 02/07/21 02/07/21 Range/Units 11:20 06:43 05:59 WBC (4.8-10.8) K/uL RBC (4.7-6.1) M/uL Hgb (14.0-18.0) g/dL Hct (42-52) % MCV (80-100) fL MCH (25-34) pg MCHC (32-36) g/dL RDW Std Deviation (36.4-46.3) fL RDW Coeff of Dean (11.5-14.5) % Plt Count (130-400) K/uL MPV (7.4-10.4) fL Neutrophils % (Manual) % Lymphocytes % (Manual) % Monocytes % (Manual) % Neutrophils # (Manual) (1.4-6.5) K/uL Total Absolute Neuts (1.4-6.5) K/uL Lymphocytes # (Manual) (1.2-3.4) K/uL Total Abs Lymphocytes (1.2-3.4) K/uL Monocytes # (Manual) (0.11-0.59) K/uL Large Granular Lymphs % # Lrg Granular Lymphs K/uL RBC Morphology Sodium (136-145) mmol/L Potassium (3.5-5.1) mmol/L Chloride (98-107) mmol/L Carbon Dioxide (21-32) mmol/L Anion Gap (3-11) BUN (7-18) mg/dl Creatinine (0.6-1.4) mg/dl Est Cr Clr Drug Dosing ml/min Est GFR ( Amer) ml/min Est GFR (Non-Af Amer) ml/min BUN/Creatinine Ratio (10-20) Glucose (70-99) mg/dl POC Glucose 49 L* 96 59 L* (70-99) mg/dl Calcium (8.5-10.1) mg/dl Urine Color Urine Appearance (Clear) Urine pH (4.5-7.5) Ur Specific [place] (1.000-1.030) Urine Protein (Negative) Urine Glucose (UA) (Negative) Urine Ketones (Negative) Urine Blood (Negative) Urine Nitrite (Negative) Urine Bilirubin (Negative) Urine Urobilinogen (Negative) Ur Leukocyte Esterase (Negative) Urine WBC (Auto) (0-5) /hpf Urine RBC (Auto) (0-4) /hpf U Hyaline Cast (Auto) (0-5) /lpf U Epithel Cells (Auto) (0-5) /lpf Urine Bacteria (Auto) (Negative) Urine Yeast 02/07/21 02/07/21 02/07/21 Range/Units 05:57 04:36 04:36 WBC 5.04 (4.8-10.8) K/uL RBC 2.50 L (4.7-6.1) M/uL Hgb 8.0 L (14.0-18.0) g/dL Hct 25.5 L (42-52) % MCV 102.0 H (80-100) fL MCH 32.0 (25-34) pg MCHC 31.4 L (32-36) g/dL RDW Std Deviation 57.1 H (36.4-46.3) fL RDW Coeff of Dean 15.5 H (11.5-14.5) % Plt Count 74 L (130-400) K/uL MPV 8.4 (7.4-10.4) fL Neutrophils % (Manual) 44.7 % Lymphocytes % (Manual) 14.9 % Monocytes % (Manual) 8.8 % Neutrophils # (Manual) 2.25 (1.4-6.5) K/uL Total Absolute Neuts 2.25 (1.4-6.5) K/uL Lymphocytes # (Manual) 0.75 L (1.2-3.4) K/uL Total Abs Lymphocytes 2.34 (1.2-3.4) K/uL Monocytes # (Manual) 0.44 (0.11-0.59) K/uL Large Granular Lymphs 31.6 % # Lrg Granular Lymphs 1.59 K/uL RBC Morphology Unremarkable Sodium 138 (136-145) mmol/L Potassium 3.8 (3.5-5.1) mmol/L Chloride 105 (98-107) mmol/L Carbon Dioxide 29 (21-32) mmol/L Anion Gap 4.0 (3-11) BUN 52 H (7-18) mg/dl Creatinine 4.99 H* D (0.6-1.4) mg/dl Est Cr Clr Drug Dosing 13.9 ml/min Est GFR ( Amer) 12.9 ml/min Est GFR (Non-Af Amer) 11.1 ml/min BUN/Creatinine Ratio 10.5 (10-20) Glucose 82 (70-99) mg/dl POC Glucose 63 L* (70-99) mg/dl Calcium 7.9 L (8.5-10.1) mg/dl Urine Color Urine Appearance (Clear) Urine pH (4.5-7.5) Ur Specific [place] (1.000-1.030) Urine Protein (Negative) Urine Glucose (UA) (Negative) Urine Ketones (Negative) Urine Blood (Negative) Urine Nitrite (Negative) Urine Bilirubin (Negative) Urine Urobilinogen (Negative) Ur Leukocyte Esterase (Negative) Urine WBC (Auto) (0-5) /hpf Urine RBC (Auto) (0-4) /hpf U Hyaline Cast (Auto) (0-5) /lpf U Epithel Cells (Auto) (0-5) /lpf Urine Bacteria (Auto) (Negative) Urine Yeast 02/06/21 02/06/21 02/06/21 Range/Units 20:08 17:10 16:32 WBC (4.8-10.8) K/uL RBC (4.7-6.1) M/uL Hgb (14.0-18.0) g/dL Hct (42-52) % MCV (80-100) fL MCH (25-34) pg MCHC (32-36) g/dL RDW Std Deviation (36.4-46.3) fL RDW Coeff of Dean (11.5-14.5) % Plt Count (130-400) K/uL MPV (7.4-10.4) fL Neutrophils % (Manual) % Lymphocytes % (Manual) % Monocytes % (Manual) % Neutrophils # (Manual) (1.4-6.5) K/uL Total Absolute Neuts (1.4-6.5) K/uL Lymphocytes # (Manual) (1.2-3.4) K/uL Total Abs Lymphocytes (1.2-3.4) K/uL Monocytes # (Manual) (0.11-0.59) K/uL Large Granular Lymphs % # Lrg Granular Lymphs K/uL RBC Morphology Sodium (136-145) mmol/L Potassium (3.5-5.1) mmol/L Chloride (98-107) mmol/L Carbon Dioxide (21-32) mmol/L Anion Gap (3-11) BUN (7-18) mg/dl Creatinine (0.6-1.4) mg/dl Est Cr Clr Drug Dosing ml/min Est GFR ( Amer) ml/min Est GFR (Non-Af Amer) ml/min BUN/Creatinine Ratio (10-20) Glucose (70-99) mg/dl POC Glucose 204 H 177 H (70-99) mg/dl Calcium (8.5-10.1) mg/dl Urine Color Yellow Urine Appearance Turbid A (Clear) Urine pH 8.0 H (4.5-7.5) Ur Specific [place] 1.014 (1.000-1.030) Urine Protein 3+ H (Negative) Urine Glucose (UA) Negative (Negative) Urine Ketones Negative (Negative) Urine Blood 3+ H (Negative) Urine Nitrite Negative (Negative) Urine Bilirubin Negative (Negative) Urine Urobilinogen Negative (Negative) Ur Leukocyte Esterase 3+ H (Negative) Urine WBC (Auto) >30 H (0-5) /hpf Urine RBC (Auto) 5-10 H (0-4) /hpf U Hyaline Cast (Auto) 0 (0-5) /lpf U Epithel Cells (Auto) >30 H (0-5) /lpf Urine Bacteria (Auto) 4+ H (Negative) Urine Yeast Not Reportable Medications Administered Current Inpatient Medications Acetaminophen (Acetaminophen 325 Mg Tab) 650 mg PO Q4H PRN PRN Reason: Pain or Fever Stop: 03/06/21 18:54 Allopurinol (Allopurinol 100 Mg Tab) 100 mg PO QAM [facility] Stop: 03/07/21 08:59 Last Admin: 02/07/21 08:51 Dose: 100 mg Documented by: Aspirin (Aspirin 81 Mg Ectab) 81 mg PO DAILY [facility] Stop: 03/07/21 08:59 Last Admin: 02/06/21 07:56 Dose: 81 mg Documented by: Bisacodyl (Bisacodyl 10 Mg Supp) 10 mg [place] DAILY PRN PRN Reason: Constipation Stop: 03/06/21 18:54 Carvedilol (Carvedilol 3.125 Mg Tab) 3.125 mg PO HS [facility] Stop: 03/06/21 20:59 Last Admin: 02/06/21 21:12 Dose: 3.125 mg Documented by: Collagenase (Collagenase Oint 30 Gm Tube) 1 appln TOP DAILY [facility] Stop: 03/07/21 08:59 Last Admin: 02/07/21 08:51 Dose: 1 appln Documented by: Dextrose (Dextrose 50% 50 Ml Syringe) 25 - 50 ml IV UD PRN; Protocol PRN Reason: Hypoglycemia Protocol Stop: 03/06/21 18:54 Last Admin: 02/07/21 06:28 Dose: 25 ml Documented by: Epoetin Jc (Epoetin Jc 20,000 Units/Ml Vial) 20,000 units IV Fr@0700 [facility] Stop: 02/07/21 16:00 Glucagon (Glucagon For Inj 1 Mg Vial) 1 mg SQ UD PRN; Protocol PRN Reason: Hypoglycemia Protocol Stop: 03/06/21 18:54 Glucose (Glucose 10 Tabs/Tube) 4 - 8 tabs PO UD PRN; Protocol PRN Reason: Hypoglycemia Protocol Stop: 03/06/21 18:54 Glucose (Glucose 40% Gel 15 Gm Tube) 15 - 30 gm PO UD PRN; Protocol PRN Reason: Hypoglycemia Protocol Stop: 03/06/21 18:54 Heparin Sodium (Porcine) (Heparin Sod (Porcine) 1000 Unit/Ml) 1,000 units IV Fr@0700 [facility] Stop: 02/07/21 16:00 Pantoprazole Sodium 40 mg/ (Syringe) 10 mls @ 5 mls/min IV BID [facility] Stop: 03/08/21 12:29 Last Admin: 02/07/21 08:50 Dose: 5 mls/min Documented by: Ceftriaxone Sodium 1,000 mg/ (Dextrose) 50 mls @ 100 mls/hr IV Q24H [facility]; Protocol Stop: 02/17/21 00:59 Last Infusion: 02/07/21 02:03 Dose: Infused Documented by: Insulin Aspart (Insulin Aspart 100 Units/Ml 3 Ml Pen) 0 units SC ACHS [facility] Stop: 03/06/21 20:59 Last Admin: 02/07/21 11:29 Dose: Not Given Documented by: Insulin Glargine (Insulin Glargine Solostar 100 Units/Ml 3 Ml Pen) 0 - 24 units SC HS [facility]; Protocol Stop: 03/06/21 20:59 Last Admin: 02/06/21 21:12 Dose: 24 units Documented by: Miscellaneous (Carbohydrates For Hypoglycemia ) 15 - 30 gm PO UD PRN PRN Reason: Hypoglycemia Protocol Stop: 03/06/21 18:54 Last Admin: 02/07/21 12:00 Dose: 15 gm Documented by: Miscellaneous Information (Pharmacist Discharge Med Rec Consult) 1 ea N/A UD PRN PRN Reason: Consult Stop: 03/06/21 18:54 Ondansetron HCl (Ondansetron Inj 2 Mg/Ml 2 Ml Vial) 4 mg IV Q6H PRN PRN Reason: Nausea Stop: 03/06/21 18:54 Pantoprazole Sodium (Pantoprazole 40 Mg Tab) 40 mg PO DAILY [facility] Stop: 03/07/21 08:59 Last Admin: 02/06/21 07:57 Dose: 40 mg Documented by: Polyethylene Glycol (Polyethylene (Miralax) 17 Gm Pack) 17 gm PO DAILY PRN PRN Reason: Constipation Stop: 03/06/21 18:54 Pravastatin Sodium (Pravastatin Sod 20 Mg Tab) 20 mg PO QAM [facility] Stop: 03/07/21 08:59 Last Admin: 02/07/21 08:50 Dose: 20 mg Documented by: Sennosides (Senna 8.6 Mg Tab) 8.6 mg PO BID [facility] Stop: 03/06/21 20:59 Last Admin: 02/07/21 08:50 Dose: 8.6 mg Documented by: Sevelamer HCl (Sevelamer Hcl 800 Mg Tablet) 800 mg PO TIDM [facility] Stop: 03/06/21 19:59 Last Admin: 02/07/21 11:29 Dose: 800 mg Documented by: Tacrolimus (Tacrolimus 1 Mg Cap) 1 mg PO BID [facility] Stop: 03/06/21 20:59 Last Admin: 02/07/21 08:50 Dose: 1 mg Documented by: Vitamin B Complex/Folic Acid (Nephrocaps) 1 cap PO DAILY [facility] Stop: 03/07/21 08:59 Last Admin: 02/07/21 08:50 Dose: 1 cap Documented by: Vitamin E (Tocopheryl, Dl-Alpha 100 Units Cap) 100 units PO MoWeFr@0900 [facility] Stop: 03/07/21 08:59 Last Admin: 11/26/21 08:50 Dose: 100 units Documented by:
[2021-02-07] MEDS: HEPARIN SOD (PORCINE) 1000 UNIT/ML IV SCH (16:49)
[2021-02-07] MEDS: INSULIN GLARGINE SOLOSTAR 100 UNITS/ML 3 ML PEN SC SCH (20:28)
[2021-02-07] MEDS: carvediloL 3.125 MG TAB PO SCH (20:39)
--- NOTE | 2021-02-07 21:05 | Dialysis Progress Note ---
Date of Service February 07, 2021 Assessment & Plan (1) End stage chronic kidney disease: Plan: For HD today > 3.5hr on 2K bath with up to 2.5L UF target but keeping SBP > 100. He tolerated 1.4L UF. -daily bmp, hgb -next HD on 02/10 or as clinical needs dictate -had no epo w/ HD pending stroke w/u -cont sevelamer ac If he is clinically stable tomorrow could in theory be d/c back to rehab facility and resume customary OP dialysis Admission and Anticipated Discharge Date Admission Date: February 06, 2021 Subjective tolerated hd well today; no sob, N signifancnt; denies chest pain; taking minimal po d/t N. nonew worrisome Review of Systems Review of Systems: All systems reviewed & are unremarkable except as noted in Subjective Physical Exam Constitutional: well developed, well nourished and average body habitus; no acute distress Eyes: EOM intact bilaterally ENMT: Ears: no external ear abnormality Nose: no external nose abnormality Mouth: + dry oral mucous membranes Neck: no nuchal rigidity Respiratory: normal respiratory effort Auscultation: + diminished lung sounds Cardiovascular: Rate/Rhythm: regular rate and regular rhythm Extremities: + edema and + AV fistula (+ t/b) Gastrointestinal (Abdomen): Inspection/Auscultation: normal bowel sounds Percussion/Palpation: abdomen soft; abdomen nontender Musculoskeletal: Extremities: strength 5/5 throughout Skin: no rashes, warm and dry Psychiatric: Orientation: oriented x 3 Affect: + constricted affect Results & [facility]) Vital Signs (Past 12 Hours) Vital Signs Temp Pulse Pulse Pulse Pulse Resp BP 02/07/21 19:28 36.8 C 77 16 02/07/21 18:45 37.0 C 75 02/07/21 18:20 78 127/72 02/07/21 18:00 76 127/72 02/07/21 17:40 77 151/84 H 02/07/21 17:20 75 140/82 02/07/21 17:00 75 145/82 H 02/07/21 16:40 76 145/82 H 02/07/21 16:20 75 154/78 H 02/07/21 16:00 75 147/86 H 02/07/21 15:40 75 134/79 02/07/21 15:25 75 138/83 02/07/21 15:18 37.1 C 76 02/07/21 12:21 36.8 C 82 14 BP Pulse Ox 02/07/21 19:28 151/80 H 96 02/07/21 18:45 156/82 H 02/07/21 18:20 02/07/21 18:00 02/07/21 17:40 02/07/21 17:20 02/07/21 17:00 02/07/21 16:40 02/07/21 16:20 02/07/21 16:00 02/07/21 15:40 02/07/21 15:25 02/07/21 15:18 02/07/21 12:21 152/85 H 94 Laboratory Results 02/07/21 04:36 02/07/21 04:36
[2021-02-08] MEDS: cefTRIAXone SODIUM 1,000 MG in DEXTROSE 5% 50 ML IV SCH (02:28)
[2021-02-08] MEDS: HEPARIN SOD (PORCINE) 1000 UNIT/ML IV SCH ×2 (07:29→10:32)
[2021-02-08] MEDS: SEVELAMER HCL 800 MG TABLET PO SCH ×4 (07:29→17:55)
[2021-02-08] MEDS: PRAVASTATIN SOD 20 MG TAB PO SCH (07:49)
[2021-02-08] MEDS: NEPHROCAPS PO SCH (07:49)
[2021-02-08] MEDS: TACROLIMUS 1 MG CAP PO SCH ×2 (07:49→21:26)
[2021-02-08] MEDS: SENNA 8.6 MG TAB PO SCH ×2 (07:49→21:25)
[2021-02-08] MEDS: allopurinoL 100 MG TAB PO SCH (07:49)
[2021-02-08] MEDS: COLLAGENASE OINT 30 GM TUBE TOP SCH (07:50)
[2021-02-08] MEDS: PANTOprazole 40 MG in SYRINGE 0 ML IV SCH ×2 (07:55→21:24)
[2021-02-08] MEDS: INSULIN ASPART 100 UNITS/ML 3 ML PEN SC SCH ×4 (08:03→21:22)
--- NOTE | 2021-02-08 08:22 | Hospitalist Progress Note ---
Date of Service February 08, 2021 Assessment & Plan (1) End stage chronic kidney disease: (2) Stroke-like episode: Plan: Strokelike symptoms Patient sent from dialysis center for concerns of TIA and altered mental status Patient AO x3 at baseline, LLE weakness noted Admitting CT head negative for acute findings Brain MRI - IMPRESSION: 1. No acute intracranial findings. 2. Prominence of the extra-axial CSF spaces which is due to atrophy. 3. White matter T2 hyperintense foci suggestive of small vessel disease. 4. Partially opacified left mastoid air cells. Carotid doppler - No significant atherosclerotic plaquing or significant flow limiting stenoses noted by velocity criteria bilaterally. There is retrograde flow within the vertebral artery on the right. There is mildly elevated m onophasic flow within the right subclavian artery when compared to the left. Echo - no change compared to previous study in June 2020. Normal LV chamber size with moderate concentric LVH. Low normal LV systolic function, EF 50 to 55%. No segmental LV wall motion abnormalities are noted. Grade 1 diastolic dysfunction. Aortic valve sclerosis mild, without significant aortic valvular stenosis. Mild aortic regurg. Mild to moderate mitral regurg. Mildly dilated aortic root measuring 4.1 cm. The interatrial septum is intact with no evidence for an atrial septal defect. Injection of contrast documented no interatrial shunt. Neurology consulted - suspect he had a near syncopal event - MRI scan has shown no acute event and a duplex of the carotids was unremarkable - at this point doubt that this was a TIA, suspect this may have been a transient hypotensive episode, have no basis to call this a seizure and really have no further recommendations about neurologic testing at this point ESRD on hemodialysis Patient undergoes hemodialysis Wednesday Nephrology consulted Last hemodialysis was on wednesday Patient missed dialysis Wednesday, and did not undergo dialysis on day of admission because of concerns of TIA and was sent to hospital for evaluation Reportedly missed dialysis on Wednesday because of possible GI bleed however patient cannot answer/further explain this Now s/p HD Acute on chronic anemia, GI bleed -Per chart review (OSH), patient was admitted earlier in January because of malfunctioning AV fistula -During that hospital stay, after vascular procedure, he had a large bloody bowel movement, reportedly he also was evaluated for similar in late December -Reportedly patient had colonoscopy which revealed friable rectal mucosa, also removed polyp from sigmoid colon and cecum Hgb 8.1 (on admission above 10) FOBT positive monitor H&H GI consulted - No indication for endoscopic workup as no further signs of GI bleeding, consider outpt EGD eval for anemia after his DC home - PPI daily - add sucralfate Hemoglobin 10 (stable/improved) UTI - UA c/w UTI, started empirically on ceftriaxone Urine culture positive for Proteus mirabilis, sensitive to ceftriaxone, will continue Hip fracture Right hip fracture 2013, left hip fracture secondary to fall 1 month ago status post repair --> patient coming from long-term PT/OT while inpatient Other chronic medical conditions: CAD, history of PA, HTN, HLD, anemia of chronic disease Resume home meds as appropriate Full code DVT prophylaxis: SCDs Admission and Anticipated Discharge Date Admission Date: February 06, 2021 Subjective Patient seen in follow-up of strokelike symptoms /word finding difficulty/presyncope, and end-stage renal disease on dialysis Currently laying in bed, in no acute distress He is alert oriented answering questions appropriately Denies any chest pain, shortness of breath, headache, also denies abdominal pain Urine culture positive for Proteus mirabilis Hemoglobin stable Review of Systems Review of Systems: All systems reviewed & are unremarkable except as noted in Subjective Physical Exam Physical Exam: GENERAL: Alert and oriented x3. NAD, on RA. HEENT: NC/AT. EOMI, PERRL. Oral mucosa moist. NECK: No JVD, no neck masses. HEART: S1 and S2 heard. Regular rate and rhythm. No murmur, no gallop. RESPIRATORY: Normal AP diameter. No accessory muscle use. No wheezing, no crackles. ABDOMEN: Soft, bowel sounds present, nontender, no distention. NEURO:Alert oriented answering most questions appropriately. No facial droop. Speech is clear. Moves extremities and as below. EXTREMITIES: No edema, no erythema seen. Bilateral upper extremity power 5 / 5; patient cannot move RLE chronically/spastic RLE from cerebral palsy; LLE power 3/5; right arm noted with dialysis catheter. Results & Data Results & Data ([facility]) Vital Signs (Past 12 Hours) Vital Signs Temp Pulse Pulse Pulse Resp BP Pulse Ox 02/08/21 07:20 36.8 C 92 H 18 145/79 H 94 02/08/21 04:57 72 02/08/21 03:29 36.9 C 74 16 143/83 H 94 02/07/21 23:23 36.9 C 53 L 16 149/81 H 93 Laboratory Results 02/08/21 02/08/21 02/08/21 Range/Units 11:41 08:30 08:30 WBC 5.41 (4.8-10.8) K/uL RBC 3.08 L (4.7-6.1) M/uL Hgb 10.0 L (14.0-18.0) g/dL Hct 31.6 L (42-52) % MCV 102.6 H (80-100) fL MCH 32.5 (25-34) pg MCHC 31.6 L (32-36) g/dL RDW Std Deviation 59.7 H (36.4-46.3) fL RDW Coeff of Dean 16.0 H (11.5-14.5) % Plt Count 84 L (130-400) K/uL MPV 9.1 (7.4-10.4) fL Sodium 139 (136-145) mmol/L Potassium 3.8 (3.5-5.1) mmol/L Chloride 105 (98-107) mmol/L Carbon Dioxide 24 (21-32) mmol/L Anion Gap 10.0 (3-11) BUN 34 H (7-18) mg/dl Creatinine 4.26 H D (0.6-1.4) mg/dl Est Cr Clr Drug Dosing 15.5 ml/min Est GFR ( Amer) 15.6 ml/min Est GFR (Non-Af Amer) 13.4 ml/min BUN/Creatinine Ratio 7.9 L (10-20) Glucose 125 H (70-99) mg/dl POC Glucose 164 H (70-99) mg/dl Calcium 7.7 L (8.5-10.1) mg/dl Phosphorus 3.7 (2.5-4.9) mg/dl Magnesium 2.2 (1.8-2.4) mg/dl 02/08/21 02/08/21 02/07/21 Range/Units 07:32 01:50 19:48 WBC (4.8-10.8) K/uL RBC (4.7-6.1) M/uL Hgb (14.0-18.0) g/dL Hct (42-52) % MCV (80-100) fL MCH (25-34) pg MCHC (32-36) g/dL RDW Std Deviation (36.4-46.3) fL RDW Coeff of Dean (11.5-14.5) % Plt Count (130-400) K/uL MPV (7.4-10.4) fL Sodium (136-145) mmol/L Potassium (3.5-5.1) mmol/L Chloride (98-107) mmol/L Carbon Dioxide (21-32) mmol/L Anion Gap (3-11) BUN (7-18) mg/dl Creatinine (0.6-1.4) mg/dl Est Cr Clr Drug Dosing ml/min Est GFR ( Amer) ml/min Est GFR (Non-Af Amer) ml/min BUN/Creatinine Ratio (10-20) Glucose (70-99) mg/dl POC Glucose 96 96 115 H (70-99) mg/dl Calcium (8.5-10.1) mg/dl Phosphorus (2.5-4.9) mg/dl Magnesium (1.8-2.4) mg/dl 02/07/21 02/07/21 Range/Units 19:20 12:48 WBC (4.8-10.8) K/uL RBC (4.7-6.1) M/uL Hgb (14.0-18.0) g/dL Hct (42-52) % MCV (80-100) fL MCH (25-34) pg MCHC (32-36) g/dL RDW Std Deviation (36.4-46.3) fL RDW Coeff of Dean (11.5-14.5) % Plt Count (130-400) K/uL MPV (7.4-10.4) fL Sodium (136-145) mmol/L Potassium (3.5-5.1) mmol/L Chloride (98-107) mmol/L Carbon Dioxide (21-32) mmol/L Anion Gap (3-11) BUN (7-18) mg/dl Creatinine (0.6-1.4) mg/dl Est Cr Clr Drug Dosing ml/min Est GFR ( Amer) ml/min Est GFR (Non-Af Amer) ml/min BUN/Creatinine Ratio (10-20) Glucose (70-99) mg/dl POC Glucose 106 H 109 H (70-99) mg/dl Calcium (8.5-10.1) mg/dl Phosphorus (2.5-4.9) mg/dl Magnesium (1.8-2.4) mg/dl Medications Administered Current Inpatient Medications Acetaminophen (Acetaminophen 325 Mg Tab) 650 mg PO Q4H PRN PRN Reason: Pain or Fever Stop: 03/06/21 18:54 Allopurinol (Allopurinol 100 Mg Tab) 100 mg PO QAM ZOEY Stop: 03/07/21 08:59 Last Admin: 02/08/21 07:49 Dose: 100 mg Documented by: Aspirin (Aspirin 81 Mg Ectab) 81 mg PO DAILY ZOEY Stop: 03/07/21 08:59 Last Admin: 02/06/21 07:56 Dose: 81 mg Documented by: Bisacodyl (Bisacodyl 10 Mg Supp) 10 mg MA DAILY PRN PRN Reason: Constipation Stop: 03/06/21 18:54 Carvedilol (Carvedilol 3.125 Mg Tab) 3.125 mg PO HS ZOEY Stop: 03/06/21 20:59 Last Admin: 02/07/21 20:39 Dose: 3.125 mg Documented by: Collagenase (Collagenase Oint 30 Gm Tube) 1 appln TOP DAILY ZOEY Stop: 03/07/21 08:59 Last Admin: 02/08/21 07:50 Dose: 1 appln Documented by: Dextrose (Dextrose 50% 50 Ml Syringe) 25 - 50 ml IV UD PRN; Protocol PRN Reason: Hypoglycemia Protocol Stop: 03/06/21 18:54 Last Admin: 02/07/21 06:28 Dose: 25 ml Documented by: Glucagon (Glucagon For Inj 1 Mg Vial) 1 mg SQ UD PRN; Protocol PRN Reason: Hypoglycemia Protocol Stop: 03/06/21 18:54 Glucose (Glucose 10 Tabs/Tube) 4 - 8 tabs PO UD PRN; Protocol PRN Reason: Hypoglycemia Protocol Stop: 03/06/21 18:54 Glucose (Glucose 40% Gel 15 Gm Tube) 15 - 30 gm PO UD PRN; Protocol PRN Reason: Hypoglycemia Protocol Stop: 03/06/21 18:54 Pantoprazole Sodium 40 mg/ (Syringe) 10 mls @ 5 mls/min IV BID ZOEY Stop: 03/08/21 12:29 Last Admin: 02/08/21 07:55 Dose: 5 mls/min Documented by: Ceftriaxone Sodium 1,000 mg/ (Dextrose) 50 mls @ 100 mls/hr IV Q24H [facility]; Protocol Stop: 02/17/21 00:59 Last Infusion: 02/08/21 03:00 Dose: Infused Documented by: Insulin Aspart (Insulin Aspart 100 Units/Ml 3 Ml Pen) 0 units SC ACHS ZOEY Stop: 03/06/21 20:59 Last Admin: 02/08/21 08:03 Dose: Not Given Documented by: Insulin Glargine (Insulin Glargine Solostar 100 Units/Ml 3 Ml Pen) 0 - 24 units SC HS ZOEY; Protocol Stop: 03/06/21 20:59 Last Admin: 02/07/21 20:28 Dose: Not Given Documented by: Miscellaneous (Carbohydrates For Hypoglycemia ) 15 - 30 gm PO UD PRN PRN Reason: Hypoglycemia Protocol Stop: 03/06/21 18:54 Last Admin: 02/07/21 12:00 Dose: 15 gm Documented by: Miscellaneous Information (Pharmacist Discharge Med Rec Consult) 1 ea N/A UD PRN PRN Reason: Consult Stop: 03/06/21 18:54 Ondansetron HCl (Ondansetron Inj 2 Mg/Ml 2 Ml Vial) 4 mg IV Q6H PRN PRN Reason: Nausea Stop: 03/06/21 18:54 Pantoprazole Sodium (Pantoprazole 40 Mg Tab) 40 mg PO DAILY ZOEY Stop: 03/07/21 08:59 Last Admin: 02/06/21 07:57 Dose: 40 mg Documented by: Polyethylene Glycol (Polyethylene (Miralax) 17 Gm Pack) 17 gm PO DAILY PRN PRN Reason: Constipation Stop: 03/06/21 18:54 Pravastatin Sodium (Pravastatin Sod 20 Mg Tab) 20 mg PO QAM [facility] Stop: 03/07/21 08:59 Last Admin: 02/08/21 07:49 Dose: 20 mg Documented by: Sennosides (Senna 8.6 Mg Tab) 8.6 mg PO BID ZOEY Stop: 03/06/21 20:59 Last Admin: 02/08/21 07:49 Dose: 8.6 mg Documented by: Sevelamer HCl (Sevelamer Hcl 800 Mg Tablet) 800 mg PO TIDM [facility] Stop: 03/06/21 19:59 Last Admin: 02/08/21 07:49 Dose: 800 mg Documented by: Tacrolimus (Tacrolimus 1 Mg Cap) 1 mg PO BID ZOEY Stop: 03/06/21 20:59 Last Admin: 02/08/21 07:49 Dose: 1 mg Documented by: Vitamin B Complex/Folic Acid (Nephrocaps) 1 cap PO DAILY ZOEY Stop: 03/07/21 08:59 Last Admin: 02/08/21 07:49 Dose: 1 cap Documented by: Vitamin E (Tocopheryl, Dl-Alpha 100 Units Cap) 100 units PO MoWeFr@0900 ZOEY Stop: 03/07/21 08:59 Last Admin: 02/07/21 08:50 Dose: 100 units Documented by:
[2021-02-08 08:54] LABS: Hematocrit (blood only) 31.6 % (42-52); Mean Corpuscular Hemoglobin 32.5 pg (25-34); Mean Corpuscular Hgb Conc 31.6 g/dL (32-36); Mean Corpuscular Volume 102.6 fL (80-100); RDW Standard Deviation 59.7 fL (36.4-46.3); Red Blood Count 3.08 M/uL (4.7-6.1); White Blood Count 5.41 K/uL (4.8-10.8)
[2021-02-08 09:02] LABS: Mean Platelet Volume 9.1 fL (7.4-10.4); Platelet Count 84 K/uL (130-400)
[2021-02-08 09:14] LABS: BUN Creatinine Ratio 7.9 (10-20); Calcium 7.7 mg/dl (8.5-10.1); Creatinine Clr Calc Pharmacy 15.5 ml/min; Est GFR (African American) 15.6 ml/min; Est GFR (Non-African American) 13.4 ml/min; Magnesium 2.2 mg/dl (1.8-2.4); Phosphorus 3.7 mg/dl (2.5-4.9); Potassium 3.8 mmol/L (3.5-5.1)
[2021-02-08] MEDS: INSULIN GLARGINE SOLOSTAR 100 UNITS/ML 3 ML PEN SC SCH (21:24)
[2021-02-08] MEDS: carvediloL 3.125 MG TAB PO SCH (21:25)
[2021-02-09] MEDS: cefTRIAXone SODIUM 1,000 MG in DEXTROSE 5% 50 ML IV SCH (00:08)
[2021-02-09] MEDS: PANTOprazole 40 MG in SYRINGE 0 ML IV SCH ×2 (07:45→20:18)
[2021-02-09] MEDS: TACROLIMUS 1 MG CAP PO SCH ×2 (07:45→20:17)
[2021-02-09] MEDS: NEPHROCAPS PO SCH (07:45)
[2021-02-09] MEDS: SENNA 8.6 MG TAB PO SCH ×2 (07:45→20:18)
[2021-02-09] MEDS: PRAVASTATIN SOD 20 MG TAB PO SCH (07:45)
[2021-02-09] MEDS: SEVELAMER HCL 800 MG TABLET PO SCH ×3 (07:45→17:08)
[2021-02-09] MEDS: allopurinoL 100 MG TAB PO SCH (07:45)
[2021-02-09] MEDS: COLLAGENASE OINT 30 GM TUBE TOP SCH (07:45)
[2021-02-09] MEDS: INSULIN ASPART 100 UNITS/ML 3 ML PEN SC SCH ×4 (07:46→20:08)
[2021-02-09] MEDS: CARBOHYDRATES FOR HYPOGLYCEMIA PO PRN ×2 (07:56→20:16)
--- NOTE | 2021-02-09 18:37 | Hospitalist Progress Note ---
Date of Service February 09, 2021 Assessment & Plan (1) End stage chronic kidney disease: (2) Stroke-like episode: Plan: Strokelike symptoms Patient sent from dialysis center for concerns of TIA and altered mental status Patient AO x3 at baseline, LLE weakness noted Admitting CT head negative for acute findings Brain MRI - IMPRESSION: 1. No acute intracranial findings. 2. Prominence of the extra-axial CSF spaces which is due to atrophy. 3. White matter T2 hyperintense foci suggestive of small vessel disease. 4. Partially opacified left mastoid air cells. Carotid doppler - No significant atherosclerotic plaquing or significant flow limiting stenoses noted by velocity criteria bilaterally. There is retrograde flow within the vertebral artery on the right. There is mildly elevated m onophasic flow within the right subclavian artery when compared to the left. Echo - no change compared to previous study in June 2020. Normal LV chamber size with moderate concentric LVH. Low normal LV systolic function, EF 50 to 55%. No segmental LV wall motion abnormalities are noted. Grade 1 diastolic dysfunction. Aortic valve sclerosis mild, without significant aortic valvular stenosis. Mild aortic regurg. Mild to moderate mitral regurg. Mildly dilated aortic root measuring 4.1 cm. The interatrial septum is intact with no evidence for an atrial septal defect. Injection of contrast documented no interatrial shunt. Neurology consulted - suspect he had a near syncopal event - MRI scan has shown no acute event and a duplex of the carotids was unremarkable - at this point doubt that this was a TIA, suspect this may have been a transient hypotensive episode, have no basis to call this a seizure and really have no further recommendations about neurologic testing at this point ESRD on hemodialysis Patient undergoes hemodialysis Wednesday Nephrology consulted Last hemodialysis was on wednesday Patient missed dialysis Wednesday, and did not undergo dialysis on day of admission because of concerns of TIA and was sent to hospital for evaluation Reportedly missed dialysis on Wednesday because of possible GI bleed however patient cannot answer/further explain this Now s/p HD Acute on chronic anemia, GI bleed -Per chart review (OSH), patient was admitted earlier in January because of malfunctioning AV fistula -During that hospital stay, after vascular procedure, he had a large bloody bowel movement, reportedly he also was evaluated for similar in late December -Reportedly patient had colonoscopy which revealed friable rectal mucosa, also removed polyp from sigmoid colon and cecum Hgb 8.1 (on admission above 10) FOBT positive monitor H&H GI consulted - No indication for endoscopic workup as no further signs of GI bleeding, consider outpt EGD eval for anemia after his DC home - PPI daily - add sucralfate Hemoglobin 10 (stable/improved) UTI - UA c/w UTI, started empirically on ceftriaxone Urine culture positive for Proteus mirabilis, sensitive to ceftriaxone, will continue DM type 2 02/05/21- A1c 6.0% -Patient hypoglycemic in the hospital, decrease insulin insulin, follow-up closely as outpatient Hip fracture Right hip fracture 2013, left hip fracture secondary to fall 1 month ago status post repair --> patient coming from [facility] PT/OT while inpatient Other chronic medical conditions: CAD, history of AR, HTN, HLD Resume home meds as appropriate Full code DVT prophylaxis: SCDs Admission and Anticipated Discharge Date Admission Date: February 06, 2021 Subjective Patient seen in follow-up of strokelike symptoms /word finding difficulty/presyncope, and end-stage renal disease on dialysis Currently laying in bed, in no acute distress He is alert oriented answering questions appropriately Denies any chest pain, shortness of breath, headache, also denies abdominal pain Urine culture positive for Proteus mirabilis Hemoglobin stable Blood sugars lower, will change (decrease) his insulin Review of Systems Review of Systems: All systems reviewed & are unremarkable except as noted in Subjective Physical Exam Physical Exam: GENERAL: Alert and oriented x3. NAD, on RA. HEENT: NC/AT. EOMI, PERRL. Oral mucosa moist. NECK: No JVD, no neck masses. HEART: S1 and S2 heard. Regular rate and rhythm. No murmur, no gallop. RESPIRATORY: Normal AP diameter. No accessory muscle use. No wheezing, no crackles. ABDOMEN: Soft, bowel sounds present, nontender, no distention. NEURO:Alert oriented answering most questions appropriately. No facial droop. Speech is clear. Moves extremities and as below. EXTREMITIES: No edema, no erythema seen. Bilateral upper extremity power 5 / 5; patient cannot move RLE chronically/spastic RLE from cerebral palsy; LLE power 3/5; right arm noted with dialysis catheter. Results & Data Results & Data ([facility]) Vital Signs (Past 12 Hours) Vital Signs Temp Pulse Pulse Resp BP Pulse Ox 02/09/21 15:35 37.0 C 69 18 156/83 H 91 02/09/21 14:51 71 02/09/21 11:18 36.9 C 65 18 159/73 H 96 02/09/21 08:00 73 02/09/21 07:50 36.7 C 16 144/79 H 90 Laboratory Results 02/09/21 02/09/21 02/09/21 Range/Units 16:40 11:45 08:12 POC Glucose 75 94 78 (70-99) mg/dl 02/09/21 02/09/21 02/08/21 Range/Units 07:36 07:36 20:11 POC Glucose 54 L* 51 L* 220 H (70-99) mg/dl
[2021-02-09] MEDS: carvediloL 3.125 MG TAB PO SCH (20:20)
[2021-02-09] MEDS ORDERED: INSULIN GLARGINE SOLOSTAR 100 UNITS/ML 3 ML PEN SC SCH (21:00)
[2021-02-10] MEDS: cefTRIAXone SODIUM 1,000 MG in DEXTROSE 5% 50 ML IV SCH (01:20)
[2021-02-10 06:21] LABS: Hematocrit (blood only) 30.7 % (42-52); Hemoglobin 9.9 g/dL (14.0-18.0)
[2021-02-10] MEDS ORDERED: SODIUM CHLORIDE 0.9% 1000ML 1,000 ML IV PRN (07:00)
[2021-02-10] MEDS ORDERED: EPOETIN ALFA 10,000 UNITS/ML VIAL IV SCH (07:00)
[2021-02-10] MEDS ORDERED: HEPARIN SOD (PORCINE) 1000 UNIT/ML IV SCH (07:00)
[2021-02-10 07:07] LABS: BUN Creatinine Ratio 8.7 (10-20); Creatinine Clr Calc Pharmacy 11.7 ml/min; Est GFR (African American) 10.7 ml/min; Est GFR (Non-African American) 9.2 ml/min; Magnesium 2.1 mg/dl (1.8-2.4); Phosphorus 4.6 mg/dl (2.5-4.9); Potassium 4.1 mmol/L (3.5-5.1)
[2021-02-10] MEDS: PANTOprazole 40 MG in SYRINGE 0 ML IV SCH (07:22)
[2021-02-10] MEDS: allopurinoL 100 MG TAB PO SCH (07:22)
[2021-02-10] MEDS: SEVELAMER HCL 800 MG TABLET PO SCH ×2 (07:22→12:27)
[2021-02-10] MEDS: NEPHROCAPS PO SCH (07:22)
[2021-02-10] MEDS: PRAVASTATIN SOD 20 MG TAB PO SCH (07:23)
[2021-02-10] MEDS: TACROLIMUS 1 MG CAP PO SCH (07:23)
[2021-02-10] MEDS: TOCOPHERYL, DL-ALPHA 100 UNITS CAP PO SCH (07:23)
[2021-02-10] MEDS: SENNA 8.6 MG TAB PO SCH (07:26)
[2021-02-10] MEDS: INSULIN ASPART 100 UNITS/ML 3 ML PEN SC SCH ×2 (08:23→12:36)
--- NOTE | 2021-02-10 09:40 | Hospitalist Progress Note ---
Date of Service February 10, 2021 Assessment & Plan (1) End stage chronic kidney disease: (2) Stroke-like episode: Plan: Strokelike symptoms Patient sent from dialysis center for concerns of TIA and altered mental status Patient AO x3 at baseline, LLE weakness noted Admitting CT head negative for acute findings Brain MRI - IMPRESSION: 1. No acute intracranial findings. 2. Prominence of the extra-axial CSF spaces which is due to atrophy. 3. White matter T2 hyperintense foci suggestive of small vessel disease. 4. Partially opacified left mastoid air cells. Carotid doppler - No significant atherosclerotic plaquing or significant flow limiting stenoses noted by velocity criteria bilaterally. There is retrograde flow within the vertebral artery on the right. There is mildly elevated m onophasic flow within the right subclavian artery when compared to the left. Echo - no change compared to previous study in June 2020. Normal LV chamber size with moderate concentric LVH. Low normal LV systolic function, EF 50 to 55%. No segmental LV wall motion abnormalities are noted. Grade 1 diastolic dysfunction. Aortic valve sclerosis mild, without significant aortic valvular stenosis. Mild aortic regurg. Mild to moderate mitral regurg. Mildly dilated aortic root measuring 4.1 cm. The interatrial septum is intact with no evidence for an atrial septal defect. Injection of contrast documented no interatrial shunt. Neurology consulted - suspect he had a near syncopal event - MRI scan has shown no acute event and a duplex of the carotids was unremarkable - at this point doubt that this was a TIA, suspect this may have been a transient hypotensive episode, have no basis to call this a seizure and really have no further recommendations about neurologic testing at this point ESRD on hemodialysis Patient undergoes hemodialysis Wednesday Nephrology consulted Last hemodialysis was on wednesday Patient missed dialysis Wednesday, and did not undergo dialysis on day of admission because of concerns of TIA and was sent to hospital for evaluation Reportedly missed dialysis on Wednesday because of possible GI bleed however patient cannot answer/further explain this Now s/p HD Acute on chronic anemia, GI bleed -Per chart review ([facility]), patient was admitted earlier in January because of malfunctioning AV fistula -During that hospital stay, after vascular procedure, he had a large bloody bowel movement, reportedly he also was evaluated for similar in late December -Reportedly patient had colonoscopy which revealed friable rectal mucosa, also removed polyp from sigmoid colon and cecum Hgb 8.1 (on admission above 10) FOBT positive monitor H&H GI consulted - No indication for endoscopic workup as no further signs of GI bleeding, consider outpt EGD eval for anemia after his DC home - PPI daily - add sucralfate Hemoglobin 10 (stable/improved) UTI - UA c/w UTI, started empirically on ceftriaxone Urine culture positive for Proteus mirabilis, sensitive to ceftriaxone, will continue Blood cultx - negative will DC on PO Abx Abnormal CXR - on admission -However patient has no respiratory symptoms, normal physical /lung exam, breathing comfortably on room air -may be poss. secondary to missed dialysis prior to admission - given poss. right lobe consolidation, concern for aspiration - speech consulted - no aspiration issues during his hosp. stay -We will repeat chest x-ray, currently patient is on antibiotic for UTI, will broaden antibiotic if needed DM type 2 02/05/21- A1c 6.0% -Patient hypoglycemic in the hospital, decrease insulin insulin, follow-up closely as outpatient Hip fracture Right hip fracture 2013, left hip fracture secondary to fall 1 month ago status post repair --> patient coming from long term PT/OT while inpatient Other chronic medical conditions: CAD, history of [place], HTN, HLD Resume home meds as appropriate Full code DVT prophylaxis: SCDs Admission and Anticipated Discharge Date Admission Date: February 06, 2021 Subjective Patient seen in follow-up of strokelike symptoms /word finding difficulty/presyncope, and end-stage renal disease on dialysis Currently being examined on dialysis, laying in bed, in no acute distress He is alert oriented answering questions appropriately Denies any chest pain, shortness of breath, headache, also denies abdominal pain Urine culture positive for Proteus mirabilis Hemoglobin stable Blood sugars lower, changed (decreased) his insulin Review of Systems Review of Systems: All systems reviewed & are unremarkable except as noted in Subjective Physical Exam Physical Exam: GENERAL: Alert and oriented x3. NAD, on RA. HEENT: NC/AT. EOMI, PERRL. Oral mucosa moist. NECK: No JVD, no neck masses. HEART: S1 and S2 heard. Regular rate and rhythm. No murmur, no gallop. RESPIRATORY: Normal AP diameter. No accessory muscle use. No wheezing, no crackles. ABDOMEN: Soft, bowel sounds present, nontender, no distention. NEURO:Alert oriented answering most questions appropriately. No facial droop. Speech is clear. Moves extremities and as below. EXTREMITIES: No edema, no erythema seen. Bilateral upper extremity power 5/5; patient cannot move RLE chronically/spastic RLE from cerebral palsy; LLE power 3/5; right arm noted with dialysis catheter. Results & Data Results & Data ([facility]) Vital Signs (Past 12 Hours) Vital Signs Temp Pulse Pulse Pulse Resp BP BP 02/10/21 09:00 66 155/79 H 02/10/21 08:41 37.1 C 73 02/10/21 07:00 36.8 C 75 20 152/82 H 02/10/21 02:43 36.6 C 69 18 161/91 H 02/09/21 23:02 36.6 C 68 18 166/83 H Pulse Ox 02/10/21 09:00 02/10/21 08:41 02/10/21 07:00 96 02/10/21 02:43 94 02/09/21 23:02 95 Laboratory Results 02/10/21 02/10/21 02/10/21 Range/Units 08:06 05:33 05:33 Hgb 9.9 L (14.0-18.0) g/dL Hct 30.7 L (42-52) % Sodium 139 (136-145) mmol/L Potassium 4.1 (3.5-5.1) mmol/L Chloride 105 (98-107) mmol/L Carbon Dioxide 21 (21-32) mmol/L Anion Gap 13.0 H (3-11) BUN 49 H (7-18) mg/dl Creatinine 5.81 H* D (0.6-1.4) mg/dl Est Cr Clr Drug Dosing 11.7 ml/min Est GFR ( Amer) 10.7 ml/min Est GFR (Non-Af Amer) 9.2 ml/min BUN/Creatinine Ratio 8.7 L (10-20) Glucose 89 (70-99) mg/dl POC Glucose 90 (70-99) mg/dl Calcium 8.0 L (8.5-10.1) mg/dl Phosphorus 4.6 (2.5-4.9) mg/dl Magnesium 2.1 (1.8-2.4) mg/dl 02/09/21 02/09/21 02/09/21 Range/Units 20:35 20:04 20:03 Hgb (14.0-18.0) g/dL Hct (42-52) % Sodium (136-145) mmol/L Potassium (3.5-5.1) mmol/L Chloride (98-107) mmol/L Carbon Dioxide (21-32) mmol/L Anion Gap (3-11) BUN (7-18) mg/dl Creatinine (0.6-1.4) mg/dl Est Cr Clr Drug Dosing ml/min Est GFR ( Amer) ml/min Est GFR (Non-Af Amer) ml/min BUN/Creatinine Ratio (10-20) Glucose (70-99) mg/dl POC Glucose 95 58 L* 58 L* (70-99) mg/dl Calcium (8.5-10.1) mg/dl Phosphorus (2.5-4.9) mg/dl Magnesium (1.8-2.4) mg/dl 02/09/21 02/09/21 Range/Units 16:40 11:45 Hgb (14.0-18.0) g/dL Hct (42-52) % Sodium (136-145) mmol/L Potassium (3.5-5.1) mmol/L Chloride (98-107) mmol/L Carbon Dioxide (21-32) mmol/L Anion Gap (3-11) BUN (7-18) mg/dl Creatinine (0.6-1.4) mg/dl Est Cr Clr Drug Dosing ml/min Est GFR ( Amer) ml/min Est GFR (Non-Af Amer) ml/min BUN/Creatinine Ratio (10-20) Glucose (70-99) mg/dl POC Glucose 75 94 (70-99) mg/dl Calcium (8.5-10.1) mg/dl Phosphorus (2.5-4.9) mg/dl Magnesium (1.8-2.4) mg/dl Medications Administered Current Inpatient Medications Acetaminophen (Acetaminophen 325 Mg Tab) 650 mg PO Q4H PRN PRN Reason: Pain or Fever Stop: 03/06/21 18:54 Last Admin: 02/09/21 20:50 Dose: 650 mg Documented by: Allopurinol (Allopurinol 100 Mg Tab) [facility] [place] Stop: 03/07/21 08:59 Last Admin: 02/10/21 07:22 Dose: 100 mg Documented by: Aspirin (Aspirin 81 Mg Ectab) 81 mg PO DAILY [facility] Stop: 03/07/21 08:59 Last Admin: 02/06/21 07:56 Dose: 81 mg Documented by: Bisacodyl (Bisacodyl 10 Mg Supp) 10 mg AL DAILY PRN PRN Reason: Constipation Stop: 03/06/21 18:54 Carvedilol (Carvedilol 3.125 Mg Tab) 3.125 mg PO HS [facility]OEY Stop: 03/06/21 20:59 Last Admin: 02/09/21 20:20 Dose: 3.125 mg Documented by: Collagenase (Collagenase Oint 30 Gm Tube) 1 appln TOP DAILY [facility]OE[facility] Stop: 03/07/21 08:59 Last Admin: 02/09/21 07:45 Dose: Not Given Documented by: Dextrose (Dextrose 50% 50 Ml Syringe) 25 - 50 ml IV UD PRN; Protocol PRN Reason: Hypoglycemia Protocol Stop: 03/06/21 18:54 Last Admin: 02/07/21 06:28 Dose: 25 ml Documented by: Epoetin Jc (Epoetin Jc 10,000 Units/Ml Vial) 10,000 units IV Mo@0700 [facility] Stop: 02/10/21 16:00 Glucagon (Glucagon For Inj 1 Mg Vial) 1 mg SQ UD PRN; Protocol PRN Reason: Hypoglycemia Protocol Stop: 03/06/21 18:54 Glucose (Glucose 10 Tabs/Tube) 4 - 8 tabs PO UD PRN; Protocol PRN Reason: Hypoglycemia Protocol Stop: 03/06/21 18:54 Glucose (Glucose 40% Gel 15 Gm Tube) 15 - 30 gm PO UD PRN; Protocol PRN Reason: Hypoglycemia Protocol Stop: 03/06/21 18:54 Heparin Sodium (Porcine) (Heparin Sod (Porcine) 1000 Unit/Ml) 1,000 units IV Mo@0700 [facility] Stop: 02/10/21 16:00 Pantoprazole Sodium 40 mg/ (Syringe) 10 mls @ 5 mls/min IV BID [facility] Stop: 03/08/21 12:29 Last Admin: 02/10/21 07:22 Dose: 5 mls/min Documented by: Ceftriaxone Sodium 1,000 mg/ (Dextrose) 50 mls @ 100 mls/hr IV Q24H [facility]OEY; Protocol Stop: 02/17/21 00:59 Last Infusion: 02/10/21 01:55 Dose: Infused Documented by: Sodium Chloride (Nss 1000ml) 1,000 mls @ 0 mls/hr IV .Q0M PRN PRN Reason: For Hemodialysis Use ONLY Stop: 02/10/21 12:59 Insulin Aspart (Insulin Aspart 100 Units/Ml 3 Ml Pen) 0 units SC ACHS [facility] Stop: 03/06/21 20:59 Last Admin: 02/10/21 08:23 Dose: Not Given Documented by: Insulin Glargine (Insulin Glargine Solostar 100 Units/Ml 3 Ml Pen) 0 - 12 units SC HS [facility]OEY; Protocol Stop: 03/06/21 20:59 Last Admin: 02/09/21 20:09 Dose: Not Given Documented by: Miscellaneous (Carbohydrates For Hypoglycemia ) 15 - 30 gm PO UD PRN PRN Reason: Hypoglycemia Protocol Stop: 03/06/21 18:54 Last Admin: 02/09/21 20:16 Dose: 15 gm Documented by: Miscellaneous Information (Pharmacist Discharge Med Rec Consult) 1 ea N/A UD PRN PRN Reason: Consult Stop: 03/06/21 18:54 Ondansetron HCl (Ondansetron Inj 2 Mg/Ml 2 Ml Vial) 4 mg IV Q6H PRN PRN Reason: Nausea Stop: 03/06/21 18:54 Pantoprazole Sodium (Pantoprazole 40 Mg Tab) 40 mg PO DAILY [facility] Stop: 03/07/21 08:59 Last Admin: 02/06/21 07:57 Dose: 40 mg Documented by: Polyethylene Glycol (Polyethylene (Miralax) 17 Gm Pack) 17 gm PO DAILY PRN PRN Reason: Constipation Stop: 03/06/21 18:54 Pravastatin Sodium (Pravastatin Sod 20 Mg Tab) 20 mg PO QAM [facility] Stop: 03/07/21 08:59 Last Admin: 02/10/21 07:23 Dose: 20 mg Documented by: Sennosides (Senna 8.6 Mg Tab) 8.6 mg PO BID [facility] Stop: 03/06/21 20:59 Last Admin: 02/10/21 07:26 Dose: Not Given Documented by: Sevelamer HCl (Sevelamer Hcl 800 Mg Tablet) 800 mg PO TIDM [facility] Stop: 03/06/21 19:59 Last Admin: 02/10/21 07:22 Dose: 800 mg Documented by: Sucralfate (Sucralfate 1 Gm/10 Ml Udc) 1 gm PO QID [facility] Stop: 03/12/21 12:59 Tacrolimus (Tacrolimus 1 Mg Cap) 1 mg PO BID [facility] Stop: 03/06/21 20:59 Last Admin: 02/10/21 07:23 Dose: 1 mg Documented by: Vitamin B Complex/Folic Acid (Nephrocaps) 1 cap PO DAILY [facility] Stop: 03/07/21 08:59 Last Admin: 02/10/21 07:22 Dose: 1 cap Documented by: Vitamin E (Tocopheryl, Dl-Alpha 100 Units Cap) 100 units PO MoWeFr@0900 [facility] Stop: 03/07/21 08:59 Last Admin: 02/10/21 07:23 Dose: 100 units Documented by:
--- NOTE | 2021-02-10 11:47 | Dialysis Progress Note ---
Date of Service February 10, 2021 Assessment & Plan Admission and Anticipated Discharge Date Admission Date: February 06, 2021 Subjective Assessment & Plan (1) End stage chronic kidney disease: Plan: For HD today > 3.5hr on 2K bath with up to 2.5L UF target but keeping SBP > 100. He tolerated 1.4L UF. -daily bmp, hgb -had no epo w/ HD pending stroke w/u -cont sevelamer ac Admission and Anticipated Discharge Date Admission Date: February 06, 2021 Subjective Seen during Diaysis. No issues. Tolerated hd well today; no sob, denies chest pain; AVF worked fine Review of Systems Review of Systems: All systems reviewed & are unremarkable except as noted in Subjective Physical Exam Constitutional: well developed, well nourished and average body habitus; no acute distress Eyes: EOM intact bilaterally ENMT: Ears: no external ear abnormality Nose: no external nose abnormality Mouth: + dry oral mucous membranes Neck: no nuchal rigidity Respiratory: normal respiratory effort Auscultation: + diminished lung sounds Cardiovascular: Rate/Rhythm: regular rate and regular rhythm Extremities: + edema and + AV fistula (+ t/b) Gastrointestinal (Abdomen): Inspection/Auscultation: normal bowel sounds Per cussion/Palpation: abdomen soft; abdomen nontender Musculoskeletal: Extremities: strength 5/5 throughout Skin: no rashes, warm and dry Psychiatric: Orientation: oriented x 3 Affect: + constricted affect Results & Data ([facility]) Vital Signs (Past 12 Hours) Vital Signs Temp Pulse Pulse Pulse Resp BP BP 02/10/21 11:00 80 135/85 02/10/21 10:55 36.4 C L 83 20 02/10/21 10:40 77 121/71 02/10/21 10:20 74 114/64 02/10/21 10:00 73 157/86 H 02/10/21 09:40 70 145/83 H 02/10/21 09:20 71 144/76 H 02/10/21 09:00 66 155/79 H 02/10/21 08:41 37.1 C 73 02/10/21 07:00 36.8 C 75 20 152/82 H 02/10/21 02:43 36.6 C 69 18 161/91 H BP Pulse Ox 02/10/21 11:00 02/10/21 10:55 141/95 H 95 11/29/21 10:40 02/10/21 10:20 02/10/21 10:00 02/10/21 09:40 02/10/21 09:20 02/10/21 09:00 02/10/21 08:41 02/10/21 07:00 96 02/10/21 02:43 94
[2021-02-10] MEDS: COLLAGENASE OINT 30 GM TUBE TOP SCH (12:25)
--- NOTE | 2021-02-10 12:58 | XRay Report ---
XR chest 1V portable HISTORY: follow up abnormal CXR COMPARISON: Chest 02/04/2021. FINDINGS: No pneumothorax. There are old, healed left-sided rib fractures. The heart remains mildly e nlarged. There is a [id number] layering right pleural effusion. This remains unchanged. Mild i nterstitial thickening at the left lung base small patchy densities which has progressed.. No evidenc e for pulmonary edema. IMPRESSION: 1. No change in the small to moderate right pleural effusion. 2. Slight progression of the patchy left basilar densities which may represent a developing pneumonia and could be secondary to aspiration. ACT 112: Negative or not required by law. Electronically signed by: Herberth Acosta M.D. 02/10/2021 12:57 PM
[2021-02-10] MEDS ORDERED: SUCRALFATE 1 GM/10 ML UDC PO SCH (13:00)
[2021-02-10] MEDS ORDERED: AMOXICILLIN/CLAVULANATE 875 MG TAB PO SCH (13:10)
[2021-02-10] MEDS ORDERED: guaiFENesin 600 MG TABCR PO SCH (13:10)
[2021-02-10] MEDS ORDERED: STROKE PATIENT DISCHARGE STA (13:12)
[2021-02-10] MEDS ORDERED: ADVANCED PROBIOTIC 1250 MG CAPSULE PO SCH (13:15)
--- NOTE | 2021-02-10 13:16 | Discharge Summary ---
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 Patient was frustrated and irritated at each and every question during my history and exam. History taken from the patient and chart review. Per patient, he undergoes dialysis MWF. His last dialysis was on Wednesday, missed dialysis on Wednesday and was getting catch up dialysis today. He was sent from the dialysis center for evaluation of altered mental status and possible TIA. They did not do dialysis on him today because of the concern of TIA and immediately sent him to the hospital by calling 911. Patient says that he did not get dialysis on Wednesday because it was a holiday, per chart review they skipped the dialysis on Wednesday due to him having a GI bleed. At bedside exam, patient did not have slurring of speech but he was sounding irritated at each and every question. He was AO x3. Patient reports no new weakness. Patient denies any fever/neck pain/cough/chest pain/pain burning while passing urine/changes in his bowel movements acutely. Patient denied other review of symptoms. All the medications were reviewed with the patient. He denied smoking tobacco/drinking alcohol/doing recreational drugs or marijuana. He denied any past history of stroke or seizure. He denied any history of cancer or heart disease in the family. Besides family doctor and kidney doctor, he reports not visiting any other doctor as an outpatient. Admission Exam Per Admitting Provider GENERAL: Alert and oriented x3. NAD, on RA. HEENT: No pallor, no icterus. Pupils equal, round and reactive to light. Oral mucosa moist. NECK: No JVD, no neck masses. HEART: S1 and S2 heard. Regular rate and rhythm. No murmur, no gallop. RESPIRATORY SYSTEM: Normal AP diameter. No accessory muscle use. No wheezing, no crackles. ABDOMEN: Soft, bowel sounds present, nontender, no distention. CENTRAL NERVOUS SYSTEM: No facial droop. Speech is clear. Obeys simple commands. Moves extremities. EXTREMITIES: No edema, no erythema seen. Bilateral upper extremity power 5 / 5; patient cannot move RLE chronically/spastic RLE from cerebral palsy; LLE power 3/5; right arm noted with dialysis catheter. Principal Diagnosis Unresponsive episode, near syncopal event UTI End-stage disease on dialysis Acute on chronic anemia/chronic GI bleed Diabetes mellitus type II, with episodes of hypoglycemia Abnormal CXR Discharge Exam GENERAL: Alert and oriented x3. NAD, on RA. HEENT: NC/AT. EOMI, PERRL. Oral mucosa moist. NECK: No JVD, no neck masses. HEART: S1 and S2 heard. Regular rate and rhythm. No murmur, no gallop. RESPIRATORY: Normal AP diameter. No accessory muscle use. No wheezing, no crackles. ABDOMEN: Soft, bowel sounds present, nontender, no distention. NEURO:Alert oriented answering most questions appropriately. No facial droop. Speech is clear. Moves extremities and as below. EXTREMITIES: No edema, no erythema seen. Bilateral upper extremity power 5/5; patient cannot move RLE chronically/spastic RLE from cerebral palsy; LLE power 3/5; right arm noted with dialysis catheter. Discharge Data Allergies Allergy/AdvReac Type Severity Reaction Status Date / Time sorbitol Allergy Verified 02/05/21 15:52 oxycodone AdvReac Intermediate OVER Verified 02/04/21 16:15 SEDATION Consultations 02/04/21 17:04 ED Decision to Admit Stat 02/04/21 17:25 Consult Nephrology Routine Consult Neurology Routine 02/05/21 16:57 Consult Gastroenterology Routine 02/06/21 12:40 Consult Gastroenterology Routine Ordered Studies 02/04/21 13:34 CT head/brain wo con Stat 02/04/21 17:25 MR brain wo con Routine 02/04/21 17:25 US carotid doppler BI Routine 02/06/21 05:45 CT head/brain wo con Urgent Hospital Course (1) End stage chronic kidney disease: (2) Stroke-like episode: Strokelike symptoms Patient sent from dialysis center for concerns of TIA and altered mental status Patient AO x3 at baseline, LLE weakness noted Admitting CT head negative for acute findings Brain MRI - IMPRESSION: 1. No acute intracranial findings. 2. Prominence of the extra-axial CSF spaces which is due to atrophy. 3. White matter T2 hyperintense foci suggestive of small vessel disease. 4. Partially opacified left mastoid air cells. Carotid doppler - No significant atherosclerotic plaquing or significant flow limiting stenoses noted by velocity criteria bilaterally. There is retrograde flow within the vertebral artery on the right. There is mildly elevated monophasic flow within the right subclavian artery when compared to the left. Echo - no change compared to previous study in June 2020. Normal LV chamber size with moderate concentric LVH. Low normal LV systolic function, EF 50 to 55%. No segmental LV wall motion abnormalities are noted. Grade 1 diastolic dysfunction. Aortic valve sclerosis mild, without significant aortic valvular stenosis. Mild aortic regurg. Mild to moderate mitral regurg. Mildly dilated aortic root measuring 4.1 cm. The interatrial septum is intact with no evidence for an atrial septal defect. Injection of contrast documented no interatrial shunt. Neurology consulted - suspect he had a near syncopal event - MRI scan has shown no acute event and a duplex of the carotids was unremarkable - at this point doubt that this was a TIA, suspect this may have been a transient hypotensive episode, have no basis to call this a seizure and really have no further recommendations about neurologic testing at this point ESRD on hemodialysis Patient undergoes hemodialysis Wednesday Nephrology consulted Last hemodialysis was on last Wednesday Patient missed dialysis Wednesday, and did not undergo dialysis on day of admission because of concerns of TIA and was sent to hospital for evaluation Reportedly missed dialysis on Wednesday because of possible GI bleed however patient cannot answer/further explain this Now s/p HD Acute on chronic anemia, GI bleed -Per chart review ([facility]), patient was admitted earlier in January because of malfunctioning AV fistula -During that hospital stay, after vascular procedure, he had a large bloody bowel movement, reportedly he also was evaluated for similar in late December -Reportedly patient had colonoscopy which revealed friable rectal mucosa, also removed polyp from sigmoid colon and cecum Hgb 8.1 (on admission above 10) FOBT positive monitor H&H GI consulted - No indication for endoscopic workup as no further signs of GI bleeding, consider outpt EGD eval for anemia after his DC home - PPI daily - add sucralfate Hemoglobin 10 (stable/improved) UTI - UA c/w UTI, started empirically on ceftriaxone Urine culture positive for Proteus mirabilis, sensitive to ceftriaxone, will continue Blood cultx - negative will DC on PO Abx Abnormal CXR - on admission -However patient has no respiratory symptoms, normal physical /lung exam, breathing comfortably on room air -may be poss. secondary to missed dialysis prior to admission - given poss. right lobe consolidation, concern for aspiration - speech consulted - no aspiration issues during his hosp. stay -We will repeat chest x-ray, currently patient is on antibiotic for UTI, will broaden antibiotic if needed Update:Repeat chest x-ray after dialysis, still shows right pulmonary consolidation. Patient has no pulmonary symptoms, he is breathing comfortably on room air, satting 95%. There is concern for possible aspiration even though no aspiration events reported during this hospital stay. Recommend outpatient speech follow-up, which has been arranged. Will start now on Augmentin, and recommend to follow-up chest x-ray as outpatient for resolution. DM type 2 02/05/21- A1c 6.0% -Patient hypoglycemic in the hospital, decrease insulin insulin, follow-up closely as outpatient Hip fracture Right hip fracture 2013, left hip fracture secondary to fall 1 month ago status post repair --> patient coming from group home PT/OT while inpatient Other chronic medical conditions: CAD, history of WA, HTN, HLD Resume home meds as appropriate Total Time Total Time Spent Total Time Spent (In Minutes): 50 Discharge Plan Discharge Items Patient Disposition: Transfer [facility] Reason For Visit: TIA Discharge Diagnosis: Unresponsive episode, near syncopal event UTI End-stage disease on dialysis Acute on chronic anemia/chronic GI bleed Diabetes mellitus type II, with episodes of hypoglycemia Abnormal CXR Activity: Per Instructions section Non-emergency contact: Primary Care Provider Call non-emergency contact if: you have any medication questions and your symptoms worsen Follow-up/Referrals: Carlton Lee DO [Primary Care Provider] - Diet: Dialysis Renal Addtl Attending Provider Instructions: Follow-up with primary care doctor within 1 week. Finish antibiotic course as prescribed. Your blood sugar was lower here, therefore your insulin should be decreased and your blood sugar should be monitored. You may need further adjustments in your insulin. It is also important to monitor your H&H. Make sure that you continue taking pantoprazole and sucralfate. Monitor your stools for signs of bleed. Follow-up with gastroenterology as scheduled. Pending Studies at Discharge: No Stand-Alone Forms: My [facility] Skilled Items Patient informed of condition?: Yes DNR: No Discharge Level of Care: Skilled Communicable Disease: No Discharge Prognosis: Stable Lines: None Urinary Catheter: No Medications and DC Order Prescriptions: New amoxicillin-pot clavulanate [Augmentin] 875-125 mg Tablet 1 tab PO BIDM Qty: 14 RF: 0 sucralfate 100 mg/mL Suspension 1 g PO QID Qty: 400 RF: 0 guaifenesin [Mucinex] 600 mg Tablet Extended Release 12hr 600 mg PO Q12 Qty: 14 RF: 0 Advanced Probiotic 625 mg (10 billion cell) Capsule 2 cap PO DAILY Qty: 14 RF: 0 Continued allopurinol 100 mg tablet 100 mg PO QAM RF: 0 carvedilol 3.125 mg tablet 3.125 mg PO HS RF: 0 pravastatin 20 mg tablet 20 mg PO QAM RF: 0 tacrolimus 1 mg capsule 1 mg PO BID RF: 0 entecavir 0.5 mg tablet 0.5 mg PO QAM RF: 0 sevelamer carbonate 800 mg tablet 800 mg PO TID RF: 0 vitamin E 100 unit Capsule 100 unit PO UD RF: 0 sennosides [senna] 8.6 mg Tablet 8.6 mg PO BID RF: 0 acetaminophen [Tylenol] 325 mg Tablet 650 mg PO TID RF: 0 amitriptyline [Elavil] 150 mg Tablet 150 mg PO HS RF: 0 aspirin 81 mg Tablet,Delayed Release (Dr/Ec) 81 mg PO DAILY RF: 0 bisacodyl 10 mg Suppository 10 mg [place] DAILY PRN (Reason: Constipation) RF: 0 nitroglycerin 0.4 mg Tablet, Sublingual 0.4 mg sublingual DIRECTED PRN (Reason: Chest Pain) RF: 0 omeprazole 20 mg capsule,delayed release(DR/EC) 20 mg PO DAILY RF: 0 Santyl 250 unit/gram Ointment 1 applic TOPICAL DAILY RF: 0 Nephrocaps 1 mg Capsule 1 cap PO DAILY RF: 0 Changed Lantus Solostar U-100 Insulin 100 unit/mL (3 mL) Insulin Pen 20 unit SUBCUT HS Qty: 0 RF: 0 Discontinued insulin aspart U-100 [Novolog Flexpen U-100 Insulin] 100 unit/mL (3 mL) Insulin Pen See Rx Instructions .ROUTE .COMPLEX RF: 0 Discharge Orders: Discharge Order (Routine); Ordered 02/10/21 Ordered By: Russ Dodd/Other Patient Handouts: A1C, Managing Type 2 Diabetes Admission Data Admit Date/Time: 02/06/21 12:17 Attending Provider: Russ Guajardo Admit Provider: Thee Peters Primary Care Provider: Carlton Lee V. Other Providers: Thee Peters ; Ana Moss ; Fred Herrera Brandon M. ; Marino Cain
[2021-02-10] MEDS: HEPARIN SOD (PORCINE) 1000 UNIT/ML IV SCH (15:29)
[2021-02-10] MEDS ORDERED: PANTOprazole 40 MG TAB PO SCH (21:00)
--- NOTE | 2021-02-19 10:36 | Coding Query ---
CODING QUERY To promote full compliance with coding requirements relating to patient care, provider participation is requested in all cases of forklift mechanic uncertainty. Please assist us with the question(s) below: Coding Question(s): 1. There is documentation of possible TIA in the record, and upon Discharge Summary, there is documentation of , "Neurology consulted - suspect he had a near syncopal event - MRI scan has shown no acute event and a duplex of the carotids was unremarkable - at this point doubt that this was a TIA, suspect this may have been a transient hypotensive episode, have no basis to call this a seizure and really have no further recommendations about neurologic testing at this point". It is not clear if TIA has been ruled-out or was still possible with documentation of doubt TIA. Please specify below, in your clinical opinion, regarding possible TIA. ( ) Possible TIA ( x ) TIA ruled-out ( ) Other: Please Specify 2. The patient was admitted with strokelike symptoms and the Discharge Summary documents in the Principal Diagnosis area, "Unresponsive episode, near syncopal event", and in the Hospital Course, under Strokelike symptoms, "Neurology consulted - suspect he had a near syncopal event - MRI scan has shown no acute event and a duplex of the carotids was unremarkable - at this point doubt that this was a TIA, suspect this may have been a transient hypotensive episode, have no basis to call this a seizure and really have no further recommendations about neurologic testing at this point". Please specify below, in your clinical opinion, regarding the most likely source of the Strokelike symptoms, unresponsive episode, syncope. ( ) Unknown most likely source of the symptoms of unresponsive episode, syncope, strokelike symptoms ( x) Most likely due to hypotensive episode of unspecified hypotension ( ) Most likely due to hypotensive episode of specified hypotension. Please Specify ( ) Most likely due to possible TIA ( ) Most likely due to Other: Please Specify Physician's Response(s): Thank you Lanette Hopkins Principal Diagnosis: "that condition established after study, to be chiefly responsible for occasioning the admission of the patient to the hospital for care." Co-Existing Principal Diagnosis: "when two or more diagnoses equally meet the criteria for principal diagnosis as determined by the circumstances of admission, diagnostic work up, and/or therapy provided, and the Alphabetic Index, Tabular List, or another coding guideline does not provide sequencing direction, any one of the diagnoses may be sequenced first." "When the physician has documented what appears to be a current diagnosis in the body of the record, but has not included the diagnosis in the final diagnostic statement, the physician should be asked whether the diagnosis should be added." (Source Coding [facility] 2 QTR90. p3-4) JOS
== END 2021-02-10 15:41 | DRG 314 ==
LOC: 1E 13:28 → ED 13:28 → SUATTDRO 17:15 → 1E 17:54 → 2N 02-07 15:29